=== PATIENT | female | born 1960 | race Hispanic/Latino ===

== ENCOUNTER 2025-05-22 00:46 | Emergency (ER) | payer OTHER ==
--- OUTSIDE RECORDS SUMMARY | 2025-05-22 01:24 | XMS REPORT | Continuity of Care Document ---
Author Name Unknown Address [address] [facility] [address] [place] [address] [facility] Address [address] [facility] [address] [place] [address] Care Team Providers Care Store Operations Specialist Name Role Phone Vincenzo London Primary Care Physician YANG LOVE NATASHA Attending Clinician Rain ilable [id number] Attending Clinician Unavailable CONCHA ROMERO Attending Clinician KARTHIK Gray Attending Clinician UnavailJASON Grimes Attending Clinician Unavailable BEN REMY Attending Clinician Unavailable GENEVIEVE CANSECO Attending Clinician Unavailable ZOILA QUINONES Attending Clinician Unavailable ZOILA QUINONES Attending Clinician Unavailable DEEJAY FARIAS Attending Clinician Unavailable DOC OLIVIA Attending Clinician UnavailSAM De Paz Attending Clinician UnavailDeejay Ward Attending Clinician +[phone] Tessa JACOB, Robert Hudson Attending Clinician +[phone] Heather Lord Attending Clinician + [phone] Vincenzo London Attending Clinician +[phone] VIRGILIO CARDENAS Attending Clinician Unavailable ADINA CHRISTIANSON Attending Clinician Unavailable NAUN TOMLINSON Attending Clinician Unavailable NAUN TOMLINSON Attending Clinician Unavailable Pob, Adc Lab Main Attending Clinician Unavailrenard Osorio MD, Jason Attending Clinician +- [phone] Cruzito JACOB, Luis Gonzalez Attending Clinician + [phone] Fabiana Vazquez MD Attending Clinician +[phone] HEATHER CÁRDENAS Attending Clinician Unavailable TYRESE BALDWIN Attending Clinician Unavailable Jarret JACOB, Marilou Booker Attending Clinici an Hadley JACOB, John Lombardo Attending Clinician + [phone] FABIANA VAZQUEZ Attending Clinician Unava Katerina Young RN Attending Clinician Unavailable Doctor Unassigned, Mendes Attending Clinician U katjaailMITCH Quiles Attending Clinician Unavailable MITCH GNOZALEZ Attending Clinician Unavailable Nurse, Transplant Attending Clinician Unavailrenard contreras Lab, Ang - Db Attending Clinician Unavailable Naun Tomlinson MD Attending Clinician + [phone] VINCENZO FELDER Attending Clinician Unavailable Zoila Quinones MD Attending Clinician [phone] Mitch Gonzalez MD Attending Clinician +[phone] JENSEN SORTO Attending Clinician Unavailable Jensen Sorto MD Attending Clinician +[phone] Mariangel Montelongo Attending Clinician Unavailable Kin Moya Attending Clinician Unava NICKIE Dave Attending Clinician Unavailable Nickie Samayoa NP Attending Clinician +[phone] MANNIE RITCHIE Attending Clinician Unavailable Mannie Koenig Attending Clinician +[phone] JERICA COLIN Attending Clinician Unavailable ROBERT SALEH Attending Clinician Unavailable ROBERT SALEH Attending Clinician Unavailable Genevieve Canseco MD Attending Clinician +[phone] Transplant, Kidney Medicine Attending Clinician Unavailable JOHN BUTCHER Attending Clinician Unavailab poole Vtc-Lab Attending Clinician Unavailable LUIS EAST Attending Clinician Unavaila balaji Daniel MD, Genet Hickman Attending Clinician + [phone] Lucia Riggins DO Attending Clinician +[phone] Ang OBANDO, Napoleon Irizarry Attending Clinician U Kaveh Palencia Attending Clinician Unavailable LUCIA RIGGINS Attending Clinician Unavailable LUCIA RIGGINS Attending Clinician Unavailable Sudhir JACOB, Doc K.HJustyna Attending Clinician + [phone] Deejay Middleton Attending Clinician +[phone] Emerita RESIDENTIAL HOUSEKEEPER, Vincenzo Attending Clinician [phone] TORRIE DANIEL Attending Clinician UnavailCLIF Vance Attending Clinician Unavailable CLIF FERNANDEZ Attending Clinician Unavailable Macario JACOB, Jensen Attending Clinician +[phone] Genevieve Canseco MD Attending Clinician +[phone] Doctor Unassigned, Mendes Attending Clinician U zahira Nurse, Clc Bls Gen Surgery Attending Clinician U zahira Butcher MD, John Lombardo Attending Clinician + [phone] Kalpana Goff Attending Clinician +[phone] KALPANA VAZQUEZ Attending Clinician Unavaila Luis Shine MD Attending Clinician +[phone] Pob, Adc Lab Main Attending Clinician Unavailrenard Vazquez MD, Fabiana Yuan Attending Clinician [phone] Grady JACOB, Jaylene Attending Clinician +[phone] JOANA GOETZ Attending Clinician Unavailable JOANA GOETZ Attending Clinician Unavailable Allegra Dubois MD Attending Clinician + [phone] ALLEGRA DUBOIS Attending Clinician Tristan June Attending Clinician Unavailable Rome PAC, Tristan Vincent Attending Clinician +[phone] Fredy JACOB, Torrie Attending Clinician +[phone] Vtc-Lab Attending Clinician Unavailable Pedro JACOB, Al Attending Clinician +[phone] BRADLEY KOHLER Attending Clinician UnavailBRADLEY Huffman Attending Clinician Unavailrenard Kohler MD, Bradley Rey Attending Clinician +[phone] ANYI THOMAS Attending Clinician Mitzy mckinley Nurse, Zak Db Attending Clinician Unavailable Lab, Ang - Db Attending Clinician Unavailable Zenon JACOB, Bhumi Attending Clinician +- [phone] Cory JACOB, Sam Arce Attending Clinician +- [phone] Melia NETTLES, Heather Gonzalez Attending Clinician +[phone] EM PEREZ Attending Clinician Unavailable Chris JACOB, Em Attending Clinician +[phone] Viet JACOB, Juliocesar Sarkar Attending Clinician +[phone] JULIOCESAR ALFARO Attending Clinician Unavaila balaji Shukla RN, Loli Yuan Attending Clinician Phillip Shea RN, Arsenio Gonzalez Attending Clinician Unavail able JASON BEARD Attending Clinician Phillip Chow MD, Earl Mckeon Attending Clinician +[phone] Jason Beard MD Attending Clinician + [phone] Devante Rothman MD Attending Clinician UnavailPATRICK Pritchett Attending Clinician Unavailable PATRICK HALE Attending Clinician Unavailable LENA SCHWARTZ Attending Clinician Unavailable Lena Maxwell Attending Clinician +[phone] JAYLENE RASMUSSEN Attending Clinician Unavailable Gisselle JACOB, Becky Hartmann Attending Clinician +[phone] Bryn Myers LVN Attending Clinician Phillip sullivan Exhibit Builder, Transplant Attending Clinician Phillip Daniel MD, Genet Hickman Attending Clinician Mitzy mckinley BABIN CDE, Colin Echols Attending Clinician Arnaldo Aguilar RN, Marialuisa Attending Clinician Unavailable RYAN WARNER Attending Clinician Unavailable Alana JACOB, Ryan Attending Clinician +[phone] THERON CARTER Attending Clinician Unavailable JULIANE WORLEY Attending Clinician Unavailable Meir JACOB, Juliane Attending Clinician +[phone] TAMIA JUDGE Attending Clinician Unavailable GENET DANIEL Attending Clinician DEVANTE Coelho Attending Clinician Unavailable DARON AVILA Attending Clinician Unavailable Darno Avila MD Attending Clinician [phone] ALISON MONTALVO Attending Clinician Unavaillisa Montalvo MD, Alison Gonzalez Attending Clinician + [phone] Nakul Lopez Attending Clinician +[phone] Singer ALMAGUER, Mohamud Attending Clinician +[phone] MOHAMUD GRACIA Attending Clinician Unavailable Jose Clay MD Attending Clinician +[phone] Nick JACOB, Concha Fierro Attending Clinician +[phone] RONAN DOBBS Attending Clinician Unavailable Morteza JACOB, Ronan Attending Clinician +[phone] DOREEN SMITH Attending Clinician Unavailable Guevara JACOB, Doreen Attending Clinician +[phone] Alek JACOB, Es Attending Clinician +[phone] Ben Remy MD Attending Clinician [phone] Bailey Mcfarlane DO Attending Clinician +[phone] Mikey Sanchez [facility], Laila Berger Attending Clinic noé Unavailable Rojelio Albright MD Attending Clinician [phone] Only, Adc Test Attending Clinician Unavailable GINNA REYES Attending Clinician Unavailable Eric CARABALLO, Ginna Attending Clinician +[phone] Sebastian CARABALLO, Michael Mcclure Attending Clinician [phone] Jason Dick MD Attending Clinician +[phone] Anne Ro MD Attending Clinician +[phone] Omer OBANDO, Rachel Meeks Attending Clinician Unavaila Jass Pimentel Attending Clinician + [phone] JASS STEVE Attending Clinician Unavailable Pati JACOB, Nish Berger Attending Clinician +[phone] [facility] Attendin g Clinician Unavailable Deon JACOB, Erin Attending Clinician +[phone] Tayo JACOB, Delvin Marino Attending Clinician + [phone] DELVIN RUIZ Attending Clinician Unavailable JOSE CLAY Attending Clinician Unavailable [facility] Attending Clinician Unavailable Jason Osorio MD Attending Clinician + [phone] JASON OSORIO Attending Clinician Unavailabl Jorge Luis Michaels MD Attending Clinician +[phone] JORGE LUIS HUSTON Attending Clinician Unavailable MICHAEL CORTES Attending Clinician Unavailab virgilio Lindquist MD, Karthik Attending Clinician +- [phone] STEPHENIE LOPEZ Attending Clinician Unavaila Valentine Guevara MD Attending Clinician +[phone] VALENTINE ROBERTS Attending Clinician Unavailable 1, [facility] Attending Clinician Unavailable Kelsey Chou MD Attending Clinician +[phone] KELSEY CHOU Attending Clinician Unavailable CHIO POLLARD Attending Clinician Unavaila ble Care, Rosa Adult Urgent Attending Clinician Unava ilable Unknown, Attending Attending Clinician Unavailab le UNKNOWN, ATTENDING Attending Clinician Unavailab le CHANG, HERMELINDA A Attending Clinician Unava ilJerry Pendleton MD Attending Clinician +[phone] Room, [facility] Uro Procedure Attending Clinician Unav ailJERRY Pendleton Attending Clinician Unavailable Carmen Armstrong LCSW Attending Clinician Unavailable John Seals MD Attending Clinician [phone] JOHN SEALS Attending Clinician Unavailable Nurse, [facility] Antico Attending Clinician Unavaillisa Sánchez MD, Adalid Brady Attending Clinician ADALID SÁNCHEZ Attending Clinician Mitzy mckinley Dawkins RN, Allison Berger Attending Clinician + [phone] Chang HART, Hermelinda A Attending Clinician + Bess JACOB, Eloisa Hudson Attending Clinician + [phone] Leon JACOB, Daniel Meeks Attending Clinician Audi Gallegos Attending Clinician Unavailable ANNE RO Attending Clinician Unavailab virgilio Vanegas MD, John Attending Clinician +[phone] BRANT LECHUGA Attending Clinician Unavail able Carmita JACOB, Gorge Attending Clinician +[phone] Libra OBANDO, Missy Attending Clinician +[phone] Leobardo JACOB, Tomy Shaw Attending Clinician + [phone] Brant Lechuga DO Attending Clinician +[phone] Julia JACOB, Raz Martel Attending Clinician + [phone] Clinton CARABALLO, Veronica Gonzalez Attending Clinician +[phone] Melvin JACOB, Estephania Attending Clinician +[phone] BECKY YUNG Attending Clinician Unavailable YANG LOVE YANG Admitting Clinician Unava ilable [phone] Admitting Clinician Unavailable CONCHA ROMERO Admitting Clinician UnavaKARTHIK Casillas Admitting Clinician UnavailJASON Grimes Admitting Clinician Unavailable BEN REMY Admitting Clinician Unavailable JENSEN SORTO Admitting Clinician Unavailable Lucia Riggins DO Admitting Clinician [phone] LUCIA RIGGINS Admitting Clinician Unavailable GENEVIEVE CANSECO Admitting Clinician Unavailable Genevieve Canseco MD Admitting Clinician +[phone] DOC OLIVIA.HJustyna Admitting Clinician Unavaila JASON Kinsey Admitting Clinician Phillip Beard MD, Jason Santiago Admitting Clinician + [phone] RYAN WARNER Admitting Clinician Unavailable Ryan Warner MD Admitting Clinician +[phone] JULIANE WORLEY Admitting Clinician Unavailable GENET DANIEL Admitting Clinician UnaES Alvarenga Admitting Clinician Unavailable Gaston MD, Es Admitting Clinician [phone] Cordelia JACOB, Jose Admitting Clinician Nick JACOB, Concha Fierro Admitting Clinician +[phone] Vinay JACOB, Karthik Admitting Clinician Mayelin JACOB, Jason Admitting Clinician Leon JACOB, Daniel Meeks Admitting Clinician JOHN VANEGAS Admitting Clinician Unavailable Guilherme JACOB, John Admitting Clinician BRANT LECHUGA Admitting Clinician Unavail jerzy Dumont MD, Raz Martel Admitting Clinician [phone] Melvin JACOB, Estephania Admitting Clinician EMERGENCY ROOM, EMERGENCY Admitting Clinician Un available Payers Payer Name Policy Type Policy Number Effective Date Expirati on Date Source [facility] [id number] MEDICARE PART A \\T\\ B [id number] 2015 00:00:00 [employer] H[employer] [id number] 2022 00:00:00 Problems Condition Name Condition Details Condition Category Status Onset Date Resolution Date Last Treatment Date Treating Clinician Comments Source Fecal urgency Fecal urgency Disease Active 09-01 00:00: 00 [facility] Change in bowel habits Change in bowel habits Disease Active 09-01 00:00: 00 [facility] Gastroesop hageal reflux disease, unspecifie d whether esophagiti s present Gastroesop hageal reflux disease, unspecifie d whether esophagiti s present Disease Active 09-01 00:00: 00 [facility] Dyslipidem ia Dyslipidem ia Disease Active 9-03 00:00: 00 [facility] Elevated blood pressure reading Elevated blood pressure reading Disease Active 8- 00:00: 00 [facility] Trigger finger, left middle finger Trigger finger, left middle finger Disease Active 2022-08 2- 00:00: 00 [facility] Mixed hyperlipid emia Mixed hyperlipid emia Disease Active 0 9-16 00:00: 00 [facility] Chronic rhinitis Chronic rhinitis Disease Active 7-07 00:00: 00 [facility] Stage 3 chronic kidney disease Stage 3 chronic kidney disease Disease Active 0 3-31 00:00: 00 [facility] Biliary cast syndrome Biliary cast syndrome Disease Active 5-18 00:00: 00 Overview: Formattin g of this note might be different from the original. Added automatic ally from request for surgery [id number] 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 Added automatic ally from request for surgery [id number] [facility] Acute kidney injury Acute kidney injury Disease Active 4-20 00:00: 00 [facility] Acute kidney injury Acute kidney injury Disease Active 4-20 00:00: 00 [facility] Transamini tis Transamini tis Disease Active 2019-08 0-23 00:00: 00 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 Added automatic ally from request for surgery [id number] [facility] Choledocho lithiasis Choledocho lithiasis Disease Active 9-25 00:00: 00 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 Incisional hernia, without obstructio n or gangrene Incisional hernia, without obstructio n or gangrene Disease Active 7-20 00:00: 00 [facility] Immunocomp romised state Immunocomp romised state Disease Active 6-22 00:00: 00 [facility] Liver transplant recipient Liver transplant recipient Disease Active 5-18 00:00: 00 [facility] Kidney transplant recipient Kidney transplant recipient Disease Active 517 00:00: 00 Overview: Formattin g of this note might be different from the original. Added automatic ally from request for surgery [id number] [facility] Cyst, kidney, acquired Cyst, kidney, acquired Disease Active 2018-08- 00:00: 00 [facility] Pseudophak ia of both eyes Pseudophak ia of both eyes Disease Active 2018-08 0 00:00: 00 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 Added automatic ally from request for surgery [id number] [facility] Obesity (BMI 30-39.9) Obesity (BMI 30-39.9) Disease Active 2016-08 2 00:00: 00 [facility] Type 2 diabetes mellitus with hyperglyce elizabeth, with long-term current use of insulin Type 2 diabetes mellitus with hyperglyce elizabeth, with long-term current use of insulin Disease Active 2008-08 00:00: 00 Overview: Formattin g of this note might be different from the original. 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 Type 2 diabetes mellitus with hyperglyce elizabeth, with long-term current use of insulin Type 2 diabetes mellitus with hyperglyce elizabeth, with long-term current use of insulin Disease Active 2008-08 00:00: 00 Overview: Formattin g of this note might be different from the original. 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 Type 2 diabetes mellitus with hyperglyce elizabeth, with long-term current use of insulin Type 2 diabetes mellitus with hyperglyce elizabeth, with long-term current use of insulin Disease Active 2008-08 00:00: 00 Overview: Formattin g of this note might be different from the original. 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 Essential hypertensi on Essential hypertensi on Disease Active [facility] Ventral hernia without obstructio n or gangrene Ventral hernia without obstructio n or gangrene Disease Resolve d 3-26 00:00: 00 2024-03-17 00:00:00 2024-03-17 12:38:57 [facility] Vomiting, unspecifie d vomiting type, unspecifie d whether nausea present Vomiting, unspecifie d vomiting type, unspecifie d whether nausea present Disease Resolve d 5-28 00:00: 00 2024-03-17 00:00:00 2024-03-17 12:38:52 [facility] Multiple persistent symptoms after COVID-19 Multiple persistent symptoms after COVID-19 Disease Resolve d 3-08 00:00: 00 2024-03-17 00:00:00 2024-03-17 12:38:47 [facility] Upper respirator y tract infection, unspecifie d type Upper respirator y tract infection, unspecifie d type Disease Resolve d 3-08 00:00: 00 2024-03-17 00:00:00 2024-03-17 12:38:48 [facility] Acute conjunctiv itis of both eyes, unspecifie d acute conjunctiv itis type Acute conjunctiv itis of both eyes, unspecifie d acute conjunctiv itis type Disease Resolve d 3-08 00:00: 00 2024-03-17 00:00:00 2024-03-17 12:38:49 [facility] Acute conjunctiv itis of both eyes, unspecifie d acute conjunctiv itis type Acute conjunctiv itis of both eyes, unspecifie d acute conjunctiv itis type Disease Resolve d 3-08 00:00: 00 2024-03-17 00:00:00 2024-03-17 12:38:49 [facility] Vomiting, intractabi lity of vomiting not specified, presence of nausea not specified, unspecifie d vomiting type Vomiting, intractabi lity of vomiting not specified, presence of nausea not specified, unspecifie d vomiting type Disease Resolve d 8-02 00:00: 00 2024-03-17 00:00:00 2024-03-17 12:38:46 [facility] Abdominal pain Abdominal pain Disease Resolve d 2-12 00:00: 00 2024-03-17 00:00:00 2024-03-17 12:38:44 [facility] Fever and chills Fever and chills Disease Resolve d 2020-08 1-16 00:00: 00 2024-03-17 00:00:00 2024-03-17 12:38:43 [facility] Immunosupp ressed status Immunosupp ressed status Disease Resolve d 5-26 00:00: 00 2024-03-17 00:00:00 2024-03-17 12:39:03 [facility] Altered mental status, unspecifie d altered mental status type Altered mental status, unspecifie d altered mental status type Disease Resolve d 2-03 00:00: 00 2024-03-17 00:00:00 2024-03-17 12:39:07 Overview: Formattin g of this note might be different from the original. Added automatic ally from request for surgery [id number] [facility] Pancreatit is, acute Pancreatit is, acute Disease Resolve d 4-14 00:00: 00 2024-03-17 00:00:00 2024-03-17 12:38:37 [facility] UTI (urinary tract infection) UTI (urinary tract infection) Disease Resolve d 7-20 00:00: 00 2020-02-21 00:00:00 2020-02-21 14:58:09 [facility] Nausea and vomiting Nausea and vomiting Disease Resolve d 6-26 00:00: 00 2020-02-15 00:00:00 2020-02-15 12:22:06 [facility] Liver transplant candidate Liver transplant candidate Disease Resolve d 0 4-19 00:00: 00 2019-12-28 00:00:00 2019-12-28 08:40:21 [facility] Anticoagul ation management encounter Anticoagul ation management encounter Disease Resolve d 2-12 00:00: 00 2019-12-28 00:00:00 2019-12-28 08:41:02 [facility] Portal vein thrombosis Portal vein thrombosis Disease Resolve d 2-12 00:00: 00 2019-12-28 00:00:00 2019-12-28 08:41:05 [facility] Cirrhosis of liver without ascites, unspecifie d hepatic cirrhosis type Cirrhosis of liver without ascites, unspecifie d hepatic cirrhosis type Disease Resolve d 2-03 00:00: 00 2019-12-28 00:00:00 2019-12-28 08:40:59 [facility] ESRD on peritoneal dialysis ESRD on peritoneal dialysis Disease Resolve d 9-05 00:00: 00 2019-12-28 00:00:00 2019-12-28 08:40:55 [facility] Cirrhosis Cirrhosis Disease Resolve d 2008-08 1-11 00:00: 00 2019-12-28 00:00:00 2019-12-28 08:40:52 [facility] AMS (altered mental status) AMS (altered mental status) Disease Resolve d 1-14 00:00: 00 2019-09-09 00:00:00 2019-09-09 14:38:14 [facility] Altered mental state Altered mental state Disease Resolve d 1-13 00:00: 00 2019-09-09 00:00:00 2019-09-09 14:39:04 [facility] Dry eye syndrome Dry eye syndrome Disease Resolve d 2018-08 0-01 00:00: 00 2019-09-09 00:00:00 2019-09-09 14:39:00 [facility] Hypoglycem ia Hypoglycem ia Disease Resolve d 9-06 00:00: 00 2019-09-09 00:00:00 2019-09-09 14:38:56 [facility] Hyperosmol ality syndrome Hyperosmol ality syndrome Disease Resolve d 1-07 00:00: 00 2019-09-09 00:00:00 2019-09-09 14:39:18 [facility] Hepatic encephalop athy Hepatic encephalop athy Disease Resolve d 2016- 2-23 00:00: 00 2019-09-09 00:00:00 2019-09-09 14:39:32 [facility] Allergies, Adverse Reactions, Alerts Allergy Name Allergy Type Status Severity Reaction(s) Onset Date Inactive Date Treating Clinician Comments Source FLUDROCO RTISONE DRUG INGREDI Active N/V 04-06 00:00: 00 [facility] MIDODRIN E DRUG INGREDI Active Other-Cmnt 04-06 00:00: 00 [facility] Fludroco rtisone Propensi ty to adverse reaction s Active Nausea and/or Vomiting 04-06 00:00: [address] [facility] Midodrin e Propensi ty to adverse reaction s Active Other - See comments 04-06 00:00: 00 Pain, pins and needles sensation [facility] ACETAMIN OPHEN-CO DEINE DRUG Active High Hallucinates 02-19 00:00: 00 [facility] Acetamin ophen-Co deine Propensi ty to adverse reaction s Active Hallucinatio ns 02-19 00:00: 00 [facility] Family History Family Member Diagnosis Comments Start Date Stop Date Sourc e Natural father Unive [facility] Natural mother [facility] Social History Social Habit Start Date Stop Date Quantity Comments Source History SDOH Alcohol Std Drinks [facility] History SDOH Alcohol Binge [facility] History SDOH Social Connections Get Together [facility] History SDOH Social Connections Sabianism [facility] History SDOH Social Connections Membership [facility] History SDOH Social Connections Meetings [facility] Gender identity [facility] Not [facility] History of Occupation [facility] Alcoholic beverage intake 2025-05-20 00:00:00 2025-05-20 00:00:00 Ex-drinker (finding) [facility] History of Social function 2024-12-01 00:00:00 2024-12-01 00:00:00 [facility] Alcohol intake 2023-12-04 00:00:00 2023-12-04 00:00:00 Ex-drinker (finding) [facility] History SDOH Alcohol Frequency 2022-12-31 00:00:00 2022-12-31 00:00:00 1 [facility] History SDOH Social Connections Phone 2022-12-31 00:00:00 2022-12-31 00:00:00 5 [facility] History SDOH Social Connections Living 2022-12-31 00:00:00 2022-12-31 00:00:00 5 [facility] History SDOH Physical Activity DPW 2022-12-31 00:00:00 2022-12-31 00:00:00 5 [facility] History SDOH Physical Activity MPS 2022-12-31 00:00:00 2022-12-31 00:00:00 3 [facility] History SDOH Housing Unable to Pay 2022-12-31 00:00:00 2022-12-31 00:00:00 2 [facility] History SDOH Housing Places Lived 2022-12-31 00:00:00 2022-12-31 00:00:00 1 [facility] History SDOH Housing Homeless Last Year 2022-12-31 00:00:00 2022-12-31 00:00:00 2 [facility] History SDOH Financial 2022-12-31 00:00:00 2022-12-31 00:00:00 5 [facility] History SDOH Food Worry 2022-12-31 00:00:00 2022-12-31 00:00:00 1 [facility] History SDOH Food Scarcity 2022-12-31 00:00:00 2022-12-31 00:00:00 1 [facility] History SDOH Transport Med 2022-12-31 00:00:00 2022-12-31 00:00:00 2 [facility] History SDOH Transport Non-Med 2022-12-31 00:00:00 2022-12-31 00:00:00 2 [facility] Exposure to SARS-CoV-2 (event) 2022-12-19 00:00:00 2022-12-29 16:25:00 Not sure [facility] Tobacco use and exposure 2022-08-13 00:00:00 2022-08-13 00:00:00 Smokeless tobacco non-user [facility] Sex assigned at 1960 00:00:00 1960 00:00:00 [facility] Smoking Status Start Date Stop Date Source Never smoked tobacco [facility] Medications Ordered Medication Name Filled Medication Name Start Date Stop Date Current Medication? Ordering Clinician Indication Dosage Frequency Signature (SIG) Comments Components Source Insulin Glargine (LANTUS SOLOSTAR U-100 INSULIN) 100 unit/mL (3 mL) injection 2024-08 00:00: 00 Yes [id number] 9109 10U Inject 10 units under the skin at bedtime. (DISCARD PEN 28 DAYS AFTER OPENING) [facility] Insulin [place], Disposable, (BD KARI 2ND GEN PEN NEEDLE) 32 gauge x 5/32" Ndle 2024-08 00:00: 00 05-20 00:00 :00 Yes [id number] 9109 Use to check blood sugar four times daily for dx e11.95 [facility] Blood-Gluco se Sensor (FREESTYLE TRICIA 3 PLUS SENSOR) [place] 2024-08 00:00: 00 05-20 00:00 :00 Yes [id number] 9109 Change every [address] [facility] insulin aspart U-100 (NOVOLOG FLEXPEN U-100 INSULIN) 100 unit/mL (3 mL) injection 2024-08 00:00: 00 05-20 00:00 :00 Yes [id number] 9109 If BG is 150 -180, take an additional 2 units with normal 5 units If BG is 180 -210, take an additional 4 units with normal 5 units If BG is 210 -240, take an additional 6 units with normal 5 units If BG is 240 -270, take an additional 8 units with normal 5 units If BG is 270 -300, take an additional 10 units with normal 5 units If BG is 300 -330, take an additional 12 units with normal 5 units If BG is 330 -360, take an additional 14 units with normal 5 units If BG is higher than 360, take an additional 16 units with normal 5 units. And check you BG again in 2 hours to see where you are. MAX DAILY DOSE [address] [facility] PREDNISONE 5 mg tablet 2024-08 0 00:00: 00 Yes [id number] 5mg TAKE 1 TABLET BY MOUTH IN THE MORNING [facility] predniSONE 5 mg tablet 05-02 00:00: 00 05-10 00:00 :00 No [id number] 5mg TAKE 1 TABLET BY MOUTH IN THE MORNING [facility] Blood-Gluco se Sensor (FREESTYLE TRICIA 3 PLUS SENSOR) [place] 04-30 00:00: 00 05-20 00:00 :00 No Change every [address] [facility] cephALEXin 500 mg capsule 04-27 00:00: 05-08 04:59 :00 Yes [id number] 500mg Take 1 capsule by mouth 4 times daily for [address] [facility] PREDNISONE 5 mg tablet 04-11 00:00: 00 Yes [id number] 5mg TAKE 1 TABLET BY MOUTH IN THE MORNING [facility] cefUROXime 250 mg tablet 02-24 00:00: 03-04 04:59 :00 Yes [id number] 250mg Take 1 tablet by mouth in the morning for [address] [facility] gabapentin 300 mg capsule 02-08 00:00: 00 Yes [id number] 300mg Take 1 capsule by mouth in the morning. [facility] Nitrofurant oin&Nit. Macrocryst (MACROBID) 100 mg capsule 02-08 00:00: 00 02-24 00:00 :00 No [id number] 100mg Take 1 capsule by mouth in the morning and 1 capsule in the evening. [facility] MYCOPHENOLA TE SODIUM 180 mg EC tablet 01-24 00:00: 00 Yes [id number] TAKE 2 TABLETS EVERY MORNING AND 2 TABLETS [address]. [facility] Blood-Gluco se Sensor (FREESTYLE TRICIA 3 PLUS SENSOR) [place] 01-10 00:00: 00 04-30 00:00 :00 No USE DIRECTED - REPLACE EVERY [address] [facility] Blood-Gluco se Sensor (FREESTYLE TRICIA 3 PLUS SENSOR) [place] 5-12 00:00: 00 01-10 00:00 :00 No USE DIRECTED; REPLACE EVERY [address] [facility] erythromyci n 5 mg/gram (0.5 %) ophthalmic ointment 4-30 00:00: 00 Yes [id number] 38750 .5[in_u s] Place 0.5 Inches in both eyes in the morning and 0.5 Inches in the evening. [facility] sulfamethox azole-trime thoprim (BACTRIM DS) 800-160 mg per tablet 11-29 00:00: 00 12-03 04:59 :00 No [id number] 1{tbl} Take 1 tablet by mouth in the morning and 1 tablet in the evening. Do all this for [address] [facility] tacrolimus 0.5 mg capsule 11-24 00:00: 00 Yes [id number] Take 2 capsules by mouth every morning AND [address] [facility] montelukast 10 mg tablet 3-24 00:00: 00 Yes [id number] 10mg Take 1 tablet by mouth in the morning. [facility] metoprolol succinate XL 25 mg 24 hr tablet 3-20 00:00: 00 Yes [id number] 9109 25mg Take 1 tablet by mouth in the morning. [facility] cefTRIAXone (ROCEPHIN) 1,000 mg in water for injection, sterile 10 mL IV Push 09-12 22:30: 00 09-12 22:37 :00 No 1000mg 1,000 mg, Intravenou s, ONCE, 1 dose, On Fri09/12/24 at 1630, 10 mL, Reason for Anti-Infec tive: Documented Infection, Documented Infection Site: Urine, Duration of Therapy: Once (ED) [facility] sodium chloride (NS) injection 5 mL 09-12 20:42: 14 Yes 5mL 5 mL, Intravenou s, PRN, Starting on Fri09/12/24 at 1442, Until Discontinu ed, Routine, IV line flushing [facility] cefpodoxime 200 mg tablet 09-12 00:00: 00 09-23 05:59 :00 No [id number] 200mg Take 1 tablet by mouth in the morning and 1 tablet in the evening. Do all this for [address] [facility] oseltamivir (TAMIFLU) 75 mg capsule 09-12 00:00: 00 09-18 05:59 :00 No [id number] 75mg Take 1 capsule by mouth in the morning for [address] [facility] Blood-Gluco se Sensor (FREESTYLE TRICIA 3 PLUS SENSOR) [place] 08-13 00:00: 00 Yes Use as directed; change q15d [facility] insulin aspart U-100 (NOVOLOG FLEXPEN U-100 INSULIN) 100 unit/mL (3 mL) injection 08-13 00:00: 00 05-20 00:00 :00 No [id number] 9109 USE DIRECTED BY YOUR PRESCRIBER . COMPLETE DIRECTIONS ARE INCLUDED IN A LETTER WITH YOUR ORIGINAL ORDER [facility] Blood-Gluco se Sensor (FREESTYLE TRICIA 3 PLUS SENSOR) [place] 08-13 00:00: 00 12-13 00:00 :00 No Use as directed; change q15d [facility] levoFLOXaci n 500 mg tablet 08-12 00:00: 00 10-25 00:00 :00 No [id number] 500mg Take 1 tablet by mouth every 24 (twenty-fo ur) hours. [facility] Insulin Glargine (LANTUS SOLOSTAR U-100 INSULIN) 100 unit/mL (3 mL) injection 08-06 00:00: 00 05-20 00:00 :00 No [id number] 9109 10U inject 10 Units under the skin at bedtime. (DISCARD PEN 28 DAYS AFTER OPENING) [facility] benzonatate 100 mg capsule 08-06 00:00: 00 10-25 00:00 :00 No [id number] 100mg Take 1 capsule by mouth every 8 (eight) hours as needed for Cough. [facility] azelastine 137 mcg (0.1 %) nasal spray 08-06 00:00: 00 10-25 00:00 :00 No [id number] 1{spray } Use 1 [place] in each nostril in the morning and 1 [place] in the evening. Use in each nostril as directed [facility] TACROLIMUS 0.5 mg capsule 2023-08 00:00: 00 11-24 00:00 :00 No [id number] TAKE 1 CAPSULE EVERY 12 HOURS FOR KIDNEY TRANSPLANT , LIVER TRANSPLANT [facility] lidocaine (XYLOCAINE) 2 % jelly URO-JET 10 mL 2023-08 22:30: 00 07-23 22:23 :00 No [id number] 10mL 10 mL, Urethral, ONCE, 1 dose, On Fri07/23/24 at 1630, Routine [facility] sulfamethox azole-trime thoprim 800-160 mg per tablet 2023-08 00:00: 00 07-23 05:59 :00 No [id number] 1{tbl} Take 1 tablet by mouth in the morning and 1 tablet in the evening. Do all this for [address] [facility] montelukast 10 mg tablet 2023-08 00:00: 00 10-25 00:00 :00 No [id number] 10mg Take 1 tablet by mouth in the morning. [facility] gabapentin 300 mg capsule 2023-08 00:00: 00 02-08 00:00 :00 No [id number] 300mg Take 1 capsule by mouth in the morning. [facility] pantoprazol e 40 mg EC tablet 2023-08 00:00: 00 09-12 00:00 :00 No [id number] 40mg Take 1 tablet by mouth every morning. [facility] cephALEXin 500 mg capsule 2023-08- 00:00: 00 06-24 05:59 :00 No [id number] 500mg Take 1 capsule by mouth in the morning and 1 capsule at noon and 1 capsule in the evening. Do all this for [address] [facility] promethazin e-dextromet horphan 6.25-15 mg/5 mL syrup 2023-08 00:00: 00 07-05 00:00 :00 No [id number] 5mL Take 5 mL by mouth 4 (four) times daily as needed for Cough. [facility] promethazin e-dextromet horphan 6.25-15 mg/5 mL syrup 2023-08 00:00: 00 06-14 00:00 :00 No [id number] 5mL Take 5 mL by mouth 4 (four) times daily as needed for Cough. [facility] Blood-Gluco se Sensor (FREESTYLE TRICIA 3 PLUS SENSOR) [place] 2023-08 00:00: 00 08-13 00:00 :00 No Use as directed; change q15d [facility] Blood-Gluco se Sensor (FREESTYLE TRICIA 3 PLUS SENSOR) [place] 2023-08 0 00:00: 00 06-01 00:00 :00 No Use as directed; change q15d [facility] Blood-Gluco se Sensor (FREESTYLE TRICIA 3 SENSOR) 2023-08 0-17 00:00: 00 05-26 00:00 :00 No [id number] [address] [facility] ciprofloxac in HCl (CIPRO) 250 mg tablet 05-03 00:00: 00 05-14 04:59 :00 No [id number] 250mg Take 1 tablet by mouth every 12 (twelve) hours for [address] [facility] BD KARI 2ND GEN PEN NEEDLE 32 gauge x 5/32" Ndle 24 00:00: 00 Yes [id number] 9109 USE TO INJECT INSULIN FIVE TIMES DAILY [facility] BD KARI 2ND GEN PEN NEEDLE 32 gauge x 5/32" Ndle 24 00:00: 05-20 00:00 :00 No [id number] 9109 USE TO INJECT INSULIN FIVE TIMES DAILY [facility] acyclovir 400 mg tablet 04-19 00:00: 00 04-27 04:59 :00 No [id number] 400mg Take 1 tablet by mouth in the morning and 1 tablet at noon and 1 tablet in the evening. Do all this for [address] [facility] insulin aspart U-100 (NOVOLOG FLEXPEN U-100 INSULIN) 100 unit/mL (3 mL) injection 04-06 00:00: 00 08-13 00:00 :00 No [id number] 9109 INJECT 3 UNITS IN MORNING, AT NOON, IN EVENING BEFORE MEALS PLUS SLIDING SCALE. MAX 45 UNITS/DAY. PEN EXPIRES 28 DAYS. For Aspart: Give half dose if patient eats less than half meal OR if blood glucose 80 - 120 mg/dL, HOLD DOSE if NPO or BG < [address] [facility] Insulin Glargine (LANTUS SOLOSTAR U-100 INSULIN) 100 unit/mL (3 mL) injection 04-06 00:00: 00 08-06 00:00 :00 No [id number] 9109 10U inject 10 Units under the skin every morning. (DISCARD PEN 28 DAYS AFTER OPENING) [facility] mycophenola te sodium 180 mg EC tablet 03-31 00:00: 00 01-24 00:00 :00 No [id number] Take 2 tablets by mouth every morning AND [address] [facility] predniSONE 5 mg tablet 03-29 00:00: 00 04-11 00:00 :00 No [id number] 5mg Take 1 tablet by mouth in the morning. [facility] predniSONE 20 mg tablet 03-29 00:00: 00 04-17 04:59 :00 No [id number] Take 4 tablets by mouth daily for 3 days, THEN 3 tablets daily for 3 days, THEN 2 tablets daily for 3 days, THEN 1 tablet daily for 3 days, THEN 1 tablet daily for 3 days, THEN 0.5 tablets daily for [address] [facility] mycophenola te sodium 180 mg EC tablet 03-29 00:00: 00 03-31 00:00 :00 No [id number] Take 2 tablets by mouth every morning AND [address] [facility] metoprolol succinate XL 25 mg 24 hr tablet 03-25 00:00: 00 Yes [id number] 25mg Take 1 tablet by mouth in the morning. [facility] pantoprazol e (PROTONIX) EC tablet 40 mg 03-20 14:00: 00 03-20 22:01 :55 No 40mg 40 mg, Oral, QAM, First dose on 03/20/24 at 0900, Until Discontinu ed, Routine [facility] mycophenola te sodium (MYFORTIC) EC tablet 360 mg 03-20 14:00: 00 03-20 22:01 :55 No 360mg [Order 1 Start] Name: mycophenol ate sodium (MYFORTIC) EC tablet 360 mg Signed Summary: 360 mg, Oral, QAM, First dose on 03/20/24 at 0900, Until Discontinu ed, Routine, Is patient of reproducti ve potential? No [Order 1 End] [Order 2 Start] Name: mycophenol ate sodium (MYFORTIC) EC tablet 180 mg Signed Summary: 180 mg, Oral, QPM, First dose on Fri03/19/24 at 1700, Until Discontinu ed, Routine, Is patient of reproducti ve potential? No [Order 2 End] [facility] metoprolol succinate XL (TOPROL XL) tablet 25 mg 03-20 14:00: 00 03-20 22:01 :55 No 25mg 25 mg, Oral, DAILY, First dose on 03/20/24 at 0900, Until Discontinu ed, Routine [facility] insulin glargine (LANTUS U-100) injection 10 Units 03-20 14:00: 00 03-20 22:01 :55 No 10U 10 Units, Subcutaneo us, DAILY, First dose on 03/20/24 at 0900, Until Discontinu ed [facility] gabapentin (NEURONTIN) capsule 300 mg 03-20 14:00: 00 03-20 22:01 :[address] [facility] heparin (porcine) injection 5,000 Units 03-20 01:00: 00 03-20 22:01 :55 No 5000U 5,000 Units, Subcutaneo us, Q12H, First dose on Fri03/19/24 at 1999, Until Discontinu ed, Routine 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 insulin lispro (human) (HumaLOG U-100) injection 3 Units 03-19 22:00: 00 03-20 22:01 :55 No 3U 3 Units, Subcutaneo us, TID MEALS, First dose on Fri03/19/24 at 1700, Until Discontinu ed, Routine [facility] ondansetron (ZOFRAN (PF)) injection 4 mg 03-19 21:45: 00 03-19 21:49 :00 No 4mg 4 mg, Slow IV Push, ONCE, On Fri03/19/24 at 1645, For 1 dose, Doses of ondansetro n 16 mg and above need to be administer ed via IV piggyback. For Dose >=24mg ECG monitoring is advisable. [facility] glucagon HCL injection 1 mg 03-19 20:55: 11 03-20 22:01 :55 No 1mg 1 mg, Intramuscu lar, PRN, Starting on Fri03/19/24 at 1555, Until Fri03/20/24 at 1701, MARÍA, Low blood sugar, Blood Glucose < or = 70 mg/dL and patient is NPO, unable to swallow or has mental changes. [facility] dextrose 50 % in water (D50W) injection 25 mL 03-19 20:55: 11 03-20 22:01 :55 No 25mL 25 mL, Slow IV Push, PRN, Starting on Fri03/19/24 at 1555, Until 03/20/24 at 1701, MARÍA, Blood Glucose < or = 70 mg/dL and patient is NPO, unable to swallow or has mental status changes. [facility] acetaminoph en (TYLENOL) tablet 650 mg 03-19 20:51: 08 03-20 22:01 :55 No 650mg 650 mg, Oral, Q6HPRN, Starting on Fri03/19/24 at 1551, Until 03/20/24 at 1701, Routine, Pain (scale 1-3) [facility] ondansetron (ZOFRAN (PF)) injection 03-19 18:00: 46 03-19 18:00 :46 No PRN, Starting on Fri03/19/24 at 1300, Until Fri03/19/24 at 1300, Routine, Intra-op [facility] ondansetron (ZOFRAN (PF)) injection 03-19 17:05: 25 03-19 17:05 :25 No Slow IV Push, PRN, Starting on Fri03/19/24 at 1205, Until Fri03/19/24 at 1205, Routine, Intra-op [facility] lidocaine 1% (PF) (XYLOCAINE) injection 03-19 16:48: 50 03-19 16:48 :50 No PRN, Starting on Fri03/19/24 at 1148, Until Fri03/19/24 at 1148, Routine, Intra-op [facility] hydralAZINE (APRESOLINE ) injection 03-19 16:26: 41 03-19 17:05 :00 No PRN, Starting on Fri03/19/24 at 1126, Until Fri03/19/24 at 1205, STAT, Intra-op [facility] fentanyl PF (SUBLIMAZE (PF)) injection 03-19 16:18: 47 03-19 16:18 :47 No Slow IV Push, PRN, Starting on Fri03/19/24 at 1118, Until Fri03/19/24 at 1118, Routine, Intra-op [facility] mycophenola te sodium 180 mg EC tablet 03-12 00:00: 00 03-29 00:00 :00 No Take 2 tablets by mouth every morning AND [address] [facility] mycophenola te sodium 180 mg EC tablet 03-11 00:00: 00 03-12 00:00 :00 No Take 2 tablets by mouth every morning AND [address] [facility] Blood-Gluco se Sensor (FREESTYLE TRICIA 3 SENSOR) [place] 02-26 00:00: 00 05-20 00:00 :00 No [id number] 9109 CHANGE SENSOR EVERY 14 DAYS (EVERY 2 WEEKS) DIRECTED [facility] ciprofloxac in HCl 500 mg tablet 02-19 00:00: 00 03-11 00:00 :00 No [id number] 500mg Take 1 tablet by mouth in the morning. [facility] cephALEXin 500 mg capsule 02-16 00:00: 00 02-19 00:00 :00 No [id number] 500mg Take 1 capsule by mouth in the morning and 1 capsule in the evening. [facility] D-MANNOSE ORAL 02-03 00:00: 00 Yes 1{tbl} Take 1 tablet by mouth in the morning and 1 tablet in the evening. Take with meals. [facility] metoprolol succinate XL (TOPROL XL) tablet 25 mg 01-09 14:00: 00 01-09 19:26 :56 No 25mg 25 mg, Oral, DAILY, First dose on Fri01/10/24 at 0900, Until Discontinu ed, Routine [facility] multivitami n tablet 01-09 14:00: 00 01-09 19:26 :56 No 1{tbl} 1 tablet, Oral, DAILY, First dose on 01/10/24 at 0900, Until Discontinu ed, Routine [facility] pantoprazol e (PROTONIX) EC tablet 40 mg 01-09 14:00: 00 01-09 19:26 :56 No 40mg 40 mg, Oral, DAILY, First dose on 01/10/24 at 0900, Until Discontinu ed, Routine, Indication for use: None of the above [facility] dextrose 50 % in water (D50W) injection 50 mL 01-09 13:15: 00 01-09 13:09 :00 No 50mL 50 mL, Slow IV Push, ONCE, 1 dose, On 01/10/24 at 0815, Routine [facility] heparin (porcine) injection 5,000 Units 01-09 13:00: 00 01-09 19:26 :56 No 5000U 5,000 Units, Subcutaneo us, Q12H, First dose on 01/10/24 at 0800, Until Discontinu ed, Routine [facility] insulin regular human (HUMULIN R) injection 10 Units 01-09 12:30: 00 01-09 13:08 :00 No 10U 10 Units, Slow IV Push, ONCE, 1 dose, On 01/10/24 at 0730, Routine, Indication for insulin: Hyperglyce elizabeth [facility] multivitami n tablet 01-09 12:26: 54 Yes 1{tbl} Take 1 tablet by mouth in the morning. [facility] gabapentin (NEURONTIN) capsule 300 mg 01-09 02:45: 00 01-09 02:29 :00 No 300mg 300 mg, Oral, ONCE, 1 dose, On Fri01/09/24 at 2145, Routine 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 mycophenola te sodium (MYFORTIC) EC tablet 180 mg 01-09 01:00: 00 01-09 19:26 :56 No 180mg 180 mg, Oral, Q12H, First dose on Fri01/09/24 at 1999, Until Discontinu ed, Routine, Is patient of reproducti ve potential? No [facility] Magnesium Oxide-Mg AA Chelate (MG-PLUS-MO OTEIN) 133 mg tablet 266 mg 01-09 01:00: 00 01-09 19:26 :56 No 266mg 266 mg, Oral, BID, First dose on Fri01/09/24 at 1999, Until Discontinu ed, Routine [facility] methocarbam oL 500 mg tablet 01-09 00:00: 00 01-17 04:59 :00 No [id number] 500mg Take 1 tablet by mouth 4 (four) times daily for [address] [facility] HYDROcodone -acetaminop hen 5-325 mg tablet 01-09 00:00: 00 01-17 04:59 :00 No [id number] 1{tbl} Take 1 tablet by mouth every 6 (six) hours as needed for Pain (scale 4-6) (Breathrou gh pain) for up to 7 days. Indication s: acute pain [facility] Sliding Scale Insulin - Lispro (HumaLOG) 01-08 22:00: 00 01-09 19:26 :56 No Subcutaneo us, TID MEALS+HS, First dose on Fri01/09/24 at 1700, Until Discontinu ed, Routine [facility] methocarbam oL (ROBAXIN) tablet 500 mg 01-08 21:00: 00 01-09 19:26 :56 No 500mg 500 mg, Oral, QID, First dose on Fri01/09/24 at 1600, Until Discontinu ed, Routine [facility] acetaminoph en (TYLENOL) tablet 650 mg 01-08 19:00: 00 01-09 19:26 :56 No 650mg 650 mg, Oral, Q6H ABX, First dose on Fri01/09/24 at 1400, Until Discontinu ed, Routine [facility] lactated ringers IV infusion 1,000 mL 01-08 18:00: 00 01-09 19:26 :56 No 1000mL at 75 mL/hr, 1,000 mL, IV Infusion, CONTINUOUS , Starting on Fri01/09/24 at 1300, Until 01/10/24 at 1426, Routine [facility] glucagon (GLUCAGEN DIAGNOSTIC KIT) injection 1 mg 01-08 17:47: 19 01-09 19:26 :56 No 1mg 1 mg, Intramuscu lar, PRN, Starting on Fri01/09/24 at 1247, Until 01/10/24 at 1426, MARÍA, Blood Glucose < or = 70 mg/dL and patient is NPO, unable to swallow or has mental changes. [facility] dextrose 50 % in water (D50W) injection 25 mL 01-08 17:47: 19 01-09 19:26 :56 No 25mL 25 mL, Slow IV Push, PRN, Starting on Fri01/09/24 at 1247, Until 01/10/24 at 1426, MARÍA, Blood Glucose < or = 70 mg/dL and patient is NPO, unable to swallow or has mental status changes. [facility] ondansetron (ZOFRAN (PF)) injection 4 mg 01-08 17:46: 32 01-08 21:03 :00 No 4mg 4 mg, Slow IV Push, PRN, 1 dose, Starting on Fri01/09/24 at 1246, Until Fri01/09/24 at 1603, Routine, Nausea and Vomiting (N/V), PACU [facility] ondansetron (ZOFRAN (PF)) injection 4 mg 01-08 17:44: 45 01-09 19:26 :56 No 4mg 4 mg, Slow IV Push, Q6HPRN, Starting on Fri01/09/24 at 1244, Until 01/10/24 at 1426, Routine, Nausea and Vomiting (N/V) [facility] morpHINE (2 mg/mL) injection 4 mg 01-08 17:44: 42 01-09 19:26 :56 No 4mg 4 mg, Slow IV Push, Q4HPRN, Starting on Fri01/09/24 at 1244, Until 01/10/24 at 1426, Routine, Pain (scale 7-10), Pain unrelieved by scheduled analgesics [facility] HYDROcodone -acetaminop hen (NORCO 5) 5-325 mg tablet 1 tablet 01-08 17:44: 28 01-09 19:26 :56 No 1{tbl} 1 tablet, Oral, Q6HPRN, Starting on Fri01/09/24 at 1244, Until 01/10/24 at 1426, Routine, Pain (scale 4-6) [facility] bupivacaine (preserv free) (SENSORCAIN E MPF) 0.25 % (2.5 mg/mL) injection 01-08 16:31: 00 01-08 17:53 :09 No PRN, Starting on Fri01/09/24 at 1131, Until Fri01/09/24 at 1253, Routine, Intra-op [facility] gabapentin 300 mg capsule 12-18 00:00: 00 07-05 00:00 :00 No [id number] 300mg Take 1 capsule by mouth in the morning. [facility] estradioL 0.01 % (0.1 mg/gram) vaginal cream 12-17 00:00: 00 Yes [id number] Apply 1g vaginally at bedtime every night for 2 weeks and then apply 1g vaginally at bedtime [address] [facility] sulfamethox azole-trime thoprim (BACTRIM DS) 800-160 mg per tablet 12-17 00:00: 00 12-23 04:59 :00 No [id number] 1{tbl} Take 1 tablet by mouth in the morning and 1 tablet in the evening. Do all this for [address] [facility] insulin aspart U-100 (NOVOLOG FLEXPEN U-100 INSULIN) 100 unit/mL (3 mL) injection 12-08 00:00: 00 04-06 00:00 :00 No [id number] INJECT 3 UNITS IN MORNING, AT NOON, IN EVENING BEFORE MEALS PLUS SLIDING SCALE. MAX 24 UNITS/DAY. PEN EXPIRES 28 DAYS. For Aspart: Give half dose if patient eats less than half meal OR if blood glucose 80 - 120 mg/dL, HOLD DOSE if NPO or BG < [address] [facility] pravastatin 20 mg tablet 12-03 08:24: 22 12-03 00:00 :[address] [facility] doxycycline hyclate 100 mg tablet 12-02 00:00: 00 12-07 04:59 :00 No [id number] 100mg Take 1 tablet by mouth in the morning and 1 tablet in the evening. Do all this for [address] [facility] Magnesium Oxide-Mg AA Chelate (MG-PLUS) 133 mg Tab tablet 17 00:00: 00 Yes [id number] Take 2 tablets by mouth twice daily [facility] doxycycline hyclate 100 mg tablet -16 00:00: 00 12-02 00:00 :00 No [id number] 100mg Take 1 tablet by mouth in the morning and 1 tablet in the evening. [facility] Insulin Glargine (LANTUS SOLOSTAR U-100 INSULIN) 100 unit/mL (3 mL) injection 20 00:00: 00 04-06 00:00 :00 No [id number] INJECT 10 UNITS UNDER THE SKIN IN THE MORNING (DISCARD PEN 28 DAYS AFTER OPENING) [facility] amoxicillin -pot clavulanate 500 mg (AUGMENTIN) 500-125 mg tablet -19 00:00: 00 12-03 00:00 :00 No [id number] 500mg Take 1 tablet by mouth in the morning and 1 tablet at noon and 1 tablet in the evening. Take with meals. [facility] azelastine 137 mcg (0.1 %) nasal spray 10-14 00:00: 00 03-11 00:00 :00 No [id number] 1{spray } Use 1 [place] in each nostril in the morning and 1 [place] in the evening. Use in each nostril as directed [facility] benzonatate 200 mg capsule 10-14 00:00: 00 12-03 00:00 :00 No [id number] 200mg Take 1 capsule by mouth 3 (three) times daily as needed for Cough. [facility] Insulin [place], Disposable, (KARI PEN NEEDLE) 32 gauge x 5/32" Ndle 10-06 00:00: 00 04-27 00:00 :00 No [id number] Use to inject insulin 5X daily. DX:E11.65 [facility] Blood-Gluco se Sensor (FREESTYLE TRICIA 3 SENSOR) [place] 10-06 00:00: 00 02-26 00:00 :00 No [id number] 1{each} 1 Each by subcutaneo us (via wearable injector) route every 14 (fourteen) days. Use as directed every [address] [facility] montelukast 10 mg tablet 00:00: 00 07-06 00:00 :00 No [id number] 10mg Take 1 tablet by mouth in the morning. [facility] metoprolol succinate XL 25 mg 24 hr tablet 2-16 00:00: 00 03-25 00:00 :00 No 25mg TAKE 1 TABLET BY MOUTH IN THE MORNING [facility] insulin aspart U-100 (NOVOLOG FLEXPEN U-100 INSULIN) 100 unit/mL (3 mL) injection 09-15 00:00: 00 12-08 00:00 :00 No [id number] Inject 3 Units under the skin in the morning and 3 Units at noon and 3 Units in the evening. Inject before meals, plus sliding scale Max dose [address] [facility] multivitami n tablet 09-08 13:16: 03 Yes 1{tbl} Take 1 tablet by mouth in the morning. [facility] pravastatin 20 mg tablet 09-08 13:16: [address] [facility] dicyclomine (BENTYL) tablet 20 mg 09-04 21:45: 00 09-04 21:02 :00 No 20mg 20 mg, Oral, ONCE, 1 dose, On Misty 09/04/23 at 1545, Routine [facility] D5W 0.9% NaCl (NS) IV infusion 1,000 mL 09-04 19:00: 00 Yes 1000mL at 150 mL/hr, 1,000 mL, IV Infusion, CONTINUOUS , Starting on Imsty 09/04/23 at 1300, Until Discontinu ed, Routine [facility] dicyclomine 20 mg tablet 09-04 00:00: 00 12-03 00:00 :00 No [id number] 20mg Take 1 tablet by mouth 4 (four) times daily. [facility] rifAXIMin (XIFAXAN) 550 mg tablet 08-21 13:54: 58 08-21 00:00 :[address] [facility] pravastatin 20 mg tablet 08-21 13:54: [address] [facility] multivitami n tablet 08-21 13:54: 18 Yes 1{tbl} Take 1 tablet by mouth in the morning. [facility] tacrolimus 0.5 mg capsule 08-19 00:00: 00 08-02 00:00 :00 No 1997 .5mg Take 1 capsule by mouth every 12 (twelve) hours. Indication s: kidney transplant , liver transplant [facility] insulin aspart U-100 (NOVOLOG FLEXPEN U-100 INSULIN) 100 unit/mL (3 mL) injection 08-19 00:00: 00 09-15 00:00 :00 No [id number] Novolog 3 units with meals + SSI, if needed. Please only take insulin with food. If you're not going to eat.... then please do not take insulin. Sliding scale for your regular insulin: If BG is 150 -180, take an additional 1 units with normal 5 units If BG is 180 -210, take an additional 2 units with normal 5 units If BG is 210 -240, take an additional 3 units with normal 5 units If BG is 240 -270, take an additional 4 units with normal 5 units If BG is 270 -300, take an additional 5 units with normal 5 units If BG is higher than 300, take an additional 6 units with normal 5 units. And check you BG again in 2 hours to see where you are. [facility] ciprofloxac in HCl 250 mg tablet 2022-08 00:00: 00 08-21 00:00 :00 No 250mg Take 1 tablet by mouth every 12 (twelve) hours. [facility] sodium polystyrene sulfonate 15 gram/60 mL suspension 2022-08 00:00: 00 08-02 05:59 :00 No 15g Take 60 mL by mouth once now for [address] [facility] traMADoL 50 mg tablet 2022-08 00:00: 00 08-07 05:59 :00 No [id number] 50mg Take 1 tablet by mouth every 6 (six) hours as needed for Pain (scale 4-6) for up to 7 days. Indication s: acute pain [facility] montelukast 10 mg tablet 2022-08 00:00: 00 10-01 00:00 :00 No [id number] 10mg Take 1 tablet by mouth in the morning. [facility] metoprolol succinate XL 25 mg 24 hr tablet 2022-08 2-05 00:00: 00 09-19 00:00 :00 No 25mg Take 1 tablet by mouth in the morning. [facility] metoprolol succinate XL 25 mg 24 hr tablet 2022-08 00:00: 00 Yes 12.5mg Take 0.5 tablets by mouth in the morning. [facility] pantoprazol e 40 mg EC tablet 2022-08 0-30 00:00: 00 07-05 00:00 :00 No [id number] 40mg Take 1 tablet by mouth every morning. [facility] mycophenola te sodium 180 mg EC tablet 2022-08 0 00:00: 00 03-11 00:00 :00 No 180mg Take 1 tablet by mouth every 12 (twelve) hours. [facility] gabapentin 300 mg capsule 2022-08 0 00:00: 00 12-18 00:00 :00 No [id number] 300mg Take 1 capsule by mouth in the morning. [facility] tacrolimus 0.5 mg capsule 2022-08 00:00: 00 08-19 00:00 :00 No 1997 1mg Take 2 capsules by mouth every 12 (twelve) hours. Indication s: kidney transplant , liver transplant [facility] omeprazole 40 mg capsule 2022-08 0 23:03: 41 05-27 00:00 :00 No 1 capsule [facility] pantoprazol e 40 mg EC tablet 2022-08 0 00:00: 00 05-29 00:00 :00 No [id number] 40mg TAKE 1 TABLET [address] [facility] mycophenola te sodium 180 mg EC tablet 2022-08 0 00:00: 00 05-29 00:00 :00 No 180mg TAKE 1 TABLET EVERY [address] [facility] azelastine 137 mcg (0.1 %) nasal spray 2022-08 00:00: 00 08-21 00:00 :00 No [id number] 1{spray } Use 1 [place] in each nostril in the morning and 1 [place] in the evening. Use in each nostril as directed [facility] amoxicillin -clavulanat e (AUGMENTIN) 875-125 mg per tablet 2022-08 0 00:00: 00 05-22 04:59 :00 No [id number] 1{tbl} Take 1 tablet by mouth in the morning and 1 tablet in the evening. Do all this for 7 days. Take with food. Take daily probiotic. [facility] metoprolol succinate XL 25 mg 24 hr tablet 2022-0 9-25 00:00: 00 11-22 00:00 :00 No 12.5mg Take 0.5 tablets by mouth in the morning. [facility] Insulin Glargine (LANTUS SOLOSTAR U-100 INSULIN) 100 unit/mL (3 mL) injection -12 00:00: 00 Yes [id number] INJECT 10 UNITS UNDER THE SKIN IN THE MORNING. [facility] Insulin Glargine (LANTUS SOLOSTAR U-100 INSULIN) 100 unit/mL (3 mL) injection -12 00:00: 00 10-21 00:00 :00 No [id number] INJECT 10 UNITS UNDER THE SKIN IN THE MORNING. [facility] insulin aspart U-100 (NOVOLOG FLEXPEN U-100 INSULIN) 100 unit/mL (3 mL) injection -12 00:00: 00 08-19 00:00 :00 No [id number] 3U inject 3 Units under the skin in the morning and 3 Units at noon and 3 Units in the evening. inject before meals. Sliding scale to start at B. Max dose [address] [facility] insulin aspart U-100 (NOVOLOG FLEXPEN U-100 INSULIN) 100 unit/mL (3 mL) injection -12 00:00: 00 04-15 00:00 :00 No [id number] 5U inject 5 Units under the skin in the morning and 5 Units at noon and 5 Units in the evening. inject before meals. Inject 5 units under the skin three times daily before meals plus sliding scale. Sliding scale to start at B. Max dose [address] [facility] tacrolimus 0.5 mg capsule 8-15 00:00: 00 Yes 1996 1mg Take 2 capsules by mouth every 12 (twelve) hours. Indication s: kidney transplant , liver transplant [facility] tacrolimus 0.5 mg capsule 0 8-15 00:00: 00 05-29 00:00 :00 No 1996 1mg Take 2 capsules by mouth every 12 (twelve) hours. Indication s: kidney transplant , liver transplant [facility] LANTUS SOLOSTAR U-100 INSULIN 100 unit/mL (3 mL) injection 03-18 00:00: 00 04-15 00:00 :00 No INJECT 19 UNITS UNDER THE SKIN IN THE MORNING. [facility] Diclofenac Sodium (VOLTAREN) 1 % gel Diclofenac Sodium (VOLTAREN) 1 % gel 03-11 00:00: 00 05-03 00:00 :00 No [id number] Apply to area(s) 2 (two) times daily as needed for Pain (scale 4-6). 0.5-1inch [facility] ciprofloxac in HCl 500 mg tablet 02-19 00:00: 00 03-02 04:59 :00 No 500mg Take 1 tablet by mouth every 12 (twelve) hours for [address] [facility] Insulin Glargine (LANTUS SOLOSTAR U-100 INSULIN) 100 unit/mL (3 mL) injection 02-16 00:00: 00 03-18 00:00 :00 No 19U inject 19 Units under the skin in the morning. [facility] loratadine (CLARITIN) 10 mg tablet 02-07 00:00: 00 08-21 00:00 :00 No [id number] 10mg Take 1 tablet by mouth at bedtime. [facility] montelukast 10 mg tablet 02-07 00:00: 00 07-15 00:00 :00 No [id number] 10mg Take 1 tablet by mouth in the morning. [facility] azelastine 137 mcg (0.1 %) nasal spray 02-07 00:00: 00 05-14 00:00 :00 No [id number] 1{spray } Use 1 [place] in each nostril in the morning and 1 [place] in the evening. Use in each nostril as directed [facility] Diclofenac Sodium (VOLTAREN) 1 % gel 02-07 00:00: 00 03-11 00:00 :00 No [id number] Apply to area(s) 2 (two) times daily as needed for Pain (scale 4-6). 0.5-1inch [facility] bromphenira mine-pseudo ephedrine-D M (BROMFED DM) 2-30-10 mg/5 mL syrup 02-07 00:00: 00 02-18 04:59 :00 No [id number] 5mL Take 5 mL by mouth 4 (four) times daily as needed for Congestion /Allergies or Cough for up to [address] [facility] PYRIDOSTIGM INE 60 mg tablet 01-10 00:00: 00 08-21 00:00 :00 No [id number] TAKE 1 TABLET BY MOUTH EVERY [address] [facility] multivitami n tablet 01-07 13:12: 54 Yes 1{tbl} Take 1 tablet by mouth in the morning. [facility] omeprazole 40 mg capsule 01-07 13:12: [address] [facility] pravastatin 20 mg tablet 01-07 13:12: [address] [facility] rifAXIMin (XIFAXAN) 550 mg tablet 01-07 13:12: [address] [facility] flash glucose scanning reader (FREESTYLE TRICIA 2 READER) [employer] [facility] [employer] 01-07 00:00: 00 10-06 00:00 :00 No [id number] 1{each} inject 1 Each under the skin every 14 (fourteen) days. E11.65 [facility] multivitami n tablet 12-31 17:51: 42 Yes 1{tbl} Take 1 tablet by mouth in the morning. [facility] omeprazole 40 mg capsule 12-31 17:51: [address] [facility] pravastatin 20 mg tablet 12-31 17:51: [address] [facility] rifAXIMin (XIFAXAN) 550 mg tablet 12-31 17:51: [address] [facility] omeprazole (PRILOSEC) capsule 20 mg 12-30 14:00: 00 Yes 20mg 20 mg, Oral, DAILY, First dose on Fri12/30/22 at 0900, Until Discontinu ed [facility] FENTanyl PF (SUBLIMAZE (PF)) injection 50 mcg 12-30 04:31: 00 12-30 05:01 :00 No 50ug 50 mcg, Slow IV Push, ONCE, 1 dose, On Fri12/29/22 at 2345, MARÍA [facility] heparin (porcine) injection 5,000 Units 12-30 01:00: 00 Yes 5000U 5,000 Units, Subcutaneo us, BID, First dose on Fri12/29/22 at 1999, Until Discontinu ed, Routine [facility] mycophenola te sodium (MYFORTIC) EC tablet 180 mg 12-30 01:00: 00 Yes 180mg 180 mg, Oral, Q12H, First dose on Fri12/29/22 at 1999, Until Discontinu ed, Routine
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 Sliding Scale Insulin - Lispro (HumaLOG) 12-29 22:00: 00 Yes Subcutaneo us, TID MEALS+HS, First dose on Fri12/29/22 at 1700, Until Discontinu ed, Routine [facility] NaCl 0.9% (NS) IV infusion 1,000 mL 12-29 19:30: 00 12-31 17:53 :14 No 1000mL at 125 mL/hr, IV Infusion, CONTINUOUS , Starting on Fri12/29/22 at 1430, Until Tu12/31/22 at 1253, Routine [facility] ondansetron (ZOFRAN (PF)) injection 4 mg 12-29 19:25: 40 Yes 4mg 4 mg, Slow IV Push, Q6HPRN, Starting on Fri12/29/22 at 1425, Until Discontinu ed, Routine, Nausea and Vomiting (N/V) [facility] glucagon (GLUCAGEN DIAGNOSTIC KIT) injection 1 mg 12-29 19:24: 14 Yes 1mg 1 mg, Intramuscu lar, PRN, Starting on Fri12/29/22 at 1424, Until Discontinu ed, MARÍA, Blood Glucose < or = 70 mg/dL and patient is NPO, unable to swallow or has mental changes. [facility] dextrose 50 % in water (D50W) injection 25 mL 12-29 19:24: 14 Yes 25mL 25 mL, Slow IV Push, PRN, Starting on Fri12/29/22 at 1424, Until Discontinu ed, MARÍA, Blood Glucose < or = 70 mg/dL and patient is NPO, unable to swallow or has mental status changes. [facility] traMADoL (ULTRAM) tablet 50 mg 12-29 19:24: 04 12-31 19:23 :04 No 50mg 50 mg, Oral, Q8HPRN, Starting on Fri12/29/22 at 1424, Until Tu12/31/22 at 1423, Routine, Pain (scale 4-6) [facility] acetaminoph en (TYLENOL) tablet 650 mg 12-29 19:24: 01 Yes 650mg 650 mg, Oral, Q6HPRN, Starting on Fri12/29/22 at 1424, Until Discontinu ed, Routine, Pain (scale 1-3) [facility] NaCl 0.9% (NS) bolus infusion 500 mL 12-29 13:15: 00 12-29 14:40 :00 No 500mL at 999 mL/hr, 500 mL, IV Piggyback, ONCE, 1 dose, On Fri12/29/22 at 0815, STAT [facility] ondansetron (ZOFRAN (PF)) injection 4 mg 12-29 12:30: 00 12-29 12:45 :00 No 4mg 4 mg, Slow IV Push, ONCE, 1 dose, On Fri12/29/22 at 0730, MARÍA [facility] Insulin Glargine (LANTUS SOLOSTAR U-100 INSULIN) 100 unit/mL (3 mL) injection 12-20 00:00: 00 02-16 00:00 :00 No 19U inject 19 Units under the skin in the morning. [facility] insulin aspart U-100 (NOVOLOG FLEXPEN U-100 INSULIN) 100 unit/mL (3 mL) injection 12-15 00:00: 00 04-15 00:00 :00 No [id number] Inject 3 units under the skin three times daily before meals plus sliding scale. Sliding scale to start at B. Max dose [address] [facility] insulin lispro (HUMALOG KWIKPEN INSULIN) 100 unit/mL pen injector 12-06 10:25: 25 12-06 00:00 :00 No 4-10 UNITS [facility] multivitami n tablet 12-06 10:20: 36 Yes 1{tbl} Take 1 tablet by mouth in the morning. [facility] pravastatin 20 mg tablet 12-06 10:20: [address] [facility] rifAXIMin (XIFAXAN) 550 mg tablet 12-06 10:20: [address] [facility] omeprazole 40 mg capsule 12-06 10:20: [address] [facility] furosemide 40 mg tablet 12-06 10:19: 51 12-06 00:00 :[address] [facility] semaglutide (OZEMPIC) 1 mg/dose (4 mg/3 mL) PnIj 12-06 00:00: 00 12-31 00:00 :00 No [id number] 1mg inject 1 mg under the skin weekly. [facility] insulin aspart U-100 (NOVOLOG FLEXPEN U-100 INSULIN) 100 unit/mL (3 mL) injection 12-06 00:00: 00 12-15 00:00 :00 No [id number] Inject 3 units under the skin three times daily before meals plus sliding scale. Max dose [address] [facility] tacrolimus 0.5 mg capsule 12-04 00:00: 00 03-18 00:00 :00 No Take 1 capsule by mouth every morning AND [address] [facility] MG-PLUS 133 mg Tab tablet 10-14 00:00: 00 11-18 00:00 :00 No [id number] Take 2 tablets by mouth twice daily [facility] fluconazole (DIFLUCAN) 150 mg tablet 10-09 14:08: 27 10-09 00:00 :[address] [facility] furosemide 40 mg tablet 10-09 13:59: [address] [facility] insulin lispro (HUMALOG KWIKPEN INSULIN) 100 unit/mL pen injector 10-09 13:59: 07 Yes 4-10 UNITS [facility] omeprazole 40 mg capsule 10-09 13:59: [address] [facility] rifAXIMin (XIFAXAN) 550 mg tablet 10-09 13:59: [address] [facility] insulin lispro (HUMALOG KWIKPEN INSULIN) 100 unit/mL pen injector 10-09 13:59: 07 Yes 4-10 UNITS [facility] pravastatin 20 mg tablet 10-09 13:59: 07 12-03 00:00 :[address] [facility] albuterol 90 mcg/actuati on inhaler 10-09 00:00: 00 04-02 00:00 :00 No [id number] 2{puff} Inhale 2 Puffs every 6 (six) hours as needed for Wheezing or Shortness of Breath. [facility] erythromyci n 5 mg/gram (0.5 %) ophthalmic ointment 10-09 00:00: 00 12-06 00:00 :00 No [id number] 9104 .5[in_u s] Place 0.5 Inches in both eyes 4 (four) times daily. [facility] AZITHROMYCI N 250 mg tablet 308 00:00: 00 12-06 00:00 :00 No [id number] 500MG on day 1, then 250mg days 2-5 [facility] benzonatate 200 mg capsule 3-08 00:00: 00 10-17 04:59 :00 No [id number] 200mg Take 1 capsule by mouth 3 (three) times daily as needed for Cough for up to [address] [facility] insulin aspart U-100 (NOVOLOG FLEXPEN U-100 INSULIN) 100 unit/mL (3 mL) injection 10-03 00:00: 00 12-06 00:00 :00 No [id number] Inject 3 units under the skin three times daily before meals plus sliding scale. Max dose [address] [facility] multivitami n tablet 2 09:51: 38 Yes 1{tbl} Take 1 tablet by mouth in the morning. [facility] molnupiravi r 200 mg capsule 09-30 00:00: 00 12-06 00:00 :00 No [id number] 800mg Take 4 capsules by mouth every 12 (twelve) hours. [facility] bromphenira mine-pseudo ephedrine-D M (BROMFED DM) 2-30-10 mg/5 mL syrup 09-30 00:00: 00 10-09 00:00 :00 No [id number] 5mL Take 5 mL by mouth 4 (four) times daily as needed for Congestion /Allergies or Cough for up to [address] [facility] cefUROXime 250 mg tablet 1-15 00:00: 00 12-06 00:00 :00 No [id number] 250mg Take 1 tablet by mouth in the morning and 1 tablet in the evening. [facility] gabapentin 300 mg capsule 1-11 00:00: 00 05-29 00:00 :00 No [id number] 300mg Take 1 capsule by mouth in the morning. [facility] mycophenola te sodium 180 mg EC tablet 08-14 00:00: 05-27 00:00 :00 No 180mg Take 1 tablet by mouth every 12 (twelve) hours. [facility] pantoprazol e 40 mg EC tablet 08-14 00:00: 00 05-27 00:00 :00 No [id number] 40mg Take 1 tablet by mouth in the morning. [facility] ursodioL 500 mg tablet 08-14 00:00: 00 04-18 00:00 :00 No [id number] 500mg Take 1 tablet by mouth in the morning and 1 tablet at noon and 1 tablet in the evening. [facility] tacrolimus 0.5 mg capsule 08-14 00:00: 00 12-04 00:00 :00 No Take 2 capsules by mouth every morning AND 1 [address] [facility] Magnesium Oxide-Mg AA Chelate (MG-PLUS) 133 mg Tab tablet 08-14 00:00: 00 10-14 00:00 :00 No [id number] 266mg Take 2 tablets by mouth in the morning and 2 tablets in the evening. [facility] doxycycline hyclate 100 mg tablet 08-13 00:00: 00 08-21 05:59 :00 No [id number] 100mg Take 1 tablet by mouth in the morning and 1 tablet in the evening. Do all this for [address] [facility] PANTOPRAZOL E 40 mg EC tablet 08-12 00:00: 00 08-14 00:00 :00 No [id number] Take 1 tablet by mouth once daily [facility] insulin aspart U-100 (NOVOLOG FLEXPEN U-100 INSULIN) 100 unit/mL (3 mL) injection 2021-08 00:00: 00 10-03 00:00 :00 No [id number] 6U inject 6 Units under the skin in the morning and 6 Units at noon and 6 Units in the evening. inject before meals. [facility] Magnesium Oxide-Mg AA Chelate (MG-PLUS) 133 mg Tab tablet 2021-08 00:00: 08-14 00:00 :00 No [id number] 266mg Take 2 tablets by mouth in the morning and 2 tablets in the evening. [facility] multivitami n tablet 2021-08 12:02: 10 Yes 1{tbl} Take 1 tablet by mouth daily. [facility] pyridostigm ine 60 mg tablet 2021-08 00:00: 08-04 05:59 :00 No [id number] 60mg Take 1 tablet by mouth every 8 (eight) hours for [address] [facility] mycophenola te sodium 180 mg EC tablet 04-25 00:00: 00 08-14 00:00 :00 No 180mg Take 1 tablet by mouth every 12 (twelve) hours. Indication s: z94.4 [facility] aspirin 81 mg chewable tablet 03-07 00:00: 04-07 04:59 :00 No [id number] 81mg Take 1 tablet by mouth daily with breakfast for [address] [facility] multivitami n tablet 03-06 14:54: 31 Yes 1{tbl} Take 1 tablet by mouth in the morning. [facility] magnesium oxide 420 mg Tab 03-06 00:00: 00 07-04 00:00 :00 No [id number] 400mg Take 400 mg by mouth 2 (two) times daily. [facility] insulin aspart U-100 (NOVOLOG FLEXPEN U-100 INSULIN) 100 unit/mL (3 mL) injection 01-16 00:00: 00 07-18 00:00 :00 No [id number] 6U inject 6 Units under the skin 3 (three) times daily before meals. [facility] cefdinir 300 mg capsule 11-24 00:00: 00 02-14 00:00 :00 No [id number] 300mg Take 1 capsule by mouth every 12 (twelve) hours. [facility] amoxicillin -clavulanat e 875-125 mg per tablet 11-24 00:00: 00 02-14 00:00 :00 No [id number] 1{tbl} Take 1 tablet by mouth every 12 (twelve) hours. [facility] cephALEXin (KEFLEX) 500 mg capsule 11-24 00:00: 00 02-14 00:00 :00 No [id number] 500mg Take 1 capsule by mouth 3 (three) times daily. [facility] ursodioL 500 mg tablet 11-23 00:00: 00 08-14 00:00 :00 No [id number] 500mg Take 1 tablet by mouth 3 (three) times daily. [facility] gabapentin 300 mg capsule 10-11 00:00: 00 08-14 00:00 :00 No [id number] 300mg Take 1 capsule by mouth daily. [facility] azelastine 137 mcg (0.1 %) nasal spray 10-04 00:00: 00 02-14 00:00 :00 No [id number] 1{spray } Use 1 [place] in each nostril 2 (two) times daily as needed for Runny nose. Use in each nostril as directed [facility] tacrolimus 0.5 mg capsule 10-03 00:00: 00 08-14 00:00 :00 No Take 2 capsules by mouth every morning AND 1 [address] [facility] MG-PLUS 133 mg Tab tablet 1-28 00:00: 00 07-18 00:00 :00 No [id number] Take 2 tablets by mouth twice daily [facility] pyridostigm ine 60 mg tablet 1-20 00:00: 00 07-04 00:00 :00 No Take 2 tablets by mouth every morning AND 2 tablets with lunch AND [address] [facility] pantoprazol e 40 mg EC tablet 1-13 00:00: 00 08-12 00:00 :00 No [id number] 40mg Take 1 tablet by mouth daily. [facility] Insulin Glargine (LANTUS SOLOSTAR U-100 INSULIN) 100 unit/mL (3 mL) injection 2020-08 00:00: 00 12-19 00:00 :00 No 16U inject 16 Units under the skin daily. [facility] Insulin [place], Disposable, (KARI PEN NEEDLE) 32 gauge x 5/32" Ndle 2020-08 00:00: 00 Yes [id number] Use to inject insulin 5X daily. DX:E11.65 [facility] Insulin [place], Disposable, (KARI PEN NEEDLE) 32 gauge x 5/32" Ndle 2020-08 00:00: 00 10-06 00:00 :00 No [id number] Use to inject insulin 5X daily. DX:E11.65 [facility] liraglutide (VICTOZA 3-LINDA) 0.6 mg/0.1 mL (18 mg/3 mL) injection 2020-08 00:00: 00 12-06 00:00 :00 No [id number] INJECT 1.8MG UNDER THE SKIN ONCE A DAY [facility] insulin aspart U-100 (NOVOLOG FLEXPEN U-100 INSULIN) 100 unit/mL (3 mL) injection 2020-08 00:00: 00 01-16 00:00 :00 No [id number] 6U inject 6 Units under the skin 3 (three) times daily before meals. [facility] mycophenola te sodium 180 mg EC tablet -16 00:00: 00 04-25 00:00 :00 No 180mg Take 1 tablet by mouth every 12 (twelve) hours. Indication s: z94.4 [facility] tacrolimus 0.5 mg capsule -15 00:00: 00 11-24 00:00 :00 No [id number] Take 2 capsules by mouth every morning AND 1 capsule every evening. Transplant date 12/20/[address] [facility] Magnesium Oxide-Mg AA Chelate (MG-PLUS) 133 mg Tab tablet 2019-08 217 00:00: 00 07-03 00:00 :00 No [id number] 133mg Take 1 tablet by mouth 3 (three) times daily. [facility] ursodioL 300 mg capsule 2019-08 2-04 00:00: 10-19 00:00 :00 No 300mg Take 1 capsule by mouth 3 (three) times daily. [facility] furosemide 20 mg tablet 2019-08 00:00: 00 03-15 00:00 :00 No [id number] 20mg Take 1 tablet by mouth as needed (edema). [facility] mycophenola te sodium 180 mg EC tablet 2019-08 00:00: 00 12-15 00:00 :00 No 180mg Take 1 tablet by mouth every 12 (twelve) hours. [facility] AMLODIPINE 5 mg tablet 2019-08 00:00: 07-18 00:00 :00 No [id number] Take 2 tablets by mouth once daily [facility] tacrolimus 1 mg capsule 2019-08 00:00: 07-07 00:00 :00 No [id number] 1mg Take 1 capsule by mouth every 12 (twelve) hours. [facility] Magnesium Oxide-Mg AA Chelate (MG-PLUS) 133 mg Tab tablet 2019-08 0 00:00: 07-20 00:00 :00 No [id number] 266mg Take 2 tablets by mouth 2 (two) times daily. [facility] Insulin Glargine (BASAGLAR KWIKPEN U-100 INSULIN) 100 unit/mL (3 mL) injection 2019-08 00:00: 00 10-19 00:00 :00 No [id number] 24U inject 24 Units under the skin daily with breakfast. [facility] insulin aspart U-100 (NOVOLOG FLEXPEN U-100 INSULIN) 100 unit/mL (3 mL) injection 2019-08 024 00:00: 00 10-19 00:00 :00 No [id number] 8U inject 8 Units under the skin 3 (three) times daily before meals. [facility] liraglutide (VICTOZA 2-LINDA) 0.6 mg/0.1 mL (18 mg/3 mL) injection 2019-08 00:00: 10-02 00:00 :00 No [id number] 1.8mg inject 1.8 mg under the skin daily. [facility] VALGANCICLO VIR 450 mg tablet 2019-08 00:00: 00 07-20 00:00 :00 No [id number] TAKE 1 TABLET ON Fri AND FRIDAY DIRECETD [facility] sirolimus 1 mg tablet 2019-08 00:00: 05-24 00:00 :00 No [id number] 1mg Take 1 tablet by mouth daily. [facility] VALGANCICLO VIR 450 mg tablet 05-01 00:00: 00 05-25 00:00 :00 No [id number] TAKE 1 TABLET ON Fri AND FRIDAY DIRECETD [facility] LANTUS U-100 INSULIN 100 unit/mL solution 04-28 00:00: 05-27 00:00 :00 No [id number] INJECT 9 UNITS SUBCUTANEO USLY ONCE DAILY [facility] MG-PLUS 133 mg Tab tablet 04-25 00:00: 05-30 00:00 :00 No [id number] Take 2 tablets by mouth twice daily [facility] liraglutide (VICTOZA 3-LINDA) 0.6 mg/0.1 mL (18 mg/3 mL) injection 04-24 00:00: 00 06-22 00:00 :00 No 1.8mg inject 1.8 mg under the skin daily. [facility] AMLODIPINE 5 mg tablet 04-08 00:00: 06-13 00:00 :00 No [id number] Take 2 tablets by mouth once daily [facility] ursodioL 300 mg capsule 03-24 00:00: 00 06-23 00:00 :00 No [id number] 300mg Take 1 capsule by mouth 3 (three) times daily. [facility] traMADol 50 mg tablet 03-14 00:00: 06-22 00:00 :00 No [id number] 50mg Take 1 tablet by mouth every 6 (six) hours as needed (pain). FURTHER REFILLS WITH NEED TO COME FROM A PAIN SPECIALIST Indication s: acute pain, bilateral leg pain, s/p transplant post op pain [facility] Insulin [place], Disposable, (KARI PEN NEEDLE) 32 gauge x 5/32" Ndle 03-13 00:00: 00 07-23 00:00 :00 No Use to inject insulin 5X daily. DX:E11.65 [facility] tacrolimus 1 mg capsule 02-20 00:00: 00 05-24 00:00 :00 No [id number] 1mg Take 1 capsule by mouth every 12 (twelve) hours. [facility] cholecalcif destin, vitamin D3, 25 mcg (1,000 unit) tablet 02-16 00:00: 00 Yes [id number] 2000U Take 2 tablets by mouth daily. [facility] gabapentin 300 mg capsule 02-16 00:00: 00 11-29 00:00 :00 No [id number] 300mg Take 1 capsule by mouth daily. [facility] pantoprazol e 40 mg EC tablet 02-16 00:00: 00 11-06 00:00 :00 No [id number] 40mg Take 1 tablet by mouth daily. [facility] albuterol 90 mcg/actuati on inhaler 02-14 00:00: 07-20 00:00 :00 No [id number] 2{puff} Inhale 2 Puffs every 6 (six) hours as needed for Wheezing or Shortness of Breath (or persistent coughing). [facility] water for injection, sterile Soln 6 mL with pentamidine 300 mg SolR 300 mg 02-09 00:00: 00 07-24 00:00 :00 No [id number] 300mg Inhale 300 mg once every month. [facility] flash glucose scanning reader (FREESTYLE TRICIA 14 DAY READER) Misc 02-07 00:00: 05-22 00:00 :00 No 1{each} 1 Each daily. Dx E11.65 [facility] flash glucose sensor (FREESTYLE TRICIA 14 DAY SENSOR) Kit 7-07 00:00: 05-22 00:00 :00 No [id number] 1{each} 1 Each every 14 (fourteen) days. Dx E11.65 [facility] ondansetron 4 mg tablet 01-27 00:00: 05-28 04:59 :00 No 4mg Take 1 tablet by mouth every 6 (six) hours as needed for Nausea and Vomiting (N/V) (Take 30 minutes before taking other medication s) for up to [address] [facility] acetaminoph en 325 mg tablet 01-25 00:00: 00 10-19 00:00 :00 No [id number] 650mg Take 2 tablets by mouth every 8 (eight) hours as needed for Pain (scale 1-3). [facility] vitamin w/FA tablet 01-25 00:00: 07-20 00:00 :00 No [id number] 1{tbl} Take 1 tablet by mouth every day at 1200 (noon). [facility] sennosides 8.6 mg tablet 01-25 00:00: 06-22 00:00 :00 No [id number] 8.6mg Take 1 tablet by mouth every 24 (twenty-fo ur) hours as needed for Constipati on. [facility] collagenase 250 unit/gram ointment 01-25 00:00: 05-22 00:00 :00 No [id number] Apply to affected area(s) 2 (two) times daily. [facility] ferrous sulfate 325 mg (65 mg iron) tablet 01-25 00:00: 05-22 00:00 :00 No [id number] 325mg Take 1 tablet by mouth 3 (three) times daily with meals. [facility] insulin aspart RAPID 100 unit/mL injection 01-10 00:00: 07-20 00:00 :00 No 4U inject 4 Units under the skin 3 (three) times daily before meals. [facility] Immunizations Ordered Immunization Name Filled Immunization Name Date Status Comments Source Influenza Virus Vaccine Quad IM, Preserv and ABX Free 6 MO-64 YRS (FLUCELVAX) 2024-04-28 08:45:00 Completed [facility] Influenza Virus Vaccine Quad .5 mL IM 6+ MO (FLUZONE/FLULAVAL/F LUARIX) 2024-04-15 00:00:00 Completed [facility] SARS-COV-2 COVID-19 MODERNA 12+ YRS VACCINE 2024-04-15 00:00:00 Completed [facility] Influenza Virus Vaccine Quad IM, Preserv and ABX Free 6 MO-64 YRS (FLUCELVAX) 2024-04-15 00:00:00 Completed [facility] Influenza Virus Vaccine 2024-01-16 11:00:00 Completed [facility] Pneumococcal 13 Conjugate, PCV13 (Prevnar 13) 2024-01-16 11:00:00 Completed [facility] Influenza Virus Vaccine Quad .5 mL IM 6+ MO (FLUZONE/FLULAVAL/F LUARIX) 2024-01-16 11:00:00 Completed [facility] SARS-COV-2 COVID-19 MODERNA 12+ YRS VACCINE 2024-01-16 11:00:00 Completed [facility] Influenza Virus Vaccine Quad IM, Preserv and ABX Free 6 MO-64 YRS (FLUCELVAX) 2024-01-16 11:00:00 Completed [facility] Influenza Virus Vaccine 2024-01-13 00:00:00 Completed [facility] Pneumococcal 13 Conjugate, PCV13 (Prevnar 13) 2024-01-13 00:00:00 Completed [facility] Influenza Virus Vaccine Quad .5 mL IM 6+ MO (FLUZONE/FLULAVAL/F LUARIX) 2024-01-13 00:00:00 Completed [facility] SARS-COV-2 COVID-19 MODERNA 12+ YRS VACCINE 2024-01-13 00:00:00 Completed [facility] Influenza Virus Vaccine Quad IM, Preserv and ABX Free 6 MO-64 YRS (FLUCELVAX) 2024-01-13 00:00:00 Completed [facility] Influenza Virus Vaccine 2024-01-12 00:00:00 Completed [facility] Pneumococcal 13 Conjugate, PCV13 (Prevnar 13) 2024-01-12 00:00:00 Completed [facility] Influenza Virus Vaccine Quad .5 mL IM 6+ MO (FLUZONE/FLULAVAL/F LUARIX) 2024-01-12 00:00:00 Completed [facility] SARS-COV-2 COVID-19 MODERNA 12+ YRS VACCINE 2024-01-12 00:00:00 Completed [facility] Influenza Virus Vaccine Quad IM, Preserv and ABX Free 6 MO-64 YRS (FLUCELVAX) 2024-01-12 00:00:00 Completed [facility] Influenza Virus Vaccine 2024-01-09 06:50:00 Completed [facility] Pneumococcal 13 Conjugate, PCV13 (Prevnar 13) 2024-01-09 06:50:00 Completed [facility] Influenza Virus Vaccine Quad .5 mL IM 6+ MO (FLUZONE/FLULAVAL/F LUARIX) 2024-01-09 06:50:00 Completed [facility] SARS-COV-2 COVID-19 MODERNA 12+ YRS VACCINE 2024-01-09 06:50:00 Completed [facility] Influenza Virus Vaccine Quad IM, Preserv and ABX Free 6 MO-64 YRS (FLUCELVAX) 2024-01-09 06:50:00 Completed [facility] Influenza Virus Vaccine 2024-01-09 05:21:00 Completed [facility] Pneumococcal 13 Conjugate, PCV13 (Prevnar 13) 2024-01-09 05:21:00 Completed [facility] Influenza Virus Vaccine Quad .5 mL IM 6+ MO (FLUZONE/FLULAVAL/F LUARIX) 2024-01-09 05:21:00 Completed [facility] SARS-COV-2 COVID-19 MODERNA 12+ YRS VACCINE 2024-01-09 05:21:00 Completed [facility] Influenza Virus Vaccine Quad IM, Preserv and ABX Free 6 MO-64 YRS (FLUCELVAX) 2024-01-09 05:21:00 Completed [facility] Influenza Virus Vaccine 2023-12-17 00:00:00 Completed [facility] Pneumococcal 13 Conjugate, PCV13 (Prevnar 13) 2023-12-17 00:00:00 Completed [facility] Influenza Virus Vaccine Quad .5 mL IM 6+ MO (FLUZONE/FLULAVAL/F LUARIX) 2023-12-17 00:00:00 Completed [facility] SARS-COV-2 COVID-19 MODERNA 12+ YRS VACCINE 2023-12-17 00:00:00 Completed [facility] Influenza Virus Vaccine Quad IM, Preserv and ABX Free 6 MO-64 YRS (FLUCELVAX) 2023-12-17 00:00:00 Completed [facility] Influenza Virus Vaccine 2023-12-16 09:30:00 Completed [facility] Pneumococcal 13 Conjugate, PCV13 (Prevnar 13) 2023-12-16 09:30:00 Completed [facility] Influenza Virus Vaccine Quad .5 mL IM 6+ MO (FLUZONE/FLULAVAL/F LUARIX) 2023-12-16 09:30:00 Completed [facility] SARS-COV-2 COVID-19 MODERNA 12+ YRS VACCINE 2023-12-16 09:30:00 Completed [facility] Influenza Virus Vaccine Quad IM, Preserv and ABX Free 6 MO-64 YRS (FLUCELVAX) 2023-12-16 09:30:00 Completed [facility] Influenza Virus Vaccine 2023-12-04 08:00:00 Completed [facility] Pneumococcal 13 Conjugate, PCV13 (Prevnar 13) 2023-12-04 08:00:00 Completed [facility] Influenza Virus Vaccine Quad .5 mL IM 6+ MO (FLUZONE/FLULAVAL/F LUARIX) 2023-12-04 08:00:00 Completed [facility] SARS-COV-2 COVID-19 MODERNA 12+ YRS VACCINE 2023-12-04 08:00:00 Completed [facility] Influenza Virus Vaccine Quad IM, Preserv and ABX Free 6 MO-64 YRS (FLUCELVAX) 2023-12-04 08:00:00 Completed [facility] Influenza Virus Vaccine 2023-12-03 00:00:00 Completed [facility] Pneumococcal 13 Conjugate, PCV13 (Prevnar 13) 2023-12-03 00:00:00 Completed [facility] Influenza Virus Vaccine Quad .5 mL IM 6+ MO (FLUZONE/FLULAVAL/F LUARIX) 2023-12-03 00:00:00 Completed [facility] SARS-COV-2 COVID-19 MODERNA 12+ YRS VACCINE 2023-12-03 00:00:00 Completed [facility] Influenza Virus Vaccine Quad IM, Preserv and ABX Free 6 MO-64 YRS (FLUCELVAX) 2023-12-03 00:00:00 Completed [facility] Influenza Virus Vaccine 2023-12-01 08:15:00 Completed [facility] Pneumococcal 13 Conjugate, PCV13 (Prevnar 13) 2023-12-01 08:15:00 Completed [facility] Influenza Virus Vaccine Quad .5 mL IM 6+ MO (FLUZONE/FLULAVAL/F LUARIX) 2023-12-01 08:15:00 Completed [facility] SARS-COV-2 COVID-19 MODERNA 12+ YRS VACCINE 2023-12-01 08:15:00 Completed [facility] Influenza Virus Vaccine Quad IM, Preserv and ABX Free 6 MO-64 YRS (FLUCELVAX) 2023-12-01 08:15:00 Completed [facility] Influenza Virus Vaccine 2023-11-27 16:00:00 Completed [facility] Pneumococcal 13 Conjugate, PCV13 (Prevnar 13) 2023-11-27 16:00:00 Completed [facility] Influenza Virus Vaccine Quad .5 mL IM 6+ MO (FLUZONE/FLULAVAL/F LUARIX) 2023-11-27 16:00:00 Completed [facility] SARS-COV-2 COVID-19 MODERNA 12+ YRS VACCINE 2023-11-27 16:00:00 Completed [facility] Influenza Virus Vaccine Quad IM, Preserv and ABX Free 6 MO-64 YRS (FLUCELVAX) 2023-11-27 16:00:00 Completed [facility] Influenza Virus Vaccine 2023-11-24 00:00:00 Completed [facility] Pneumococcal 13 Conjugate, PCV13 (Prevnar 13) 2023-11-24 00:00:00 Completed [facility] Influenza Virus Vaccine Quad .5 mL IM 6+ MO (FLUZONE/FLULAVAL/F LUARIX) 2023-11-24 00:00:00 Completed [facility] SARS-COV-2 COVID-19 MODERNA 12+ YRS VACCINE 2023-11-24 00:00:00 Completed [facility] Influenza Virus Vaccine Quad IM, Preserv and ABX Free 6 MO-64 YRS (FLUCELVAX) 2023-11-24 00:00:00 Completed [facility] Influenza Virus Vaccine 2023-11-18 09:30:00 Completed [facility] Pneumococcal 13 Conjugate, PCV13 (Prevnar 13) 2023-11-18 09:30:00 Completed [facility] Influenza Virus Vaccine Quad .5 mL IM 6+ MO (FLUZONE/FLULAVAL/F LUARIX) 2023-11-18 09:30:00 Completed [facility] SARS-COV-2 COVID-19 MODERNA 12+ YRS VACCINE 2023-11-18 09:30:00 Completed [facility] Influenza Virus Vaccine Quad IM, Preserv and ABX Free 6 MO-64 YRS (FLUCELVAX) 2023-11-18 09:30:00 Completed [facility] Influenza Virus Vaccine 2023-11-18 00:00:00 Completed [facility] Pneumococcal 13 Conjugate, PCV13 (Prevnar 13) 2023-11-18 00:00:00 Completed [facility] Influenza Virus Vaccine Quad .5 mL IM 6+ MO (FLUZONE/FLULAVAL/F LUARIX) 2023-11-18 00:00:00 Completed [facility] SARS-COV-2 COVID-19 MODERNA 12+ YRS VACCINE 2023-11-18 00:00:00 Completed [facility] Influenza Virus Vaccine Quad IM, Preserv and ABX Free 6 MO-64 YRS (FLUCELVAX) 2023-11-18 00:00:00 Completed [facility] Influenza Virus Vaccine 2023-11-09 00:00:00 Completed [facility] Pneumococcal 13 Conjugate, PCV13 (Prevnar 13) 2023-11-09 00:00:00 Completed [facility] Influenza Virus Vaccine Quad .5 mL IM 6+ MO (FLUZONE/FLULAVAL/F LUARIX) 2023-11-09 00:00:00 Completed [facility] SARS-COV-2 COVID-19 MODERNA 12+ YRS VACCINE 2023-11-09 00:00:00 Completed [facility] Influenza Virus Vaccine Quad IM, Preserv and ABX Free 6 MO-64 YRS (FLUCELVAX) 2023-11-09 00:00:00 Completed [facility] Influenza Virus Vaccine 2023-11-06 09:15:00 Completed [facility] Pneumococcal 13 Conjugate, PCV13 (Prevnar 13) 2023-11-06 09:15:00 Completed [facility] Influenza Virus Vaccine Quad .5 mL IM 6+ MO (FLUZONE/FLULAVAL/F LUARIX) 2023-11-06 09:15:00 Completed [facility] SARS-COV-2 COVID-19 MODERNA 12+ YRS VACCINE 2023-11-06 09:15:00 Completed [facility] Influenza Virus Vaccine Quad IM, Preserv and ABX Free 6 MO-64 YRS (FLUCELVAX) 2023-11-06 09:15:00 Completed [facility] Influenza Virus Vaccine 2023-10-30 00:00:00 Completed [facility] Pneumococcal 13 Conjugate, PCV13 (Prevnar 13) 2023-10-30 00:00:00 Completed [facility] Influenza Virus Vaccine Quad .5 mL IM 6+ MO (FLUZONE/FLULAVAL/F LUARIX) 2023-10-30 00:00:00 Completed [facility] SARS-COV-2 COVID-19 MODERNA 12+ YRS VACCINE 2023-10-30 00:00:00 Completed [facility] Influenza Virus Vaccine Quad IM, Preserv and ABX Free 6 MO-64 YRS (FLUCELVAX) 2023-10-30 00:00:00 Completed [facility] Influenza Virus Vaccine 2023-10-28 13:45:00 Completed [facility] Pneumococcal 13 Conjugate, PCV13 (Prevnar 13) 2023-10-28 13:45:00 Completed [facility] Influenza Virus Vaccine Quad .5 mL IM 6+ MO (FLUZONE/FLULAVAL/F LUARIX) 2023-10-28 13:45:00 Completed [facility] SARS-COV-2 COVID-19 MODERNA 12+ YRS VACCINE 2023-10-28 13:45:00 Completed [facility] Influenza Virus Vaccine Quad IM, Preserv and ABX Free 6 MO-64 YRS (FLUCELVAX) 2023-10-28 13:45:00 Completed [facility] Influenza Virus Vaccine 2023-10-22 00:00:00 Completed [facility] Pneumococcal 13 Conjugate, PCV13 (Prevnar 13) 2023-10-22 00:00:00 Completed [facility] Influenza Virus Vaccine Quad .5 mL IM 6+ MO (FLUZONE/FLULAVAL/F LUARIX) 2023-10-22 00:00:00 Completed [facility] SARS-COV-2 COVID-19 MODERNA 12+ YRS VACCINE 2023-10-22 00:00:00 Completed [facility] Influenza Virus Vaccine Quad IM, Preserv and ABX Free 6 MO-64 YRS (FLUCELVAX) 2023-10-22 00:00:00 Completed [facility] Influenza Virus Vaccine 2023-10-21 15:30:00 Completed [facility] Pneumococcal 13 Conjugate, PCV13 (Prevnar 13) 2023-10-21 15:30:00 Completed [facility] Influenza Virus Vaccine Quad .5 mL IM 6+ MO (FLUZONE/FLULAVAL/F LUARIX) 2023-10-21 15:30:00 Completed [facility] SARS-COV-2 COVID-19 MODERNA 12+ YRS VACCINE 2023-10-21 15:30:00 Completed [facility] Influenza Virus Vaccine Quad IM, Preserv and ABX Free 6 MO-64 YRS (FLUCELVAX) 2023-10-21 15:30:00 Completed [facility] Influenza Virus Vaccine 2023-10-20 00:00:00 Completed [facility] Pneumococcal 13 Conjugate, PCV13 (Prevnar 13) 2023-10-20 00:00:00 Completed [facility] Influenza Virus Vaccine Quad .5 mL IM 6+ MO (FLUZONE/FLULAVAL/F LUARIX) 2023-10-20 00:00:00 Completed [facility] SARS-COV-2 COVID-19 MODERNA 12+ YRS VACCINE 2023-10-20 00:00:00 Completed [facility] Influenza Virus Vaccine Quad IM, Preserv and ABX Free 6 MO-64 YRS (FLUCELVAX) 2023-10-20 00:00:00 Completed [facility] Influenza Virus Vaccine 2023-10-17 00:00:00 Completed [facility] Pneumococcal 13 Conjugate, PCV13 (Prevnar 13) 2023-10-17 00:00:00 Completed [facility] Influenza Virus Vaccine Quad .5 mL IM 6+ MO (FLUZONE/FLULAVAL/F LUARIX) 2023-10-17 00:00:00 Completed [facility] Influenza Virus Vaccine Quad IM, Preserv and ABX Free 6 MO-64 YRS (FLUCELVAX) 2023-10-17 00:00:00 Completed [facility] SARS-COV-2 COVID-19 VACCINE - (MODERNA) 2023-10-17 00:00:00 Completed [facility] Influenza Virus Vaccine 2023-10-15 11:15:00 Completed [facility] Pneumococcal 13 Conjugate, PCV13 (Prevnar 13) 2023-10-15 11:15:00 Completed [facility] Influenza Virus Vaccine Quad .5 mL IM 6+ MO (FLUZONE/FLULAVAL/F LUARIX) 2023-10-15 11:15:00 Completed [facility] SARS-COV-2 COVID-19 MODERNA 12+ YRS VACCINE 2023-10-15 11:15:00 Completed [facility] Influenza Virus Vaccine Quad IM, Preserv and ABX Free 6 MO-64 YRS (FLUCELVAX) 2023-10-15 11:15:00 Completed [facility] Influenza Virus Vaccine 2023-10-15 00:00:00 Completed [facility] Pneumococcal 13 Conjugate, PCV13 (Prevnar 13) 2023-10-15 00:00:00 Completed [facility] Influenza Virus Vaccine Quad .5 mL IM 6+ MO (FLUZONE/FLULAVAL/F LUARIX) 2023-10-15 00:00:00 Completed [facility] SARS-COV-2 COVID-19 MODERNA 12+ YRS VACCINE 2023-10-15 00:00:00 Completed [facility] Influenza Virus Vaccine Quad IM, Preserv and ABX Free 6 MO-64 YRS (FLUCELVAX) 2023-10-15 00:00:00 Completed [facility] Influenza Virus Vaccine 2023-10-07 10:30:00 Completed [facility] Pneumococcal 13 Conjugate, PCV13 (Prevnar 13) 2023-10-07 10:30:00 Completed [facility] Influenza Virus Vaccine Quad .5 mL IM 6+ MO (FLUZONE/FLULAVAL/F LUARIX) 2023-10-07 10:30:00 Completed [facility] SARS-COV-2 COVID-19 MODERNA 12+ YRS VACCINE 2023-10-07 10:30:00 Completed [facility] Influenza Virus Vaccine Quad IM, Preserv and ABX Free 6 MO-64 YRS (FLUCELVAX) 2023-10-07 10:30:00 Completed [facility] Influenza Virus Vaccine 2023-10-07 00:00:00 Completed [facility] Pneumococcal 13 Conjugate, PCV13 (Prevnar 13) 2023-10-07 00:00:00 Completed [facility] Influenza Virus Vaccine Quad .5 mL IM 6+ MO (FLUZONE/FLULAVAL/F LUARIX) 2023-10-07 00:00:00 Completed [facility] SARS-COV-2 COVID-19 MODERNA 12+ YRS VACCINE 2023-10-07 00:00:00 Completed [facility] Influenza Virus Vaccine Quad IM, Preserv and ABX Free 6 MO-64 YRS (FLUCELVAX) 2023-10-07 00:00:00 Completed [facility] Influenza Virus Vaccine 2023-09-25 00:00:00 Completed [facility] Pneumococcal 13 Conjugate, PCV13 (Prevnar 13) 2023-09-25 00:00:00 Completed [facility] Influenza Virus Vaccine Quad .5 mL IM 6+ MO (FLUZONE/FLULAVAL/F LUARIX) 2023-09-25 00:00:00 Completed [facility] SARS-COV-2 COVID-19 MODERNA 12+ YRS VACCINE 2023-09-25 00:00:00 Completed [facility] Influenza Virus Vaccine Quad IM, Preserv and ABX Free 6 MO-64 YRS (FLUCELVAX) 2023-09-25 00:00:00 Completed [facility] Influenza Virus Vaccine 2023-09-18 00:00:00 Completed [facility] Pneumococcal 13 Conjugate, PCV13 (Prevnar 13) 2023-09-18 00:00:00 Completed [facility] Influenza Virus Vaccine Quad .5 mL IM 6+ MO (FLUZONE/FLULAVAL/F LUARIX) 2023-09-18 00:00:00 Completed [facility] SARS-COV-2 COVID-19 MODERNA 12+ YRS VACCINE 2023-09-18 00:00:00 Completed [facility] Influenza Virus Vaccine Quad IM, Preserv and ABX Free 6 MO-64 YRS (FLUCELVAX) 2023-09-18 00:00:00 Completed [facility] Influenza Virus Vaccine 2023-09-08 13:30:00 Completed [facility] Pneumococcal 13 Conjugate, PCV13 (Prevnar 13) 2023-09-08 13:30:00 Completed [facility] Influenza Virus Vaccine Quad .5 mL IM 6+ MO (FLUZONE/FLULAVAL/F LUARIX) 2023-09-08 13:30:00 Completed [facility] SARS-COV-2 COVID-19 MODERNA 12+ YRS VACCINE 2023-09-08 13:30:00 Completed [facility] Influenza Virus Vaccine Quad IM, Preserv and ABX Free 6 MO-64 YRS (FLUCELVAX) 2023-09-08 13:30:00 Completed [facility] Influenza Virus Vaccine 2023-09-08 08:30:00 Completed [facility] Pneumococcal 13 Conjugate, PCV13 (Prevnar 13) 2023-09-08 08:30:00 Completed [facility] Influenza Virus Vaccine Quad .5 mL IM 6+ MO (FLUZONE/FLULAVAL/F LUARIX) 2023-09-08 08:30:00 Completed [facility] SARS-COV-2 COVID-19 MODERNA 12+ YRS VACCINE 2023-09-08 08:30:00 [facility] [facility] [place] Influenza Virus Vaccine Quad IM, Preserv and ABX Free 6 MO-64 YRS (FLUCELVAX) 2023-09-08 08:30:00 Completed [facility] [place] Influenza Virus Vaccine 2023-09-04 10:49:00 Completed [facility] [place] Pneumococcal 13 Conjugate, PCV13 (Prevnar 13) 2023-09-04 10:49:00 Completed [facility] [place] Influenza Virus Vaccine Quad .5 mL IM 6+ MO (FLUZONE/FLULAVAL/F LUARIX) 2023-09-04 10:49:00 Completed [facility] [place] SARS-COV-2 COVID-19 MODERNA 12+ YRS VACCINE 2023-09-04 10:49:00 Completed [facility] [place] Influenza Virus Vaccine Quad IM, Preserv and ABX Free 6 MO-64 YRS (FLUCELVAX) 2023-09-04 10:49:00 Completed [facility] [place] Influenza Virus Vaccine 2023-08-22 09:30:00 Completed [facility] [place] Pneumococcal 13 Conjugate, PCV13 (Prevnar 13) 2023-08-22 09:30:00 Completed [facility] [place] Influenza Virus Vaccine Quad .5 mL IM 6+ MO (FLUZONE/FLULAVAL/F LUARIX) 2023-08-22 09:30:00 Completed [facility] [place] SARS-COV-2 COVID-19 MODERNA 12+ YRS VACCINE 2023-08-22 09:30:00 Completed [facility] [place] Influenza Virus Vaccine Quad IM, Preserv and ABX Free 6 MO-64 YRS (FLUCELVAX) 2023-08-22 09:30:00 Completed [facility] [place] Influenza Virus Vaccine 2023-08-21 14:45:00 Completed [facility] [place] Pneumococcal 13 Conjugate, PCV13 (Prevnar 13) 2023-08-21 14:45:00 Completed [facility] [place] Influenza Virus Vaccine Quad .5 mL IM 6+ MO (FLUZONE/FLULAVAL/F LUARIX) 2023-08-21 14:45:00 Completed [facility] [place] SARS-COV-2 COVID-19 MODERNA 12+ YRS VACCINE 2023-08-21 14:45:00 Completed [facility] [place] Influenza Virus Vaccine Quad IM, Preserv and ABX Free 6 MO-64 YRS (FLUCELVAX) 2023-08-21 14:45:00 Completed [facility] [place] Influenza Virus Vaccine 2023-08-21 13:40:00 Completed [facility] [place] Pneumococcal 13 Conjugate, PCV13 (Prevnar 13) 2023-08-21 13:40:00 Completed [facility] [place] Influenza Virus Vaccine Quad .5 mL IM 6+ MO (FLUZONE/FLULAVAL/F LUARIX) 2023-08-21 13:40:00 Completed [facility] [place] SARS-COV-2 COVID-19 MODERNA 12+ YRS VACCINE 2023-08-21 13:40:00 Completed [facility] [place] Influenza Virus Vaccine Quad IM, Preserv and ABX Free 6 MO-64 YRS (FLUCELVAX) 2023-08-21 13:40:00 Completed [facility] [place] Influenza Virus Vaccine 2023-08-19 00:00:00 Completed [facility] [place] Pneumococcal 13 Conjugate, PCV13 (Prevnar 13) 2023-08-19 00:00:00 Completed [facility] [place] Influenza Virus Vaccine Quad .5 mL IM 6+ MO (FLUZONE/FLULAVAL/F LUARIX) 2023-08-19 00:00:00 Completed [facility] [place] SARS-COV-2 COVID-19 MODERNA 12+ YRS VACCINE 2023-08-19 00:00:00 Completed [facility] [place] Influenza Virus Vaccine Quad IM, Preserv and ABX Free 6 MO-64 YRS (FLUCELVAX) 2023-08-19 00:00:00 Completed [facility] [place] Influenza Virus Vaccine 2023-08-15 08:30:00 Completed [facility] [place] Pneumococcal 13 Conjugate, PCV13 (Prevnar 13) 2023-08-15 08:30:00 Completed [facility] [place] Influenza Virus Vaccine Quad IM, Preserv and ABX Free 6 MO-64 YRS (FLUCELVAX) 2023-08-15 08:30:00 Completed [facility] [place] Influenza Virus Vaccine Quad .5 mL IM 6+ MO (FLUZONE/FLULAVAL/F LUARIX) 2023-08-15 08:30:00 Completed [facility] [place] SARS-COV-2 COVID-19 MODERNA 12+ YRS VACCINE 2023-08-15 08:30:00 Completed [facility] [place] Influenza Virus Vaccine 2023-08-15 00:00:00 Completed [facility] [place] Pneumococcal 13 Conjugate, PCV13 (Prevnar 13) 2023-08-15 00:00:00 Completed [facility] [place] Influenza Virus Vaccine Quad .5 mL IM 6+ MO (FLUZONE/FLULAVAL/F LUARIX) 2023-08-15 00:00:00 Completed [facility] [place] SARS-COV-2 COVID-19 MODERNA 12+ YRS VACCINE 2023-08-15 00:00:00 Completed [facility] [place] Influenza Virus Vaccine Quad IM, Preserv and ABX Free 6 MO-64 YRS (FLUCELVAX) 2023-08-15 00:00:00 Completed [facility] [place] Influenza Virus Vaccine 2023-08-13 14:15:00 Completed [facility] [place] Pneumococcal 13 Conjugate, PCV13 (Prevnar 13) 2023-08-13 14:15:00 Completed [facility] [place] Influenza Virus Vaccine Quad IM, Preserv and ABX Free 6 MO-64 YRS (FLUCELVAX) 2023-08-13 14:15:00 Completed [facility] [place] Influenza Virus Vaccine Quad .5 mL IM 6+ MO (FLUZONE/FLULAVAL/F LUARIX) 2023-08-13 14:15:00 Completed [facility] [place] SARS-COV-2 COVID-19 MODERNA 12+ YRS VACCINE 2023-08-13 14:15:00 Completed [facility] [place] Influenza Virus Vaccine 2023-08-01 00:00:00 Completed [facility] [place] Pneumococcal 13 Conjugate, PCV13 (Prevnar 13) 2023-08-01 00:00:00 Completed [facility] [place] Influenza Virus Vaccine Quad .5 mL IM 6+ MO (FLUZONE/FLULAVAL/F LUARIX) 2023-08-01 00:00:00 Completed [facility] [place] SARS-COV-2 COVID-19 MODERNA 12+ YRS VACCINE 2023-08-01 00:00:00 Completed [facility] [place] Influenza Virus Vaccine Quad IM, Preserv and ABX Free 6 MO-64 YRS (FLUCELVAX) 2023-08-01 00:00:00 Completed [facility] [place] Influenza Virus Vaccine 2023-07-30 16:16:00 Completed [facility] [place] Pneumococcal 13 Conjugate, PCV13 (Prevnar 13) 2023-07-30 16:16:00 Completed [facility] [place] Influenza Virus Vaccine Quad .5 mL IM 6+ MO (FLUZONE/FLULAVAL/F LUARIX) 2023-07-30 16:16:00 Completed [facility] [place] SARS-COV-2 COVID-19 MODERNA 12+ YRS VACCINE 2023-07-30 16:16:00 Completed [facility] [place] Influenza Virus Vaccine Quad IM, Preserv and ABX Free 6 MO-64 YRS (FLUCELVAX) 2023-07-30 16:16:00 Completed [facility] [place] Influenza Virus Vaccine 2023-07-30 00:00:00 Completed [facility] [place] Pneumococcal 13 Conjugate, PCV13 (Prevnar 13) 2023-07-30 00:00:00 Completed [facility] [place] Influenza Virus Vaccine Quad .5 mL IM 6+ MO (FLUZONE/FLULAVAL/F LUARIX) 2023-07-30 00:00:00 Completed [facility] [place] SARS-COV-2 COVID-19 MODERNA 12+ YRS VACCINE 2023-07-30 00:00:00 Completed [facility] [place] Influenza Virus Vaccine Quad IM, Preserv and ABX Free 6 MO-64 YRS (FLUCELVAX) 2023-07-30 00:00:00 Completed [facility] [place] Influenza Virus Vaccine 2023-07-30 00:00:00 Completed [facility] [place] Pneumococcal 13 Conjugate, PCV13 (Prevnar 13) 2023-07-30 00:00:00 Completed [facility] [place] Influenza Virus Vaccine Quad .5 mL IM 6+ MO (FLUZONE/FLULAVAL/F LUARIX) 2023-07-30 00:00:00 Completed [facility] [place] SARS-COV-2 COVID-19 MODERNA 12+ YRS VACCINE 2023-07-30 00:00:00 Completed [facility] [place] Influenza Virus Vaccine Quad IM, Preserv and ABX Free 6 MO-64 YRS (FLUCELVAX) 2023-07-30 00:00:00 Completed [facility] [place] Influenza Virus Vaccine 2023-07-25 09:40:00 Completed [facility] [place] Pneumococcal 13 Conjugate, PCV13 (Prevnar 13) 2023-07-25 09:40:00 Completed [facility] [place] Influenza Virus Vaccine Quad .5 mL IM 6+ MO (FLUZONE/FLULAVAL/F LUARIX) 2023-07-25 09:40:00 Completed [facility] [place] SARS-COV-2 COVID-19 MODERNA 12+ YRS VACCINE 2023-07-25 09:40:00 Completed [facility] [place] Influenza Virus Vaccine Quad IM, Preserv and ABX Free 6 MO-64 YRS (FLUCELVAX) 2023-07-25 09:40:00 Completed [facility] [place] Influenza Virus Vaccine 2023-07-25 09:00:00 Completed [facility] [place] Pneumococcal 13 Conjugate, PCV13 (Prevnar 13) 2023-07-25 09:00:00 Completed [facility] [place] Influenza Virus Vaccine Quad .5 mL IM 6+ MO (FLUZONE/FLULAVAL/F LUARIX) 2023-07-25 09:00:00 Completed [facility] [place] SARS-COV-2 COVID-19 MODERNA 12+ YRS VACCINE 2023-07-25 09:00:00 Completed [facility] [place] Influenza Virus Vaccine Quad IM, Preserv and ABX Free 6 MO-64 YRS (FLUCELVAX) 2023-07-25 09:00:00 Completed [facility] [place] Influenza Virus Vaccine 2023-07-24 09:30:00 Completed [facility] [place] Pneumococcal 13 Conjugate, PCV13 (Prevnar 13) 2023-07-24 09:30:00 Completed [facility] [place] Influenza Virus Vaccine Quad IM, Preserv and ABX Free 6 MO-64 YRS (FLUCELVAX) 2023-07-24 09:30:00 Completed [facility] [place] Influenza Virus Vaccine Quad .5 mL IM 6+ MO (FLUZONE/FLULAVAL/F LUARIX) 2023-07-24 09:30:00 Completed [facility] [place] SARS-COV-2 COVID-19 MODERNA 12+ YRS VACCINE 2023-07-24 09:30:00 Completed [facility] [place] Influenza Virus Vaccine 2023-07-24 09:28:32 Completed [facility] [place] Pneumococcal 13 Conjugate, PCV13 (Prevnar 13) 2023-07-24 09:28:32 Completed [facility] [place] Influenza Virus Vaccine Quad .5 mL IM 6+ MO (FLUZONE/FLULAVAL/F LUARIX) 2023-07-24 09:28:32 Completed [facility] [place] SARS-COV-2 COVID-19 MODERNA 12+ YRS VACCINE 2023-07-24 09:28:32 Completed [facility] [place] Influenza Virus Vaccine Quad IM, Preserv and ABX Free 6 MO-64 YRS (FLUCELVAX) 2023-07-24 09:28:32 Completed [facility] [place] Influenza Virus Vaccine 2023-07-21 00:00:00 Completed [facility] [place] Pneumococcal 13 Conjugate, PCV13 (Prevnar 13) 2023-07-21 00:00:00 Completed [facility] [place] Influenza Virus Vaccine Quad .5 mL IM 6+ MO (FLUZONE/FLULAVAL/F LUARIX) 2023-07-21 00:00:00 Completed [facility] [place] SARS-COV-2 COVID-19 MODERNA 12+ YRS VACCINE 2023-07-21 00:00:00 Completed [facility] [place] Influenza Virus Vaccine Quad IM, Preserv and ABX Free 6 MO-64 YRS (FLUCELVAX) 2023-07-21 00:00:00 Completed [facility] [place] Influenza Virus Vaccine 2023-07-15 00:00:00 Completed [facility] [place] Pneumococcal 13 Conjugate, PCV13 (Prevnar 13) 2023-07-15 00:00:00 Completed [facility] [place] Influenza Virus Vaccine Quad .5 mL IM 6+ MO (FLUZONE/FLULAVAL/F LUARIX) 2023-07-15 00:00:00 Completed [facility] [place] SARS-COV-2 COVID-19 MODERNA 12+ YRS VACCINE 2023-07-15 00:00:00 Completed [facility] [place] Influenza Virus Vaccine Quad IM, Preserv and ABX Free 6 MO-64 YRS (FLUCELVAX) 2023-07-15 00:00:00 Completed [facility] [place] Influenza Virus Vaccine 2023-07-08 00:00:00 Completed [facility] [place] Pneumococcal 13 Conjugate, PCV13 (Prevnar 13) 2023-07-08 00:00:00 Completed [facility] [place] Influenza Virus Vaccine Quad .5 mL IM 6+ MO (FLUZONE/FLULAVAL/F LUARIX) 2023-07-08 00:00:00 Completed [facility] [place] SARS-COV-2 COVID-19 MODERNA 12+ YRS VACCINE 2023-07-08 00:00:00 Completed [facility] [place] Influenza Virus Vaccine Quad IM, Preserv and ABX Free 6 MO-64 YRS (FLUCELVAX) 2023-07-08 00:00:00 Completed [facility] [place] Influenza Virus Vaccine 2023-06-25 00:00:00 Completed [facility] [place] Pneumococcal 13 Conjugate, PCV13 (Prevnar 13) 2023-06-25 00:00:00 Completed [facility] [place] Influenza Virus Vaccine Quad .5 mL IM 6+ MO (FLUZONE/FLULAVAL/F LUARIX) 2023-06-25 00:00:00 Completed [facility] [place] SARS-COV-2 COVID-19 MODERNA 12+ YRS VACCINE 2023-06-25 00:00:00 Completed [facility] [place] Influenza Virus Vaccine Quad IM, Preserv and ABX Free 6 MO-64 YRS (FLUCELVAX) 2023-06-25 00:00:00 Completed [facility] [place] Influenza Virus Vaccine 2023-06-23 08:04:24 Completed [facility] [place] Pneumococcal 13 Conjugate, PCV13 (Prevnar 13) 2023-06-23 08:04:24 Completed [facility] [place] Influenza Virus Vaccine Quad .5 mL IM 6+ MO (FLUZONE/FLULAVAL/F LUARIX) 2023-06-23 08:04:24 Completed [facility] [place] SARS-COV-2 COVID-19 MODERNA 12+ YRS VACCINE 2023-06-23 08:04:24 Completed [facility] [place] Influenza Virus Vaccine Quad IM, Preserv and ABX Free 6 MO-64 YRS (FLUCELVAX) 2023-06-23 08:04:24 Completed [facility] [place] Influenza Virus Vaccine 2023-06-09 00:00:00 Completed [facility] [place] Pneumococcal 13 Conjugate, PCV13 (Prevnar 13) 2023-06-09 00:00:00 Completed [facility] [place] Influenza Virus Vaccine Quad IM, Preserv and ABX Free 6 MO-64 YRS (FLUCELVAX) 2023-06-09 00:00:00 Completed [facility] [place] Influenza Virus Vaccine Quad .5 mL IM 6+ MO (FLUZONE/FLULAVAL/F LUARIX) 2023-06-09 00:00:00 Completed [facility] [place] SARS-COV-2 COVID-19 MODERNA 12+ YRS VACCINE 2023-06-09 00:00:00 Completed [facility] [place] Influenza Virus Vaccine 2023-06-02 00:00:00 Completed [facility] [place] Pneumococcal 13 Conjugate, PCV13 (Prevnar 13) 2023-06-02 00:00:00 Completed [facility] [place] Influenza Virus Vaccine Quad .5 mL IM 6+ MO (FLUZONE/FLULAVAL/F LUARIX) 2023-06-02 00:00:00 Completed [facility] [place] SARS-COV-2 COVID-19 MODERNA 12+ YRS VACCINE 2023-06-02 00:00:00 Completed [facility] [place] Influenza Virus Vaccine Quad IM, Preserv and ABX Free 6 MO-64 YRS (FLUCELVAX) 2023-06-02 00:00:00 Completed [facility] [place] Influenza Virus Vaccine 2023-05-29 00:00:00 Completed [facility] [place] Pneumococcal 13 Conjugate, PCV13 (Prevnar 13) 2023-05-29 00:00:00 Completed [facility] [place] Influenza Virus Vaccine Quad .5 mL IM 6+ MO (FLUZONE/FLULAVAL/F LUARIX) 2023-05-29 00:00:00 Completed [facility] [place] SARS-COV-2 COVID-19 MODERNA 12+ YRS VACCINE 2023-05-29 00:00:00 Completed [facility] [place] Influenza Virus Vaccine Quad IM, Preserv and ABX Free 6 MO-64 YRS (FLUCELVAX) 2023-05-29 00:00:00 Completed [facility] [place] Influenza Virus Vaccine 2023-05-29 00:00:00 Completed [facility] [place] Pneumococcal 13 Conjugate, PCV13 (Prevnar 13) 2023-05-29 00:00:00 Completed [facility] [place] Influenza Virus Vaccine Quad .5 mL IM 6+ MO (FLUZONE/FLULAVAL/F LUARIX) 2023-05-29 00:00:00 Completed [facility] [place] SARS-COV-2 COVID-19 MODERNA 12+ YRS VACCINE 2023-05-29 00:00:00 Completed [facility] [place] Influenza Virus Vaccine Quad IM, Preserv and ABX Free 6 MO-64 YRS (FLUCELVAX) 2023-05-29 00:00:00 Completed [facility] [place] Influenza Virus Vaccine 2023-05-26 09:15:00 Completed [facility] [place] Pneumococcal 13 Conjugate, PCV13 (Prevnar 13) 2023-05-26 09:15:00 Completed [facility] [place] Influenza Virus Vaccine Quad .5 mL IM 6+ MO (FLUZONE/FLULAVAL/F LUARIX) 2023-05-26 09:15:00 Completed [facility] [place] SARS-COV-2 COVID-19 MODERNA 12+ YRS VACCINE 2023-05-26 09:15:00 Completed [facility] [place] Influenza Virus Vaccine Quad IM, Preserv and ABX Free 6 MO-64 YRS (FLUCELVAX) 2023-05-26 09:15:00 Completed [facility] [place] Influenza Virus Vaccine 2023-05-26 00:00:00 Completed [facility] [place] Pneumococcal 13 Conjugate, PCV13 (Prevnar 13) 2023-05-26 00:00:00 Completed [facility] [place] Influenza Virus Vaccine Quad .5 mL IM 6+ MO (FLUZONE/FLULAVAL/F LUARIX) 2023-05-26 00:00:00 Completed [facility] [place] SARS-COV-2 COVID-19 MODERNA 12+ YRS VACCINE 2023-05-26 00:00:00 Completed [facility] [place] Influenza Virus Vaccine Quad IM, Preserv and ABX Free 6 MO-64 YRS (FLUCELVAX) 2023-05-26 00:00:00 Completed [facility] [place] Influenza Virus Vaccine 2023-05-26 00:00:00 Completed [facility] [place] Pneumococcal 13 Conjugate, PCV13 (Prevnar 13) 2023-05-26 00:00:00 Completed [facility] [place] Influenza Virus Vaccine Quad .5 mL IM 6+ MO (FLUZONE/FLULAVAL/F LUARIX) 2023-05-26 00:00:00 Completed [facility] [place] SARS-COV-2 COVID-19 MODERNA 12+ YRS VACCINE 2023-05-26 00:00:00 Completed [facility] [place] Influenza Virus Vaccine Quad IM, Preserv and ABX Free 6 MO-64 YRS (FLUCELVAX) 2023-05-26 00:00:00 Completed [facility] [place] Influenza Virus Vaccine 2023-05-17 00:00:00 Completed [facility] [place] Pneumococcal 13 Conjugate, PCV13 (Prevnar 13) 2023-05-17 00:00:00 Completed [facility] [place] Influenza Virus Vaccine Quad .5 mL IM 6+ MO (FLUZONE/FLULAVAL/F LUARIX) 2023-05-17 00:00:00 Completed [facility] [place] SARS-COV-2 COVID-19 MODERNA 12+ YRS VACCINE 2023-05-17 00:00:00 Completed [facility] [place] Influenza Virus Vaccine Quad IM, Preserv and ABX Free 6 MO-64 YRS (FLUCELVAX) 2023-05-17 00:00:00 Completed [facility] [place] Influenza Virus Vaccine 2023-05-14 09:30:00 Completed [facility] [place] Pneumococcal 13 Conjugate, PCV13 (Prevnar 13) 2023-05-14 09:30:00 Completed [facility] [place] Influenza Virus Vaccine Quad .5 mL IM 6+ MO (FLUZONE/FLULAVAL/F LUARIX) 2023-05-14 09:30:00 Completed [facility] [place] SARS-COV-2 COVID-19 MODERNA 12+ YRS VACCINE 2023-05-14 09:30:00 Completed [facility] [place] Influenza Virus Vaccine Quad IM, Preserv and ABX Free 6 MO-64 YRS (FLUCELVAX) 2023-05-14 09:30:00 Completed [facility] [place] Influenza Virus Vaccine 2023-04-30 00:00:00 Completed [facility] [place] Pneumococcal 13 Conjugate, PCV13 (Prevnar 13) 2023-04-30 00:00:00 Completed [facility] [place] Influenza Virus Vaccine Quad .5 mL IM 6+ MO (FLUZONE/FLULAVAL/F LUARIX) 2023-04-30 00:00:00 Completed [facility] [place] SARS-COV-2 COVID-19 MODERNA 12+ YRS VACCINE 2023-04-30 00:00:00 Completed [facility] [place] Influenza Virus Vaccine Quad IM, Preserv and ABX Free 6 MO-64 YRS (FLUCELVAX) 2023-04-30 00:00:00 Completed [facility] [place] Influenza Virus Vaccine 2023-04-28 00:00:00 Completed [facility] [place] Pneumococcal 13 Conjugate, PCV13 (Prevnar 13) 2023-04-28 00:00:00 Completed [facility] [place] Influenza Virus Vaccine Quad .5 mL IM 6+ MO (FLUZONE/FLULAVAL/F LUARIX) 2023-04-28 00:00:00 Completed [facility] [place] SARS-COV-2 COVID-19 MODERNA 12+ YRS VACCINE 2023-04-28 00:00:00 Completed [facility] [place] Influenza Virus Vaccine Quad IM, Preserv and ABX Free 6 MO-64 YRS (FLUCELVAX) 2023-04-28 00:00:00 Completed [facility] [place] Influenza Virus Vaccine 2023-04-24 00:00:00 Completed [facility] [place] Pneumococcal 13 Conjugate, PCV13 (Prevnar 13) 2023-04-24 00:00:00 Completed [facility] [place] Influenza Virus Vaccine Quad .5 mL IM 6+ MO (FLUZONE/FLULAVAL/F LUARIX) 2023-04-24 00:00:00 Completed [facility] [place] SARS-COV-2 COVID-19 MODERNA 12+ YRS VACCINE 2023-04-24 00:00:00 Completed [facility] [place] Influenza Virus Vaccine Quad IM, Preserv and ABX Free 6 MO-64 YRS (FLUCELVAX) 2023-04-24 00:00:00 Completed [facility] [place] Influenza Virus Vaccine 2023-04-18 11:30:00 Completed [facility] [place] Pneumococcal 13 Conjugate, PCV13 (Prevnar 13) 2023-04-18 11:30:00 Completed [facility] [place] Influenza Virus Vaccine Quad .5 mL IM 6+ MO (FLUZONE/FLULAVAL/F LUARIX) 2023-04-18 11:30:00 Completed [facility] [place] SARS-COV-2 COVID-19 MODERNA 12+ YRS VACCINE 2023-04-18 11:30:00 Completed [facility] [place] Influenza Virus Vaccine Quad IM, Preserv and ABX Free 6 MO-64 YRS (FLUCELVAX) 2023-04-18 11:30:00 Completed [facility] [place] Influenza Virus Vaccine 2023-04-18 00:00:00 Completed [facility] [place] Pneumococcal 13 Conjugate, PCV13 (Prevnar 13) 2023-04-18 00:00:00 Completed [facility] [place] Influenza Virus Vaccine Quad .5 mL IM 6+ MO (FLUZONE/FLULAVAL/F LUARIX) 2023-04-18 00:00:00 Completed [facility] [place] SARS-COV-2 COVID-19 MODERNA 12+ YRS VACCINE 2023-04-18 00:00:00 Completed [facility] [place] Influenza Virus Vaccine Quad IM, Preserv and ABX Free 6 MO-64 YRS (FLUCELVAX) 2023-04-18 00:00:00 Completed [facility] [place] Influenza Virus Vaccine 2023-04-15 13:00:00 Completed [facility] [place] Pneumococcal 13 Conjugate, PCV13 (Prevnar 13) 2023-04-15 13:00:00 Completed [facility] [place] Influenza Virus Vaccine Quad IM, Preserv and ABX Free 6 MO-64 YRS (FLUCELVAX) 2023-04-15 13:00:00 Completed [facility] [place] Influenza Virus Vaccine 2023-03-19 00:00:00 Completed [facility] [place] Pneumococcal 13 Conjugate, PCV13 (Prevnar 13) 2023-03-19 00:00:00 Completed [facility] [place] Influenza Virus Vaccine Quad .5 mL IM 6+ MO (FLUZONE/FLULAVAL/F LUARIX) 2023-03-19 00:00:00 Completed [facility] [place] SARS-COV-2 COVID-19 MODERNA 12+ YRS VACCINE 2023-03-19 00:00:00 Completed [facility] [place] Influenza Virus Vaccine Quad IM, Preserv and ABX Free 6 MO-64 YRS (FLUCELVAX) 2023-03-19 00:00:00 Completed [facility] [place] Influenza Virus Vaccine 2022-12-12 00:00:00 Completed [facility] [place] Pneumococcal 13 Conjugate, PCV13 (Prevnar 13) 2022-12-12 00:00:00 Completed [facility] [place] Influenza Virus Vaccine Quad .5 mL IM 6+ MO (FLUZONE/FLULAVAL/F LUARIX) 2022-12-12 00:00:00 Completed [facility] SARS-COV-2 COVID-19 MODERNA 12+ YRS VACCINE 2022-12-12 00:00:00 [facility] [facility] Influenza Virus Vaccine Quad IM, Preserv and ABX Free 6 MO-64 YRS (FLUCELVAX) 2022-12-12 00:00:00 Completed [facility] Influenza Virus Vaccine Quad IM, Preserv and ABX Free 6 MO-64 YRS 2022-07-04 00:00:00 Completed [facility] Influenza Virus Vaccine Quad IM, Preserv and ABX Free 6 MO-64 YRS 2022-07-04 00:00:00 Completed [facility] Influenza Virus Vaccine Quad IM, Preserv and ABX Free 6 MO-64 YRS 2022-07-04 00:00:00 Completed [facility] Influenza Virus Vaccine Quad IM, Preserv and ABX Free 6 MO-64 YRS 2022-07-04 00:00:00 Completed [facility] Influenza Virus Vaccine Quad IM, Preserv and ABX Free 6 MO-64 YRS 2022-07-04 00:00:00 Completed [facility] Influenza Virus Vaccine Quad IM, Preserv and ABX Free 6 MO-64 YRS 2022-07-04 00:00:00 Completed [facility] Influenza Virus Vaccine Quad IM, Preserv and ABX Free 6 MO-64 YRS 2022-07-04 00:00:00 Completed [facility] Influenza Virus Vaccine Quad IM, Preserv and ABX Free 6 MO-64 YRS 2022-07-04 00:00:00 Completed [facility] Influenza Virus Vaccine Quad IM, Preserv and ABX Free 6 MO-64 YRS 2022-07-04 00:00:00 Completed [facility] Influenza Virus Vaccine Quad IM, Preserv and ABX Free 6 MO-64 YRS 2022-07-04 00:00:00 Completed [facility] Influenza Virus Vaccine Quad IM, Preserv and ABX Free 6 MO-64 YRS 2022-07-04 00:00:00 Completed [facility] Influenza Virus Vaccine Quad IM, Preserv and ABX Free 6 MO-64 YRS 2022-07-04 00:00:00 Completed [facility] Influenza Virus Vaccine Quad IM, Preserv and ABX Free 6 MO-64 YRS 2022-07-04 00:00:00 Completed [facility] Influenza Virus Vaccine Quad IM, Preserv and ABX Free 6 MO-64 YRS 2022-07-04 00:00:00 Completed [facility] Influenza Virus Vaccine Quad IM, Preserv and ABX Free 6 MO-64 YRS 2022-07-04 00:00:00 Completed [facility] Influenza Virus Vaccine Quad IM, Preserv and ABX Free 6 MO-64 YRS 2022-07-04 00:00:00 Completed [facility] Influenza Virus Vaccine Quad IM, Preserv and ABX Free 6 MO-64 YRS 2022-07-04 00:00:00 Completed [facility] Influenza Virus Vaccine Quad IM, Preserv and ABX Free 6 MO-64 YRS 2022-07-04 00:00:00 Completed [facility] Influenza Virus Vaccine Quad IM, Preserv and ABX Free 6 MO-64 YRS 2022-07-04 00:00:00 Completed [facility] Influenza Virus Vaccine Quad IM, Preserv and ABX Free 6 MO-64 YRS 2022-07-04 00:00:00 Completed [facility] Influenza Virus Vaccine Quad IM, Preserv and ABX Free 6 MO-64 YRS 2022-07-04 00:00:00 Completed [facility] Influenza Virus Vaccine Quad IM, Preserv and ABX Free 6 MO-64 YRS 2022-07-04 00:00:00 Completed [facility] Influenza Virus Vaccine Quad IM, Preserv and ABX Free 6 MO-64 YRS 2022-07-04 00:00:00 Completed [facility] Influenza Virus Vaccine Quad IM, Preserv and ABX Free 6 MO-64 YRS 2022-07-04 00:00:00 Completed [facility] Influenza Virus Vaccine Quad IM, Preserv and ABX Free 6 MO-64 YRS 2022-07-04 00:00:00 Completed [facility] Influenza Virus Vaccine Quad IM, Preserv and ABX Free 6 MO-64 YRS 2022-07-04 00:00:00 Completed [facility] Influenza Virus Vaccine Quad IM, Preserv and ABX Free 6 MO-64 YRS 2022-07-04 00:00:00 Completed [facility] Influenza Virus Vaccine Quad IM, Preserv and ABX Free 6 MO-64 YRS 2022-07-04 00:00:00 Completed [facility] Influenza Virus Vaccine Quad IM, Preserv and ABX Free 6 MO-64 YRS 2022-07-04 00:00:00 Completed [facility] Influenza Virus Vaccine Quad IM, Preserv and ABX Free 6 MO-64 YRS 2022-07-04 00:00:00 Completed [facility] Influenza Virus Vaccine Quad IM, Preserv and ABX Free 6 MO-64 YRS 2022-07-04 00:00:00 Completed [facility] Influenza Virus Vaccine Quad IM, Preserv and ABX Free 6 MO-64 YRS 2022-07-04 00:00:00 Completed [facility] Influenza Virus Vaccine Quad IM, Preserv and ABX Free 6 MO-64 YRS 2022-07-04 00:00:00 Completed [facility] Influenza Virus Vaccine Quad IM, Preserv and ABX Free 6 MO-64 YRS 2022-07-04 00:00:00 Completed [facility] Influenza Virus Vaccine Quad IM, Preserv and ABX Free 6 MO-64 YRS 2022-07-04 00:00:00 Completed [facility] Influenza Virus Vaccine Quad IM, Preserv and ABX Free 6 MO-64 YRS 2022-07-04 00:00:00 Completed [facility] Influenza Virus Vaccine Quad IM, Preserv and ABX Free 6 MO-64 YRS 2022-07-04 00:00:00 Completed [facility] Influenza Virus Vaccine Quad IM, Preserv and ABX Free 6 MO-64 YRS 2022-07-04 00:00:00 Completed [facility] Influenza Virus Vaccine Quad IM, Preserv and ABX Free 6 MO-64 YRS 2022-07-04 00:00:00 Completed [facility] Influenza Virus Vaccine Quad IM, Preserv and ABX Free 6 MO-64 YRS 2022-07-04 00:00:00 Completed [facility] Influenza Virus Vaccine Quad IM, Preserv and ABX Free 6 MO-64 YRS 2022-07-04 00:00:00 Completed [facility] Influenza Virus Vaccine Quad IM, Preserv and ABX Free 6 MO-64 YRS 2022-07-04 00:00:00 Completed [facility] Influenza Virus Vaccine Quad IM, Preserv and ABX Free 6 MO-64 YRS 2022-07-04 00:00:00 Completed [facility] Influenza Virus Vaccine Quad IM, Preserv and ABX Free 6 MO-64 YRS 2022-07-04 00:00:00 Completed [facility] Influenza Virus Vaccine Quad IM, Preserv and ABX Free 6 MO-64 YRS 2022-07-04 00:00:00 Completed [facility] Influenza Virus Vaccine Quad IM, Preserv and ABX Free 6 MO-64 YRS 2022-07-04 00:00:00 Completed [facility] Influenza Virus Vaccine Quad IM, Preserv and ABX Free 6 MO-64 YRS 2022-07-04 00:00:00 Completed [facility] Influenza Virus Vaccine Quad IM, Preserv and ABX Free 6 MO-64 YRS 2022-07-04 00:00:00 Completed [facility] Influenza Virus Vaccine Quad IM, Preserv and ABX Free 6 MO-64 YRS 2022-07-04 00:00:00 Completed [facility] Influenza Virus Vaccine Quad IM, Preserv and ABX Free 6 MO-64 YRS 2022-07-04 00:00:00 Completed [facility] Influenza Virus Vaccine Quad IM, Preserv and ABX Free 6 MO-64 YRS 2022-07-04 00:00:00 Completed [facility] Influenza Virus Vaccine Quad IM, Preserv and ABX Free 6 MO-64 YRS 2022-07-04 00:00:00 Completed [facility] Influenza Virus Vaccine Quad IM, Preserv and ABX Free 6 MO-64 YRS 2022-07-04 00:00:00 Completed [facility] Influenza Virus Vaccine Quad IM, Preserv and ABX Free 6 MO-64 YRS 2022-07-04 00:00:00 Completed [facility] Influenza Virus Vaccine Quad IM, Preserv and ABX Free 6 MO-64 YRS 2022-07-04 00:00:00 Completed [facility] Influenza Virus Vaccine Quad IM, Preserv and ABX Free 6 MO-64 YRS 2022-07-04 00:00:00 Completed [facility] Influenza Virus Vaccine Quad IM, Preserv and ABX Free 6 MO-64 YRS 2022-07-04 00:00:00 Completed [facility] Influenza Virus Vaccine Quad IM, Preserv and ABX Free 6 MO-64 YRS 2022-07-04 00:00:00 Completed [facility] Influenza Virus Vaccine Quad IM, Preserv and ABX Free 6 MO-64 YRS 2022-07-04 00:00:00 Completed [facility] Influenza Virus Vaccine Quad IM, Preserv and ABX Free 6 MO-64 YRS 2022-07-04 00:00:00 Completed [facility] Influenza Virus Vaccine Quad IM, Preserv and ABX Free 6 MO-64 YRS (FLUCELVAX) 2022-07-04 00:00:00 Completed [facility] Influenza Virus Vaccine Quad IM, Preserv and ABX Free 6 MO-64 YRS (FLUCELVAX) 2022-07-04 00:00:00 Completed [facility] Influenza Virus Vaccine Quad IM, Preserv and ABX Free 6 MO-64 YRS (FLUCELVAX) 2022-07-04 00:00:00 Completed [facility] Influenza Virus Vaccine Quad IM, Preserv and ABX Free 6 MO-64 YRS (FLUCELVAX) 2022-07-04 00:00:00 Completed [facility] Influenza Virus Vaccine 2022-04-21 00:00:00 Completed [facility] Pneumococcal 13 Conjugate, PCV13 (Prevnar 13) 2022-04-21 00:00:00 Completed [facility] Influenza Virus Vaccine Quad .5 mL IM 6+ MO (FLUZONE/FLULAVAL/F LUARIX) 2022-04-21 00:00:00 Completed [facility] SARS-COV-2 COVID-19 VACCINE - (MODERNA) 2022-04-21 00:00:00 Completed [facility] Influenza Virus Vaccine 2022-04-10 00:00:00 Completed [facility] Pneumococcal 13 Conjugate, PCV13 (Prevnar 13) 2022-04-10 00:00:00 Completed [facility] Influenza Virus Vaccine Quad .5 mL IM 6+ MO (FLUZONE/FLULAVAL/F LUARIX) 2022-04-10 00:00:00 Completed [facility] SARS-COV-2 COVID-19 MODERNA 12+ YRS VACCINE 2022-04-10 00:00:00 Completed [facility] Influenza Virus Vaccine 2022-02-01 00:00:00 Completed [facility] Pneumococcal 13 Conjugate, PCV13 (Prevnar 13) 2022-02-01 00:00:00 Completed [facility] Influenza Virus Vaccine Quad .5 mL IM 6+ MO (FLUZONE/FLULAVAL/F LUARIX) 2022-02-01 00:00:00 Completed [facility] SARS-COV-2 COVID-19 MODERNA 12+ YRS VACCINE 2022-02-01 00:00:00 Completed [facility] Influenza Virus Vaccine 2022-01-14 00:00:00 Completed [facility] Pneumococcal 13 Conjugate, PCV13 (Prevnar 13) 2022-01-14 00:00:00 Completed [facility] Influenza Virus Vaccine Quad .5 mL IM 6+ MO (FLUZONE/FLULAVAL/F LUARIX) 2022-01-14 00:00:00 Completed [facility] SARS-COV-2 COVID-19 MODERNA 12+ YRS VACCINE 2022-01-14 00:00:00 Completed [facility] Influenza Virus Vaccine 2022-01-01 00:00:00 Completed [facility] Pneumococcal 13 Conjugate, PCV13 (Prevnar 13) 2022-01-01 00:00:00 Completed [facility] Influenza Virus Vaccine Quad .5 mL IM 6+ MO (FLUZONE/FLULAVAL/F LUARIX) 2022-01-01 00:00:00 Completed [facility] SARS-COV-2 COVID-19 MODERNA 12+ YRS VACCINE 2022-01-01 00:00:00 Completed [facility] Influenza Virus Vaccine 2021-09-17 00:00:00 Completed [facility] Pneumococcal 13 Conjugate, PCV13 (Prevnar 13) 2021-09-17 00:00:00 Completed [facility] Influenza Virus Vaccine Quad .5 mL IM 6+ MO (FLUZONE/FLULAVAL/F LUARIX) 2021-09-17 00:00:00 Completed [facility] SARS-COV-2 COVID-19 MODERNA 12+ YRS VACCINE 2021-09-17 00:00:00 Completed [facility] Influenza Virus Vaccine 2021-08-27 00:00:00 Completed [facility] Pneumococcal 13 Conjugate, PCV13 (Prevnar 13) 2021-08-27 00:00:00 Completed [facility] Influenza Virus Vaccine Quad .5 mL IM 6+ MO (FLUZONE/FLULAVAL/F LUARIX) 2021-08-27 00:00:00 Completed [facility] SARS-COV-2 COVID-19 MODERNA 12+ YRS VACCINE 2021-08-27 00:00:00 Completed [facility] Influenza Virus Vaccine 2021-07-04 00:00:00 Completed [facility] Pneumococcal 13 Conjugate, PCV13 (Prevnar 13) 2021-07-04 00:00:00 Completed [facility] Influenza Virus Vaccine Quad .5 mL IM 6+ MO (FLUZONE/FLULAVAL/F LUARIX) 2021-07-04 00:00:00 Completed [facility] SARS-COV-2 COVID-19 MODERNA 12+ YRS VACCINE 2021-07-04 00:00:00 Completed [facility] Influenza Virus Vaccine 2021-03-19 00:00:00 Completed [facility] Pneumococcal 13 Conjugate, PCV13 (Prevnar 13) 2021-03-19 00:00:00 Completed [facility] Influenza Virus Vaccine Quad .5 mL IM 6+ MO (FLUZONE/FLULAVAL/F LUARIX) 2021-03-19 00:00:00 Completed [facility] SARS-COV-2 COVID-19 MODERNA 12+ YRS VACCINE 2021-03-19 00:00:00 Completed [facility] SARS-COV-2 COVID-19 MODERNA VACCINE 2020-10-07 00:00:00 Completed [facility] SARS-COV-2 COVID-19 MODERNA 12+ YRS VACCINE 2020-10-07 00:00:00 Completed [facility] SARS-COV-2 COVID-19 MODERNA 12+ YRS VACCINE 2020-10-07 00:00:00 Completed [facility] SARS-COV-2 COVID-19 MODERNA 12+ YRS VACCINE 2020-10-07 00:00:00 Completed [facility] SARS-COV-2 COVID-19 MODERNA 12+ YRS VACCINE 2020-10-07 00:00:00 Completed [facility] SARS-COV-2 COVID-19 MODERNA 12+ YRS VACCINE 2020-10-07 00:00:00 Completed [facility] SARS-COV-2 COVID-19 MODERNA 12+ YRS VACCINE 2020-10-07 00:00:00 Completed [facility] SARS-COV-2 COVID-19 MODERNA 12+ YRS VACCINE 2020-10-07 00:00:00 Completed [facility] SARS-COV-2 COVID-19 MODERNA 12+ YRS VACCINE 2020-10-07 00:00:00 Completed [facility] SARS-COV-2 COVID-19 MODERNA 12+ YRS VACCINE 2020-10-07 00:00:00 Completed [facility] SARS-COV-2 COVID-19 MODERNA 12+ YRS VACCINE 2020-10-07 00:00:00 Completed [facility] SARS-COV-2 COVID-19 MODERNA 12+ YRS VACCINE 2020-10-07 00:00:00 Completed [facility] SARS-COV-2 COVID-19 MODERNA 12+ YRS VACCINE 2020-10-07 00:00:00 Completed [facility] SARS-COV-2 COVID-19 MODERNA 12+ YRS VACCINE 2020-10-07 00:00:00 Completed [facility] SARS-COV-2 COVID-19 MODERNA 12+ YRS VACCINE 2020-10-07 00:00:00 Completed [facility] SARS-COV-2 COVID-19 MODERNA 12+ YRS VACCINE 2020-10-07 00:00:00 Completed [facility] SARS-COV-2 COVID-19 MODERNA 12+ YRS VACCINE 2020-10-07 00:00:00 Completed [facility] SARS-COV-2 COVID-19 MODERNA 12+ YRS VACCINE 2020-10-07 00:00:00 Completed [facility] SARS-COV-2 COVID-19 MODERNA 12+ YRS VACCINE 2020-10-07 00:00:00 Completed [facility] SARS-COV-2 COVID-19 MODERNA 12+ YRS VACCINE 2020-10-07 00:00:00 Completed [facility] SARS-COV-2 COVID-19 MODERNA 12+ YRS VACCINE 2020-10-07 00:00:00 Completed [facility] SARS-COV-2 COVID-19 MODERNA 12+ YRS VACCINE 2020-10-07 00:00:00 Completed [facility] SARS-COV-2 COVID-19 MODERNA 12+ YRS VACCINE 2020-10-07 00:00:00 Completed [facility] SARS-COV-2 COVID-19 MODERNA 12+ YRS VACCINE 2020-10-07 00:00:00 Completed [facility] SARS-COV-2 COVID-19 MODERNA 12+ YRS VACCINE 2020-10-07 00:00:00 Completed [facility] SARS-COV-2 COVID-19 MODERNA 12+ YRS VACCINE 2020-10-07 00:00:00 Completed [facility] SARS-COV-2 COVID-19 MODERNA 12+ YRS VACCINE 2020-10-07 00:00:00 Completed [facility] SARS-COV-2 COVID-19 MODERNA 12+ YRS VACCINE 2020-10-07 00:00:00 Completed [facility] SARS-COV-2 COVID-19 MODERNA 12+ YRS VACCINE 2020-10-07 00:00:00 Completed [facility] SARS-COV-2 COVID-19 MODERNA 12+ YRS VACCINE 2020-10-07 00:00:00 Completed [facility] SARS-COV-2 COVID-19 MODERNA 12+ YRS VACCINE 2020-10-07 00:00:00 Completed [facility] SARS-COV-2 COVID-19 MODERNA 12+ YRS VACCINE 2020-10-07 00:00:00 Completed [facility] SARS-COV-2 COVID-19 MODERNA 12+ YRS VACCINE 2020-10-07 00:00:00 Completed [facility] SARS-COV-2 COVID-19 MODERNA 12+ YRS VACCINE 2020-10-07 00:00:00 Completed [facility] SARS-COV-2 COVID-19 MODERNA 12+ YRS VACCINE 2020-10-07 00:00:00 Completed [facility] SARS-COV-2 COVID-19 MODERNA 12+ YRS VACCINE 2020-10-07 00:00:00 Completed [facility] SARS-COV-2 COVID-19 MODERNA 12+ YRS VACCINE 2020-10-07 00:00:00 Completed [facility] SARS-COV-2 COVID-19 MODERNA 12+ YRS VACCINE 2020-10-07 00:00:00 Completed [facility] SARS-COV-2 COVID-19 MODERNA 12+ YRS VACCINE 2020-10-07 00:00:00 Completed [facility] SARS-COV-2 COVID-19 MODERNA 12+ YRS VACCINE 2020-10-07 00:00:00 Completed [facility] SARS-COV-2 COVID-19 MODERNA 12+ YRS VACCINE 2020-10-07 00:00:00 Completed [facility] SARS-COV-2 COVID-19 MODERNA 12+ YRS VACCINE 2020-10-07 00:00:00 Completed [facility] SARS-COV-2 COVID-19 MODERNA 12+ YRS VACCINE 2020-10-07 00:00:00 Completed [facility] SARS-COV-2 COVID-19 MODERNA 12+ YRS VACCINE 2020-10-07 00:00:00 Completed [facility] SARS-COV-2 COVID-19 MODERNA 12+ YRS VACCINE 2020-10-07 00:00:00 Completed [facility] SARS-COV-2 COVID-19 MODERNA 12+ YRS VACCINE 2020-10-07 00:00:00 Completed [facility] SARS-COV-2 COVID-19 MODERNA 12+ YRS VACCINE 2020-10-07 00:00:00 Completed [facility] SARS-COV-2 COVID-19 MODERNA 12+ YRS VACCINE 2020-10-07 00:00:00 Completed [facility] SARS-COV-2 COVID-19 MODERNA 12+ YRS VACCINE 2020-10-07 00:00:00 Completed [facility] SARS-COV-2 COVID-19 MODERNA 12+ YRS VACCINE 2020-10-07 00:00:00 Completed [facility] SARS-COV-2 COVID-19 MODERNA 12+ YRS VACCINE 2020-10-07 00:00:00 Completed [facility] SARS-COV-2 COVID-19 MODERNA 12+ YRS VACCINE 2020-10-07 00:00:00 Completed [facility] SARS-COV-2 COVID-19 MODERNA 12+ YRS VACCINE 2020-10-07 00:00:00 Completed [facility] SARS-COV-2 COVID-19 MODERNA 12+ YRS VACCINE 2020-10-07 00:00:00 Completed [facility] SARS-COV-2 COVID-19 MODERNA 12+ YRS VACCINE 2020-10-07 00:00:00 Completed [facility] SARS-COV-2 COVID-19 MODERNA 12+ YRS VACCINE 2020-10-07 00:00:00 Completed [facility] SARS-COV-2 COVID-19 MODERNA 12+ YRS VACCINE 2020-10-07 00:00:00 Completed [facility] SARS-COV-2 COVID-19 MODERNA 12+ YRS VACCINE 2020-10-07 00:00:00 Completed [facility] SARS-COV-2 COVID-19 MODERNA 12+ YRS VACCINE 2020-10-07 00:00:00 Completed [facility] SARS-COV-2 COVID-19 MODERNA 12+ YRS VACCINE 2020-10-07 00:00:00 Completed [facility] SARS-COV-2 COVID-19 MODERNA 12+ YRS VACCINE 2020-10-07 00:00:00 Completed [facility] SARS-COV-2 COVID-19 MODERNA 12+ YRS VACCINE 2020-10-07 00:00:00 Completed [facility] SARS-COV-2 COVID-19 MODERNA 12+ YRS VACCINE 2020-10-07 00:00:00 Completed [facility] SARS-COV-2 COVID-19 MODERNA 12+ YRS VACCINE 2020-10-07 00:00:00 Completed [facility] SARS-COV-2 COVID-19 MODERNA 12+ YRS VACCINE 2020-10-07 00:00:00 Completed [facility] SARS-COV-2 COVID-19 MODERNA 12+ YRS VACCINE 2020-10-07 00:00:00 Completed [facility] SARS-COV-2 COVID-19 MODERNA 12+ YRS VACCINE 2020-10-07 00:00:00 Completed [facility] SARS-COV-2 COVID-19 MODERNA 12+ YRS VACCINE 2020-10-07 00:00:00 Completed [facility] SARS-COV-2 COVID-19 MODERNA 12+ YRS VACCINE 2020-10-07 00:00:00 Completed [facility] SARS-COV-2 COVID-19 MODERNA 12+ YRS VACCINE 2020-10-07 00:00:00 Completed [facility] SARS-COV-2 COVID-19 MODERNA 12+ YRS VACCINE 2020-10-07 00:00:00 Completed [facility] SARS-COV-2 COVID-19 MODERNA 12+ YRS VACCINE 2020-10-07 00:00:00 Completed [facility] SARS-COV-2 COVID-19 MODERNA VACCINE 2020-09-09 00:00:00 Completed [facility] SARS-COV-2 COVID-19 MODERNA 12+ YRS VACCINE 2020-09-09 00:00:00 Completed [facility] SARS-COV-2 COVID-19 MODERNA 12+ YRS VACCINE 2020-09-09 00:00:00 Completed [facility] SARS-COV-2 COVID-19 MODERNA 12+ YRS VACCINE 2020-09-09 00:00:00 Completed [facility] SARS-COV-2 COVID-19 MODERNA 12+ YRS VACCINE 2020-09-09 00:00:00 Completed [facility] SARS-COV-2 COVID-19 MODERNA 12+ YRS VACCINE 2020-09-09 00:00:00 Completed [facility] SARS-COV-2 COVID-19 MODERNA 12+ YRS VACCINE 2020-09-09 00:00:00 Completed [facility] SARS-COV-2 COVID-19 MODERNA 12+ YRS VACCINE 2020-09-09 00:00:00 Completed [facility] SARS-COV-2 COVID-19 MODERNA 12+ YRS VACCINE 2020-09-09 00:00:00 Completed [facility] SARS-COV-2 COVID-19 MODERNA 12+ YRS VACCINE 2020-09-09 00:00:00 Completed [facility] SARS-COV-2 COVID-19 MODERNA 12+ YRS VACCINE 2020-09-09 00:00:00 Completed [facility] SARS-COV-2 COVID-19 MODERNA 12+ YRS VACCINE 2020-09-09 00:00:00 Completed [facility] SARS-COV-2 COVID-19 MODERNA 12+ YRS VACCINE 2020-09-09 00:00:00 Completed [facility] SARS-COV-2 COVID-19 MODERNA 12+ YRS VACCINE 2020-09-09 00:00:00 Completed [facility] SARS-COV-2 COVID-19 MODERNA 12+ YRS VACCINE 2020-09-09 00:00:00 Completed [facility] SARS-COV-2 COVID-19 MODERNA 12+ YRS VACCINE 2020-09-09 00:00:00 Completed [facility] SARS-COV-2 COVID-19 MODERNA 12+ YRS VACCINE 2020-09-09 00:00:00 Completed [facility] SARS-COV-2 COVID-19 MODERNA 12+ YRS VACCINE 2020-09-09 00:00:00 Completed [facility] SARS-COV-2 COVID-19 MODERNA 12+ YRS VACCINE 2020-09-09 00:00:00 Completed [facility] SARS-COV-2 COVID-19 MODERNA 12+ YRS VACCINE 2020-09-09 00:00:00 Completed [facility] SARS-COV-2 COVID-19 MODERNA 12+ YRS VACCINE 2020-09-09 00:00:00 Completed [facility] SARS-COV-2 COVID-19 MODERNA 12+ YRS VACCINE 2020-09-09 00:00:00 Completed [facility] SARS-COV-2 COVID-19 MODERNA 12+ YRS VACCINE 2020-09-09 00:00:00 Completed [facility] SARS-COV-2 COVID-19 MODERNA 12+ YRS VACCINE 2020-09-09 00:00:00 Completed [facility] SARS-COV-2 COVID-19 MODERNA 12+ YRS VACCINE 2020-09-09 00:00:00 Completed [facility] SARS-COV-2 COVID-19 MODERNA 12+ YRS VACCINE 2020-09-09 00:00:00 Completed [facility] SARS-COV-2 COVID-19 MODERNA 12+ YRS VACCINE 2020-09-09 00:00:00 Completed [facility] SARS-COV-2 COVID-19 MODERNA 12+ YRS VACCINE 2020-09-09 00:00:00 Completed [facility] SARS-COV-2 COVID-19 MODERNA 12+ YRS VACCINE 2020-09-09 00:00:00 Completed [facility] SARS-COV-2 COVID-19 MODERNA 12+ YRS VACCINE 2020-09-09 00:00:00 Completed [facility] SARS-COV-2 COVID-19 MODERNA 12+ YRS VACCINE 2020-09-09 00:00:00 Completed [facility] SARS-COV-2 COVID-19 MODERNA 12+ YRS VACCINE 2020-09-09 00:00:00 Completed [facility] SARS-COV-2 COVID-19 MODERNA 12+ YRS VACCINE 2020-09-09 00:00:00 Completed [facility] SARS-COV-2 COVID-19 MODERNA 12+ YRS VACCINE 2020-09-09 00:00:00 Completed [facility] SARS-COV-2 COVID-19 MODERNA 12+ YRS VACCINE 2020-09-09 00:00:00 Completed [facility] SARS-COV-2 COVID-19 MODERNA 12+ YRS VACCINE 2020-09-09 00:00:00 Completed [facility] SARS-COV-2 COVID-19 MODERNA 12+ YRS VACCINE 2020-09-09 00:00:00 Completed [facility] SARS-COV-2 COVID-19 MODERNA 12+ YRS VACCINE 2020-09-09 00:00:00 Completed [facility] SARS-COV-2 COVID-19 MODERNA 12+ YRS VACCINE 2020-09-09 00:00:00 Completed [facility] SARS-COV-2 COVID-19 MODERNA 12+ YRS VACCINE 2020-09-09 00:00:00 Completed [facility] SARS-COV-2 COVID-19 MODERNA 12+ YRS VACCINE 2020-09-09 00:00:00 Completed [facility] SARS-COV-2 COVID-19 MODERNA 12+ YRS VACCINE 2020-09-09 00:00:00 Completed [facility] SARS-COV-2 COVID-19 MODERNA 12+ YRS VACCINE 2020-09-09 00:00:00 Completed [facility] SARS-COV-2 COVID-19 MODERNA 12+ YRS VACCINE 2020-09-09 00:00:00 Completed [facility] SARS-COV-2 COVID-19 MODERNA 12+ YRS VACCINE 2020-09-09 00:00:00 Completed [facility] SARS-COV-2 COVID-19 MODERNA 12+ YRS VACCINE 2020-09-09 00:00:00 Completed [facility] SARS-COV-2 COVID-19 MODERNA 12+ YRS VACCINE 2020-09-09 00:00:00 Completed [facility] SARS-COV-2 COVID-19 MODERNA 12+ YRS VACCINE 2020-09-09 00:00:00 Completed [facility] SARS-COV-2 COVID-19 MODERNA 12+ YRS VACCINE 2020-09-09 00:00:00 Completed [facility] SARS-COV-2 COVID-19 MODERNA 12+ YRS VACCINE 2020-09-09 00:00:00 Completed [facility] SARS-COV-2 COVID-19 MODERNA 12+ YRS VACCINE 2020-09-09 00:00:00 Completed [facility] SARS-COV-2 COVID-19 MODERNA 12+ YRS VACCINE 2020-09-09 00:00:00 Completed [facility] SARS-COV-2 COVID-19 MODERNA 12+ YRS VACCINE 2020-09-09 00:00:00 Completed [facility] SARS-COV-2 COVID-19 MODERNA 12+ YRS VACCINE 2020-09-09 00:00:00 Completed [facility] SARS-COV-2 COVID-19 MODERNA 12+ YRS VACCINE 2020-09-09 00:00:00 Completed [facility] SARS-COV-2 COVID-19 MODERNA 12+ YRS VACCINE 2020-09-09 00:00:00 Completed [facility] SARS-COV-2 COVID-19 MODERNA 12+ YRS VACCINE 2020-09-09 00:00:00 Completed [facility] SARS-COV-2 COVID-19 MODERNA 12+ YRS VACCINE 2020-09-09 00:00:00 Completed [facility] SARS-COV-2 COVID-19 MODERNA 12+ YRS VACCINE 2020-09-09 00:00:00 Completed [facility] SARS-COV-2 COVID-19 MODERNA 12+ YRS VACCINE 2020-09-09 00:00:00 Completed [facility] SARS-COV-2 COVID-19 MODERNA 12+ YRS VACCINE 2020-09-09 00:00:00 Completed [facility] SARS-COV-2 COVID-19 MODERNA 12+ YRS VACCINE 2020-09-09 00:00:00 Completed [facility] SARS-COV-2 COVID-19 MODERNA 12+ YRS VACCINE 2020-09-09 00:00:00 Completed [facility] SARS-COV-2 COVID-19 MODERNA 12+ YRS VACCINE 2020-09-09 00:00:00 Completed [facility] SARS-COV-2 COVID-19 MODERNA 12+ YRS VACCINE 2020-09-09 00:00:00 Completed [facility] SARS-COV-2 COVID-19 MODERNA 12+ YRS VACCINE 2020-09-09 00:00:00 Completed [facility] SARS-COV-2 COVID-19 MODERNA 12+ YRS VACCINE 2020-09-09 00:00:00 Completed [facility] SARS-COV-2 COVID-19 MODERNA 12+ YRS VACCINE 2020-09-09 00:00:00 Completed [facility] SARS-COV-2 COVID-19 MODERNA 12+ YRS VACCINE 2020-09-09 00:00:00 Completed [facility] SARS-COV-2 COVID-19 MODERNA 12+ YRS VACCINE 2020-09-09 00:00:00 Completed [facility] Influenza Virus Vaccine Quad .5 mL IM 6+ MO 2020-06-22 00:00:00 Completed [facility] Influenza Virus Vaccine Quad .5 mL IM 6+ MO 2020-06-22 00:00:00 Completed [facility] Influenza Virus Vaccine Quad .5 mL IM 6+ MO 2020-06-22 00:00:00 Completed [facility] Influenza Virus Vaccine Quad .5 mL IM 6+ MO 2020-06-22 00:00:00 Completed [facility] Influenza Virus Vaccine Quad .5 mL IM 6+ MO 2020-06-22 00:00:00 Completed [facility] Influenza Virus Vaccine Quad .5 mL IM 6+ MO 2020-06-22 00:00:00 Completed [facility] Influenza Virus Vaccine Quad .5 mL IM 6+ MO 2020-06-22 00:00:00 Completed [facility] Influenza Virus Vaccine Quad .5 mL IM 6+ MO 2020-06-22 00:00:00 Completed [facility] Influenza Virus Vaccine Quad .5 mL IM 6+ MO 2020-06-22 00:00:00 Completed [facility] Influenza Virus Vaccine Quad .5 mL IM 6+ MO 2020-06-22 00:00:00 Completed [facility] Influenza Virus Vaccine Quad .5 mL IM 6+ MO 2020-06-22 00:00:00 Completed [facility] Influenza Virus Vaccine Quad .5 mL IM 6+ MO 2020-06-22 00:00:00 Completed [facility] Influenza Virus Vaccine Quad .5 mL IM 6+ MO 2020-06-22 00:00:00 Completed [facility] Influenza Virus Vaccine Quad .5 mL IM 6+ MO 2020-06-22 00:00:00 Completed [facility] Influenza Virus Vaccine Quad .5 mL IM 6+ MO 2020-06-22 00:00:00 Completed [facility] Influenza Virus Vaccine Quad .5 mL IM 6+ MO 2020-06-22 00:00:00 Completed [facility] Influenza Virus Vaccine Quad .5 mL IM 6+ MO 2020-06-22 00:00:00 Completed [facility] Influenza Virus Vaccine Quad .5 mL IM 6+ MO 2020-06-22 00:00:00 Completed [facility] Influenza Virus Vaccine Quad .5 mL IM 6+ MO 2020-06-22 00:00:00 Completed [facility] Influenza Virus Vaccine Quad .5 mL IM 6+ MO 2020-06-22 00:00:00 Completed [facility] Influenza Virus Vaccine Quad .5 mL IM 6+ MO 2020-06-22 00:00:00 Completed [facility] Influenza Virus Vaccine Quad .5 mL IM 6+ MO 2020-06-22 00:00:00 Completed [facility] Influenza Virus Vaccine Quad .5 mL IM 6+ MO 2020-06-22 00:00:00 Completed [facility] Influenza Virus Vaccine Quad .5 mL IM 6+ MO 2020-06-22 00:00:00 Completed [facility] Influenza Virus Vaccine Quad .5 mL IM 6+ MO 2020-06-22 00:00:00 Completed [facility] Influenza Virus Vaccine Quad .5 mL IM 6+ MO 2020-06-22 00:00:00 Completed [facility] Influenza Virus Vaccine Quad .5 mL IM 6+ MO 2020-06-22 00:00:00 Completed [facility] Influenza Virus Vaccine Quad .5 mL IM 6+ MO 2020-06-22 00:00:00 Completed [facility] Influenza Virus Vaccine Quad .5 mL IM 6+ MO 2020-06-22 00:00:00 Completed [facility] Influenza Virus Vaccine Quad .5 mL IM 6+ MO 2020-06-22 00:00:00 Completed [facility] Influenza Virus Vaccine Quad .5 mL IM 6+ MO 2020-06-22 00:00:00 Completed [facility] Influenza Virus Vaccine Quad .5 mL IM 6+ MO 2020-06-22 00:00:00 Completed [facility] Influenza Virus Vaccine Quad .5 mL IM 6+ MO 2020-06-22 00:00:00 Completed [facility] Influenza Virus Vaccine Quad .5 mL IM 6+ MO 2020-06-22 00:00:00 Completed [facility] Influenza Virus Vaccine Quad .5 mL IM 6+ MO 2020-06-22 00:00:00 Completed [facility] Influenza Virus Vaccine Quad .5 mL IM 6+ MO 2020-06-22 00:00:00 Completed [facility] Influenza Virus Vaccine Quad .5 mL IM 6+ MO 2020-06-22 00:00:00 Completed [facility] Influenza Virus Vaccine Quad .5 mL IM 6+ MO 2020-06-22 00:00:00 Completed [facility] Influenza Virus Vaccine Quad .5 mL IM 6+ MO 2020-06-22 00:00:00 Completed [facility] Influenza Virus Vaccine Quad .5 mL IM 6+ MO 2020-06-22 00:00:00 Completed [facility] Influenza Virus Vaccine Quad .5 mL IM 6+ MO 2020-06-22 00:00:00 Completed [facility] Influenza Virus Vaccine Quad .5 mL IM 6+ MO 2020-06-22 00:00:00 Completed [facility] Influenza Virus Vaccine Quad .5 mL IM 6+ MO 2020-06-22 00:00:00 Completed [facility] Influenza Virus Vaccine Quad .5 mL IM 6+ MO 2020-06-22 00:00:00 Completed [facility] Influenza Virus Vaccine Quad .5 mL IM 6+ MO 2020-06-22 00:00:00 Completed [facility] Influenza Virus Vaccine Quad .5 mL IM 6+ MO 2020-06-22 00:00:00 Completed [facility] Influenza Virus Vaccine Quad .5 mL IM 6+ MO 2020-06-22 00:00:00 Completed [facility] Influenza Virus Vaccine Quad .5 mL IM 6+ MO 2020-06-22 00:00:00 Completed [facility] Influenza Virus Vaccine Quad .5 mL IM 6+ MO 2020-06-22 00:00:00 Completed [facility] Influenza Virus Vaccine Quad .5 mL IM 6+ MO 2020-06-22 00:00:00 Completed [facility] Influenza Virus Vaccine Quad .5 mL IM 6+ MO 2020-06-22 00:00:00 Completed [facility] Influenza Virus Vaccine Quad .5 mL IM 6+ MO 2020-06-22 00:00:00 Completed [facility] Influenza Virus Vaccine Quad .5 mL IM 6+ MO 2020-06-22 00:00:00 Completed [facility] Influenza Virus Vaccine Quad .5 mL IM 6+ MO 2020-06-22 00:00:00 Completed [facility] Influenza Virus Vaccine Quad .5 mL IM 6+ MO 2020-06-22 00:00:00 Completed [facility] Influenza Virus Vaccine Quad .5 mL IM 6+ MO 2020-06-22 00:00:00 Completed [facility] Influenza Virus Vaccine Quad .5 mL IM 6+ MO 2020-06-22 00:00:00 Completed [facility] Influenza Virus Vaccine Quad .5 mL IM 6+ MO 2020-06-22 00:00:00 Completed [facility] Influenza Virus Vaccine Quad .5 mL IM 6+ MO 2020-06-22 00:00:00 Completed [facility] Influenza Virus Vaccine Quad .5 mL IM 6+ MO 2020-06-22 00:00:00 Completed [facility] Influenza Virus Vaccine Quad .5 mL IM 6+ MO 2020-06-22 00:00:00 Completed [facility] Influenza Virus Vaccine Quad .5 mL IM 6+ MO 2020-06-22 00:00:00 Completed [facility] Influenza Virus Vaccine Quad .5 mL IM 6+ MO 2020-06-22 00:00:00 Completed [facility] Influenza Virus Vaccine Quad .5 mL IM 6+ MO 2020-06-22 00:00:00 Completed [facility] Influenza Virus Vaccine Quad .5 mL IM 6+ MO 2020-06-22 00:00:00 Completed [facility] Influenza Virus Vaccine Quad .5 mL IM 6+ MO 2020-06-22 00:00:00 Completed [facility] Influenza Virus Vaccine Quad .5 mL IM 6+ MO (FLUZONE/FLULAVAL/F LUARIX) 2020-06-22 00:00:00 Completed [facility] Influenza Virus Vaccine Quad .5 mL IM 6+ MO (FLUZONE/FLULAVAL/F LUARIX) 2020-06-22 00:00:00 Completed [facility] Influenza Virus Vaccine Quad .5 mL IM 6+ MO (FLUZONE/FLULAVAL/F LUARIX) 2020-06-22 00:00:00 Completed [facility] Influenza Virus Vaccine Quad .5 mL IM 6+ MO (FLUZONE/FLULAVAL/F LUARIX) 2020-06-22 00:00:00 Completed [facility] Influenza Virus Vaccine Quad .5 mL IM 6+ MO (FLUZONE/FLULAVAL/F LUARIX) 2020-06-22 00:00:00 Completed [facility] Influenza Virus Vaccine 2020-06-19 00:00:00 Completed [facility] Pneumococcal 13 Conjugate, PCV13 (Prevnar 13) 2020-06-19 00:00:00 Completed [facility] Influenza Virus Vaccine Quad .5 mL IM 6+ MO (FLUZONE/FLULAVAL/F LUARIX) 2020-06-19 00:00:00 Completed [facility] Influenza Virus Vaccine 2020-05-23 00:00:00 Completed [facility] Pneumococcal 13 Conjugate, PCV13 (Prevnar 13) 2020-05-23 00:00:00 Completed [facility] Influenza Virus Vaccine Quad .5 mL IM 6+ MO (FLUZONE/FLULAVAL/F LUARIX) 2020-05-23 00:00:00 Completed [facility] Influenza Virus Vaccine 2020-05-05 00:00:00 Completed [facility] Pneumococcal 13 Conjugate, PCV13 (Prevnar 13) 2020-05-05 00:00:00 Completed [facility] Influenza Virus Vaccine Quad .5 mL IM 6+ MO (FLUZONE/FLULAVAL/F LUARIX) 2020-05-05 00:00:00 Completed [facility] Influenza Virus Vaccine 2020-04-01 00:00:00 Completed [facility] Pneumococcal 13 Conjugate, PCV13 (Prevnar 13) 2020-04-01 00:00:00 Completed [facility] Influenza Virus Vaccine Quad .5 mL IM 6+ MO (FLUZONE/FLULAVAL/F LUARIX) 2020-04-01 00:00:00 Completed [facility] Influenza Virus Vaccine 2020-03-31 00:00:00 Completed [facility] Pneumococcal 13 Conjugate, PCV13 (Prevnar 13) 2020-03-31 00:00:00 Completed [facility] Influenza Virus Vaccine Quad .5 mL IM 6+ MO (FLUZONE/FLULAVAL/F LUARIX) 2020-03-31 00:00:00 Completed [facility] Influenza Virus Vaccine Quad .5 mL IM 6+ MO 2019-05-24 00:00:00 Completed [facility] Influenza Virus Vaccine Quad .5 mL IM 6+ MO 2019-05-24 00:00:00 Completed [facility] Influenza Virus Vaccine Quad .5 mL IM 6+ MO 2019-05-24 00:00:00 Completed [facility] Influenza Virus Vaccine Quad .5 mL IM 6+ MO 2019-05-24 00:00:00 Completed [facility] Influenza Virus Vaccine Quad .5 mL IM 6+ MO 2019-05-24 00:00:00 Completed [facility] Influenza Virus Vaccine Quad .5 mL IM 6+ MO 2019-05-24 00:00:00 Completed [facility] Influenza Virus Vaccine Quad .5 mL IM 6+ MO 2019-05-24 00:00:00 Completed [facility] Influenza Virus Vaccine Quad .5 mL IM 6+ MO 2019-05-24 00:00:00 Completed [facility] Influenza Virus Vaccine Quad .5 mL IM 6+ MO 2019-05-24 00:00:00 Completed [facility] Influenza Virus Vaccine Quad .5 mL IM 6+ MO 2019-05-24 00:00:00 Completed [facility] Influenza Virus Vaccine Quad .5 mL IM 6+ MO 2019-05-24 00:00:00 Completed [facility] Influenza Virus Vaccine Quad .5 mL IM 6+ MO 2019-05-24 00:00:00 Completed [facility] Influenza Virus Vaccine Quad .5 mL IM 6+ MO 2019-05-24 00:00:00 Completed [facility] Influenza Virus Vaccine Quad .5 mL IM 6+ MO 2019-05-24 00:00:00 Completed [facility] Influenza Virus Vaccine Quad .5 mL IM 6+ MO 2019-05-24 00:00:00 Completed [facility] Influenza Virus Vaccine Quad .5 mL IM 6+ MO 2019-05-24 00:00:00 Completed [facility] Influenza Virus Vaccine Quad .5 mL IM 6+ MO 2019-05-24 00:00:00 Completed [facility] Influenza Virus Vaccine Quad .5 mL IM 6+ MO 2019-05-24 00:00:00 Completed [facility] Influenza Virus Vaccine Quad .5 mL IM 6+ MO 2019-05-24 00:00:00 Completed [facility] Influenza Virus Vaccine Quad .5 mL IM 6+ MO 2019-05-24 00:00:00 Completed [facility] Influenza Virus Vaccine Quad .5 mL IM 6+ MO 2019-05-24 00:00:00 Completed [facility] Influenza Virus Vaccine Quad .5 mL IM 6+ MO 2019-05-24 00:00:00 Completed [facility] Influenza Virus Vaccine Quad .5 mL IM 6+ MO 2019-05-24 00:00:00 Completed [facility] Influenza Virus Vaccine Quad .5 mL IM 6+ MO 2019-05-24 00:00:00 Completed [facility] Influenza Virus Vaccine Quad .5 mL IM 6+ MO 2019-05-24 00:00:00 Completed [facility] Influenza Virus Vaccine Quad .5 mL IM 6+ MO 2019-05-24 00:00:00 Completed [facility] Influenza Virus Vaccine Quad .5 mL IM 6+ MO 2019-05-24 00:00:00 Completed [facility] Influenza Virus Vaccine Quad .5 mL IM 6+ MO 2019-05-24 00:00:00 Completed [facility] Influenza Virus Vaccine Quad .5 mL IM 6+ MO 2019-05-24 00:00:00 Completed [facility] Influenza Virus Vaccine Quad .5 mL IM 6+ MO 2019-05-24 00:00:00 Completed [facility] Influenza Virus Vaccine Quad .5 mL IM 6+ MO 2019-05-24 00:00:00 Completed [facility] Influenza Virus Vaccine Quad .5 mL IM 6+ MO 2019-05-24 00:00:00 Completed [facility] Influenza Virus Vaccine Quad .5 mL IM 6+ MO 2019-05-24 00:00:00 Completed [facility] Influenza Virus Vaccine Quad .5 mL IM 6+ MO 2019-05-24 00:00:00 Completed [facility] Influenza Virus Vaccine Quad .5 mL IM 6+ MO 2019-05-24 00:00:00 Completed [facility] Influenza Virus Vaccine Quad .5 mL IM 6+ MO 2019-05-24 00:00:00 Completed [facility] Influenza Virus Vaccine Quad .5 mL IM 6+ MO 2019-05-24 00:00:00 Completed [facility] Influenza Virus Vaccine Quad .5 mL IM 6+ MO 2019-05-24 00:00:00 Completed [facility] Influenza Virus Vaccine Quad .5 mL IM 6+ MO 2019-05-24 00:00:00 Completed [facility] Influenza Virus Vaccine Quad .5 mL IM 6+ MO 2019-05-24 00:00:00 Completed [facility] Influenza Virus Vaccine Quad .5 mL IM 6+ MO 2019-05-24 00:00:00 Completed [facility] Influenza Virus Vaccine Quad .5 mL IM 6+ MO 2019-05-24 00:00:00 Completed [facility] Influenza Virus Vaccine Quad .5 mL IM 6+ MO 2019-05-24 00:00:00 Completed [facility] Influenza Virus Vaccine Quad .5 mL IM 6+ MO 2019-05-24 00:00:00 Completed [facility] Influenza Virus Vaccine Quad .5 mL IM 6+ MO 2019-05-24 00:00:00 Completed [facility] Influenza Virus Vaccine Quad .5 mL IM 6+ MO 2019-05-24 00:00:00 Completed [facility] Influenza Virus Vaccine Quad .5 mL IM 6+ MO 2019-05-24 00:00:00 Completed [facility] Influenza Virus Vaccine Quad .5 mL IM 6+ MO 2019-05-24 00:00:00 Completed [facility] Influenza Virus Vaccine Quad .5 mL IM 6+ MO 2019-05-24 00:00:00 Completed [facility] Influenza Virus Vaccine Quad .5 mL IM 6+ MO 2019-05-24 00:00:00 Completed [facility] Influenza Virus Vaccine Quad .5 mL IM 6+ MO 2019-05-24 00:00:00 Completed [facility] Influenza Virus Vaccine Quad .5 mL IM 6+ MO 2019-05-24 00:00:00 Completed [facility] Influenza Virus Vaccine Quad .5 mL IM 6+ MO 2019-05-24 00:00:00 Completed [facility] Influenza Virus Vaccine Quad .5 mL IM 6+ MO 2019-05-24 00:00:00 Completed [facility] Influenza Virus Vaccine Quad .5 mL IM 6+ MO 2019-05-24 00:00:00 Completed [facility] Influenza Virus Vaccine Quad .5 mL IM 6+ MO 2019-05-24 00:00:00 Completed [facility] Influenza Virus Vaccine Quad .5 mL IM 6+ MO 2019-05-24 00:00:00 Completed [facility] Influenza Virus Vaccine Quad .5 mL IM 6+ MO 2019-05-24 00:00:00 Completed [facility] Influenza Virus Vaccine Quad .5 mL IM 6+ MO 2019-05-24 00:00:00 Completed [facility] Influenza Virus Vaccine Quad .5 mL IM 6+ MO 2019-05-24 00:00:00 Completed [facility] Influenza Virus Vaccine Quad .5 mL IM 6+ MO 2019-05-24 00:00:00 Completed [facility] Influenza Virus Vaccine Quad .5 mL IM 6+ MO 2019-05-24 00:00:00 Completed [facility] Influenza Virus Vaccine Quad .5 mL IM 6+ MO 2019-05-24 00:00:00 Completed [facility] Influenza Virus Vaccine Quad .5 mL IM 6+ MO 2019-05-24 00:00:00 Completed [facility] Influenza Virus Vaccine Quad .5 mL IM 6+ MO 2019-05-24 00:00:00 Completed [facility] Influenza Virus Vaccine Quad .5 mL IM 6+ MO 2019-05-24 00:00:00 Completed [facility] Influenza Virus Vaccine Quad .5 mL IM 6+ MO (FLUZONE/FLULAVAL/F LUARIX) 2019-05-24 00:00:00 Completed [facility] Influenza Virus Vaccine Quad .5 mL IM 6+ MO (FLUZONE/FLULAVAL/F LUARIX) 2019-05-24 00:00:00 Completed [facility] Influenza Virus Vaccine Quad .5 mL IM 6+ MO (FLUZONE/FLULAVAL/F LUARIX) 2019-05-24 00:00:00 Completed [facility] Influenza Virus Vaccine Quad .5 mL IM 6+ MO (FLUZONE/FLULAVAL/F LUARIX) 2019-05-24 00:00:00 Completed [facility] Influenza Virus Vaccine 2018-06-04 00:00:00 Completed [facility] Pneumococcal 13 Conjugate, PCV13 (Prevnar 13) 2018-06-04 00:00:00 Completed [facility] Influenza Virus Vaccine 2018-06-04 00:00:00 Completed [facility] Pneumococcal 13 Conjugate, PCV13 (Prevnar 13) 2018-06-04 00:00:00 Completed [facility] Influenza Virus Vaccine 2018-06-04 00:00:00 Completed [facility] Pneumococcal 13 Conjugate, PCV13 (Prevnar 13) 2018-06-04 00:00:00 Completed [facility] Influenza Virus Vaccine 2018-06-04 00:00:00 Completed [facility] Pneumococcal 13 Conjugate, PCV13 (Prevnar 13) 2018-06-04 00:00:00 Completed [facility] Influenza Virus Vaccine 2018-06-04 00:00:00 Completed [facility] Pneumococcal 13 Conjugate, PCV13 (Prevnar 13) 2018-06-04 00:00:00 Completed [facility] Influenza Virus Vaccine 2018-06-04 00:00:00 Completed [facility] Pneumococcal 13 Conjugate, PCV13 (Prevnar 13) 2018-06-04 00:00:00 Completed [facility] Influenza Virus Vaccine 2018-06-04 00:00:00 Completed [facility] Pneumococcal 13 Conjugate, PCV13 (Prevnar 13) 2018-06-04 00:00:00 Completed [facility] Influenza Virus Vaccine 2018-06-04 00:00:00 Completed [facility] Pneumococcal 13 Conjugate, PCV13 (Prevnar 13) 2018-06-04 00:00:00 Completed [facility] Influenza Virus Vaccine 2018-06-04 00:00:00 Completed [facility] Pneumococcal 13 Conjugate, PCV13 (Prevnar 13) 2018-06-04 00:00:00 Completed [facility] Influenza Virus Vaccine 2018-06-04 00:00:00 Completed [facility] Pneumococcal 13 Conjugate, PCV13 (Prevnar 13) 2018-06-04 00:00:00 Completed [facility] Influenza Virus Vaccine 2018-06-04 00:00:00 Completed [facility] Pneumococcal 13 Conjugate, PCV13 (Prevnar 13) 2018-06-04 00:00:00 Completed [facility] Influenza Virus Vaccine 2018-06-04 00:00:00 Completed [facility] Pneumococcal 13 Conjugate, PCV13 (Prevnar 13) 2018-06-04 00:00:00 Completed [facility] Influenza Virus Vaccine 2018-06-04 00:00:00 Completed [facility] Pneumococcal 13 Conjugate, PCV13 (Prevnar 13) 2018-06-04 00:00:00 Completed [facility] Influenza Virus Vaccine 2018-06-04 00:00:00 Completed [facility] Pneumococcal 13 Conjugate, PCV13 (Prevnar 13) 2018-06-04 00:00:00 Completed [facility] Influenza Virus Vaccine 2018-06-04 00:00:00 Completed [facility] Pneumococcal 13 Conjugate, PCV13 (Prevnar 13) 2018-06-04 00:00:00 Completed [facility] Influenza Virus Vaccine 2018-06-04 00:00:00 Completed [facility] Pneumococcal 13 Conjugate, PCV13 (Prevnar 13) 2018-06-04 00:00:00 Completed [facility] Influenza Virus Vaccine 2018-06-04 00:00:00 Completed [facility] Pneumococcal 13 Conjugate, PCV13 (Prevnar 13) 2018-06-04 00:00:00 Completed [facility] Influenza Virus Vaccine 2018-06-04 00:00:00 Completed [facility] Pneumococcal 13 Conjugate, PCV13 (Prevnar 13) 2018-06-04 00:00:00 Completed [facility] Influenza Virus Vaccine 2018-06-04 00:00:00 Completed [facility] Pneumococcal 13 Conjugate, PCV13 (Prevnar 13) 2018-06-04 00:00:00 Completed [facility] Influenza Virus Vaccine 2018-06-04 00:00:00 Completed [facility] Pneumococcal 13 Conjugate, PCV13 (Prevnar 13) 2018-06-04 00:00:00 Completed [facility] Influenza Virus Vaccine 2018-06-04 00:00:00 Completed [facility] Pneumococcal 13 Conjugate, PCV13 (Prevnar 13) 2018-06-04 00:00:00 Completed [facility] Influenza Virus Vaccine 2018-06-04 00:00:00 Completed [facility] Pneumococcal 13 Conjugate, PCV13 (Prevnar 13) 2018-06-04 00:00:00 Completed [facility] Influenza Virus Vaccine 2018-06-04 00:00:00 Completed [facility] Pneumococcal 13 Conjugate, PCV13 (Prevnar 13) 2018-06-04 00:00:00 Completed [facility] Influenza Virus Vaccine 2018-06-04 00:00:00 Completed [facility] Pneumococcal 13 Conjugate, PCV13 (Prevnar 13) 2018-06-04 00:00:00 Completed [facility] Influenza Virus Vaccine 2018-06-04 00:00:00 Completed [facility] Pneumococcal 13 Conjugate, PCV13 (Prevnar 13) 2018-06-04 00:00:00 Completed [facility] Influenza Virus Vaccine 2018-06-04 00:00:00 Completed [facility] Pneumococcal 13 Conjugate, PCV13 (Prevnar 13) 2018-06-04 00:00:00 Completed [facility] Influenza Virus Vaccine 2018-06-04 00:00:00 Completed [facility] Pneumococcal 13 Conjugate, PCV13 (Prevnar 13) 2018-06-04 00:00:00 Completed [facility] Influenza Virus Vaccine 2018-06-04 00:00:00 Completed [facility] Pneumococcal 13 Conjugate, PCV13 (Prevnar 13) 2018-06-04 00:00:00 Completed [facility] Influenza Virus Vaccine 2018-06-04 00:00:00 Completed [facility] Pneumococcal 13 Conjugate, PCV13 (Prevnar 13) 2018-06-04 00:00:00 Completed [facility] Influenza Virus Vaccine 2018-06-04 00:00:00 Completed [facility] Pneumococcal 13 Conjugate, PCV13 (Prevnar 13) 2018-06-04 00:00:00 Completed [facility] Influenza Virus Vaccine 2018-06-04 00:00:00 Completed [facility] Pneumococcal 13 Conjugate, PCV13 (Prevnar 13) 2018-06-04 00:00:00 Completed [facility] Influenza Virus Vaccine 2018-06-04 00:00:00 Completed [facility] Pneumococcal 13 Conjugate, PCV13 (Prevnar 13) 2018-06-04 00:00:00 Completed [facility] Influenza Virus Vaccine 2018-06-04 00:00:00 Completed [facility] Pneumococcal 13 Conjugate, PCV13 (Prevnar 13) 2018-06-04 00:00:00 Completed [facility] Influenza Virus Vaccine 2018-06-04 00:00:00 Completed [facility] Pneumococcal 13 Conjugate, PCV13 (Prevnar 13) 2018-06-04 00:00:00 Completed [facility] Influenza Virus Vaccine 2018-06-04 00:00:00 Completed [facility] Pneumococcal 13 Conjugate, PCV13 (Prevnar 13) 2018-06-04 00:00:00 Completed [facility] Influenza Virus Vaccine 2018-06-04 00:00:00 Completed [facility] Pneumococcal 13 Conjugate, PCV13 (Prevnar 13) 2018-06-04 00:00:00 Completed [facility] Influenza Virus Vaccine 2018-06-04 00:00:00 Completed [facility] Pneumococcal 13 Conjugate, PCV13 (Prevnar 13) 2018-06-04 00:00:00 Completed [facility] Influenza Virus Vaccine 2018-06-04 00:00:00 Completed [facility] Pneumococcal 13 Conjugate, PCV13 (Prevnar 13) 2018-06-04 00:00:00 Completed [facility] Influenza Virus Vaccine 2018-06-04 00:00:00 Completed [facility] Pneumococcal 13 Conjugate, PCV13 (Prevnar 13) 2018-06-04 00:00:00 Completed [facility] Influenza Virus Vaccine 2018-06-04 00:00:00 Completed [facility] Pneumococcal 13 Conjugate, PCV13 (Prevnar 13) 2018-06-04 00:00:00 Completed [facility] Influenza Virus Vaccine 2018-06-04 00:00:00 Completed [facility] Pneumococcal 13 Conjugate, PCV13 (Prevnar 13) 2018-06-04 00:00:00 Completed [facility] Influenza Virus Vaccine 2018-06-04 00:00:00 Completed [facility] Pneumococcal 13 Conjugate, PCV13 (Prevnar 13) 2018-06-04 00:00:00 Completed [facility] Influenza Virus Vaccine 2018-06-04 00:00:00 Completed [facility] Pneumococcal 13 Conjugate, PCV13 (Prevnar 13) 2018-06-04 00:00:00 Completed [facility] Influenza Virus Vaccine 2018-06-04 00:00:00 Completed [facility] Pneumococcal 13 Conjugate, PCV13 (Prevnar 13) 2018-06-04 00:00:00 Completed [facility] Influenza Virus Vaccine 2018-06-04 00:00:00 Completed [facility] Pneumococcal 13 Conjugate, PCV13 (Prevnar 13) 2018-06-04 00:00:00 Completed [facility] Influenza Virus Vaccine 2018-06-04 00:00:00 Completed [facility] Pneumococcal 13 Conjugate, PCV13 (Prevnar 13) 2018-06-04 00:00:00 Completed [facility] Influenza Virus Vaccine 2018-06-04 00:00:00 Completed [facility] Pneumococcal 13 Conjugate, PCV13 (Prevnar 13) 2018-06-04 00:00:00 Completed [facility] Influenza Virus Vaccine 2018-06-04 00:00:00 Completed [facility] Pneumococcal 13 Conjugate, PCV13 (Prevnar 13) 2018-06-04 00:00:00 Completed [facility] Influenza Virus Vaccine 2018-06-04 00:00:00 Completed [facility] Pneumococcal 13 Conjugate, PCV13 (Prevnar 13) 2018-06-04 00:00:00 Completed [facility] Influenza Virus Vaccine 2018-06-04 00:00:00 Completed [facility] Pneumococcal 13 Conjugate, PCV13 (Prevnar 13) 2018-06-04 00:00:00 Completed [facility] Influenza Virus Vaccine 2018-06-04 00:00:00 Completed [facility] Pneumococcal 13 Conjugate, PCV13 (Prevnar 13) 2018-06-04 00:00:00 Completed [facility] Influenza Virus Vaccine 2018-06-04 00:00:00 Completed [facility] Pneumococcal 13 Conjugate, PCV13 (Prevnar 13) 2018-06-04 00:00:00 Completed [facility] Influenza Virus Vaccine 2018-06-04 00:00:00 Completed [facility] Pneumococcal 13 Conjugate, PCV13 (Prevnar 13) 2018-06-04 00:00:00 Completed [facility] Influenza Virus Vaccine 2018-06-04 00:00:00 Completed [facility] Pneumococcal 13 Conjugate, PCV13 (Prevnar 13) 2018-06-04 00:00:00 Completed [facility] Influenza Virus Vaccine 2018-06-04 00:00:00 Completed [facility] Pneumococcal 13 Conjugate, PCV13 (Prevnar 13) 2018-06-04 00:00:00 Completed [facility] Influenza Virus Vaccine 2018-06-04 00:00:00 Completed [facility] Pneumococcal 13 Conjugate, PCV13 (Prevnar 13) 2018-06-04 00:00:00 Completed [facility] Influenza Virus Vaccine 2018-06-04 00:00:00 Completed [facility] Pneumococcal 13 Conjugate, PCV13 (Prevnar 13) 2018-06-04 00:00:00 Completed [facility] Influenza Virus Vaccine 2018-06-04 00:00:00 Completed [facility] Pneumococcal 13 Conjugate, PCV13 (Prevnar 13) 2018-06-04 00:00:00 Completed [facility] Influenza Virus Vaccine 2018-06-04 00:00:00 Completed [facility] Pneumococcal 13 Conjugate, PCV13 (Prevnar 13) 2018-06-04 00:00:00 Completed [facility] Influenza Virus Vaccine 2018-06-04 00:00:00 Completed [facility] Pneumococcal 13 Conjugate, PCV13 (Prevnar 13) 2018-06-04 00:00:00 Completed [facility] Influenza Virus Vaccine 2018-06-04 00:00:00 Completed [facility] Pneumococcal 13 Conjugate, PCV13 (Prevnar 13) 2018-06-04 00:00:00 Completed [facility] Influenza Virus Vaccine 2018-06-04 00:00:00 Completed [facility] Pneumococcal 13 Conjugate, PCV13 (Prevnar 13) 2018-06-04 00:00:00 Completed [facility] Influenza Virus Vaccine 2018-06-04 00:00:00 Completed [facility] Pneumococcal 13 Conjugate, PCV13 (Prevnar 13) 2018-06-04 00:00:00 Completed [facility] Influenza Virus Vaccine 2018-06-04 00:00:00 Completed [facility] Pneumococcal 13 Conjugate, PCV13 (Prevnar 13) 2018-06-04 00:00:00 Completed [facility] Influenza Virus Vaccine 2018-06-04 00:00:00 Completed [facility] Pneumococcal 13 Conjugate, PCV13 (Prevnar 13) 2018-06-04 00:00:00 Completed [facility] Influenza Virus Vaccine 2018-06-04 00:00:00 Completed [facility] Pneumococcal 13 Conjugate, PCV13 (Prevnar 13) 2018-06-04 00:00:00 Completed [facility] Influenza Virus Vaccine 2018-06-04 00:00:00 Completed [facility] Pneumococcal 13 Conjugate, PCV13 (Prevnar 13) 2018-06-04 00:00:00 Completed [facility] Influenza Virus Vaccine 2018-06-04 00:00:00 Completed [facility] Pneumococcal 13 Conjugate, PCV13 (Prevnar 13) 2018-06-04 00:00:00 Completed [facility] Influenza Virus Vaccine 2018-06-04 00:00:00 Completed [facility] Pneumococcal 13 Conjugate, PCV13 (Prevnar 13) 2018-06-04 00:00:00 Completed [facility] Influenza Virus Vaccine 2018-06-04 00:00:00 Completed [facility] Pneumococcal 13 Conjugate, PCV13 (Prevnar 13) 2018-06-04 00:00:00 Completed [facility] Vital Signs Vital Name Observation Time Observation Value Nasima ramirez Systolic blood pressure 2025-05-20 14:28:00 134 mm[Hg] [facility] Diastolic blood pressure 2025-05-20 14:28:00 75 mm[Hg] [facility] Heart rate 2025-05-20 14:28:00 64 /min [facility] Respiratory rate 2025-05-20 14:28:00 20 /min [facility] Body height 2025-05-20 14:28:00 160 cm [facility] Body weight 2025-05-20 14:28:00 91.082 kg [facility] BMI 2025-05-20 14:28:00 35.57 kg/m2 [facility] Oxygen saturation in Arterial blood by Pulse oximetry 2025-05-20 14:28:00 99 /min [facility] Systolic blood pressure 2025-04-27 14:58:00 129 mm[Hg] [facility] Diastolic blood pressure 2025-04-27 14:58:00 77 mm[Hg] [facility] Heart rate 2025-04-27 14:57:00 66 /min [facility] Body temperature 2025-04-27 14:57:00 36.72 Marline [facility] Respiratory rate 2025-04-27 14:57:00 17 /min [facility] Body height 2025-04-27 14:57:00 160 cm [facility] Body weight 2025-04-27 14:57:00 85.73 kg [facility] BMI 2025-04-27 14:57:00 33.48 kg/m2 [facility] Oxygen saturation in Arterial blood by Pulse oximetry 2025-04-27 14:57:00 99 /min [facility] Systolic blood pressure 2025-03-29 17:41:00 115 mm[Hg] [facility] Diastolic blood pressure 2025-03-29 17:41:00 62 mm[Hg] [facility] Heart rate 2025-03-29 17:41:00 71 /min [facility] Body temperature 2025-03-29 17:41:00 36.28 Marline [facility] Respiratory rate 2025-03-29 17:41:00 16 /min [facility] Body height 2025-03-29 17:41:00 160 cm Univ [facility] Body weight 2025-03-29 17:41:00 90.629 kg Univ [facility] BMI 2025-03-29 17:41:00 35.39 kg/m2 Univ [facility] Oxygen saturation in Arterial blood by Pulse oximetry 2025-03-29 17:41:00 97 /min [facility] Systolic blood pressure 2025-02-24 17:56:00 130 mm[Hg] [facility] Diastolic blood pressure 2025-02-24 17:56:00 72 mm[Hg] [facility] Heart rate 2025-02-24 17:56:00 66 /min [facility] Body temperature 2025-02-24 17:56:00 37 Marline [facility] Body height 2025-02-24 17:56:00 160 cm [facility] Body weight 2025-02-24 17:56:00 90.719 kg [facility] BMI 2025-02-24 17:56:00 35.43 kg/m2 [facility] Oxygen saturation in Arterial blood by Pulse oximetry 2025-02-24 17:56:00 99 /min [facility] Systolic blood pressure 2025-01-26 19:24:00 120 mm[Hg] [facility] Diastolic blood pressure 2025-01-26 19:24:00 67 mm[Hg] [facility] Heart rate 2025-01-26 19:24:00 65 /min [facility] Body temperature 2025-01-26 19:24:00 36.5 Marline [facility] Body height 2025-01-26 19:24:00 160 cm [facility] Body weight 2025-01-26 19:24:00 90.357 kg Univ [facility] BMI 2025-01-26 19:24:00 35.29 kg/m2 Univ [facility] Oxygen saturation in Arterial blood by Pulse oximetry 2025-01-26 19:24:00 99 /min [facility] Systolic blood pressure 2024-12-01 14:39:00 122 mm[Hg] [facility] Diastolic blood pressure 2024-12-01 14:39:00 71 mm[Hg] [facility] Heart rate 2024-12-01 14:39:00 61 /min [facility] Body height 2024-12-01 14:39:00 160 cm [facility] Body weight 2024-12-01 14:39:00 85.73 kg [facility] BMI 2024-12-01 14:39:00 33.48 kg/m2 [facility] Oxygen saturation in Arterial blood by Pulse oximetry 2024-12-01 14:39:00 99 /min [facility] Systolic blood pressure 2024-11-29 15:55:00 137 mm[Hg] [facility] Diastolic blood pressure 2024-11-29 15:55:00 71 mm[Hg] [facility] Heart rate 2024-11-29 15:41:00 65 /min [facility] Body temperature 2024-11-29 15:41:00 36.78 Marline [facility] Respiratory rate 2024-11-29 15:41:00 18 /min [facility] Body height 2024-11-29 15:41:00 160 cm Univ [facility] Body weight 2024-11-29 15:41:00 85.73 kg [facility] BMI 2024-11-29 15:41:00 33.48 kg/m2 Univ [facility] Systolic blood pressure 2024-11-16 16:24:00 143 mm[Hg] [facility] Diastolic blood pressure 2024-11-16 16:24:00 78 mm[Hg] [facility] Heart rate 2024-11-16 16:24:00 64 /[facility] 2024-11-16 16:24:00 18 /min [facility] Body height 2024-11-16 16:24:00 160 [facility] Body weight 2024-11-16 16:24:00 86.382 kg [facility] 2024-11-16 16:24:00 33.73 kg/m2 Univ [facility] Oxygen saturation in Arterial blood by Pulse oximetry 2024-11-16 16:24:00 100 /min [facility] Systolic blood pressure 2024-11-02 19:12:00 118 mm[Hg] [facility] Diastolic blood pressure 2024-11-02 19:12:00 51 mm[Hg] [facility] Heart rate 2024-11-02 19:11:00 75 /min [facility] Body temperature 2024-11-02 19:11:00 36.67 Marline [facility] Respiratory rate 2024-11-02 19:11:00 18 /min [facility] Body height 2024-11-02 19:11:00 160 cm [facility] Body weight 2024-11-02 19:11:00 86.909 kg Univ [facility] BMI 2024-11-02 19:11:00 33.94 kg/m2 Univ [facility] Systolic blood pressure 2024-10-25 13:59:00 149 mm[Hg] [facility] Diastolic blood pressure 2024-10-25 13:59:00 69 mm[Hg] [facility] Heart rate 2024-10-25 13:59:00 61 /min [facility] 2024-10-25 13:59:00 160 [facility] Body weight 2024-10-25 13:59:00 84.913 kg Univ [facility] BMI 2024-10-25 13:59:00 33.16 kg/m2 Univ [facility] Oxygen saturation in Arterial blood by Pulse oximetry 2024-10-25 13:59:00 97 /min [facility] Systolic blood pressure 2024-10-22 20:06:00 138 mm[Hg] [facility] Diastolic blood pressure 2024-10-22 20:06:00 71 mm[Hg] [facility] Heart rate 2024-10-22 19:46:00 66 /min [facility] Body temperature 2024-10-22 19:46:00 36.83 Marline [facility] Respiratory rate 2024-10-22 19:46:00 20 /min [facility] Body height 2024-10-22 19:46:00 160 cm [facility] Body weight 2024-10-22 19:46:00 83.008 kg [facility] BMI 2024-10-22 19:46:00 32.42 kg/m2 [facility] Oxygen saturation in Arterial blood by Pulse oximetry 2024-10-22 19:46:00 100 /min [facility] Systolic blood pressure 2024-09-22 15:22:00 163 mm[Hg] [facility] Diastolic blood pressure 2024-09-22 15:22:00 84 mm[Hg] [facility] Heart rate 2024-09-22 15:22:00 62 /min [facility] Body temperature 2024-09-22 15:22:00 36.33 Marline [facility] Respiratory rate 2024-09-22 15:22:00 18 /min [facility] Body height 2024-09-22 15:22:00 160 cm [facility] Body weight 2024-09-22 15:22:00 85.049 kg [facility] BMI 2024-09-22 15:22:00 33.21 kg/m2 [facility] Oxygen saturation in Arterial blood by Pulse oximetry 2024-09-22 15:22:00 99 /min [facility] Systolic blood pressure 2024-09-12 22:45:03 132 mm[Hg] [facility] Diastolic blood pressure 2024-09-12 22:45:03 64 mm[Hg] [facility] Heart rate 2024-09-12 22:45:03 71 /min [facility] Respiratory rate 2024-09-12 22:45:03 18 /min [facility] Oxygen saturation in Arterial blood by Pulse oximetry 2024-09-12 22:45:03 98 /min [facility] Body temperature 2024-09-12 20:39:00 38.22 Marline [facility] Body height 2024-09-12 20:39:00 160 cm [facility] Body weight 2024-09-12 20:39:00 81.647 kg [facility] BMI 2024-09-12 20:39:00 31.89 kg/m2 [facility] Systolic blood pressure 2024-09-01 14:45:00 155 mm[Hg] [facility] Diastolic blood pressure 2024-09-01 14:45:00 81 mm[Hg] [facility] Heart rate 2024-09-01 14:45:00 71 /min [facility] Body temperature 2024-09-01 14:45:00 36.17 Marline [facility] Body height 2024-09-01 14:45:00 160 cm [facility] Body weight 2024-09-01 14:45:00 84.369 kg [facility] BMI 2024-09-01 14:45:00 32.95 kg/m2 [facility] Oxygen saturation in Arterial blood by Pulse oximetry 2024-09-01 14:45:00 98 /min [facility] Systolic blood pressure 2024-08-12 18:03:00 144 mm[Hg] [facility] Diastolic blood pressure 2024-08-12 18:03:00 71 mm[Hg] [facility] Heart rate 2024-08-12 18:03:00 64 /min [facility] Oxygen saturation in Arterial blood by Pulse oximetry 2024-08-12 18:03:00 98 /min [facility] Body temperature 2024-08-12 18:02:00 36.78 Marline [facility] Body height 2024-08-12 18:02:00 160 cm [facility] Body weight 2024-08-12 18:02:00 83.915 kg [facility] BMI 2024-08-12 18:02:00 32.77 kg/m2 [facility] Systolic blood pressure 2024-08-06 14:55:00 102 mm[Hg] [facility] Diastolic blood pressure 2024-08-06 14:55:00 61 mm[Hg] [facility] Heart rate 2024-08-06 14:55:00 80 /min [facility] Respiratory rate 2024-08-06 14:55:00 18 /min [facility] Body height 2024-08-06 14:55:00 160 cm [facility] Body weight 2024-08-06 14:55:00 84.539 kg [facility] BMI 2024-08-06 14:55:00 33.01 kg/m2 [facility] Oxygen saturation in Arterial blood by Pulse oximetry 2024-08-06 14:55:00 99 /min [facility] Systolic blood pressure 2024-08-06 13:32:00 119 mm[Hg] [facility] Diastolic blood pressure 2024-08-06 13:32:00 64 mm[Hg] [facility] Heart rate 2024-08-06 13:32:00 68 /min [facility] Body temperature 2024-08-06 13:32:00 37.28 Marline [facility] Body height 2024-08-06 13:32:00 160 cm [facility] Body weight 2024-08-06 13:32:00 85.049 kg [facility] BMI 2024-08-06 13:32:00 33.21 kg/m2 [facility] Oxygen saturation in Arterial blood by Pulse oximetry 2024-08-06 13:32:00 99 /min [facility] Systolic blood pressure 2024-08-03 14:41:00 109 mm[Hg] [facility] Diastolic blood pressure 2024-08-03 14:41:00 64 mm[Hg] [facility] Heart rate 2024-08-03 14:41:00 70 /min [facility] Body temperature 2024-08-03 14:41:00 36.72 Marline [facility] Respiratory rate 2024-08-03 14:41:00 12 /min [facility] Body height 2024-08-03 14:41:00 160 cm Univ [facility] Body weight 2024-08-03 14:41:00 90.674 kg Univ [facility] BMI 2024-08-03 14:41:00 35.41 kg/m2 [facility] Oxygen saturation in Arterial blood by Pulse oximetry 2024-08-03 14:41:00 97 /min [facility] Systolic blood pressure 2024-07-23 20:14:00 158 mm[Hg] [facility] Diastolic blood pressure 2024-07-23 20:14:00 74 mm[Hg] [facility] Heart rate 2024-07-23 20:14:00 68 /min [facility] Body height 2024-07-23 20:14:00 160 cm [facility] Body weight 2024-07-23 20:14:00 86.183 kg [facility] BMI 2024-07-23 20:14:00 33.66 kg/m2 [facility] Oxygen saturation in Arterial blood by Pulse oximetry 2024-07-23 20:14:00 99 /min [facility] Systolic blood pressure 2024-07-16 15:45:00 134 mm[Hg] [facility] Diastolic blood pressure 2024-07-16 15:45:00 55 mm[Hg] [facility] Heart rate 2024-07-16 15:45:00 66 /min [facility] Body temperature 2024-07-16 15:45:00 36.67 Marline [facility] Respiratory rate 2024-07-16 15:45:00 16 /min [facility] Body weight 2024-07-16 15:45:00 83.915 kg Univ [facility] BMI 2024-07-16 15:45:00 32.77 kg/m2 [facility] Oxygen saturation in Arterial blood by Pulse oximetry 2024-07-16 15:45:00 99 /min [facility] Systolic blood pressure 2024-07-05 19:25:00 138 mm[Hg] [facility] Diastolic blood pressure 2024-07-05 19:25:00 77 mm[Hg] [facility] Heart rate 2024-07-05 19:25:00 63 /min [facility] Oxygen saturation in Arterial blood by Pulse oximetry 2024-07-05 19:25:00 99 /min [facility] Body temperature 2024-07-05 18:59:00 36.61 Marline [facility] Respiratory rate 2024-07-05 18:59:00 18 /min [facility] Body height 2024-07-05 18:59:00 160 cm [facility] Body weight 2024-07-05 18:59:00 82.555 kg [facility] BMI 2024-07-05 18:59:00 32.24 kg/m2 [facility] Systolic blood pressure 2024-06-18 15:55:00 135 mm[Hg] [facility] Diastolic blood pressure 2024-06-18 15:55:00 66 mm[Hg] [facility] Heart rate 2024-06-18 15:55:00 69 /min [facility] Body temperature 2024-06-18 15:55:00 36.56 Marline [facility] Respiratory rate 2024-06-18 15:55:00 20 /min [facility] Body height 2024-06-18 15:55:00 160 cm [facility] Body weight 2024-06-18 15:55:00 83.462 kg [facility] BMI 2024-06-18 15:55:00 32.59 kg/m2 [facility] Oxygen saturation in Arterial blood by Pulse oximetry 2024-06-18 15:55:00 99 /min [facility] Systolic blood pressure 2024-06-11 20:12:00 102 mm[Hg] [facility] Diastolic blood pressure 2024-06-11 20:12:00 73 mm[Hg] [facility] Heart rate 2024-06-11 20:12:00 79 /min [facility] Body temperature 2024-06-11 20:12:00 36.89 Marline [facility] Respiratory rate 2024-06-11 20:12:00 17 /min [facility] Body weight 2024-06-11 20:12:00 82.781 kg [facility] BMI 2024-06-11 20:12:00 32.33 kg/m2 [facility] Body weight 2024-05-27 14:20:00 79.833 kg [facility] BMI 2024-05-27 14:20:00 31.18 kg/m2 [facility] Systolic blood pressure 2024-05-03 15:30:00 138 mm[Hg] [facility] Diastolic blood pressure 2024-05-03 15:30:00 75 mm[Hg] [facility] Heart rate 2024-05-03 15:30:00 64 /min [facility] Oxygen saturation in Arterial blood by Pulse oximetry 2024-05-03 15:30:00 99 /min [facility] Body temperature 2024-05-03 15:29:00 36.56 Marline [facility] Body height 2024-05-03 15:29:00 160 cm [facility] Body weight 2024-05-03 15:29:00 79.833 kg [facility] BMI 2024-05-03 15:29:00 31.18 kg/m2 [facility] Systolic blood pressure 2024-04-19 15:28:00 131 mm[Hg] [facility] Diastolic blood pressure 2024-04-19 15:28:00 74 mm[Hg] [facility] Heart rate 2024-04-19 15:28:00 67 /min [facility] Body temperature 2024-04-19 15:28:00 35.94 Marline [facility] Respiratory rate 2024-04-19 15:28:00 18 /min [facility] Body height 2024-04-19 15:28:00 160 cm [facility] Body weight 2024-04-19 15:28:00 79.379 kg [facility] BMI 2024-04-19 15:28:00 31.00 kg/m2 [facility] Oxygen saturation in Arterial blood by Pulse oximetry 2024-04-19 15:28:00 99 /min [facility] Systolic blood pressure 2024-04-06 16:09:00 125 mm[Hg] [facility] Diastolic blood pressure 2024-04-06 16:09:00 70 mm[Hg] [facility] Heart rate 2024-04-06 16:09:00 64 /min [facility] Body height 2024-04-06 16:09:00 160 cm [facility] Body weight 2024-04-06 16:09:00 75.887 kg [facility] BMI 2024-04-06 16:09:00 29.64 kg/m2 [facility] Oxygen saturation in Arterial blood by Pulse oximetry 2024-04-06 16:09:00 96 /min [facility] Systolic blood pressure 2024-03-29 16:11:00 135 mm[Hg] [facility] Diastolic blood pressure 2024-03-29 16:11:00 62 mm[Hg] [facility] Heart rate 2024-03-29 15:58:00 62 /min [facility] Body temperature 2024-03-29 15:58:00 36.67 Marline [facility] Body height 2024-03-29 15:58:00 160 cm [facility] Body weight 2024-03-29 15:58:00 78.472 kg [facility] BMI 2024-03-29 15:58:00 30.65 kg/m2 [facility] Oxygen saturation in Arterial blood by Pulse oximetry 2024-03-29 15:58:00 100 /min [facility] Systolic blood pressure 2024-03-25 14:11:00 132 mm[Hg] [facility] Diastolic blood pressure 2024-03-25 14:11:00 61 mm[Hg] [facility] Heart rate 2024-03-25 14:11:00 58 /min [facility] Oxygen saturation in Arterial blood by Pulse oximetry 2024-03-25 14:11:00 97 /min [facility] Respiratory rate 2024-03-25 14:10:00 18 /min [facility] Body height 2024-03-25 14:10:00 160 cm [facility] Body weight 2024-03-25 14:10:00 75.887 kg [facility] BMI 2024-03-25 14:10:00 29.64 kg/m2 [facility] Systolic blood pressure 2024-03-20 16:27:00 115 mm[Hg] [facility] Diastolic blood pressure 2024-03-20 16:27:00 54 mm[Hg] [facility] Heart rate 2024-03-20 16:27:00 59 /min [facility] Body temperature 2024-03-20 16:27:00 37.33 Marline [facility] Respiratory rate 2024-03-20 16:27:00 16 /min [facility] Oxygen saturation in Arterial blood by Pulse oximetry 2024-03-20 16:27:00 93 /min [facility] Body height 2024-03-19 20:27:00 160 cm [facility] Body weight 2024-03-19 20:27:00 77.565 kg [facility] BMI 2024-03-19 20:27:00 30.29 kg/m2 [facility] Systolic blood pressure 2024-03-17 15:06:00 171 mm[Hg] [facility] Diastolic blood pressure 2024-03-17 15:06:00 87 mm[Hg] [facility] Heart rate 2024-03-17 15:06:00 60 /min [facility] Body temperature 2024-03-17 15:06:00 36.39 Marline [facility] Body height 2024-03-17 15:06:00 160 cm [facility] Body weight 2024-03-17 15:06:00 77.973 kg [facility] BMI 2024-03-17 15:06:00 30.45 kg/m2 [facility] Oxygen saturation in Arterial blood by Pulse oximetry 2024-03-17 15:06:00 100 /min [facility] Systolic blood pressure 2024-03-11 14:50:00 148 mm[Hg] [facility] Diastolic blood pressure 2024-03-11 14:50:00 80 mm[Hg] [facility] Heart rate 2024-03-11 14:50:00 58 /min [facility] Oxygen saturation in Arterial blood by Pulse oximetry 2024-03-11 14:50:00 100 /min [facility] Body temperature 2024-03-11 14:49:00 36.06 Marline [facility] Body height 2024-03-11 14:49:00 160 cm [facility] Body weight 2024-03-11 14:49:00 77.837 kg [facility] BMI 2024-03-11 14:49:00 30.40 kg/m2 [facility] Systolic blood pressure 2024-02-17 13:50:00 116 mm[Hg] [facility] Diastolic blood pressure 2024-02-17 13:50:00 62 mm[Hg] [facility] Heart rate 2024-02-17 13:50:00 54 /min [facility] Body temperature 2024-02-17 13:50:00 36.56 Marline [facility] Respiratory rate 2024-02-17 13:50:00 18 /min [facility] Body height 2024-02-17 13:50:00 160 cm [facility] Body weight 2024-02-17 13:50:00 76.204 kg [facility] BMI 2024-02-17 13:50:00 29.76 kg/m2 [facility] Oxygen saturation in Arterial blood by Pulse oximetry 2024-02-17 13:50:00 100 /min [facility] Systolic blood pressure 2024-01-27 15:47:00 151 mm[Hg] [facility] Diastolic blood pressure 2024-01-27 15:47:00 69 mm[Hg] [facility] Heart rate 2024-01-27 15:45:00 62 /min [facility] Body temperature 2024-01-27 15:45:00 36.78 Marline [facility] Respiratory rate 2024-01-27 15:45:00 12 /min [facility] Body height 2024-01-27 15:45:00 160 cm [facility] Body weight 2024-01-27 15:45:00 77.338 kg [facility] BMI 2024-01-27 15:45:00 30.20 kg/m2 [facility] Oxygen saturation in Arterial blood by Pulse oximetry 2024-01-27 15:45:00 99 /min [facility] Systolic blood pressure 2024-01-16 14:52:00 127 mm[Hg] [facility] Diastolic blood pressure 2024-01-16 14:52:00 53 mm[Hg] [facility] Heart rate 2024-01-16 14:52:00 63 /min [facility] Body temperature 2024-01-16 14:52:00 37.11 Marline [facility] Respiratory rate 2024-01-16 14:52:00 12 /min [facility] Body height 2024-01-16 14:52:00 160 cm [facility] Body weight 2024-01-16 14:52:00 77.293 kg [facility] BMI 2024-01-16 14:52:00 30.19 kg/m2 [facility] Oxygen saturation in Arterial blood by Pulse oximetry 2024-01-16 14:52:00 95 /min [facility] Systolic blood pressure 2024-01-10 12:51:00 126 mm[Hg] [facility] Diastolic blood pressure 2024-01-10 12:51:00 52 mm[Hg] [facility] Heart rate 2024-01-10 12:51:00 60 /min [facility] Body temperature 2024-01-10 12:51:00 36.22 Marline [facility] Respiratory rate 2024-01-10 12:51:00 18 /min [facility] Oxygen saturation in Arterial blood by Pulse oximetry 2024-01-10 12:51:00 94 /min [facility] Body height 2024-01-09 10:38:00 160 cm [facility] Body weight 2024-01-09 10:38:00 77.3 kg [facility] BMI 2024-01-09 10:38:00 30.19 kg/m2 [facility] Systolic blood pressure 2024-01-09 10:38:00 147 mm[Hg] [facility] Diastolic blood pressure 2024-01-09 10:38:00 60 mm[Hg] [facility] Heart rate 2024-01-09 10:38:00 59 /min [facility] Body temperature 2024-01-09 10:38:00 35.78 Marline [facility] Body height 2024-01-09 10:38:00 160 cm [facility] Body weight 2024-01-09 10:38:00 77.3 kg [facility] BMI 2024-01-09 10:38:00 30.19 kg/m2 [facility] Oxygen saturation in Arterial blood by Pulse oximetry 2024-01-09 10:38:00 100 /min [facility] Systolic blood pressure 2023-12-16 14:26:00 115 mm[Hg] [facility] Diastolic blood pressure 2023-12-16 14:26:00 62 mm[Hg] [facility] Heart rate 2023-12-16 14:26:00 64 /min [facility] Body temperature 2023-12-16 14:26:00 36.61 Marline [facility] Respiratory rate 2023-12-16 14:26:00 18 /min [facility] Body height 2023-12-16 14:26:00 160 cm [facility] Body weight 2023-12-16 14:26:00 74.662 kg [facility] BMI 2023-12-16 14:26:00 29.16 kg/m2 [facility] Oxygen saturation in Arterial blood by Pulse oximetry 2023-12-16 14:26:00 100 /min [facility] Systolic blood pressure 2023-12-04 12:56:00 138 mm[Hg] [facility] Diastolic blood pressure 2023-12-04 12:56:00 75 mm[Hg] [facility] Heart rate 2023-12-04 12:56:00 62 /min [facility] Oxygen saturation in Arterial blood by Pulse oximetry 2023-12-04 12:56:00 100 /min [facility] Body temperature 2023-12-04 12:55:00 36.72 Marline [facility] Body height 2023-12-04 12:55:00 160 cm [facility] Body weight 2023-12-04 12:55:00 73.936 kg [facility] BMI 2023-12-04 12:55:00 28.87 kg/m2 [facility] Systolic blood pressure 2023-11-27 20:55:00 132 mm[Hg] [facility] Diastolic blood pressure 2023-11-27 20:55:00 75 mm[Hg] [facility] Heart rate 2023-11-27 20:54:00 68 /min [facility] Body temperature 2023-11-27 20:54:00 36.61 Marline [facility] Respiratory rate 2023-11-27 20:54:00 18 /min [facility] Body height 2023-11-27 20:54:00 160 cm [facility] Body weight 2023-11-27 20:54:00 75.07 kg [facility] BMI 2023-11-27 20:54:00 29.32 kg/m2 [facility] Oxygen saturation in Arterial blood by Pulse oximetry 2023-11-27 20:54:00 99 /min [facility] Systolic blood pressure 2023-11-18 14:24:00 134 mm[Hg] [facility] Diastolic blood pressure 2023-11-18 14:24:00 65 mm[Hg] [facility] Heart rate 2023-11-18 14:24:00 64 /min [facility] Body height 2023-11-18 14:24:00 160 cm [facility] Body weight 2023-11-18 14:24:00 75.025 kg [facility] BMI 2023-11-18 14:24:00 29.30 kg/m2 [facility] Oxygen saturation in Arterial blood by Pulse oximetry 2023-11-18 14:24:00 99 /min [facility] Body weight 2023-11-06 13:57:00 73.936 kg [facility] BMI 2023-11-06 13:57:00 28.87 kg/m2 [facility] Systolic blood pressure 2023-10-28 18:12:00 129 mm[Hg] [facility] Diastolic blood pressure 2023-10-28 18:12:00 74 mm[Hg] [facility] Heart rate 2023-10-28 18:12:00 69 /min [facility] Body temperature 2023-10-28 18:08:00 36.39 Marline [facility] Body height 2023-10-28 18:08:00 160 cm [facility] Body weight 2023-10-28 18:08:00 73.936 kg [facility] BMI 2023-10-28 18:08:00 28.87 kg/m2 [facility] Oxygen saturation in Arterial blood by Pulse oximetry 2023-10-28 18:08:00 96 /min [facility] Systolic blood pressure 2023-10-21 20:14:00 151 mm[Hg] [facility] Diastolic blood pressure 2023-10-21 20:14:00 75 mm[Hg] [facility] Heart rate 2023-10-21 20:13:00 64 /min [facility] Body temperature 2023-10-21 20:13:00 37.17 Marline [facility] Body height 2023-10-21 20:13:00 160 cm [facility] Body weight 2023-10-21 20:13:00 73.936 kg [facility] BMI 2023-10-21 20:13:00 28.87 kg/m2 [facility] Systolic blood pressure 2023-10-15 16:01:00 97 mm[Hg] [facility] Diastolic blood pressure 2023-10-15 16:01:00 58 mm[Hg] [facility] Heart rate 2023-10-15 16:01:00 68 /min [facility] Body temperature 2023-10-15 16:01:00 36.78 Marline [facility] Body height 2023-10-15 16:01:00 160 cm [facility] Body weight 2023-10-15 16:01:00 73.483 kg [facility] BMI 2023-10-15 16:01:00 28.70 kg/m2 [facility] Systolic blood pressure 2023-10-07 16:02:00 143 mm[Hg] [facility] Diastolic blood pressure 2023-10-07 16:02:00 73 mm[Hg] [facility] Heart rate 2023-10-07 16:02:00 61 /min [facility] Respiratory rate 2023-10-07 16:02:00 20 /min [facility] Body height 2023-10-07 16:02:00 [facility].5 cm [facility] 2023-10-07 16:02:00 73.891 kg [facility] BMI 2023-10-07 16:02:00 28.31 kg/m2 [facility] Oxygen saturation in Arterial blood by Pulse oximetry 2023-10-07 16:02:00 98 /min [facility] Systolic blood pressure 2023-09-08 19:18:00 151 mm[Hg] [facility] Diastolic blood pressure 2023-09-08 19:18:00 70 mm[Hg] [facility] Heart rate 2023-09-08 19:17:00 62 /min [facility] Respiratory rate 2023-09-08 19:17:00 18 /min [facility] Body height 2023-09-08 19:17:00 160 cm [facility] Body weight 2023-09-08 19:17:00 71.215 kg [facility] BMI 2023-09-08 19:17:00 27.81 kg/m2 [facility] Oxygen saturation in Arterial blood by Pulse oximetry 2023-09-08 19:17:00 99 /min [facility] Systolic blood pressure 2023-09-04 22:07:00 162 mm[Hg] [facility] Diastolic blood pressure 2023-09-04 22:07:00 80 mm[Hg] [facility] Heart rate 2023-09-04 22:07:00 54 /min [facility] Body temperature 2023-09-04 22:07:00 36.22 Marline [facility] Respiratory rate 2023-09-04 22:07:00 18 /min [facility] Oxygen saturation in Arterial blood by Pulse oximetry 2023-09-04 22:07:00 100 /min [facility] Body height 2023-09-04 16:48:00 160 cm [facility] Body weight 2023-09-04 16:48:00 72.576 kg [facility] BMI 2023-09-04 16:48:00 28.34 kg/m2 [facility] Systolic blood pressure 2023-08-22 15:22:00 176 mm[Hg] [facility] Diastolic blood pressure 2023-08-22 15:22:00 85 mm[Hg] [facility] Heart rate 2023-08-22 15:22:00 76 /min [facility] Body temperature 2023-08-22 15:22:00 36.78 Marline [facility] Body height 2023-08-22 15:22:00 160 cm [facility] Body weight 2023-08-22 15:22:00 72.485 kg [facility] BMI 2023-08-22 15:22:00 28.31 kg/m2 [facility] Oxygen saturation in Arterial blood by Pulse oximetry 2023-08-22 15:22:00 99 /min [facility] Systolic blood pressure 2023-08-21 19:44:00 148 mm[Hg] [facility] Diastolic blood pressure 2023-08-21 19:44:00 77 mm[Hg] [facility] Heart rate 2023-08-21 19:44:00 68 /min Unive [facility] Oxygen saturation in Arterial blood by Pulse oximetry 2023-08-21 19:44:00 100 /min [facility] Body temperature 2023-08-21 19:43:00 36.89 Marline [facility] Body height 2023-08-21 19:43:00 160 cm [facility] weight 2023-08-21 19:43:00 73.074 kg Univ [facility] BMI 2023-08-21 19:43:00 28.54 kg/m2 [facility] Body height 2023-08-13 19:57:00 160 cm Univ [facility] Body weight 2023-08-13 19:57:00 71.215 kg Univ [facility] BMI 2023-08-13 19:57:00 27.81 kg/m2 Univ [facility] Systolic blood pressure 2023-07-24 15:06:00 156 mm[Hg] [facility] Diastolic blood pressure 2023-07-24 15:06:00 78 mm[Hg] [facility] Heart rate 2023-07-24 15:05:00 59 /min [facility] Body height 2023-07-24 15:05:00 160 cm [facility] Body weight 2023-07-24 15:05:00 72.122 kg Univ [facility] BMI 2023-07-24 15:05:00 28.17 kg/m2 Univ [facility] Oxygen saturation in Arterial blood by Pulse oximetry 2023-07-24 15:05:00 100 /min [facility] Systolic blood pressure 2023-05-14 14:58:00 100 mm[Hg] [facility] Diastolic blood pressure 2023-05-14 14:58:00 60 mm[Hg] [facility] Heart rate 2023-05-14 14:25:00 65 /min Un[facility] Body temperature 2023-05-14 14:25:00 36.72 Marline [facility] Body height 2023-05-14 14:25:00 160 cm [facility] Body weight 2023-05-14 14:25:00 72.666 kg Univ [facility] BMI 2023-05-14 14:25:00 28.38 kg/m2 Univ [facility] Oxygen saturation in Arterial blood by Pulse oximetry 2023-05-14 14:25:00 99 /min [facility] Systolic blood pressure 2023-04-18 16:27:00 166 mm[Hg] [facility] Diastolic blood pressure 2023-04-18 16:27:00 71 mm[Hg] [facility] Heart rate 2023-04-18 16:27:00 74 /min Un[facility] Body temperature 2023-04-18 16:27:00 36.44 Marline [facility] Body height 2023-04-18 16:27:00 160 cm Univ [facility] Body weight 2023-04-18 16:27:00 65.908 kg [facility] BMI 2023-04-18 16:27:00 25.74 kg/m2 Univ [facility] Oxygen saturation in Arterial blood by Pulse oximetry 2023-04-18 16:27:00 100 /min [facility] Systolic blood pressure 2023-04-15 18:04:00 162 mm[Hg] [facility] Diastolic blood pressure 2023-04-15 18:04:00 74 mm[Hg] [facility] Heart rate 2023-04-15 18:04:00 66 /min [facility] Body height 2023-04-15 18:04:00 160 cm Univ [facility] Body weight 2023-04-15 18:04:00 70.58 kg Univ [facility] BMI 2023-04-15 18:04:00 27.56 kg/m2 [facility] Systolic blood pressure 2023-04-02 16:34:00 143 mm[Hg] [facility] Diastolic blood pressure 2023-04-02 16:34:00 80 mm[Hg] [facility] Heart rate 2023-04-02 16:34:00 68 /min Un[facility] Oxygen saturation in Arterial blood by Pulse oximetry 2023-04-02 16:34:00 98 /min [facility] Body temperature 2023-04-02 16:32:00 36.67 Marline [facility] Respiratory rate 2023-04-02 16:32:00 17 /min [facility] Body height 2023-04-02 16:32:00 160 cm [facility] Body weight 2023-04-02 16:32:00 66.316 kg [facility] BMI 2023-04-02 16:32:00 25.90 kg/m2 [facility] Systolic blood pressure 2023-02-21 13:53:00 133 mm[Hg] [facility] Diastolic blood pressure 2023-02-21 13:53:00 74 mm[Hg] [facility] Heart rate 2023-02-21 13:53:00 72 /min [facility] Body height 2023-02-21 13:53:00 160 cm [facility] Body weight 2023-02-21 13:53:00 65.862 kg [facility] BMI 2023-02-21 13:53:00 25.72 kg/m2 [facility] Systolic blood pressure 2023-02-13 18:49:00 157 mm[Hg] [facility] Diastolic blood pressure 2023-02-13 18:49:00 77 mm[Hg] [facility] Heart rate 2023-02-13 18:49:00 85 /min Un[facility] Body temperature 2023-02-13 18:48:00 36.94 Marline [facility] Body height 2023-02-13 18:48:00 160 cm [facility] Body weight 2023-02-13 18:48:00 64.774 kg [facility] BMI 2023-02-13 18:48:00 25.30 kg/m2 [facility] Oxygen saturation in Arterial blood by Pulse oximetry 2023-02-13 18:48:00 100 /min [facility] Systolic blood pressure 2023-02-07 21:57:00 132 mm[Hg] [place] [facility] Diastolic blood pressure 2023-02-07 21:57:00 73 mm[Hg] [facility] Heart rate 2023-02-07 21:57:00 71 /min [facility] Body height 2023-02-07 21:57:00 160 cm [facility] Body weight 2023-02-07 21:57:00 64.139 kg [facility] BMI 2023-02-07 21:57:00 25.05 kg/m2 Univ [facility] Oxygen saturation in Arterial blood by Pulse oximetry 2023-02-07 21:57:00 100 /min [facility] Systolic blood pressure 2023-01-07 18:07:00 127 mm[Hg] [facility] [place] Diastolic blood pressure 2023-01-07 18:07:00 70 mm[Hg] [facility] Heart rate 2023-01-07 18:07:00 81 /min [facility]ive [facility] Body height 2023-01-07 18:07:00 160 cm [facility] Body weight 2023-01-07 18:07:00 60.963 kg [facility] BMI 2023-01-07 18:07:00 23.81 kg/m2 Univ [facility] Oxygen saturation in Arterial blood by Pulse oximetry 2023-01-07 18:07:00 99 /min [facility] Systolic blood pressure 2023-01-02 16:04:00 131 mm[Hg] [facility] Diastolic blood pressure 2023-01-02 16:04:00 71 mm[Hg] [facility] Heart rate 2023-01-02 16:04:00 82 /min [facility] Body temperature 2023-01-02 16:04:00 37.06 Marline [facility] Respiratory rate 2023-01-02 16:04:00 18 /min [facility] Body height 2023-01-02 16:04:00 160 cm [facility] Body weight 2023-01-02 16:04:00 58.922 kg [facility] BMI 2023-01-02 16:04:00 23.01 kg/m2 [facility] Oxygen saturation in Arterial blood by Pulse oximetry 2023-01-02 16:04:00 100 /min [facility] Systolic blood pressure 2022-12-31 16:36:00 154 mm[Hg] [facility] Diastolic blood pressure 2022-12-31 16:36:00 79 mm[Hg] [facility] Heart rate 2022-12-31 16:36:00 72 /min [facility] Body temperature 2022-12-31 16:36:00 37 Marline [facility] Respiratory rate 2022-12-31 16:36:00 16 /min [facility] Oxygen saturation in Arterial blood by Pulse oximetry 2022-12-31 16:36:00 97 /min [facility] Body height 2022-12-29 21:31:00 160 cm [facility] Body weight 2022-12-29 21:31:00 61.462 kg [facility] BMI 2022-12-29 21:31:00 24.00 kg/m2 [facility] Systolic blood pressure 2022-12-06 14:55:00 128 mm[Hg] [facility] Diastolic blood pressure 2022-12-06 14:55:00 71 mm[Hg] [facility] Heart rate 2022-12-06 14:55:00 79 /min [facility] Body height 2022-12-06 14:55:00 160 cm [facility] Body weight 2022-12-06 14:55:00 58.378 kg [facility] BMI 2022-12-06 14:55:00 22.80 kg/m2 [facility] Systolic blood pressure 2022-10-09 19:47:00 116 mm[Hg] [facility] Diastolic blood pressure 2022-10-09 19:47:00 50 mm[Hg] [facility] Heart rate 2022-10-09 19:47:00 72 /min Unive [facility] Body temperature 2022-10-09 19:47:00 37.33 Marline [facility] Body height 2022-10-09 19:47:00 160 cm Univ [facility] Body weight 2022-10-09 19:47:00 55.792 kg Univ [facility] BMI 2022-10-09 19:47:00 21.79 kg/m2 Univ [facility] Oxygen saturation in Arterial blood by Pulse oximetry 2022-10-09 19:47:00 98 /min [facility] Systolic blood pressure 2022-09-30 15:51:00 92 mm[Hg] [facility] Diastolic blood pressure 2022-09-30 15:51:00 50 mm[Hg] [facility] Heart rate 2022-09-30 15:51:00 78 /min Unive [facility] Body temperature 2022-09-30 15:51:00 36.94 Marline [facility] Body height 2022-09-30 15:51:00 160 cm [facility] Body weight 2022-09-30 15:51:00 55.112 kg [facility] BMI 2022-09-30 15:51:00 21.52 kg/m2 [facility] Oxygen saturation in Arterial blood by Pulse oximetry 2022-09-30 15:51:00 99 /min [facility] Systolic blood pressure 2022-08-13 20:24:00 91 mm[Hg] [facility] Diastolic blood pressure 2022-08-13 20:24:00 52 mm[Hg] [facility] Heart rate 2022-08-13 20:24:00 79 /min Unive [facility] Body height 2022-08-13 20:24:00 160 cm Univ [facility] Body weight 2022-08-13 20:24:00 61.598 kg [facility] BMI 2022-08-13 20:24:00 24.06 kg/m2 [facility] Oxygen saturation in Arterial blood by Pulse oximetry 2022-08-13 20:24:00 99 /min [facility] Systolic blood pressure 2022-07-04 19:31:00 96 mm[Hg] [facility] Diastolic blood pressure 2022-07-04 19:31:00 61 mm[Hg] [facility] Heart rate 2022-07-04 19:31:00 79 /min Unive [facility] Oxygen saturation in Arterial blood by Pulse oximetry 2022-07-04 19:31:00 100 /min [facility] Respiratory rate 2022-07-04 19:30:00 16 /min [facility] Body height 2022-07-04 19:30:00 160 cm [facility] Body weight 2022-07-04 19:30:00 60.782 kg [facility] BMI 2022-07-04 19:30:00 23.74 kg/m2 Univ [facility] Systolic blood pressure 2022-07-04 17:46:00 96 mm[Hg] [facility] Diastolic blood pressure 2022-07-04 17:46:00 61 mm[Hg] [facility] Heart rate 2022-07-04 17:46:00 79 /min Unive [facility] Body temperature 2022-07-04 17:45:00 36.56 Marline [facility] Respiratory rate 2022-07-04 17:45:00 16 /min [facility] Body height 2022-07-04 17:45:00 160 cm [facility] Body weight 2022-07-04 17:45:00 60.918 kg [facility] BMI 2022-07-04 17:45:00 23.79 kg/m2 Univ [facility] Oxygen saturation in Arterial blood by Pulse oximetry 2022-07-04 17:45:00 100 /min [facility] Systolic blood pressure 2024-09-12 22:45:03 132 mm[Hg] [facility] Diastolic blood pressure 2024-09-12 22:45:03 64 mm[Hg] [facility] Heart rate 2024-09-12 22:45:03 71 /min [facility] Respiratory rate 2024-09-12 22:45:03 18 /min [facility] Oxygen saturation in Arterial blood by Pulse oximetry 2024-09-12 22:45:03 98 /min [facility] Body temperature 2024-09-12 20:39:00 38.22 Marline [facility] Body height 2024-09-12 20:39:00 160 cm [facility] Body weight 2024-09-12 20:39:00 81.647 kg [facility] BMI 2024-09-12 20:39:00 31.89 kg/m2 [facility] Procedures Procedure Date / Time Performed Performing Clinician Source POCT HEMOGLOBIN A1C TEST 2025-05-20 14:27:00 Claude Farias [facility] PHOSPHORUS 2025-04-19 13:51:00 Fabiana Rojas [facility] MAGNESIUM 2025-04-19 13:51:00 Fabiana Rojas [facility] HEPATIC FUNCTION PANEL (91822) (ALB,T.PRO,BILI T,BU/BC,ALT,AST,ALK PHOS) 2025-04-19 13:51:00 Fabiana Vazquez [facility] BASIC METABOLIC PANEL (NA, K, CL, CO2, GLUCOSE, BUN, CREATININE, CA) 2025-04-19 13:51:00 Fabiana Vazquez [facility] CBC WITH DIFF 2025-04-19 13:51:00 Fabiana Rojas [facility] POCT URINALYSIS 2025-02-24 18:14:00 [facility] 2025-01-06 15:07:00 Fabiana Rojas [facility] POCT URINALYSIS W/O SPECIFIC GRAVITY 2024-11-29 00:00:00 Zoila Quinones [facility] CBC WITH DIFF 2024-11-23 14:23:00 Fabiana Rojas [facility] POCT URINALYSIS AUTO 2024-10-22 20:09:00 CarlosMarylou augustine [facility] CLARISSA,POST-VOID RES,US,NON-IMAGING 2024-10-22 20:07:00 Mitch Gonzalez [facility] CBC WITH DIFF 2024-09-17 16:25:00 Fabiana Rojas [facility] BASIC METABOLIC PANEL (NA, K, CL, CO2, GLUCOSE, BUN, CREATININE, CA) 2024-09-17 16:25:00 Fabiana Vazquez [facility] MAGNESIUM 2024-09-17 16:25:00 Fabiana Rojas [facility] PHOSPHORUS 2024-09-17 16:25:00 Fabiana Rojas [facility] URINALYSIS 2024-09-17 16:25:00 Jerome-Fabiana Baca [facility] TACROLIMUS, LEVEL 2024-09-17 16:25:00 Fabiana Morrison [facility] HEPATIC FUNCTION PANEL (21766) (ALB,T.PRO,BILI T,BU/BC,ALT,AST,ALK PHOS) 2024-09-17 16:25:00 Fabiana Vazquez [facility] PROTHROMBIN TIME / INR 2024-09-17 16:25:00 Fabiana Rosales [facility] PROTEIN CREAT RATIO URINE RANDOM 2024-09-17 16:25:00 Hadley, John Grupo [facility] LIPASE 2024-09-12 21:20:00 Nickie Samayoa [facility] COMP. METABOLIC PANEL (03826) 2024-09-12 21:20:00 Nickie Samayoa [facility] CBC WITH DIFF 2024-09-12 21:20:00 Nickie Samayoa [facility] URINALYSIS 2024-09-12 21:20:00 Nickie Samayoa [facility] INFLUENZA A/B RSV COVID NAAT 2024-09-12 21:20:00 Nickie Samayoa [facility] COMP. METABOLIC PANEL ([id number]) 2024-09-12 21:20:00 Nickie Samayoa [facility] CBC WITH DIFF 2024-09-12 21:20:00 [facility] 2024-09-12 21:20:00 [facility] URINALYSIS 2024-09-12 21:20:00 [facility] INFLUENZA A/B RSV COVID NAAT 2024-09-12 21:20:00 Francesca Samayoaherine [facility] LAB ONLY COVID INTERPRETATION 2024-09-12 21:20:00 Nickie Samayoa [facility] XR ABDOMEN 1 VW 2024-09-01 15:51:44 Mannie Ritchie [facility] XR ABDOMEN 1 VW 2024-09-01 15:51:44 Mannie Ritchie [facility] DIABETES TESTING REPORTS 2024-08-16 16:09:31 Doc tor Unassigned, Mendes [facility] CBC WITH DIFF 2024-08-10 14:14:00 Fabiana Rojas [facility] BASIC METABOLIC PANEL (NA, K, CL, CO2, GLUCOSE, BUN, CREATININE, CA) 2024-08-10 14:14:00 Fabiana Vazquez [facility] MAGNESIUM 2024-08-10 14:14:00 Fabiana Rojas [facility] PHOSPHORUS 2024-08-10 14:14:00 Fabiana Rojas [facility] URINALYSIS 2024-08-10 14:14:00 Fabiana Rojas [facility] TACROLIMUS, LEVEL 2024-08-10 14:14:00 Fabiana Morrison [facility] HEPATIC FUNCTION PANEL ([id number]) (ALB,T.PRO,BILI T,BU/BC,ALT,AST,ALK PHOS) 2024-08-10 14:14:00 Fabiana Vazquez [facility] PROTHROMBIN TIME / INR 2024-08-10 14:14:00 Fabiana Rosales [facility] CMV BY QUANTITATIVE NAAT, PLASMA 2024-08-10 14:14:00 oJhn Butcher [facility] PROTEIN CREAT RATIO URINE RANDOM 2024-08-10 14:14:00 John Butcher [facility] HB HLA CLASS I AB HIGH DEFIN QUAL 2024-08-10 14:14:00 John Butcher [facility] BK VIRUS BY QUANTITATIVE NAAT, PLASMA 2024-08-10 14:14:00 Fabiana Vazquez [facility] URINE CULTURE 2024-08-10 14:14:00 Mitch Gonzalez [facility] POCT HEMOGLOBIN A1C TEST 2024-08-06 14:56:00 Claude Farias [facility] POCT HEMOGLOBIN A1C TEST 2024-08-06 14:56:00 Claude Farias [facility] XR CHEST 2 VW 2024-08-06 14:08:19 Heather Cárdenas [facility] XR CHEST 2 VW 2024-08-06 14:08:19 Heather Cárdenas [facility] POCT MOLECULAR FLU 2024-08-06 13:30:00 Heather Cárdenas [facility] POCT MOLECULAR FLU 2024-08-06 13:30:00 Heather Cárdenas [facility] POCT SARS-COV-2 ANTIGEN (BINAX NOW) 2024-08-06 00:00:00 Heather Cárdenas [facility] POCT SARS-COV-2 ANTIGEN (BINAX NOW) 2024-08-06 00:00:00 Heather Cárdenas [facility] POCT URINALYSIS AUTO 2024-07-23 00:00:00 Marylou Gonzalez [facility] POCT URINALYSIS AUTO 2024-07-23 00:00:00 Marylou Gonzalez [facility] URINE CULTURE 2024-07-16 15:59[facility]16 15:59[facility]00 [facility]YSIS AUTO 2024-07-16 15:30:00 Marylou Gonzalez [facility] POCT URINALYSIS AUTO 2024-07-16 15:30:00 Marylou Gonzalez [facility] URINE CULTURE 2024-07-06 16:49:00 [facility]FF 2024-06-30 17:06:00 Fabiana Rojas [facility] PROTHROMBIN TIME / INR 2024-06-30 17:06:00 Fabiana Rosales [facility] CBC WITH DIFF 2024-06-30 17:06:00 Fabiana Rojas [facility] BASIC METABOLIC PANEL (NA, K, CL, CO2, GLUCOSE, BUN, CREATININE, CA) 2024-06-30 17:06:00 Fabiana Vazquez [facility] MAGNESIUM 2024-06-30 17:06:00 Fabiana Rjoas [facility] PHOSPHORUS 2024-06-30 17:06:00 Fabiana Rojas [facility] URINALYSIS 2024-06-30 17:06:00 Fabiana Rojas [facility] TACROLIMUS, LEVEL 2024-06-30 17:06:00 Fabiana Morrison [facility] HEPATIC FUNCTION PANEL ([id number]) (ALB,T.PRO,BILI T,BU/BC,ALT,AST,ALK PHOS) 2024-06-30 17:06:00 Fabiana Vazquez [facility] PROTHROMBIN TIME / INR 2024-06-30 17:06:00 Fabiana Rosales [facility] BK VIRUS BY QUANTITATIVE NAAT, PLASMA 2024-06-30 17:06:00 Fabiana Vazquez [facility] CLARISSA,POST-VOID RES,US,NON-IMAGING 2024-06-18 16:24:00 Mitch Gonzalez [facility] POCT URINALYSIS AUTO 2024-06-18 16:24:00 CarlosMarylou augustine [facility] CLARISSA,POST-VOID RES,US,NON-IMAGING 2024-06-18 16:24:00 Mitch Gonzalez [facility] POCT URINALYSIS AUTO 2024-06-18 16:24:00 CarlosMarylou augustine [facility] URINALYSIS 2024-06-11 22:49:00 Emerita Vincenzo [facility] URINE CULTURE 2024-06-11 22:44:00 Emerita [facility] POCT SARS-COV-2 ANTIGEN (BINAX NOW) 2024-06-11 20:36:00 Emerita [facility] POCT MOLECULAR FLU 2024-06-11 20:21:00 Cait Felderthia [facility] PHOSPHORUS 2024-06-04 13:00:00 Fabiana Rojas [facility] MAGNESIUM 2024-06-04 13:00:00 Fabiana Rojas [facility] HEPATIC FUNCTION PANEL ([id number]) (ALB,T.PRO,BILI T,BU/BC,ALT,AST,ALK PHOS) 2024-06-04 13:00:00 Fabiana Vazquez [facility] BASIC METABOLIC PANEL (NA, K, CL, CO2, GLUCOSE, BUN, CREATININE, CA) 2024-06-04 13:00:00 Fabiana Vazquez [facility] TACROLIMUS, LEVEL 2024-06-04 13:00:00 Fabiana Morrison [facility] CBC WITH DIFF 2024-06-04 13:00:00 Fabiana Rojas [facility] PROTHROMBIN TIME / INR 2024-06-04 13:00:00 Fabiana Rosales [facility] URINALYSIS 2024-06-04 13:00:00 Fabiana Rojas [facility] PROTEIN CREAT RATIO URINE RANDOM 2024-06-04 13:00:00 John Butcherf [facility] PHOSPHORUS 2024-04-28 13:49:00 Fabiana Rojas [facility] MAGNESIUM 2024-04-28 13:49:00 Fabiana Rojas [facility] HEPATIC FUNCTION PANEL ([id number]) (ALB,T.PRO,BILI T,BU/BC,ALT,AST,ALK PHOS) 2024-04-28 13:49:00 Fabiana Vazquez [facility] BASIC METABOLIC PANEL (NA, K, CL, CO2, GLUCOSE, BUN, CREATININE, CA) 2024-04-28 13:49:00 Fabiana Vazquez [facility] CBC WITH DIFF 2024-04-28 13:49:00 Fabiana Rojas [facility] PROTHROMBIN TIME / INR 2024-04-28 13:49:00 Fabiana Rosales [facility] URINALYSIS 2024-04-28 13:49:00 Fabiana Rojas [facility] CREATININE, URINE RANDOM 2024-04-28 13:49:00 Fabiana Espinal [facility] TOTAL PROTEIN, URINE RANDOM 2024-04-28 13:49:00 Fabiana Vazquez [facility] LIPID PANEL ([id number])(TOTAL CHOLESTEROL, TRIGLYCERIDES, HDL) 2024-04-20 13:05:00 Vincenzo Felder [facility] MICROALBUMIN URINE 2024-04-12 13:44:00 [facility] HEM[facility]GLOBIN A1C TEST 2024-04-06 16:16:00 Claude Farias [facility] DEXA AXIAL (HIP AND SPINE) 2024-04-01 15:27:20 Blake Joseph [facility] POCT GLUCOSE (AUTOMATED) 2024-03-20 17:18:00 Claudia Riggins [facility] POCT GLUCOSE (AUTOMATED) 2024-03-20 13:28:00 Claudia Riggins [facility] CBC WITHOUT DIFF 2024-03-20 10:02:00 Michael Ghotra [facility] POCT GLUCOSE (AUTOMATED) 2024-03-20 02:02:00 Claudia Riggins [facility] POCT GLUCOSE (AUTOMATED) 2024-03-19 21:38:00 Claudia Riggins [facility] IR BIOPSY RENAL PERCUTANEOUS WITH ULTRASOUND 2024-03-19 17:18:12 Luis East [facility] PHOSPHORUS 2024-03-08 12:35:00 Fabiana Rojas [facility] MAGNESIUM 2024-03-08 12:35:00 Fabiana Rojas [facility] HEPATIC FUNCTION PANEL (22129) (ALB,T.PRO,BILI T,BU/BC,ALT,AST,ALK PHOS) 2024-03-08 12:35:00 Fabiana Vazquez [facility] BASIC METABOLIC PANEL (NA, K, CL, CO2, GLUCOSE, BUN, CREATININE, CA) 2024-03-08 12:35:00 Fabiana Vazquez [facility] TACROLIMUS, LEVEL 2024-03-08 12:35:00 Fabiana Morrison [facility] CBC WITH DIFF 2024-03-08 12:35:00 Fabiana Rojas [facility] PROTHROMBIN TIME / INR 2024-03-08 12:35:00 Fabiana Rosales [facility] URINALYSIS 2024-03-08 12:35:00 Fabiana Rojas [facility] CREATININE, URINE RANDOM 2024-03-08 12:35:00 Fabiana Espinal [facility] TOTAL PROTEIN, URINE RANDOM 2024-03-08 12:35:00 Fabiana Vazquez [facility] URINE CULTURE 2024-02-17 14:40:00 Clif Fernandez [facility] POCT URINALYSIS 2024-02-17 00:00:00 Kathleenlise [facility] ([facility]OMATED) 2024-01-10 12:52:[address] [facility] POCT GLUCOSE (AUTOMATED) 2024-01-10 12:52:[address] [facility] PHOSPHORUS 2024-01-10 10:27:00 Moses wood [facility] MAGNESIUM 2024-01-10 10:27:00 Moses wood [facility] BASIC METABOLIC PANEL (NA, K, CL, CO2, GLUCOSE, BUN, CREATININE, CA) 2024-01-10 10:27:00 Moses Angulo [facility] CBC WITH DIFF 2024-01-10 10:27:00 Moses wood [facility] PHOSPHORUS 2024-01-10 10:27:00 Moses wood [facility] MAGNESIUM 2024-01-10 10:27:00 Moses wood [facility] BASIC METABOLIC PANEL (NA, K, CL, CO2, GLUCOSE, BUN, CREATININE, CA) 2024-01-10 10:27:00 Moses Angulo [facility] CBC WITH DIFF 2024-01-10 10:27:00 Moses wood [facility] POCT GLUCOSE (AUTOMATED) 2024-01-10 02:30:[address] [facility] POCT GLUCOSE (AUTOMATED) 2024-01-10 02:30:[address] [facility] POCT GLUCOSE (AUTOMATED) 2024-01-09 22:01:[address] [facility] POCT GLUCOSE (AUTOMATED) 2024-01-09 22:01:[address] [facility] [address] - [place] RPR AA HERNIA 1ST > 10 CM REDUCIBLE 2024-01-09 12:12:00 Genevieve [facility]o [facility] [address] - [place] RPR AA HERNIA 1ST 3 - 10 CM REDUCIBLE 2024-01-09 12:12:00 Genevieve Canseco [facility] [address] - [place] RPR AA HERNIA 1ST < 3 CM REDUCIBLE 2024-01-09 12:12:00 Genevieve Canseco [facility] PROTHROMBIN TIME / INR 2024-01-09 11:37:[address] [facility] / INR 2024-01-09 11:37:00 Adams razo Shaina [facility] POCT GLUCOSE (AUTOMATED) 2024-01-09 11:14:[address] [facility] POCT GLUCOSE (AUTOMATED) 2024-01-09 11:14:[address] [facility] URINALYSIS MICROSCOPIC 2023-12-16 15:20:00 [facility]ID RES,US,NON-IMAGING 2023-12-16 14:34:00 [facility] AUTO 2023-12-16 14:34:00 [facility] 2023-11-27 21:54:00 Vincenzo Felder [facility] URINE CULTURE 2023-11-27 21:54:00 [facility] - [facility]AGINAL PATHOGENS BY NUCLEIC ACID TESTING 2023-11-27 21:15:00 Vincenzo Felder [facility] POCT URINALYSIS 2023-11-18 00:00:00 Vincenzo Felder [facility] ASSIGNMENT OF BENEFITS 2023-10-15 15:59:27 Docto r Unassigned, Mendes [facility] CONSENT/REFUSAL FOR DIAGNOSIS AND TREATMENT 2023-10-15 15:59:06 Doctor Unassigned, Mendes [facility] POCT HEMOGLOBIN A1C TEST 2023-10-07 16:31:00 Claude Farias [facility] PATIENT FINANCIAL POLICY 2023-10-07 15:56:17 Doctor Unassigned, Mendes [facility] POCT GLUCOSE (AUTOMATED) 2023-09-04 20:38:00 Tristan Peter [facility] POCT GLUCOSE (AUTOMATED) 2023-09-04 20:36:00 Tristan Peter [facility] CT ABDOMEN PELVIS WO CONTRAST 2023-09-04 18:06:00 Tristan Peter [facility] LIPASE 2023-09-04 17:53:00 Tristan Peter [facility] MAGNESIUM 2023-09-04 17:53:00 Tr[facility] TROPONIN I 2023-09-04 17:53:00 Tristan Peter [facility] COMP. METABOLIC PANEL (55386) 2023-09-04 17:53:00 Tristan Peter [facility] CBC WITH DIFF 2023-09-04 17:53:00 Tristan Peter [facility] RAPID INFLUENZA A/B 2023-09-04 17:53:00 Tristan Peter [facility] COVID-19 (ID NOW RAPID TESTING) 2023-09-04 17:53:00 Tristan Peter [facility] POCT GLUCOSE (AUTOMATED) 2023-09-04 17:46:00 Tristan Peter [facility] URINALYSIS 2023-09-04 17:42:00 Tristan Peter [facility] HB ECG ROUTINE & RHYTHM STRIP 2023-09-04 17:41:03 Tristan Peter [facility] CONSENT/REFUSAL FOR DIAGNOSIS AND TREATMENT 2023-09-04 16:46:28 Doctor Unassigned, Mendes [facility] FLU VACC ([id number]), 6 MO-64 YRS, .5ML, IM, QUAD (FLUCELVAX) 2023-08-22 15:47:37 Torrie Daniel [facility] CBC WITH DIFF 2023-08-15 17:27:00 Fabiana Rojas [facility] PROTHROMBIN TIME / INR 2023-08-15 17:27:00 Fabiana Rosales [facility] PHOSPHORUS 2023-08-15 17:27:00 Fabiana Rojas [facility] MAGNESIUM 2023-08-15 17:27:00 Fabiana Rojas [facility] HEPATIC FUNCTION PANEL (58049) (ALB,T.PRO,BILI T,BU/BC,ALT,AST,ALK PHOS) 2023-08-15 17:27:00 Fabiana Vazquez [facility] BASIC METABOLIC PANEL (NA, K, CL, CO2, GLUCOSE, BUN, CREATININE, CA) 2023-08-15 17:27:00 Fabiana Vazquez [facility] TACROLIMUS, LEVEL 2023-08-15 17:27:00 Fabiana Morrison [facility] BASIC METABOLIC PANEL (NA, K, CL, CO2, GLUCOSE, BUN, CREATININE, CA) 2023-07-25 15:12:00 Bradley Kohler [facility] XR CHEST 1 VW 2023-07-24 15:43:07 Bradley [facility] 2023-04-15 13:09:00 Fabiana Rojas [facility] MAGNESIUM 2023-04-15 13:09:00 Fabiana Rojas [facility] HEPATIC FUNCTION PANEL (69181) (ALB,T.PRO,BILI T,BU/BC,ALT,AST,ALK PHOS) 2023-04-15 13:09:00 Fabiana Vazquez [facility] BASIC METABOLIC PANEL (NA, K, CL, CO2, GLUCOSE, BUN, CREATININE, CA) 2023-04-15 13:09:00 Fabiana Vazquez [facility] CBC WITH DIFF 2023-04-15 13:09:00 Fabiana Rojas [facility] PROTHROMBIN TIME / INR 2023-04-15 13:09:00 Fabiana Rosales [facility] URINALYSIS 2023-04-15 13:09:00 Fabiana Rojas [facility] CREATININE, URINE RANDOM 2023-04-15 13:09:00 Fabiana Espinal [facility] TOTAL PROTEIN, URINE RANDOM 2023-04-15 13:09:00 Fabiana Vazquez [facility] EXTERNAL PROVIDER RECORDS 2023-03-27 05:01:00 Do ctor Unassigned, Mendes [facility] DIABETES TESTING REPORTS 2023-03-19 05:01:00 Doc tor Unassigned, Mendes [facility] XR HAND 3+ VW RIGHT 2023-02-21 14:07:34 Kristel Kohler g L [facility] PHOSPHORUS 2023-02-11 14:24:00 Fabiana Rojas [facility] MAGNESIUM 2023-02-11 14:24:00 Fabiana Rojas [facility] HEPATIC FUNCTION PANEL (86807) (ALB,T.PRO,BILI T,BU/BC,ALT,AST,ALK PHOS) 2023-02-11 14:24:00 Fabiana Vazquez [facility] BASIC METABOLIC PANEL (NA, K, CL, CO2, GLUCOSE, BUN, CREATININE, CA) 2023-02-11 14:24:00 Fabiana Vazquez [facility] CBC WITH DIFF 2023-02-11 14:24:00 Fabiana Rojas [facility] URINALYSIS 2023-02-11 14:24:00 Fabiana Rojas [facility] CREATININE, URINE RANDOM 2023-02-11 14:24:00 Fabiana Espinal [facility] TOTAL PROTEIN, URINE RANDOM 2023-02-11 14:24:00 Fabiana Vazquez [facility] MAGNESIUM 2022-12-31 10:15:00 Destin [facility] BASIC METABOLIC PANEL (NA, K, CL, CO2, GLUCOSE, BUN, CREATININE, CA) 2022-12-31 10:15:00 Destin [facility] TACROLIMUS, LEVEL 2022-12-31 10:15:00 Shana Garvin [facility] CBC WITH DIFF 2022-12-31 10:15:00 [facility] BASIC METABOLIC PANEL (NA, K, CL, CO2, GLUCOSE, BUN, CREATININE, CA) 2022-12-31 03:15[facility] 2022-12-31 01:22:00 Juan Jason valencia [facility] POCT GLUCOSE (AUTOMATED) 2022-12-30 22:24:00 Juan Jason valencia [facility] BLOOD CULTURE SCREEN 2022-12-30 10:12:00 Destin [facility] MAGNESIUM 2022-12-30 10:12:00 Stefani [facility] BASIC METABOLIC PANEL (NA, K, CL, CO2, GLUCOSE, BUN, CREATININE, CA) 2022-12-30 10:12:00 Destin [facility] TACROLIMUS, LEVEL 2022-12-30 10:12:00 Destin [facility] CBC WITH DIFF 2022-12-30 10:12:00 Destin [facility] POCT GLUCOSE (AUTOMATED) 2022-12-30 01:51:00 Juan Jason valencia [facility] URINE CULTURE 2022-12-30 01:14:[address] [facility] US ABDOMEN LIMITED 2022-12-30 00:52:00 Stefani Weir [facility] POCT GLUCOSE (AUTOMATED) 2022-12-29 23:00:00 Juan Jason valencia [facility] BLOOD CULTURE SCREEN 2022-12-29 22:11:00 [facility] HEPATIC FUNCTION PANEL (06453) (ALB,T.PRO,BILI T,BU/BC,ALT,AST,ALK PHOS) 2022-12-29 21:41:00 [facility] LIPID PANEL ([id number])(TOTAL CHOLESTEROL, TRIGLYCERIDES, HDL) 2022-12-29 21:41:00 Destin Stefani [facility] TACROLIMUS, LEVEL 2022-12-29 21:41:00 Stefani Weir [facility] CT ABDOMEN PELVIS WO CONTRAST 2022-12-29 14:04:56 Earl Chow [facility] HB ECG ROUTINE & RHYTHM STRIP 2022-12-29 12:54:32 Earl Chow [facility] LIPASE 2022-12-29 12:43:00 Earl Chow [facility] MAGNESIUM 2022-12-29 12:43[facility] 2022-12-29 12:43:00 Earl Chow [facility] COMP. METABOLIC PANEL (32061) 2022-12-29 12:43:00 Earl Chow [facility] CBC WITH DIFF 2022-12-29 12:43:00 Earl Chow [facility] GLYCOSYLATED HEMOGLOBIN (A1C) 2022-12-29 12:43:00 [facility] URINALYSIS 2022-12-29 12:43:00 Earl Chow [facility] NOTICE OF PRIVACY PRACTICES 2022-12-29 12:16:41 Doctor Unassigned, Mendes [facility] CONSENT/REFUSAL FOR DIAGNOSIS AND TREATMENT 2022-12-29 12:16:15 Doctor Unassigned, Mendes [facility] CBC WITH DIFF 2022-12-12 14:16:00 Fabiana Rojas [facility] POCT HEMOGLOBIN A1C TEST 2022-12-06 15:04:00 Claude Farias [facility] ASSIGNMENT OF BENEFITS 2022-10-09 19:36:32 Docto r Unassigned, Mendes [facility] POCT MOLECULAR FLU 2022-09-30 16:18:00 Vincenzo Felder [facility] PATIENT FINANCIAL POLICY 2022-09-30 15:33:31 Doctor Unassigned, Mendes [facility] URINE CULTURE 2022-08-13 20:43:00 Vincenzo Felder [facility] POCT URINALYSIS 2022-08-13 00:00:00 Vincenzo Felder [facility] FLU VACC ([id number]), 6 MO-64 YRS, .5ML, IM, QUAD (FLUCELVAX) 2022-07-04 18:42:29 Fabiana Vazquez [facility] CREATININE, URINE RANDOM 2022-06-25 15:01:00 Fabiana Espinal [facility] TOTAL PROTEIN, URINE RANDOM 2022-06-25 15:01:00 Fabiana Vazquez [facility] URINALYSIS 2022-03-25 14:47:00 Fabiana Rojas [facility] CREATININE, URINE RANDOM 2022-03-25 14:47:00 Fabiana Espinal [facility] TOTAL PROTEIN, URINE RANDOM 2022-03-25 14:47:00 Fabiana Vazquez [facility] CBC WITH DIFF 2022-03-25 14:24:00 Fabiana Rojas [facility] PHOSPHORUS 2022-03-25 14:24:00 Fabiana Rojas [facility] MAGNESIUM 2022-03-25 14:24:00 Fabiana Rojas [facility] HEPATIC FUNCTION PANEL ([id number]) (ALB,T.PRO,BILI T,BU/BC,ALT,AST,ALK PHOS) 2022-03-25 14:24:00 Fabiana Vazquez [facility] BASIC METABOLIC PANEL (NA, K, CL, CO2, GLUCOSE, BUN, CREATININE, CA) 2022-03-25 14:24:00 Fabiana Vazquez [facility] PROTHROMBIN TIME / INR 2022-03-25 14:24:00 Fabiana Rosales [facility] EXTERNAL DD-CFDNA 2022-03-25 05:00:00 John Butcher As if [facility] BI SELF-REQUESTED SCREENING TOMOSYNTHESIS BILATERAL 2021-11-29 13:50:00 Genet Daniel [facility] HCV ANTIBODY 2019-12-22 17:00:00 Tatiana rudd [facility] HIV 1/2 AG-AB WITH REFLEX 2019-12-22 17:00:00 Usman York [facility] COLONOSCOPY (ENDO) 2019-09-10 17:16:32 Jacqueline Kellogg [facility] OCCULT (GUAIAC) BLOOD 2019-01-10 23:56:00 Naty Dickerson [facility] Encounters Start Date/Time End Date/Time Encounter Type Admission Type Attending Clinicians Care Facility Care Department Encounter ID Source 2021-08-30 09:58:09 Outpatient 3 YANG LOVE ENCPL RONI [id number] [facility] 2021-08-30 09:54:55 Outpatient 3 [id number] ENC[facility] REF [id number] [facility] 2021-08-30 09:54:17 Outpatient 3 [id number] ENC[facility] REF [id number] [facility] 2021-06-04 14:35:18 Emergency [facility] [id number] [facility] 2021-06-03 21:47:56 Inpatient CONCHA ROMERO [facility] STX [id number] [facility] 2021-06-03 19:49:01 Inpatient R NICKJUANCARLOSLINDA [facility] STX [id number] [facility] 2021-06-03 13:58:50 Emergency [facility] [id number] [facility] 2021-06-03 05:42:10 Emergency [facility] [id number] [facility] 2021-06-02 00:31:11 Emergency [facility] [id number] [facility] 2021-06-01 19:31:31 Outpatient R KARTHIK LINDQUIST [facility] GIE [id number] [facility] 2021-06-01 18:48:03 Emergency [facility] [id number] [facility] 2021-06-01 07:32:48 Emergency [facility] [id number] [facility] 2021-05-31 18:23:57 Outpatient U JASON DICK [facility] STX [id number] [facility] 2021-05-31 16:07:04 Outpatient U BEN REMY [facility] STX [id number] [facility] 2025-05-20 00:00:00 2025-05-20 12:43:23 Telephone Jarrett [facility]ITO[facility] 1.284.114 350.1.13.10 4.2.7.2.[id number] [facility] 2025-05-20 00:00:00 2025-05-20 10:12:54 Telephone Jarrett [facility]ENITO?[facility] 1.2.114 350.1.13.10 4.2.7.2.[id number] [facility] 2025-05-20 09:30:00 2025-05-20 10:03:41 [facility] 1..114 350.1.13.10 4.2.7.2.[id number] [facility] 2025-05-08 00:00:00 2025-05-10 09:37:19 Robert Orozco [facility] 1.114 350.1.13.10 4.2.7.2.[id number] [facility] 2025-03-31 00:00:00 2025-05-07 18:29:14 Patient Secure Heather Flowers [facility] BENITO?[facility] 1.2840.114 350.1.13.10 4.2.7.2.[id number] [facility] 2025-03-25 00:00:00 2025-04-30 18:31:12 Patient Secure Heather Flowers [facility] 1.2840.114 350.1.13.10 4.2.7.2.[id number] [facility] 2025-04-30 00:00:00 2025-04-30 16:10:44 Refill Deejay Farias [facility] 1.2.114 350.1.13.10 4.2.7.2.[id number] [facility] 2025-04-29 00:00:00 2025-04-29 15:07:23 Letter (Out) [facility] (JAJA) 1.0.114 350.1.13.10 4.2.7.2.[id number] [facility] 2025-04-27 00:00:00 2025-04-28 07:34:31 Telephone Vincenzo Felder [facility] NAL BUILD[facility] 1.2840.114 350.1.13.10 4.2.7.2.[id number] [facility] 2025-04-27 12:30:00 2025-04-27 12:30:00 Outpatient VIRGILIO HODGE [facility] [id number] [facility] 2025-04-27 09:40:00 2025-04-27 10:08:00 Urgent Care R ADINA CHRISTIANSON [facility] 1.2840.114 350.1.13.10 4.2.7.2.[id number] [facility] 2025-04-27 09:20:00 2025-04-27 09:20:00 Outpatient NAUN DARDEN FAKEHA [facility] [id number] [facility] 2025-04-19 07:00:00 2025-04-19 07:15:00 Captain/Airline Pilot Visit Claude Ferrera, [facility] Jason Osorio [facility] 1.114 350.1.13.10 4.2.7.2.[id number] [facility] 2025-04-10 00:00:00 2025-04-11 15:06:32 Luis Jalloh [facility] 1.114 350.1.13.10 4.2.7.2.[id number] [facility] 2025-02-28 00:00:00 2025-04-02 18:26:16 Patient Secure Msg Heather Cárdenas [facility] 1.114 350.1.13.10 4.2.7.2.[id number] [facility] 2025-03-29 13:00:00 2025-03-29 13:00:00 Office Visit GENEVIEVE HENDRIX [facility] 1.114 350.1.13.10 4.2.7.2.[id number] [facility] 2025-03-14 00:00:00 2025-03-18 21:34:42 Patient Secure Msg Heather Cárdenas [facility] 1.114 350.1.13.10 4.2.7.2.[id number] [facility] 2025-03-17 00:00:00 2025-03-18 09:50:33 Telephone Heather Cárdenas [facility] 1.840.114 350.1.13.10 4.2.7.2.[id number] [facility] 2025-03-14 00:00:00 2025-03-17 08:58:47 Telephone Jeanette Cárdenase Lisa [facility] 1.840.114 350.1.13.10 4.2.7.2.[id number] [facility] 2025-03-12 00:00:00 2025-03-14 12:59:29 Telephone Fabiana De Souza do [facility] 1.0.114 350.1.13.10 4.2.7.2.[id number] [facility] 2025-03-14 00:00:00 2025-03-14 12:51:50 Telephone Fabiana De Souza do Lissy [facility] 1..114 350.1.13.10 4.2.7.2.[id number] [facility] 2025-03-04 08:30:00 2025-03-04 08:45:00 Captain/Airline Pilot Visit Claude Ferrera, [facility] Jason Osorio, [facility] 1.0.114 350.1.13.10 4.2.7.2.[id number] [facility] 2025-02-24 13:00:00 2025-02-24 13:24:12 Office Visit R HEATHER CÁRDENAS [facility] 1.840.114 350.1.13.10 4.2.7.2.[id number] [facility] 2025-02-17 00:00:00 2025-02-17 13:42:56 Refill Jarrett [facility] 1.2840.114 350.1.13.10 4.2.7.2.[id number] [facility] 2025-02-08 00:00:00 2025-02-08 11:44:16 Telephone Homero bucio Marilou FranciscoCandido [facility] 1.2840.114 350.1.13.10 4.2.7.2.[id number] [facility] 2025-02-08 00:00:00 2025-02-08 10:19:53 Refill John Butcher [facility] 1.0.114 350.1.13.10 4.2.7.2.[id number] [facility] 2025-02-01 09:30:00 2025-02-01 09:30:00 Captain/Airline Pilot Visit FABIANA OMALLEY DO [facility] AT [facility] 1.20.114 350.1.13.10 4.2.7.2.[id number] [facility] 2025-01-31 00:00:00 2025-01-31 13:15:16 Refill Ana Paulajosejulian [facility] 1.840.114 350.1.13.10 4.2.7.2.[id number] [facility] 2025-01-31 09:00:00 2025-01-31 09:00:00 Outpatient GENEVIEVE HENDRIX [facility] [id number] [facility] 2025-01-26 15:00:00 2025-01-26 16:25:22 Office Visit R TYRESE BALDWIN [facility] 1.114 350.1.13.10 4.2.7.2.[id number] [facility] 2025-01-21 00:00:00 2025-01-24 08:40:48 Refill Luis East [facility] 1.114 350.1.13.10 4.2.7.2.[id number] [facility] 2025-01-21 00:00:00 2025-01-24 08:26:24 Refill Jarrett [facility] 1.114 350.1.13.10 4.2.7.2.[id number] [facility] 2025-01-19 00:00:00 2025-01-19 08:01:17 Letter (Out) Katerina Chen, Katerina [facility] IALTY [facility] 1.114 350.1.13.10 4.2.7.2.[id number] [facility] 2025-01-09 00:00:00 2025-01-10 08:24:[address] [facility] 1.114 350.1.13.10 4.2.7.2.[id number] [facility] 2024-12-03 00:00:00 2025-01-08 18:26:45 Patient Secure Msg Doctor Unassigned, Mendes Doctor Unassigned, Mendes [facility] BU[facility] 1.114 350.1.13.10 4.2.7.2.[id number] [facility] 2024-12-05 00:00:00 2025-01-08 18:25:26 Patient Secure Vincenzo Her [facility] 1..840.114 350.1.13.10 4.2.7.2.[id number] [facility] 2025-01-06 10:15:00 2025-01-06 10:15:00 Captain/Airline Pilot Visit FABIANA OMALLEY DO [facility] 1.840.114 350.1.13.10 4.2.7.2.[id number] [facility] 2024-12-13 00:00:00 2024-12-13 09:08:06 Refill Jarrett Deejay [facility] OFF[facility] BUILD[facility] 1.840.114 350.1.13.10 4.2.7.2.[id number] [facility] 2024-12-03 16:30:00 2024-12-03 16:30:00 Outpatient MITCH MENARD ELISHA [facility] [id number] [facility] 2024-12-03 00:00:00 2024-12-03 10:33:05 Case Management Nurse, Transplant Nurse, Transplant [facility] 1.840.114 350.1.13.10 4.2.7.2.[id number] [facility] 2024-12-02 14:00:00 2024-12-02 14:00:00 Outpatient ZOILA ZELAYA VIEN [facility] [id number] [facility] 2024-12-01 11:00:00 2024-12-01 11:15:00 Captain/Airline Pilot Visit Lab, Fabiana Hudson do, Zak Macias [facility] OFF[facility] BUILD[facility] 1.114 350.1.13.10 4.2.7.2.[id number] [facility] 2024-12-01 10:45:00 2024-12-01 11:00:00 Captain/Airline Pilot Visit Lab, Ang - Db Ap do, Fabiana Hudson N Lab, Ang - Db [facility] 1.114 350.1.13.10 4.2.7.2.[id number] [facility] 2024-12-01 00:00:00 2024-12-01 10:37:02 Telephone John Butcher [facility] 1.114 350.1.13.10 4.2.7.2.[id number] [facility] 2024-12-01 09:40:00 2024-12-01 10:15:16 Outpatient R NAUN TOMLINSON [facility] [id number] [facility] 2024-12-01 09:40:00 2024-12-01 10:15:16 [facility] OFF[facility] BUILD[facility] 1.114 350.1.13.10 4.2.7.2.[id number] [facility] 2024-11-29 12:35:14 2024-11-29 23:59:00 Outpatient R VINCENZO FELDER [facility] [id number] [facility] 2024-11-29 12:35:14 2024-11-29 23:59:00 Hospital Encounter Vincenzo Felder [facility] 1.114 350.1.13.10 4.2.7.2.[id number] [facility] 2024-11-29 10:45:00 2024-11-29 11:24:05 Office Visit Zoila Quinones Martín [facility] N[facility] 1.2.840.114 350.1.13.10 4.2.7.2.[id number] [facility] 2024-10-22 00:00:00 2024-11-27 18:19:40 Patient Secure Msg Doctor Unassigned, Mendes Doctor Unassigned, Mendes [facility] MEDICAL OFFICE BUILDING 1.2.840.114 350.1.13.10 4.2.7.2.[id number] [facility] 2024-10-27 00:00:00 2024-11-27 18:14:17 Patient Secure Msg Doctor Unassigned, Mendes Doctor Unassigned, Mendes [facility] OFF[facility] BUILD[facility] 1.2.840.114 350.1.13.10 4.2.7.2.[id number] [facility] 2023-10-01 00:00:00 2024-11-25 21:09:21 Vincenzo Katz [facility] OFF[facility] BUILDING 1.2.840.114 350.1.13.10 4.2.7.2.[id number] [facility] 2024-11-24 00:00:00 2024-11-24 12:02:55 Telephone oRbert Saleh [facility] MULTISPEC [facility]TY [facility] 1.84.114 350.1.13.10 4.2.7.2.[id number] [facility] 2024-11-23 09:30:00 2024-11-23 09:30:00 Outpatient FABIANA OMALLEY DO [facility] [id number] [facility] 2024-11-23 09:30:2024-11-23 09:30:00 Captain/Airline Pilot Visit R FABIANA DE SOUZA DO [facility] 1.84114 350.1.13.10 4.2.7.2.[id number] [facility] 2024-11-16 11:30:00 2024-11-16 12:50:19 Outpatient R JARRETT [facility] [id number] [facility] 2024-11-16 11:30:00 2024-11-16 12:50:19 Office Visit R JARRETT [facility] OFFICE BUILDING 1.84.114 350.1.13.10 4.2.7.2.[id number] [facility] 2024-11-15 00:00:00 2024-11-15 00:00:00 Outpatient VINCENZO BARRY [facility] [id number] [facility] 2024-11-12 00:00:00 2024-11-12 00:00:00 Outpatient VINCENZO BARRY [facility] [id number] [facility] 2024-11-02 14:00:00 2024-11-02 14:47:46 Outpatient ZOILA ZELAYA VIEN [facility] [id number] [facility] 2024-11-02 14:00:00 2024-11-02 14:47:46 Office Visit ZOILA ZELAYA VIEN [facility] PROFESSIO NAL BUILDING 1.840.114 350.1.13.10 4.2.7.2.[id number] [facility] 2024-10-25 10:00:00 2024-10-25 10:15:00 Captain/Airline Pilot Visit Lab, Ang - Vincenzo Dc, Ang Nba Macias [facility] 1.84.114 350.1.13.10 4.2.7.2.[id number] [facility] 2024-10-25 09:30:00 2024-10-25 09:30:00 Office Visit Cait Felderthia [facility] 1.2.840.114 350.1.13.10 4.2.7.2.[id number] [facility] 2024-10-25 09:30:00 2024-10-25 09:19:32 Outpatient R CAIT FELDERTHIA [facility] [id number] [facility] 2024-10-22 15:00:00 2024-10-22 15:50:25 [facility] [id number] 2024-10-22 15:00:00 2024-10-22 15:50:25 Office Visit Mitch Gonzalez [facility] NAL BUILDING 1.2.840.114 350.1.13.10 4.2.7.2.[id number] [facility] 2024-10-21 09:00:00 2024-10-21 10:00:24 Outpatient R DOC OLIVIA [facility] [id number] [facility] 2024-10-21 09:00:00 2024-10-21 10:00:24 Outpatient R DOC OLIVIA [facility] [id number] [facility] 2024-10-18 07:46:14 2024-10-18 23:59:00 Outpatient R DOC OLIVIA [facility] [id number] [facility] 2024-10-11 08:15:00 2024-10-11 08:15:00 Outpatient R FABIANA DE SOUZA DO [facility] [id number] [facility] 2024-10-11 08:15:00 2024-10-11 08:15:00 Outpatient R FABIANA DE SOUZA DO [facility] [id number] [facility] 2024-10-01 13:45:00 2024-10-01 13:45:00 Outpatient R ZOILA QUINONES VIEN [facility] [id number] [facility] 2024-10-01 13:45:00 2024-10-01 13:45:00 Outpatient R QUINONES ZOILA DANIELS [facility] [id number] [facility] 2024-09-22 09:30:00 2024-09-22 10:29:23 Outpatient R JENSEN SORTO [facility] [id number] [facility] 2024-09-22 09:30:00 2024-09-22 10:29:23 Office Visit Jensen Sorto [facility] MULTISPEC [facility] 1.114 350.1.13.10 4.2.7.2.[id number] [facility] 2020-07-06 00:00:00 2024-09-18 02:58:41 Orders Only Mariangel Montelongo Lisa [facility] 1..114 350.1.13.10 4.2.7.2.[id number] [facility] 2020-08-24 00:00:00 2024-09-18 02:57:50 Orders Only Kin Moya Suan M [facility] MULTISPEC [facility] 1..114 350.1.13.10 4.2.7.2.[id number] [facility] 2020-12-14 00:00:00 2024-09-18 02:55:44 Orders Only Mariangel Montelongo Lisa C [facility] 1..114 350.1.13.10 4.2.7.2.[id number] [facility] 2024-09-17 10:45:00 2024-09-17 10:45:00 Outpatient FABIANA OMALLEY DO [facility] [id number] [facility] 2024-09-17 10:45:00 2024-09-17 10:45:00 Captain/Airline Pilot Visit FABIANA OMALLEY DO 1.2.840.1 03171.1.1 3.104.2.7 .3.312808 .[id number] [facility] 2024-09-13 08:30:00 2024-09-13 08:30:00 Outpatient DOC CALDERA [facility] [id number] [facility] 2024-09-12 14:41:00 2024-09-12 16:46:00 Emergency X NICKIE SAMAYOA [facility] ERT [id number] [facility] 2024-09-12 14:41:00 2024-09-12 16:46:00 Emergency Nickie Samayoa 1.2.840.1 31277.1.1 3.104.2.7 .3.326426 .[id number] [facility] 2024-09-12 00:00:00 2024-09-12 00:00:00 Travel 1.2.840.1 57307.1.1 3.104.2.7 .3.748502 .8 1.2.840.114 350.1.13.10 4.2.7.3[id number] [facility] 2024-09-08 00:00:00 2024-09-08 11:38:33 Letter (Out) Katerina Chen 1.2.840.1 87451.1.1 3.104.2.7 .3.058855 .[id number] [facility] 2024-09-08 00:00:00 2024-09-08 11:26:37 Telephone John Butcher 1.2.840.1 74559.1.1 3.104.2.7 .3.531566 .[id number] [facility] 2024-09-01 09:39:19 2024-09-01 23:59:00 Outpatient MANNIE MEDEROS [facility] [id number] [facility] 2024-09-01 09:39:19 2024-09-01 23:59:00 Hospital Encounter Mannie Ritchie 1.2.840.1 97027.1.1 3.104.2.7 .3.915460 .[id number] [facility] 2024-09-01 09:00:00 2024-09-01 09:31:28 Office Visit MANNIE MEDEROS 1.2.840.1 83938.1.1 3.104.2.7 .3.748442 .[id number] [facility] 2024-08-31 00:00:00 2024-08-31 00:00:00 Travel 1.2.840.1 95720.1.1 3.104.2.7 .3.893137 .8 1.2.840.114 350.1.13.10 4.2.7.3[id number] [facility] 2024-08-30 14:45:00 2024-08-30 14:45:00 Outpatient JERICA BASURTO [facility] [id number] [facility] 2024-08-20 00:00:00 2024-08-20 17:39:49 Telephone Deejay Farias 1.2.840.1 05084.1.1 3.104.2.7 .3.922869 .[id number] [facility] 2024-08-19 00:00:00 2024-08-20 17:11:01 Refill Deejay Farias 1.2.840.1 83508.1.1 3.104.2.7 .3.724194 .[id number] [facility] 2024-08-16 13:00:00 2024-08-16 13:00:00 Outpatient R JERICA COLIN [facility] [id number] [facility] 2024-08-14 00:00:00 2024-08-14 00:00:00 Travel 1.2.840.1 48928.1.1 3.104.2.7 .3.437214 .8 1.2.840.114 350.1.13.10 4.2.7.3[id number] [facility] 2024-08-13 00:00:00 2024-08-13 13:19:44 Refill Deejay Farias 1.2.840.1 86358.1.1 3.104.2.7 .3.618299 .[id number] [facility] 2024-08-13 00:00:00 2024-08-13 08:11:13 Patient Secure Msg Deejay Farias 1.2.840.1 60626.1.1 3.104.2.7 .3.983701 .[id number] [facility] 2024-08-13 00:00:00 2024-08-13 00:00:00 Refill Mitch Gonzalez 1.2.840.1 49867.1.1 3.104.2.7 .3.392957 .[id number] [facility] 2024-08-12 11:30:00 2024-08-12 13:11:05 Outpatient ROBERT HERNÁNDEZ AJAY [facility] [id number] [facility] 2024-08-12 11:30:00 2024-08-12 13:11:05 Office Visit Robert Saleh 1.2.840.1 28735.1.1 3.104.2.7 .3.199889 .[id number] [facility] 2024-08-10 00:00:00 2024-08-11 10:03:57 Patient Secure MsVincenzo Boles 1.2.840.1 08742.1.1 3.104.2.7 .3.378163 .[id number] [facility] 2024-08-11 00:00:00 2024-08-11 00:00:00 Travel 1.2.840.1 85714.1.1 3.104.2.7 .3.517547 .8 1.2.840.114 350.1.13.10 4.2.7.3[id number] [facility] 2024-08-10 08:15:00 2024-08-10 08:15:00 Outpatient FABIANA OMALLEY DO [facility] [id number] [facility] 2024-08-10 08:15:00 2024-08-10 08:15:00 Captain/Airline Pilot Visit FABIANA OMALLEY DO 1.2.840.1 24567.1.1 3.104.2.7 .3.109171 .[id number] [facility] 2024-08-06 07:54:26 2024-08-06 23:59:00 Hospital Encounter Heather Cárdenas 1.2.840.1 75795.1.1 3.104.2.7 .3.613340 .[id number] [facility] 2024-08-06 00:00:00 2024-08-06 14:47:32 Telephone Heather Cárdenas 1.2.840.1 79600.1.1 3.104.2.7 .3.981212 .[id number] [facility] 2024-08-06 09:00:00 2024-08-06 09:40:50 Outpatient DEEJAY BHAKTA [facility] [id number] [facility] 2024-08-06 09:00:00 2024-08-06 09:40:50 Office Visit R DEEJAY FARIAS 1.2.840.1 74909.1.1 3.104.2.7 .3.548789 .[id number] [facility] 2024-08-06 07:30:00 2024-08-06 07:53:52 Office Visit MeliaHeather arenas 1.2.840.1 91913.1.1 3.104.2.7 .3.152011 .[id number] [facility] 2024-08-06 00:00:00 2024-08-06 00:00:00 Scanned Documents Doctor Unassigned, Mendes 1.2.840.1 81201.1.1 3.104.2.7 .3.521400 .[id number] [facility] 2024-08-05 00:00:00 2024-08-05 14:58:36 Telephone Vincenzo Felder 1.2.840.1 83957.1.1 3.104.2.7 .3.694116 .[id number] [facility] 2024-08-05 00:00:00 2024-08-05 00:00:00 Travel 1.2.840.1 06948.1.1 3.104.2.7 .3.424106 .8 1.2.840.114 350.1.13.10 4.2.7.3.[id number] [facility] 2024-08-03 08:45:00 2024-08-03 09:00:00 Office Visit Genevieve Canseco 1.2.840.1 56042.1.1 3.104.2.7 .3.451930 .[id number] [facility] 2024-08-03 08:45:00 2024-08-03 08:45:00 Outpatient R GENEVIEVE CANSECO [facility] [id number] [facility] 2024-08-03 00:00:00 2024-08-03 00:00:00 Travel 1.2.840.1 01055.1.1 3.104.2.7 .3.717492 .8 1.2.840.114 350.1.13.10 4.2.7.3[id number] [facility] 2024-07-31 00:00:00 2024-08-02 09:15:00 Refill John Butcher 1.2.840.1 22718.1.1 3.104.2.7 .3.860008 .[id number] [facility] 2024-07-23 00:00:00 2024-07-30 08:30:11 Telephone Vincenzo Felder 1.2.840.1 41508.1.1 3.104.2.7 .3.934884 .[id number] [facility] 2024-07-26 00:00:00 2024-07-26 00:00:00 Scanned Documents Doctor Unassigned, Mendes 1.2.840.1 92361.1.1 3.104.2.7 .3.288475 .[id number] [facility] 2024-07-23 14:00:00 2024-07-23 15:15:03 Outpatient R MITCH GONZALEZ ELISHA [facility] [id number] [facility] 2024-07-23 14:00:00 2024-07-23 15:15:03 Office Visit Mitch Gonzalez 1.2.840.1 13007.1.1 3.104.2.7 .3.880835 .[id number] [facility] 2024-07-23 00:00:00 2024-07-23 00:00:00 Travel 1.2.840.1 86003.1.1 3.104.2.7 .3.794595 .8 1.2.840.114 350.1.13.10 4.2[address]7.3[id number] [facility] 2024-07-21 00:00:00 2024-07-21 00:00:00 Travel 1.2.840.1 12991.1.1 3.104.2.7 .3.445001 .8 1.2.840.114 350.1.13.10 4.2.7.3[id number] [facility] 2024-07-19 00:00:00 2024-07-19 00:00:00 Scanned Documents Doctor Unassigned, Mendes 1.2.840.1 76214.1.1 3.104.2.7 .3.318092 .[id number] [facility] 2024-06-14 00:00:00 2024-07-17 18:21:07 Patient Secure [facility] OFF[facility] BUILD[facility] 1.2.840.114 350.1.13.10 4.2.7.2.[id number] [facility] 2024-07-16 09:00:00 2024-07-16 09:00:00 Outpatient MITCH MENARD ELISHA [facility] [id number] [facility] 2024-07-16 09:00:00 2024-07-16 09:00:00 Office Visit MITCH MENARD ELISHA 1.2.840.1 74256.1.1 3.104.2.7 .3.502157 .[id number] [facility] 2024-07-15 00:00:00 2024-07-15 00:00:00 Travel 1.2.840.1 77304.1.1 3.104.2.7 .3.645945 .8 1.2.840.114 350.1.13.10 4.2[address]7.[id number] [facility] 2024-07-09 00:00:00 2024-07-09 13:33:27 Refill Mitch Gonzalez 1.2.840.1 90653.1.1 3.104.2.7 .3.327853 .[id number] [facility] 2024-07-06 00:00:00 2024-07-07 09:30:03 RefVincenzo Berg 1.2.840.1 18282.1.1 3.104.2.7 .3.274529 .[id number] [facility] 2024-07-06 10:00:00 2024-07-06 10:00:00 Outpatient FABIANA OMALLEY DO [facility] [id number] [facility] 2024-07-06 10:00:00 2024-07-06 10:00:00 Captain/Airline Pilot Visit FABIANA OMALLEY DO 1.2.840.1 96879.1.1 3.104.2.7 .3.985000 .[id number] [facility] 2024-07-05 13:30:00 2024-07-05 14:03:32 Outpatient ROBERT HERNÁNDEZ AJAY [facility] [id number] [facility] 2024-07-05 13:30:00 2024-07-05 14:03:32 Office Visit Robert Saleh Transplant, Kidney Medicine 1.2.840.1 24782.1.1 3.104.2.7 .3.539529 .[id number] [facility] 2024-07-05 00:00:00 2024-07-05 00:00:00 Travel 1.2.840.1 80807.1.1 3.104.2.7 .3.297945 .8 1.2.840.114 350.1.13.10 4.2.7.3[id number] [facility] 2024-06-30 11:30:00 2024-06-30 11:30:00 Outpatient FABIANA OMALLEY DO [facility] [id number] [facility] 2024-06-30 11:30:00 2024-06-30 11:30:00 Captain/Airline Pilot Visit Claude AP FABIANA 1.2.840.1 64813.1.1 3.104.2.7 .3.560995 .[id number] [facility] 2024-06-18 10:00:00 2024-06-18 10:57:20 Outpatient MITCH MENARD ELISHA [facility] [id number] [facility] 2024-06-18 10:00:00 2024-06-18 10:57:20 Office Visit Mitch Gonzalez 1.2.840.1 32375.1.1 3.104.2.7 .3.661684 .[id number] [facility] 2024-06-18 00:00:00 2024-06-18 00:00:00 Travel 1.2.840.1 07891.1.1 3.104.2.7 .3.695062 .8 1.2.840.114 350.1.13.10 4.2.7.3[id number] [facility] 2024-06-14 00:00:00 2024-06-14 09:44:11 Patient Secure Msg Emerita [facility] MED[facility] OFFICE BUILDING 1.2.840.114 350.1.13.10 4.2.7.2.[id number] [facility] 2024-06-11 14:30:00 2024-06-11 15:01:04 Outpatient R EMERITA VINCENZO [facility] [id number] [facility] 2024-06-11 14:30:00 2024-06-11 15:01:04 Office Visit Emerita [facility] MEDICAL OFFICE BUILDING 1.2.840.114 350.1.13.10 4.2.7.2.[id number] [facility] 2024-06-04 07:45:00 2024-06-04 07:45:00 Outpatient JOHN BRADY [facility] [id number] [facility] 2024-06-04 07:45:00 2024-06-04 07:45:00 Captain/Airline Pilot Visit [facility] 1.840.114 350.1.13.10 4.2.7.2.[id number] [facility] 2024-06-01 00:00:00 2024-06-01 15:26:44 Telephone Jarrett [facility] 1.84.114 350.1.13.10 4.2.7.2.[id number] [facility] 2024-05-27 00:00:00 2024-05-27 11:35:34 Telephone John Butcher [facility] 1.114 350.1.13.10 4.2.7.2.[id number] [facility] 2024-05-27 09:15:00 2024-05-27 09:50:09 Outpatient SAM BOSTON [facility] [id number] [facility] 2024-05-27 09:15:00 2024-05-27 09:50:09 Office Visit [facility] 1.114 350.1.13.10 4.2.7.2.[id number] [facility] 2024-05-26 00:00:00 2024-05-26 11:52:15 Patient [facility] 1..114 350.1.13.10 4.2.7.2.[id number] [facility] 2024-05-20 00:00:00 2024-05-20 13:48:52 Patient Secure Deejay Longoria [facility] 1..114 350.1.13.10 4.2.7.2.[id number] [facility] 2024-05-03 12:15:00 2024-05-03 12:30:00 Captain/Airline Pilot Visit [facility] Fabiana De [facility] 1.114 350.1.13.10 4.2.7.2.[id number] [facility] 2024-04-28 00:00:00 2024-05-03 12:10:51 Telephone Luis East [facility] 1.114 350.1.13.10 4.2.7.2.[id number] [facility] 2024-05-03 09:30:00 2024-05-03 11:54:05 Outpatient R FABIANA DE SOUZA DO [facility] [id number] [facility] 2024-05-03 09:30:00 2024-05-03 11:54:05 Office Visit John Butcher do, Ann K N [facility] 1.114 350.1.13.10 4.2.7.2.[id number] [facility] 2024-04-20 00:00:00 2024-04-28 15:44:46 [facility] 1.84.114 350.1.13.10 4.2.7.2.[id number] [facility] 2024-04-28 08:45:00 2024-04-28 08:45:00 Outpatient R CRUZITO [facility] [id number] [facility] 2024-04-28 08:45:00 2024-04-28 08:45:00 Captain/Airline Pilot Visit R CRUZITO[facility] 1.84.114 350.1.13.10 4.2.7.2.[id number] [facility] 2024-04-23 00:00:00 2024-04-27 11:10:38 Refill Deejay Farias [facility] 1.84.114 350.1.13.10 4.2.7.2.[id number] [facility] 2024-04-27 00:00:00 2024-04-27 09:19:59 Patient Secure g [facility] 1.84.114 350.1.13.10 4.2.7.2.[id number] [facility] 2022-04-21 00:00:00 2024-04-22 22:00:00 Refill Genet Daniel [facility] 1.84.114 350.1.13.10 4.2.7.2.[id number] [facility] 2024-04-21 00:00:00 2024-04-22 16:05:00 Patient Secure g [facility] 1.2.114 350.1.13.10 4.2.7.2.[id number] [facility] 2024-04-22 00:00:00 2024-04-22 14:21:24 Patient Secure Msg Doctor Unassigned, Mendes Doctor Unassigned, Mendes [facility] 1.840.114 350.1.13.10 4.2.7.2.[id number] [facility] 2024-04-20 08:00:00 2024-04-20 08:17:13 Captain/Airline Pilot [facility] 1.840.114 350.1.13.10 4.2.7.2.[id number] [facility] 2024-04-20 08:00:00 2024-04-20 08:00:00 Outpatient R VINCENZO FELDER [facility] [id number] [facility] 2024-04-19 10:30:00 2024-04-19 11:10:02 Outpatient R VINCENZO FELDER [facility] [id number] [facility] 2024-04-19 10:30:00 2024-04-19 11:10:02 [facility] 1.840.114 350.1.13.10 4.2.7.2.[id number] [facility] 2024-04-15 00:00:00 2024-04-15 13:33:59 Patient Secure Msg [facility] 1..840.114 350.1.13.10 4.2.7.2.[id number] [facility] 2024-04-12 09:45:00 2024-04-12 09:22:25 Outpatient R JARRETT [facility] [id number] [facility] 2024-04-12 09:45:00 2024-04-12 09:22:25 Captain/Airline Pilot Visit R JARRETT [facility] 1.840.114 350.1.13.10 4.2.7.2.[id number] [facility] 2024-04-12 08:45:00 2024-04-12 08:45:00 Outpatient R [facility] [id number] [facility] 2024-04-06 11:00:00 2024-04-06 11:50:09 Outpatient R JARRETT [facility] [id number] [facility] 2024-04-06 11:00:00 2024-04-06 11:50:09 Office Visit Jarrett [facility] 1.84.114 350.1.13.10 4.2.7.2.[id number] [facility] 2024-04-01 10:01:29 2024-04-01 23:59:00 Outpatient R JENSEN SORTO [facility] [id number] [facility] 2024-04-01 10:01:29 2024-04-01 23:59:00 Hospital Encounter Jensen Sorto [facility] 1..114 350.1.13.10 4.2.7.2.[id number] [facility] 2024-04-01 00:00:00 2024-04-01 10:56:51 Telephone Luis East [facility] 1..114 350.1.13.10 4.2.7.2.[id number] [facility] 2024-03-30 00:00:00 2024-03-31 08:26:24 Telephone Fabiana De Souza do [facility] MULTISPEC IALTY CENTER AND [facility] 1.114 350.1.13.10 4.2.7.2.[id number] [facility] 2024-03-30 00:00:00 2024-03-30 17:34:17 Telephone Deejay Farias [facility] OFFICE BUILDING 1.114 350.1.13.10 4.2.7.2.[id number] [facility] 2024-03-30 00:00:00 2024-03-30 15:46:15 Telephone Luis East [facility] 1.114 350.1.13.10 4.2.7.2.[id number] [facility] 2024-03-29 11:00:00 2024-03-29 11:22:22 Outpatient VINCENZO BARRY [facility] [id number] [facility] 2024-03-29 11:00:00 2024-03-29 11:22:22 [facility] BU[facility] 1.84.114 350.1.13.10 4.2.7.2.[id number] [facility] 2024-03-25 09:30:00 2024-03-25 09:24:40 Outpatient DOC CALDERA [facility] [id number] [facility] 2024-03-25 09:30:00 2024-03-25 09:24:40 Office Visit DOC CALDERA [facility] NAL BUILDING 1.84.114 350.1.13.10 4.2.7.2.[id number] [facility] 2024-03-24 00:00:00 2024-03-24 12:46:46 Telephone Luis East [facility] MULTISPEC [facility]ALTY [facility] 1.0.114 350.1.13.10 4.2.7.2.[id number] [facility] 2024-03-23 00:00:00 2024-03-23 12:08:06 Telephone Vincenzo Fel[facility] 1.114 350.1.13.10 4.2.7.2.[id number] [facility] 2024-03-19 10:06:00 2024-03-20 14:49:00 Hospital Encounter Luis East Patrick Emakpose, Ajirioghene B Clancy, Connor L [facility] 1..114 350.1.13.10 4.2.7.2.[id number] [facility] 2024-03-19 09:43:48 2024-03-20 14:49:00 Outpatient R LUCIA RIGGINS [facility] [id number] [facility] 2024-03-17 10:00:00 2024-03-17 10:42:14 Outpatient R JENSEN SORTO [facility] [id number] [facility] 2024-03-17 10:00:00 2024-03-17 10:42:14 Office Visit Jensen Sorto [facility] MULTISPEC [facility] 1.114 350.1.13.10 4.2.7.2.[id number] [facility] 2024-03-11 10:00:00 2024-03-11 10:33:53 Outpatient R FABIANA DE SOUZA DO [facility] [id number] [facility] 2024-03-11 10:00:00 2024-03-11 10:33:53 Office Visit Luis East do, Ann K N [facility] 1.114 350.1.13.10 4.2.7.2.[id number] [facility] 2024-03-08 07:30:00 2024-03-08 07:30:00 Outpatient R FABIANA DE SOUZA DO [facility] [id number] [facility] 2024-03-08 07:30:00 2024-03-08 07:30:00 Captain/Airline Pilot Visit Claude DE SOUZA DO [facility] BU[facility]ING 1.84.114 350.1.13.10 4.2.7.2.[id number] [facility] 2024-03-05 00:00:00 2024-03-05 13:42:45 Refill Doc Olivia [facility] NAL BUILDING 1.114 350.1.13.10 4.2.7.2.[id number] [facility] 2024-02-27 00:00:00 2024-02-27 13:18:35 Refill Deejay Farias [facility] 1.114 350.1.13.10 4.2.7.2.[id number] [facility] 2024-02-20 00:00:00 2024-02-20 12:24:44 Telephone Vincenzo Felder [facility] 1.84.114 350.1.13.10 4.2.7.2.[id number] [facility] 2024-02-20 10:00:00 2024-02-20 10:00:00 Outpatient R TORRIE DANIEL [facility] [id number] [facility] 2024-02-17 09:00:00 2024-02-17 09:23:40 [id number] 2024-02-17 09:00:00 2024-02-17 09:23:40 Office Visit Josselin [facility] SAYDA OLIVER?[facility] 1.84.114 350.1.13.10 4.2.7.2.[id number] [facility] 2024-02-13 00:00:00 2024-02-13 14:45:00 Telephone Jensen Sorto [facility] 1..114 350.1.13.10 4.2.7.2.[id number] [facility] 2024-02-11 10:00:00 2024-02-11 10:00:00 Outpatient R JENSEN SORTO [facility] [id number] [facility] 2024-01-27 10:15:00 2024-01-27 11:09:13 Outpatient R GENEVIEVE CANSECO [facility] [id number] [facility] 2024-01-27 10:15:00 2024-01-27 11:09:13 Office Visit Genevieve Canseco [facility] MEDICAL OFFICE BUILDING 1.84.114 350.1.13.10 4.2.7.2.[id number] [facility] 2023-12-19 00:00:00 2024-01-24 18:22:57 Patient Secure Msg Doctor Unassigned, Mendes [facility] 1.2.840.114 350.1.13.10 4.2.7.2.[id number] [facility] 2024-01-16 11:00:00 2024-01-16 11:15:00 Nurse Visit Nurse, Rl [facility] OFFICE BUILDING 1.2.840.114 350.1.13.10 4.2.7.2.[id number] [facility] 2024-01-16 11:00:00 2024-01-16 11:00:00 Outpatient R [facility] [id number] [facility] 2024-01-12 00:00:00 2024-01-14 15:10:03 Telephone John Butcher [facility] 1.2840.114 350.1.13.10 4.2.7.2.[id number] [facility] 2024-01-13 00:00:00 2024-01-14 10:55:50 Telephone [facility] BUILDING 1.2840.114 350.1.13.10 4.2.7.2.[id number] [facility] 2024-01-09 05:21:00 2024-01-10 12:26:00 Outpatient R [facility] [id number] [facility] 2024-01-09 05:21:00 2024-01-10 12:26:00 Hospital Encounter [facility] 1.2840.114 350.1.13.10 4.2.7.2.[id number] [facility] 2024-01-09 06:50:00 2024-01-09 10:06:00 Surgery [facility] 1.2.840.114 350.1.13.10 4.2.7.2.[id number] [facility] 2023-12-24 09:00:00 2023-12-24 09:00:00 Outpatient R MITCH GONZALEZ ELISHA [facility] [id number] [facility] 2023-12-17 00:00:00 2023-12-18 16:42:06 Telephone Taylor [facility] 1.840.114 350.1.13.10 4.2.7.2.[id number] [facility] 2023-12-16 09:30:00 2023-12-16 10:24:17 Outpatient R [facility] [id number] [facility] 2023-12-16 09:30:00 2023-12-16 10:24:17 [facility] 1.84.114 350.1.13.10 4.2.7.2.[id number] [facility] 2023-12-04 08:00:00 2023-12-04 08:55:25 Outpatient LUIS MANCILLA [facility] [id number] [facility] 2023-12-04 08:00:00 2023-12-04 08:55:25 Office Visit John Butcher Muhammad [facility] 1..114 350.1.13.10 4.2.7.2.[id number] [facility] 2023-12-03 00:00:00 2023-12-03 00:00:00 Patient Secure Vincenzo Boles [facility] VLADIMIRKAYLYNN [facility] OFFICE BUILDING 1.84.114 350.1.13.10 4.2.7.2.[id number] [facility] 2023-12-01 08:15:00 2023-12-01 08:30:00 Captain/Airline Pilot Visit Robertb, [facility] Main Ap almaguerFabiana [facility] 1..840.114 350.1.13.10 4.2.7.2.[id number] [facility] 2023-12-01 08:15:00 2023-12-01 08:15:00 Outpatient R AGUILARJAMALMONTANAAbel ALMGAUERFABIANA [facility] [id number] [facility] 2023-11-27 16:00:00 2023-11-27 16:19:13 Outpatient R LUIS MANUELCAIT GAMBINOTHIA [facility] [id number] [facility] 2023-11-27 16:00:00 2023-11-27 16:19:13 Office Visit Luis [facility] MED[facility] OFFICE BUILDING 1..840.114 350.1.13.10 4.2.7.2.[id number] [facility] 2023-11-24 00:00:00 2023-11-24 00:00:00 Telephone [facility] OFFICE BUILDING 1..840.114 350.1.13.10 4.2.7.2.[id number] [facility] 2023-11-18 09:30:00 2023-11-18 09:45:36 Outpatient R VINCENZO FELDER [facility] [id number] [facility] 2023-11-18 09:30:00 2023-11-18 09:45:36 Office Visit [facility] MEDICAL OFFICE BUILDING 1..840.114 350.1.13.10 4.2.7.2.[id number] [facility] 2023-11-18 00:00:00 2023-11-18 00:00:00 Telephone Doc Olivia [facility] PROFESSIO NAL BUILDING 1.2840.114 350.1.13.10 4.2.7.2.[id number] [facility] 2023-11-09 00:00:00 2023-11-09 00:00:00 Refill Jaylene Rasmussen [facility] 1.20.114 350.1.13.10 4.2.7.2.[id number] [facility] 2023-11-06 09:15:00 2023-11-06 10:21:48 Outpatient R JOANA GOETZ JOANA [facility] [id number] [facility] 2023-11-06 09:15:00 2023-11-06 10:21:48 Office Visit Joana Goetz [facility] 1.840.114 350.1.13.10 4.2.7.2.[id number] [facility] 2023-10-30 00:00:00 2023-10-30 00:00:00 Refill Vincenzo Felder [facility] BERNARDINO [facility] OFF[facility] BUILDING 1.2.840.114 350.1.13.10 4.2.7.2.[id number] [facility] 2023-10-28 13:45:00 2023-10-28 14:00:00 Office Visit Genevieve Canseco [facility] MEDICAL OFFICE BUILDING 1.2840.114 350.1.13.10 4.2.7.2.[id number] [facility] 2023-10-28 13:45:00 2023-10-28 13:45:00 Outpatient R GENEVIEVE CANSECO [facility] [id number] [facility] 2023-10-22 00:00:00 2023-10-22 00:00:00 Refill Deejay Farias [facility] OFF[facility] BUILD[facility] 1.2840.114 350.1.13.10 4.2.7.2.[id number] [facility] 2023-10-21 15:30:00 2023-10-21 15:45:00 Office Visit Allegra Dubois [facility] BUILD[facility] 1.84.114 350.1.13.10 4.2.7.2.[id number] [facility] 2023-10-21 15:30:00 2023-10-21 15:30:00 Outpatient ALLEGRA MADISON [facility] [id number] [facility] 2023-10-20 00:00:00 2023-10-20 00:00:00 Telephone Allegra Dubois [facility] OFF[facility] BUILDING 1.84.114 350.1.13.10 4.2.7.2.[id number] [facility] 2023-10-17 00:00:00 2023-10-17 00:00:00 Patient Secure Msg Doctor Unassigned, Mendes [facility] 1..114 350.1.13.10 4.2.7.2.[id number] [facility] 2023-10-15 11:15:00 2023-10-15 11:30:00 Office Visit Allegra Dubois [facility] MEDICAL OFFICE BUILDING 1.284.114 350.1.13.10 4.2.7.2.[id number] [facility] 2023-10-15 11:15:00 2023-10-15 11:15:00 Outpatient ALLEGRA MADISON [facility] [id number] [facility] 2023-10-15 00:00:00 2023-10-15 00:00:00 Orders Only Doctor Unassigned, Mendes [facility] 1.2840.114 350.1.13.10 4.2.7.2.[id number] [facility] 2023-10-07 10:30:00 2023-10-07 10:44:13 [id number] 2023-10-07 10:30:00 2023-10-07 10:44:13 Office Visit Deejay F[facility] 1.2840.114 350.1.13.10 4.2.7.2.[id number] [facility] 2023-10-07 00:00:00 2023-10-07 00:00:00 Orders Only Doctor Unassigned, Mendes [facility] 1.2840.114 350.1.13.10 4.2.7.2.[id number] [facility] 2023-09-25 00:00:00 2023-09-25 00:00:00 Telephone Doc Olivia [facility] BU[facility] 1.2.840.114 350.1.13.10 4.2.7.2.[id number] [facility] 2023-09-18 00:00:00 2023-09-18 00:00:00 Refill Doc Olivia [facility] BUILD[facility] 1.2840.114 350.1.13.10 4.2.7.2.[id number] [facility] 2023-09-08 08:30:00 2023-09-08 23:59:00 Hospital Encounter Doc Olivia [facility] 1.840.114 350.1.13.10 4.2.7.2.[id number] [facility] 2023-09-08 13:30:00 2023-09-08 13:30:00 Office Visit Doc Olivia [facility] 1.20.114 350.1.13.10 4.2.7.2.[id number] [facility] 2023-09-08 13:30:00 2023-09-08 13:27:15 Outpatient R DOC OLIVIA [facility] [id number] [facility] 2023-09-04 10:49:00 2023-09-04 16:11:00 Emergency X Tristan PETER [facility] ERT [id number] [facility] 2023-09-04 10:49:00 2023-09-04 16:11:00 [facility] 1.114 350.1.13.10 4.2.7.2.[id number] [facility] 2023-08-22 09:30:00 2023-08-22 09:53:18 Outpatient R TORRIE DANIEL [facility] [id number] [facility] 2023-08-22 09:30:00 2023-08-22 09:53:18 Office Visit Torrie Daniel [facility] MULTISPEC IALTY CENTER AND [facility] 1.114 350.1.13.10 4.2.7.2.[id number] [facility] 2023-08-21 14:45:00 2023-08-21 15:00:00 Captain/Airline Pilot Visit Vtc-Lab Luis East [facility] MULTISPEC [facility]ALTY CENTER AND [facility] 1.114 350.1.13.10 4.2.7.2.[id number] [facility] 2023-08-21 13:40:00 2023-08-21 14:31:55 Outpatient R LUIS EAST [facility] [id number] [facility] 2023-08-21 13:40:00 2023-08-21 14:31:55 Office Visit Al Vasquez Luis East [facility] MULTISPEC IALTY CENTER AND [facility] 1.0.114 350.1.13.10 4.2.7.2.[id number] [facility] 2023-08-19 00:00:00 2023-08-19 00:00:00 Telephone CruzitoLuis sawant [facility] 1.114 350.1.13.10 4.2.7.2.[id number] [facility] 2023-08-15 08:30:00 2023-08-15 08:45:00 Captain/Airline Pilot Visit Iban, [facility] Main Luis East [facility] 1.840.114 350.1.13.10 4.2.7.2.[id number] [facility] 2023-08-15 08:30:00 2023-08-15 08:30:00 Outpatient R LUIS EAST [facility] [id number] [facility] 2023-08-15 00:00:00 2023-08-15 00:00:00 Refill Deejay Farias [facility] OFF[facility] BUILDING 1.840.114 350.1.13.10 4.2.7.2.[id number] [facility] 2023-08-13 14:15:00 2023-08-13 14:15:00 Office Visit Bradley Kohler [facility]IE [facility] MEDICAL OFFICE BUILDING 1..840.114 350.1.13.10 4.2.7.2.[id number] [facility] 2023-08-13 14:15:00 2023-08-13 14:05:00 Outpatient R BRADLEY KOHLER CRAIG [facility] [id number] [facility] 2023-08-06 13:00:00 2023-08-06 13:00:00 Outpatient R DOC OLIVIA [facility] [id number] [facility] 2023-08-01 00:00:00 2023-08-01 00:00:00 Telephone Luis East [facility] 1..840.114 350.1.13.10 4.2.7.2.[id number] [facility] 2023-07-30 16:16:00 2023-07-30 23:59:00 Hospital Encounter Bradley Kohler [facility] 1..840.114 350.1.13.10 4.2.7.2.[id number] [facility] 2023-07-30 00:00:00 2023-07-30 23:59:00 Outpatient R BRADLEY KOHLER CRAIG [facility] OUT [id number] [facility] 2023-07-30 00:00:00 2023-07-30 00:00:00 Telephone Bradley Kohler [facility] OFF[facility] BUILDING 1..840.114 350.1.13.10 4.2.7.2.[id number] [facility] 2023-07-30 00:00:00 2023-07-30 00:00:00 Telephone Bradley Kohler [facility]?WINNIE [facility] MEDICAL OFFICE BUILDING 1.0114 350.1.13.10 4.2.7.2.[id number] [facility] 2023-07-25 09:00:00 2023-07-25 12:44:15 Outpatient R BRADLEY KOHLER CRAIG [facility] [id number] [facility] 2023-07-25 09:40:00 2023-07-25 10:00:00 Nurse Visit Nurse, Zak Macias [facility] MEDICAL OFFICE BUILDING 1..114 350.1.13.10 4.2.7.2.[id number] [facility] 2023-07-25 09:00:00 2023-07-25 09:15:00 Captain/Airline Pilot Visit Lab, Zak Macias Bradley Kohler [facility] MEDICAL OFFICE BUILDING 1.114 350.1.13.10 4.2.7.2.[id number] [facility] 2023-07-24 09:28:32 2023-07-24 23:59:00 Outpatient R BRADLEY KOHLER CRAIG [facility] [id number] [facility] 2023-07-24 09:28:32 2023-07-24 23:59:00 Hospital Encounter Bradley Kohler [facility]?WINNIE [facility] MEDICAL OFFICE BUILDING 1..114 350.1.13.10 4.2.7.2.[id number] [facility] 2023-07-24 09:30:00 2023-07-24 10:43:37 Office Visit Bradley Kohler [facility] MED[facility] OFF[facility] BUILDING 1.0.114 350.1.13.10 4.2.7.2.[id number] [facility] 2023-07-21 00:00:00 2023-07-21 00:00:00 Telephone Doc Olivia [facility] BUILD[facility] 1.2.840.114 350.1.13.10 4.2.7.2.[id number] [facility] 2023-07-15 00:00:00 2023-07-15 00:00:00 Refill Vincenzo Felder [facility] MED[facility] 1.2.840.114 350.1.13.10 4.2.7.2.[id number] [facility] 2023-07-08 00:00:00 2023-07-08 00:00:00 Telephone Doc Olivia [facility] 1.2.840.114 350.1.13.10 4.2.7.2.[id number] [facility] 2023-06-25 00:00:00 2023-06-25 00:00:00 Refill Doc Olivia [facility] 1.2.840.114 350.1.13.10 4.2.7.2.[id number] [facility] 2023-06-23 08:04:24 2023-06-23 23:59:00 Outpatient R DOC OLIVIA [facility] [id number] [facility] 2023-06-23 08:04:24 2023-06-23 23:59:00 Hospital Encounter Doc Olivia [facility] 1.2.840.114 350.1.13.10 4.2.7.2.[id number] [facility] 2023-06-09 00:00:00 2023-06-09 00:00:00 Telephone Fabiana De Souza do [facility] 1.114 350.1.13.10 4.2.7.2.[id number] [facility] 2023-06-06 16:30:00 2023-06-06 16:30:00 Outpatient DEEJAY BHAKTA [facility] [id number] [facility] 2023-06-02 00:00:00 2023-06-02 00:00:00 Telephone Doc [facility] 1..114 350.1.13.10 4.2.7.2.[id number] [facility] 2023-05-29 00:00:00 2023-05-29 00:00:00 Refill Luis East [facility] 1.114 350.1.13.10 4.2.7.2.[id number] [facility] 2023-05-29 00:00:00 2023-05-29 00:00:00 Refill Torrie Daniel [facility] 1.114 350.1.13.10 4.2.7.2.[id number] [facility] 2023-05-26 09:15:00 2023-05-26 10:16:23 Outpatient SAM BOSTON [facility] [id number] [facility] 2023-05-26 09:15:00 2023-05-26 10:16:23 Office Visit Bhumi Yarbrough Bernard R [facility] 1.114 350.1.13.10 4.2.7.2.[id number] [facility] 2023-05-26 00:00:00 2023-05-26 00:00[facility] 1.840.114 350.1.13.10 4.2.7.2.[id number] [facility] 2023-05-26 00:00:00 2023-05-26 00:00:00 [facility] 1.840.114 350.1.13.10 4.2.7.2.[id number] [facility] 2023-05-17 00:00:00 2023-05-17 00:00:00 Telephone Vincenzo Felder [facility] 1..840.114 350.1.13.10 4.2.7.2.[id number] [facility] 2023-05-14 09:30:00 2023-05-14 09:50:24 Outpatient R HEATHER CÁRDENAS [facility] [id number] [facility] 2023-05-14 09:30:00 2023-05-14 09:50:24 Office Visit Heather Cárdenas [facility] 1..840.114 350.1.13.10 4.2.7.2.[id number] [facility] 2023-05-05 09:00:00 2023-05-05 09:00:00 Outpatient R VINCENZO FELDER [facility] [id number] [facility] 2023-05-02 15:00:00 2023-05-02 15:00:00 Outpatient R DEEJAY FARIAS [facility] [id number] [facility] 2023-04-30 00:00:00 2023-04-30 00:00:[address] [facility] 1.840.114 350.1.13.10 4.2.7.2.[id number] [facility] 2023-04-28 00:00:00 2023-04-28 00:00:00 Telephone Doc Olivia [facility] 1.84.114 350.1.13.10 4.2.7.2.[id number] [facility] 2023-04-24 00:00:00 2023-04-24 00:00:00 Telephone Jarrett [facility] 1.840.114 350.1.13.10 4.2.7.2.[id number] [facility] 2023-04-18 11:30:00 2023-04-18 11:56:35 [facility] [id number] [facility] 2023-04-18 11:30:00 2023-04-18 11:56:35 [facility] 1.840.114 350.1.13.10 4.2.7.2.[id number] [facility] 2023-04-18 10:00:00 2023-04-18 10:00:00 Outpatient R JARRETT [facility] [id number] [facility] 2023-04-18 00:00:00 2023-04-18 00:00:[address] 1.840.114 350.1.13.10 4.2.7.2.[id number] [facility] 2023-04-15 13:00:00 2023-04-15 17:39:08 Outpatient R CHRIS JOHNARA [facility] [id number] [facility] 2023-04-15 13:00:00 2023-04-15 17:39:08 Office Visit Ana PaulaDeejay otoole Chris [facility] [place]?[facility] 1.2.840.114 350.1.13.10 4.2.7.2.[id number] [facility] 2023-04-15 08:15:00 2023-04-15 08:30:00 Captain/Airline Pilot Visit Iban, Adc Lab Main Fabiana De Souza do [facility] BUILDING 1.2.840.114 350.1.13.10 4.2.7.2.[id number] [facility] 2023-04-15 00:00:00 2023-04-15 00:00:00 Telephone Ana PaulaDeejay otoole [facility] 1.2.840.114 350.1.13.10 4.2.7.2.[id number] [facility] 2023-04-14 00:00:00 2023-04-14 00:00:00 Telephone Vincenzo Felder [facility] 1.2.840.114 350.1.13.10 4.2.7.2.[id number] [facility] 2023-04-10 08:06:03 2023-04-10 23:59:00 Outpatient R DOC OLIVIA [facility] [id number] [facility] 2023-04-10 08:06:03 2023-04-10 23:59:00 Hospital Encounter Doc Olivia [facility] BU[facility] 1.2.840.114 350.1.13.10 4.2.7.2.[id number] [facility] 2023-04-02 11:30:00 2023-04-02 11:58:00 Outpatient R DOC OLIVIA [facility] [id number] [facility] 2023-04-02 11:30:00 2023-04-02 11:58:00 Office Visit Doc Olivia [facility] 1.2840.114 350.1.13.10 4.2.7.2.[id number] [facility] 2023-03-27 00:00:00 2023-03-27 00:00:00 Orders Only Doctor Unassigned, Mendes [facility] 1.2840.114 350.1.13.10 4.2.7.2.[id number] [facility] 2023-03-21 08:45:00 2023-03-21 09:00:00 Captain/Airline Pilot Visit Iban, Trent Lab Main Fabiana De Souza do [facility] 1.2.840.114 350.1.13.10 4.2.7.2.[id number] [facility] 2023-03-21 08:45:00 2023-03-21 08:45:00 Outpatient R FABIANA DE SOUZA DO [facility] [id number] [facility] 2023-03-19 00:00:00 2023-03-19 00:00:00 Orders Only Doctor Unassigned, Mendes [facility] 1.2840.114 350.1.13.10 4.2.7.2.[id number] [facility] 2023-03-17 00:00:00 2023-03-17 00:00:00 Telephone Fredy [facility] MULTISPEC IALTY [facility] 1.2.840.114 350.1.13.10 4.2.7.2.[id number] [facility] 2023-03-17 00:00:00 2023-03-17 00:00:00 Refill Jarrett Deejay [facility] 1.2.840.114 350.1.13.10 4.2.7.2.[id number] [facility] 2023-03-17 00:00:00 2023-03-17 00:00:00 [facility] 1.2.840.114 350.1.13.10 4.2.7.2.[id number] [facility] 2023-03-11 00:00:00 2023-03-11 00:00:00 Refill Luis Manuelimmanuel Vincenzo [facility] [place]?[facility] 1.2840.114 350.1.13.10 4.2.7.2.[id number] [facility] 2023-03-05 00:00:00 2023-03-05 00:00:00 Refill Luis [facility] 1.2840.114 350.1.13.10 4.2.7.2.[id number] [facility] 2023-02-21 08:55:00 2023-02-21 23:59:00 Hospital Encounter KohlerBradley [facility] [place]?[facility] 1.2.840.114 350.1.13.10 4.2.7.2.[id number] [facility] 2023-02-21 08:45:00 2023-02-21 09:34:14 Outpatient R EDITA BRADLEY [facility] [id number] [facility] 2023-02-21 08:45:00 2023-02-21 09:34:14 Office Visit Bradley Kohler [facility] 1.114 350.1.13.10 4.2.7.2.[id number] [facility] 2023-02-19 15:00:00 2023-02-19 15:15:00 Captain/Airline Pilot Visit Lab, Juliocesar Campbell [facility] 1.114 350.1.13.10 4.2.7.2.[id number] [facility] 2023-02-19 15:00:00 2023-02-19 15:00:00 Outpatient R JULIOCESAR ALFARO [facility] [id number] [facility] 2023-02-19 00:00:00 2023-02-19 00:00:00 Telephone Luis East [facility] 1.114 350.1.13.10 4.2.7.2.[id number] [facility] 2023-02-17 08:15:00 2023-02-17 09:04:27 Outpatient R LUIS EAST [facility] [id number] [facility] 2023-02-17 08:15:00 2023-02-17 08:30:00 Captain/Airline Pilot Visit Lab, Luis Malave [facility] 1.114 350.1.13.10 4.2.7.2.[id number] [facility] 2023-02-16 00:00:00 2023-02-16 00:00:00 [facility] 1..114 350.1.13.10 4.2.7.2.[id number] [facility] 2023-02-16 00:00:00 2023-02-16 00:00:00 Refill [facility] 1..114 350.1.13.10 4.2.7.2.[id number] [facility] 2023-02-13 14:00:00 2023-02-13 14:06:22 Outpatient R JEN EASTMAD [facility] [id number] [facility] 2023-02-13 14:00:00 2023-02-13 14:06:22 Office Visit Luis East [facility] MULTISPEC IALTY [facility] 1.114 350.1.13.10 4.2.7.2.[id number] [facility] 2023-02-11 09:15:00 2023-02-11 09:30:00 Captain/Airline Pilot Visit Iban, Trent Lab Main Fabiana De Souza do [facility] 1.114 350.1.13.10 4.2.7.2.[id number] [facility] 2023-02-11 09:15:00 2023-02-11 09:15:00 Outpatient R FABIANA DE SOUZA DO [facility] [id number] [facility] 2023-02-11 00:00:00 2023-02-11 00:00:00 Telephone Fabiana De Souza do [facility] 1.114 350.1.13.10 4.2.7.2.[id number] [facility] 2023-02-11 00:00:00 2023-02-11 00:00:00 Tele[facility] 1.114 350.1.13.10 4.2.7.2.[id number] [facility] 2023-02-07 16:30:00 2023-02-07 17:27:40 Outpatient R EMERITA [facility] [id number] [facility] 2023-02-07 16:30:00 2023-02-07 17:27:40 Office Visit [facility] 1.114 350.1.13.10 4.2.7.2.[id number] [facility] 2023-01-15 00:00:00 2023-01-15 00:00:00 Telephone Jaylene Rasmussen [facility] MULTISPEC IALTY [facility] 1.114 350.1.13.10 4.2.7.2.[id number] [facility] 2023-01-10 00:00:00 2023-01-10 00:00:00 Refill Fabiana De Souza do [facility] MULTISPEC I[facility]TY [facility] 1.114 350.1.13.10 4.2.7.2.[id number] [facility] 2023-01-09 00:00:00 2023-01-09 00:00:00 Telephone Deejay Farias [facility] 1.114 350.1.13.10 4.2.7.2.[id number] [facility] 2023-01-08 08:30:00 2023-01-08 08:45:00 Captain/Airline Pilot Visit Lab, Zak MalikCait [facility] OFF[facility] BUILDING 1.2.840.114 350.1.13.10 4.2.7.2.[id number] [facility] 2023-01-08 08:30:00 2023-01-08 08:30:00 Outpatient R CAIT FELDERTHIA [facility] [id number] [facility] 2023-01-07 13:30:00 2023-01-07 14:19:40 Outpatient R ANA PAULALJ [facility] [id number] [facility] 2023-01-07 13:30:00 2023-01-07 14:19:40 Office Visit Jarrett [facility]isa [facility] 1..840.114 350.1.13.10 4.2.7.2.[id number] [facility] 2023-01-02 11:00:00 2023-01-02 11:30:48 Outpatient R HEATHER CÁRDENAS [facility] [id number] [facility] 2023-01-02 11:00:00 2023-01-02 11:30:48 Office Visit Heather Cárdenas [facility] 1..840.114 350.1.13.10 4.2.7.2.[id number] [facility] 2023-01-01 00:00:00 2023-01-01 00:00:00 Transition of Care Arsenio Shea 1..840.114 350.1.13.10 4.2.7.2.[id number] [facility] 2022-12-29 07:22:00 2022-12-31 17:51:00 Outpatient X [facility] [id number] [facility] 2022-12-29 07:22:00 2022-12-31 17:51:00 Emergency ConnieutEarl [facility] 1.2840.114 350.1.13.10 4.2.7.2.[id number] [facility] 2022-12-19 00:00:00 2022-12-19 00:00:00 Refill Devante Rothman [facility] 1..114 350.1.13.10 4.2.7.2.[id number] [facility] 2022-12-19 00:00:00 2022-12-19 00:00:00 Patient Secure Msg Doctor Unassigned, Mendes [facility] 1.2.114 350.1.13.10 4.2.7.2.[id number] [facility] 2022-12-12 09:15:00 2022-12-12 09:30:00 Captain/Airline Pilot Visit Pob, Adc Lab Main Deejay Farias [facility] BUILDING 1.84.114 350.1.13.10 4.2.7.2.[id number] [facility] 2022-12-12 09:15:00 2022-12-12 09:15:00 Outpatient R DEEJAY FARIAS [facility] [id number] [facility] 2022-12-12 00:00:00 2022-12-12 00:00:00 Patient Secure Msg Doctor Unassigned, Mendes [facility] 1.284.114 350.1.13.10 4.2.7.2.[id number] [facility] 2022-12-06 10:00:00 2022-12-06 10:52:25 Outpatient R DEEJAY FARIAS [facility] [id number] [facility] 2022-12-06 10:00:00 2022-12-06 10:52:25 Office Visit Deejay Farias [facility] 1..840.114 350.1.13.10 4.2.7.2.[id number] [facility] 2022-12-04 15:30:00 2022-12-04 15:30:00 Outpatient R PATRICK HALE YU [facility] [id number] [facility] 2022-12-04 00:00:00 2022-12-04 00:00:00 Telephone Luis East [facility] 1.840.114 350.1.13.10 4.2.7.2.[id number] [facility] [id number] [facility] 2022-12-03 09:00:00 2022-12-03 09:15:00 Captain/Airline Pilot Visit Iban, Trent Lab Main Fabiana De Souza do [facility] 1..840.114 350.1.13.10 4.2.7.2.[id number] [facility] 2022-12-03 09:00:00 2022-12-03 09:00:00 Outpatient R FABIANA DE SOUZA DO [facility] [id number] [facility] 2022-10-31 11:00:00 2022-10-31 11:00:00 Outpatient R VINCENZO FELDER [facility] [id number] [facility] 2022-10-13 00:00:00 2022-10-13 00:00:00 Refill Fabiana De Souza do [facility] 1.114 350.1.13.10 4.2.7.2.[id number] [facility] 2022-10-09 14:00:00 2022-10-09 14:15:52 Outpatient R LENA SCHWARTZ [facility] [id number] [facility] 2022-10-09 14:00:00 2022-10-09 14:15:52 Office Visit JosianeLena gonzalez [facility] BUILD[facility] 1.840.114 350.1.13.10 4.2.7.2.[id number] [facility] 2022-10-09 00:00:00 2022-10-09 00:00:00 Orders Only Doctor Unassigned, Mendes [facility] 1.84.114 350.1.13.10 4.2.7.2.[id number] [facility] 2022-10-04 00:00:00 2022-10-04 00:00:00 Telephone [facility] BU[facility] 1.84.114 350.1.13.10 4.2.7.2.[id number] [facility] 2022-10-03 13:30:00 2022-10-03 13:30:00 Outpatient R JAYLENE RASMUSSEN AKSHATA [facility] [id number] [facility] 2022-10-02 00:00:00 2022-10-02 00:00:00 Telephone Luis ManuelimmanuelCaitVincenzoCritical access hospitalE?[facility] OFF[facility] BUILD[facility] 1.84.114 350.1.13.10 4.2.7.2.[id number] [facility] 2022-10-01 00:00:00 2022-10-01 00:00:00 Becky Simmons [facility] BUILD[facility] 1.0.114 350.1.13.10 4.2.7.2.[id number] [facility] 2022-09-30 09:30:00 2022-09-30 10:32:20 Out[id number] [facility] 2022-09-30 09:30:00 2022-09-30 10:32:20 Office Visit Cait Felderthia [facility] 1.840.114 350.1.13.10 4.2.7.2.[id number] [facility] 2022-09-30 00:00:00 2022-09-30 00:00:00 Orders Only Doctor Unassigned, Mendes [facility] 1.840.114 350.1.13.10 4.2.7.2.[id number] [facility] 2022-09-30 00:00:00 2022-09-30 00:00:00 Telephone Luis East [facility] 1..114 350.1.13.10 4.2.7.2.[id number] [facility] 2022-09-30 00:00:00 2022-09-30 00:00:00 Pre Visit Outreach Bryn Myers [facility] 1.840.114 350.1.13.10 4.2.7.2.[id number] [facility] 2022-09-11 00:00:00 2022-09-11 00:00:00 Letter (Out) Jaylene Rasmussen [facility] MULTISPEC IALTY [facility] 1.840.114 350.1.13.10 4.2.7.2.[id number] [facility] 2022-09-10 00:00:00 2022-09-10 00:00:00 Refill Gamilla-Cru do, [facility] 1..114 350.1.13.10 4.2.7.2.[id number] [facility] 2022-08-26 00:00:00 2022-08-26 00:00:00 Refill Gamilla-Cru do, [facility] 1..114 350.1.13.10 4.2.7.2.[id number] [facility] 2022-08-13 14:30:00 2022-08-13 15:13:01 Outpatient Claude FELDER [facility] [id number] [facility] 2022-08-13 14:30:00 2022-08-13 15:13:01 Office Visit [facility] 1.114 350.1.13.10 4.2.7.2.[id number] [facility] 2022-08-13 13:20:00 2022-08-13 13:20:00 Outpatient CLIF GIRALDO [facility] [id number] [facility] 2022-08-13 00:00:00 2022-08-13 00:00:00 Refill Gamilla-Cru do, Fabiana [facility] MULTISPEC [facility]TY [facility] 1.114 350.1.13.10 4.2.7.2.[id number] [facility] 2022-08-13 00:00:00 2022-08-13 00:00:00 Refill Gamilla-Cru do, Fabiana [facility] MULTISPEC [facility] 1..114 350.1.13.10 4.2.7.2.[id number] [facility] 2022-08-13 00:00:00 2022-08-13 00:00:00 Refill Gamilla-Cru do, Fabiana [facility] MULTISPEC [facility]TY [facility] 1.20.114 350.1.13.10 4.2.7.2.[id number] [facility] 2022-08-09 00:00:00 2022-08-09 00:00:00 Refill Gamilla-Cru do, Fab[facility] 1..114 350.1.13.10 4.2.7.2.[id number] [facility] 2022-07-19 00:00:00 2022-07-19 00:00:00 Telephone Devante Rothman [facility] BUILD[facility] 1.84114 350.1.13.10 4.2.7.2.[id number] [facility] 2022-07-18 00:00:00 2022-07-18 00:00:00 Telephone Luis East [facility] MULTISPEC [facility]ALTY [facility] 1.114 350.1.13.10 4.2.7.2.[id number] [facility] 2022-07-18 00:00:00 2022-07-18 00:00:00 Refill Em Perez [facility] BUILD[facility] 1.84114 350.1.13.10 4.2.7.2.[id number] [facility] 2022-07-09 00:00:00 2022-07-09 00:00:00 Telephone Torrie Daniel [facility] MULTISPEC [facility]TY [facility] 1.840.114 350.1.13.10 4.2.7.2.[id number] [facility] 2022-07-05 00:00:00 2022-07-05 00:00:00 Case Management Grady Jaylene [facility] 1.840.114 350.1.13.10 4.2.7.2.[id number] [facility] 2022-07-04 14:00:00 2022-07-04 14:30:00 Exhibit Builder Visit Exhibit Builder, Transplant Luis East [facility] IALTY [place] [facility] 1.840.114 350.1.13.10 4.2.7.2.[id number] [facility] 2022-07-04 14:00:00 2022-07-04 14:30:00 Office Visit Jaylene Rasmussen Genetjase Hickman [facility] IALTY [place] [facility] 1..114 350.1.13.10 4.2.7.2.[id number] [facility] 2022-07-04 11:40:00 2022-07-04 12:44:29 Outpatient R LUIS EAST DO, ANN [facility] [id number] [facility] 2022-07-04 11:40:00 2022-07-04 12:44:29 Office Visit Fabiana De Souza do, Muhammad A [facility] IALTY [facility] 1..114 350.1.13.10 4.2.7.2.[id number] [facility] 2022-07-04 11:40:00 2022-07-04 11:40:00 Outpatient R LUIS EAST [facility] [id number] [facility] 2022-07-04 11:40:00 2022-07-04 11:40:00 Outpatient R LUIS EAST [facility] [id number] [facility] 2022-06-25 09:00:00 2022-06-25 09:15:00 Captain/Airline Pilot Visit Pob, Adc Lab Main Jerome-Fabiana Cespedes do [facility] 1.840.114 350.1.13.10 4.2.7.2.[id number] [facility] 2022-06-25 09:00:00 2022-06-25 09:00:00 Outpatient R FABIANA DE SOZUA DO [facility] [id number] [facility] 2022-05-24 09:15:00 2022-05-24 09:30:00 Captain/Airline Pilot Visit Pob, Adc Lab Main Jerome-Cru Fabiana almaguer [facility] 1.840.114 350.1.13.10 4.2.7.2.[id number] [facility] 2022-05-24 09:15:00 2022-05-24 09:15:00 Outpatient R FABIANA DE SOUZA DO [facility] [id number] [facility] 2022-04-25 00:00:00 2022-04-25 00:00:00 Telephone Tor[facility] .840.114 350.1.13.10 4.2.7.2.[id number] [facility] 2022-04-24 10:15:00 2022-04-24 10:30:00 Captain/Airline Pilot Visit Pob, Adc Lab Main [place] doFabiana [facility] 1.840.114 350.1.13.10 4.2.7.2.[id number] [facility] 2022-04-24 10:15:00 2022-04-24 10:15:00 Outpatient R AP ALMAGUER [facility] [id number] [facility] 2022-04-10 00:00:00 2022-04-10 00:00:00 Patient Secure Msondina Ap almaguer [facility] 1.114 350.1.13.10 4.2.7.2.[id number] [facility] 2022-04-05 00:00:00 2022-04-05 00:00:00 Abstract John Butcher [facility] [place] [facility] 1.114 350.1.13.10 4.2.7.2.[id number] [facility] 2022-03-25 11:15:00 2022-03-25 11:30:00 Captain/Airline Pilot Visit Iban, Adc Lab Main Fabiana De Souza do [facility] 1.114 350.1.13.10 4.2.7.2.[id number] [facility] 2022-03-25 11:15:00 2022-03-25 11:15:00 Outpatient R AP [facility] [id number] [facility] 2022-03-25 00:00:00 2022-03-25 00:00:00 Orders Only Doctor Unassigned, Mendes [facility] 1.114 350.1.13.10 4.2.7.2.[id number] [facility] 2022-03-19 00:00:00 2022-03-19 00:00:00 Case Management Colin Veliz [facility] 1.2.840.114 350.1.13.10 4.2.7.2.[id number] [facility] 2022-03-18 00:00:00 2022-03-18 00:00:00 Case Management Colin Veliz [facility] [place] [facility] 1..840.114 350.1.13.10 4.2.7.2.[id number] [facility] 2022-03-12 00:00:00 2022-03-12 00:00:00 Telephone Luis East [facility] [place] [facility] 1.2840.114 350.1.13.10 4.2.7.2.[id number] [facility] 2022-03-07 00:00:00 2022-03-07 00:00:00 Transition of Care Marialuisa Aguilar [facility] 1..840.114 350.1.13.10 4.2.7.2.[id number] [facility] 2022-03-05 08:15:00 2022-03-06 14:50:00 Outpatient X RYAN WARNER [facility] [id number] [facility] 2022-03-05 08:15:00 2022-03-06 14:50:00 Emergency Tristan Peter Jelani [facility] 1.2.840.114 350.1.13.10 4.2.7.2.[id number] [facility] 2022-03-05 00:00:00 2022-03-05 00:00:00 Telephone Fabiana De Souza do [facility] 1.840.114 350.1.13.10 4.2.7.2.[id number] [facility] 2022-02-25 08:30:00 2022-02-25 08:30:00 Outpatient R PATRICK HALE GEOFFREY PATRICK [facility] [id number] [facility] 2022-02-14 14:20:00 2022-02-14 15:18:57 Outpatient R JEN E[place]AD [facility] [id number] [facility] 2022-02-14 14:20:00 2022-02-14 15:18:57 Office Visit Fabiana De Souza do, Muhammad A [facility] 1..114 350.1.13.10 4.2.7.2.[id number] [facility] 2022-02-14 14:20:00 2022-02-14 14:20:00 Outpatient R LUIS EAST [facility] [id number] [facility] 2022-02-11 09:30:00 2022-02-11 09:45:00 Captain/Airline Pilot Visit Iban, [place] Lab Main Fabiana De Souza do [facility] 1.840.114 350.1.13.10 4.2.7.2.686 [id number] [facility] 2022-02-11 09:30:00 2022-02-11 09:30:00 Outpatient R FABIANA DE SOUZA DO [facility] [id number] [facility] 2022-02-11 00:00:00 2022-02-11 00:00:00 Orders Only Doctor Unassigned, Mendes [facility] 1.840.114 350.1.13.10 4.2.7.2.[id number] [facility] 2022-02-01 00:00:00 2022-02-01 00:00:00 Patient Secure Msg Ap Fabiana almaguer [facility] MULTISPEC IALTY CENTER [facility] 1.114 350.1.13.10 4.2.7.2.[id number] [facility] 2022-01-30 09:45:00 2022-01-30 10:00:00 Captain/Airline Pilot Visit Pob, Adc Lab Main Fabiana De Souza do [facility] 1.114 350.1.13.10 4.2.7.2.[id number] [facility] 2022-01-30 09:45:00 2022-01-30 09:45:00 Outpatient R FABIANA DE SOUZA DO [facility] [id number] [facility] 2022-01-29 00:00:00 2022-01-29 00:00:00 Telephone Fabiana [facility] 1.114 350.1.13.10 4.2.7.2.[id number] [facility] 2022-01-16 00:00:00 2022-01-16 00:00:00 Telephone Devante Rothman [facility] 1.84114 350.1.13.10 4.2.7.2.[id number] [facility] 2022-01-14 00:00:00 2022-01-14 00:00:00 Patient Secure Msg Mariannemaximiliano Genet Hickman [facility] 1.114 350.1.13.10 4.2.7.2.[id number] [facility] 2022-01-01 13:00:00 2022-01-01 13:00:00 Outpatient THERON CUMMINGS [facility] [id number] [facility] 2022-01-01 00:00:00 2022-01-01 00:00:00 Telephone Luis East [facility] MULTISPEC IALTY CENTER [facility] 1.114 350.1.13.10 4.2.7.2.[id number] [facility] 2022-01-01 00:00:00 2022-01-01 00:00:00 Patient Secure Torrie Kruse [facility] 1..114 350.1.13.10 4.2.7.2.[id number] [facility] 2021-12-27 08:45:00 2021-12-27 09:00:00 Captain/Airline Pilot Visit Pob, Adc Lab Main Fabiana De Souza do [facility] PROFESSIO [facility] 1..114 350.1.13.10 4.2.7.2.[id number] [facility] 2021-12-27 08:45:00 2021-12-27 08:45:00 Outpatient FABIANA OMALLEY DO [facility] [id number] [facility] 2021-12-13 08:00:00 2021-12-13 08:00:00 Outpatient THERON CUMMINGS [facility] [id number] [facility] 2021-12-07 02:48:00 2021-12-07 10:33:00 Emergency X JULIANE WORLEY [facility] ERT [id number] [facility] 2021-12-07 02:48:00 2021-12-07 10:33:00 Emergency Juliane Worley [facility] 1..114 350.1.13.10 4.2.7.2.[id number] [facility] 2021-12-06 14:00:00 2021-12-06 14:00:00 Outpatient R TAMIA JUDGE [facility] [id number] [facility] 2021-11-29 08:17:37 2021-11-29 23:59:00 Outpatient R GENET DANIEL [facility] [id number] [facility] 2021-11-29 08:17:37 2021-11-29 23:59:00 Hospital Encounter Genet Daniel [facility] 1..840.114 350.1.13.10 4.2.7.2.[id number] [facility] 2021-11-26 15:30:00 2021-11-26 15:57:20 Outpatient R GRAHAMKIANNA [facility] [id number] [facility] 2021-11-26 15:30:00 2021-11-26 15:57:20 Office Visit Mimi [facility] [place] 1..840.114 350.1.13.10 4.2.7.2.[id number] [facility] 2021-11-26 15:30:00 2021-11-26 15:30:00 Outpatient R MIMI [facility] [id number] [facility] 2021-11-24 05:25:00 2021-11-24 08:36:00 Emergency X DARON AVILA [facility] ERT [id number] [facility] 2021-11-24 05:25:00 2021-11-24 08:36:00 Emergency Daron Avila Buzz [facility] 1.2.840.114 350.1.13.10 4.2.7.2.[id number] [facility] 2021-11-22 10:40:00 2021-11-22 15:04:38 Outpatient R SUBHASH EASTD [facility] [id number] [facility] 2021-11-22 10:40:00 2021-11-22 15:04:38 Office Visit Al Vasquezjtaba Smith Lisa [facility] MULTISPEC [facility]ALTY CENTER [facility] 1.840.114 350.1.13.10 4.2.7.2.[id number] [facility] 2021-11-22 10:40:00 2021-11-22 10:40:00 Outpatient R JEN EASTMAD [facility] [id number] [facility] 2021-11-22 00:00:00 2021-11-22 00:00:00 Torrie Dorman [facility] 1.0.114 350.1.13.10 4.2.7.2.[id number] [facility] 2021-11-22 00:00:00 2021-11-22 00:00:00 RefGenet Hamilton [facility] MULTISPEC IALTY CENTER [facility] 1..114 350.1.13.10 4.2.7.2.[id number] [facility] 2021-11-19 08:45:00 2021-11-19 09:00:00 Captain/Airline Pilot Visit Iban, Trent Lab Main Cruzito, Smith Lisa [facility] 1..114 350.1.13.10 4.2.7.2.[id number] [facility] 2021-11-19 08:45:00 2021-11-19 08:45:00 Outpatient R LUIS EAST [facility] [id number] [facility] 2021-11-19 08:45:00 2021-11-19 08:45:00 Outpatient R LUIS EAST [facility] [id number] [facility] 2021-11-01 14:30:00 2021-11-01 15:34:58 Office Visit Genet Daniel [facility] MULTISPEC [facility]ALTY CENTER [facility] 1.114 350.1.13.10 4.2.7.2.[id number] [facility] 2021-11-01 14:30:00 2021-11-01 15:34:58 Outpatient R FREDYARTIGENET [facility] [id number] [facility] 2021-11-01 14:30:00 2021-11-01 14:30:00 Outpatient R FREDYARTIGENET [facility] [id number] [facility] 2021-11-01 10:15:00 2021-11-01 10:41:33 Outpatient R ALISON MONTALVO [facility] [id number] [facility] 2021-11-01 10:15:00 2021-11-01 10:41:33 Office Visit Alison [facility] 1.114 350.1.13.10 4.2.7.2.[id number] [facility] 2021-10-30 00:00:00 2021-10-30 00:00:00 Telephone Luis East [facility] MULTISPEC IALTY CENTER [facility] 1.114 350.1.13.10 4.2.7.2.[id number] [facility] 2021-10-29 10:15:00 2021-10-29 10:30:00 Captain/Airline Pilot Visit Poagnieszka, Adc Lab Main Ap almaguer, Fabiana Yuan [facility] 1.114 350.1.13.10 4.2.7.2.[id number] [facility] 2021-10-29 10:15:00 2021-10-29 10:15:00 Outpatient R FABIANA DE SOUZA DO [facility] [id number] [facility] 2021-10-29 00:00:00 2021-10-29 00:00:00 Orders Only Doctor Unassigned, Mendes [facility] 1.0.114 350.1.13.10 4.2.7.2.[id number] [facility] 2021-10-24 00:00:00 2021-10-24 00:00:00 Telephone Luis East [facility] MULTISPEC IALTY CENTER [facility] 1..114 350.1.13.10 4.2.7.2.[id number] [facility] 2021-10-23 00:00:00 2021-10-23 00:00:00 Telephone Fabiana De Souza do [facility] 1..114 350.1.13.10 4.2.7.2.[id number] [facility] 2021-10-09 00:00:00 2021-10-09 00:00:00 Abstract Nakul Lopez [facility] 1..114 350.1.13.10 4.2.7.2.[id number] [facility] 2021-10-08 00:00:00 2021-10-08 00:00:00 Genet Dorman [facility] MULTISPEC IALTY CENTER AND [facility] 1..114 350.1.13.10 4.2.7.2.[id number] [facility] 2021-10-04 14:30:00 2021-10-04 14:58:07 Outpatient R AQUILINO MONTALVODEVINNARDA [facility] [id number] [facility] 2021-10-04 14:30:00 2021-10-04 14:30:00 Outpatient R AQUILINO MONTALVODEVINNARDA [facility] [id number] [facility] 2021-10-03 00:00:00 2021-10-03 00:00:00 Telephone Al Vasquez [facility] .840.114 350.1.13.10 4.2.7.2.[id number] [facility] 2021-10-01 08:45:00 2021-10-01 09:23:13 Outpatient R FABIANA DE SOUZA DO [facility] [id number] [facility] 2021-10-01 08:45:00 2021-10-01 09:00:00 Captain/Airline Pilot Visit Poagnieszka, Adc Lab Main Fabiana De Souza do [facility] ..840.114 350.1.13.10 4.2.7.2.[id number] [facility] 2021-10-01 08:45:00 2021-10-01 08:45:00 Outpatient R FABIANA DE SOUZA DO [facility] [id number] [facility] 2021-09-20 10:00:00 2021-09-20 10:00:00 Outpatient R LUIS EAST [facility] [id number] [facility] 2021-09-18 00:00:00 2021-09-18 00:00:00 Transition of Care Arsenio Shea ..840.114 350.1.13.10 4.2.7.2.[id number] [facility] 2021-09-17 00:00:00 2021-09-17 00:00:00 Patient Secure Msg Doctor Unassigned, Mendes [facility] 1.840.114 350.1.13.10 4.2.7.2.[id number] [facility] 2021-09-15 14:37:00 2021-09-16 15:58:00 Outpatient X RYAN WARNER [facility] TOLU [id number] [facility] 2021-09-15 14:37:00 2021-09-16 15:58:00 Emergency Mohamud Gracia Jelani [facility] 1.840.114 350.1.13.10 4.2.7.2.[id number] [facility] 2021-09-15 06:55:00 2021-09-15 10:01:00 Emergency X MOHAMUD GRACIA [facility] ERT [id number] [facility] 2021-09-15 06:55:00 2021-09-15 10:01:00 Emergency Mohamud Gracia [facility] 1..114 350.1.13.10 4.2.7.2.[id number] [facility] 2021-09-15 00:00:00 2021-09-15 00:00:00 Telephone Jose Clay [facility] MULTISPEC IALTY CENTER AND [facility] 1..114 350.1.13.10 4.2.7.2.[id number] [facility] 2021-09-06 13:45:00 2021-09-06 14:30:00 Telemedici ne Genet Houser [facility] MULTISPEC IALTY CENTER [facility] 1.84.114 350.1.13.10 4.2.7.2.[id number] [facility] 2021-09-06 13:45:00 2021-09-06 13:45:00 Outpatient R GENET DANIEL [facility] [id number] [facility] 2021-08-30 00:00:00 2021-08-30 00:00:00 Refill Fabiana De Souza do [facility] 1.0.114 350.1.13.10 4.2.7.2.[id number] [facility] 2021-08-30 00:00:00 2021-08-30 00:00:00 Refill Concha Romero [facility] 1.0.114 350.1.13.10 4.2.7.2.[id number] [facility] 2021-08-28 08:00:00 2021-08-28 08:00:00 Outpatient R GENEVIEVE CANSECO [facility] [id number] [facility] 2021-08-27 00:00:00 2021-08-27 00:00:00 Patient Secure Msg Canseco Genevieve [facility] OFFICE BUILDING 1..114 350.1.13.10 4.2.7.2.[id number] [facility] 2021-08-23 13:00:00 2021-08-23 13:45:00 Office Visit Genet Daniel Muhammad [facility] MULTISPEC IALTY CENTER [facility] 1..114 350.1.13.10 4.2.7.2.[id number] [facility] 2021-08-23 10:40:00 2021-08-23 13:07:55 Office Visit Fabiana De Souza do, Muhammad A [facility] MULTISPEC IALTY CENTER [facility] 1.0.114 350.1.13.10 4.2.7.2.[id number] [facility] 2021-08-23 10:40:00 2021-08-23 13:07:55 Outpatient R LUIS EAST [facility] [id number] [facility] 2021-08-23 13:00:00 2021-08-23 13:00:00 Outpatient R CRUZITO SMITH [facility] [id number] [facility] 2021-08-23 13:00:00 2021-08-23 13:00:00 Outpatient R CRUZITO SMITH [facility] [id number] [facility] 2021-08-23 10:40:00 2021-08-23 10:40:00 Outpatient R JEN EASTMAD [facility] [id number] [facility] 2021-08-23 10:40:00 2021-08-23 10:40:00 Outpatient R LUIS EAST [facility] [id number] [facility] 2021-08-23 00:00:00 2021-08-23 00:00:00 Telephone Ap almaguer, Fabiana Yuan [facility] 1..840.114 350.1.13.10 4.2.7.2.[id number] [facility] 2021-08-17 08:56:30 2021-08-17 23:59:00 Outpatient R GENET DANIEL [facility] [id number] [facility] 2021-08-17 08:56:30 2021-08-17 23:59:00 [facility]..[facility].114 350.1.13.10 4.2.7.2.[id number] [facility] 2021-08-15 00:00:00 2021-08-15 00:00:00 Refill Genet Daniel [facility] MULTISPEC IALTY CENTER AND [facility] 1..114 350.1.13.10 4.2.7.2.[id number] [facility] 2021-08-15 00:00:00 2021-08-15 00:00:00 John Carney [facility] MULTISPEC IALTY CENTER [facility] 1..114 350.1.13.10 4.2.7.2.[id number] [facility] 2021-08-15 00:00:00 2021-08-15 00:00:00 [facility]..114 350.1.13.10 4.2.7.2.[id number] [facility] 2021-08-14 00:00:00 2021-08-14 00:00:00 Case Management Genet [facility] [place] [facility] 1..114 350.1.13.10 4.2.7.2.[id number] [facility] 2021-07-30 00:00:00 2021-07-30 00:00:00 Telephone Devante Rothman [facility] 1..114 350.1.13.10 4.2.7.2.[id number] [facility] 2021-07-24 00:00:00 2021-07-24 00:00:00 Telephone Fabiana De Souza do [facility] MULTISPEC IALTY CENTER [facility] 1..114 350.1.13.10 4.2.7.2.[id number] [facility] 2021-07-23 15:30:00 2021-07-23 16:30:06 Office Visit Mimi [facility] 1.2.840.114 350.1.13.10 4.2.7.2.[id number] [facility] 2021-07-23 15:30:00 2021-07-23 16:30:06 Outpatient R MIMI [facility] [id number] [facility] 2021-07-23 15:30:00 2021-07-23 15:30:00 Outpatient R MIMI [facility] [id number] [facility] 2021-07-23 15:30:00 2021-07-23 15:30:00 Outpatient R MIMI [facility] [id number] [facility] 2021-07-23 11:45:00 2021-07-23 12:00:00 Captain/Airline Pilot Visit Robertb, Adc Lab Main Jeorme-Rubina , Fabiana [facility] 1.2.840.114 350.1.13.10 4.2.7.2.[id number] [facility] 2021-07-23 11:45:00 2021-07-23 12:00:00 Captain/Airline Pilot Visit Robert, [facility] Main [facility] 1.2.840.114 350.1.13.10 4.2.7.2.[id number] [facility] 2021-07-20 10:00:00 2021-07-20 10:26:05 Outpatient R ALISON MONTALVO [facility] [id number] [facility] 2021-07-20 10:00:00 2021-07-20 10:26:05 Office Visit Alison Montalvo [facility] 1.114 350.1.13.10 4.2.7.2.[id number] [facility] 2021-07-20 10:00:00 2021-07-20 10:26:05 Outpatient R ALISON MONTALVO [facility] [id number] [facility] 2021-07-19 00:00:00 2021-07-19 00:00:00 Patient Secure Msg Alison Montalvo [facility] MEDICAL OFFICE BUILDING 1.114 350.1.13.10 4.2.7.2.[id number] [facility] 2021-07-13 14:20:00 2021-07-13 14:54:[address] [facility] [id number] [facility] 2021-07-13 13:42:52 2021-07-13 14:02:52 Urgent Care Morteza [facility] MED[facility] OFF[facility] BUILD[facility] 1.114 350.1.13.10 4.2.7.2.[id number] [facility] 2021-07-04 00:00:00 2021-07-04 00:00:00 Patient Secure Msg Doctor Unassigned, Mendes [facility] 1. 350.1.13.10 4.2.7.2.[id number] [facility] 2021-06-25 00:00:00 2021-06-25 00:00:00 Concha Piedra [facility] 1.114 350.1.13.10 4.2.7.2.[id number] [facility] 2021-06-21 00:00:00 2021-06-21 00:00:00 Transition of Care Arsenio Shea 1.2.840.114 350.1.13.10 4.2.7.2.[id number] [facility] 2021-06-18 19:04:00 2021-06-20 18:03:00 Outpatient DOREEN [facility] [id number] [facility] 2021-06-18 19:04:00 2021-06-20 18:03:00 Emergency Worley, Doreen Wang, [facility] 1.114 350.1.13.10 4.2.7.2.[id number] [facility] 2021-05-23 00:00:00 2021-05-23 00:00:00 Case Management Genet Danielwaz [facility] 1.114 350.1.13.10 4.2.7.2.[id number] [facility] 2021-05-22 08:08:17 2021-05-22 09:02:59 Office Visit Genevieve Canseco [facility] Medical Office Building 1..114 350.1.13.10 4.2.7.2.[id number] [facility] 2021-05-22 08:30:00 2021-05-22 08:30:00 Outpatient GENEVIEVE HENDRIX [facility] [id number] [facility] 2021-05-21 09:59:54 2021-05-21 10:14:54 Captain/Airline Pilot Visit Pob, Adc Lab Main Fabiana De Souza do [facility] Professio nal Building 1.84.114 350.1.13.10 4.2.7.2.[id number] [facility] 2021-05-21 10:00:00 2021-05-21 10:00:00 Outpatient FABIANA OMALLEY DO [facility] [id number] [facility] 2021-05-17 12:50:40 2021-05-17 15:08:57 Office Visit Torrie Daniel do, Fabiana Yuan [facility] MULTISPEC IALTY CENTER AND [facility] 1.840.114 350.1.13.10 4.2.7.2.[id number] [facility] 2021-05-17 14:30:00 2021-05-17 14:30:00 Outpatient R [facility] [id number] [facility] 2021-05-08 10:15:00 2021-05-08 10:30:00 Office Visit Jonel [facility] 1.840.114 350.1.13.10 4.2.7.2.[id number] [facility] 2021-05-08 10:15:00 2021-05-08 10:15:00 Outpatient R [facility] [id number] [facility] 2021-05-08 00:00:00 2021-05-08 00:00:00 Case Management Jonel [facility] 1..114 350.1.13.10 4.2.7.2.[id number] [facility] 2021-05-01 00:00:00 2021-05-01 00:00:00 Telephone Genet Daniel [facility] MULTISPEC IALTY CENTER AND [facility] 1.84.114 350.1.13.10 4.2.7.2.[id number] [facility] 2021-04-30 11:00:00 2021-04-30 11:00:00 Outpatient R FABIANA DE SOUZA DO [facility] [id number] [facility] 2021-04-30 10:14:11 2021-04-30 10:29:11 Captain/Airline Pilot Visit Iban, Trent Lab Main Jerome-Fabiana Cespedes do [facility] Building 1.840.114 350.1.13.10 4.2.7.2.[id number] [facility] 2021-04-30 00:00:00 2021-04-30 00:00:00 Refill Genet Daniel [facility] MULTISPEC IALTY CENTER [facility] 1.0.114 350.1.13.10 4.2.7.2.[id number] [facility] 2021-04-06 00:00:00 2021-04-06 00:00:00 Refill Ben Remy [facility] MULTISPEC IALTY CENTER [facility] 1..114 350.1.13.10 4.2.7.2.[id number] [facility] 2021-04-06 00:00:00 2021-04-06 00:00:00 Telephone Fabiana [facility] do [facility] 1.2.114 350.1.13.10 4.2.7.2.[id number] [facility] 2021-04-03 08:23:17 2021-04-03 08:38:17 Captain/Airline Pilot Visit Iban, Trent Lab Main Fabiana De Souza do [facility] Building 1.840.114 350.1.13.10 4.2.7.2.[id number] [facility] 2021-04-03 08:30:00 2021-04-03 08:30:00 Outpatient R FABIANA DE SOUZA DO [facility] [id number] [facility] 2021-03-19 13:00:00 2021-03-19 13:00:00 Outpatient DEVANTE MICHAELS [facility] [id number] [facility] 2021-03-19 00:00:00 2021-03-19 00:00:00 Telephone Ap almaguer, Fabiana Yuan [facility] 1.0.114 350.1.13.10 4.2.7.2.[id number] [facility] 2021-03-19 00:00:00 2021-03-19 00:00:00 Patient Secure Msg Ap almaguer, Fabiana [facility] 1.0.114 350.1.13.10 4.2.7.2.[id number] [facility] 2021-03-17 00:00:00 2021-03-17 00:00:00 Refill Genet Daniel [facility] 1.0.114 350.1.13.10 4.2.7.2.[id number] [facility] 2021-03-17 00:00:00 2021-03-17 00:00:00 Refill Fabiana De Souza do [facility] 1.0.114 350.1.13.10 4.2.7.2.[id number] [facility] 2021-03-15 09:59:11 2021-03-15 11:15:19 Office Visit Fabiana De Souza do, Muhammad [facility] 1.0.114 350.1.13.10 4.2.7.2.[id number] [facility] 2021-03-15 09:40:00 2021-03-15 09:40:00 Outpatient Claude [facility] [id number] [facility] 2021-03-14 00:00:00 2021-03-14 00:00:00 Telephone Cruzito Smith A [facility] 1.114 350.1.13.10 4.2.7.2.[id number] [facility] 2021-03-13 17:05:00 2021-03-13 18:43:00 Emergency Denys Bailey Mckeon [facility] 1.114 350.1.13.10 4.2.7.2.[id number] [facility] 2021-03-13 09:47:50 2021-03-13 10:02:50 Captain/Airline Pilot Visit Pob, Adc Lab Main Fabiana De Souza do [facility] 1.114 350.1.13.10 4.2.7.2.[id number] [facility] 2021-03-13 09:45:00 2021-03-13 09:45:00 Outpatient R FABIANA DE SOUZA DO [facility] [id number] [facility] 2021-03-13 00:00:00 2021-03-13 00:00:00 Orders Only Doctor Unassigned, Mendes [facility] 1.114 350.1.13.10 4.2.7.2.[id number] [facility] 2021-03-08 09:40:00 2021-03-08 09:40:00 Outpatient R [facility] [id number] [facility] 2021-03-07 00:00:00 2021-03-07 00:00:00 Genet Dorman [facility] 1.114 350.1.13.10 4.2.7.2.[id number] [facility] 2021-03-06 00:00:00 2021-03-06 00:00:00 Genet Dorman [facility] 1.114 350.1.13.10 4.2.7.2.[id number] [facility] 2021-02-20 09:35:09 2021-02-20 09:50:09 Captain/Airline Pilot Visit Iban, Adc Lab Main Jerome-Fabiana Cespedes do [facility] Building 1.84.114 350.1.13.10 4.2.7.2.686 [id number] [facility] 2021-02-20 09:45:00 2021-02-20 09:45:00 Outpatient R JEROME-FABIANA CESPEDES DO [facility] [id number] [facility] 2021-02-20 00:00:00 2021-02-20 00:00:00 Orders Only Doctor Unassigned, Mendes [facility] 1.114 350.1.13.10 4.2.7.2.[id number] [facility] 2021-01-29 09:09:14 2021-01-29 09:24:14 Captain/Airline Pilot Visit Iban, Adc Lab Main Jerome-Fabiana Cespedes do [facility] Building 1.84.114 350.1.13.10 4.2.7.2.[id number] [facility] 2021-01-29 09:15:00 2021-01-29 09:15:00 Outpatient R JEROME-FABIANA CESPEDES DO [facility] [id number] [facility] 2021-01-29 00:00:00 2021-01-29 00:00:00 Orders Only Doctor Unassigned, Mendes [facility] 1.114 350.1.13.10 4.2.7.2.[id number] [facility] 2021-01-22 14:00:00 2021-01-22 14:00:00 Outpatient DEVANTE MICHAELS [facility] [id number] [facility] 2021-01-11 14:11:55 2021-01-11 14:56:55 Office Visit [facility]et [facility] 1.114 350.1.13.10 4.2.7.2.[id number] [facility] 2021-01-11 14:30:00 2021-01-11 14:30:00 Outpatient R GENET DANIEL [facility] [id number] [facility] 2021-01-05 12:00:00 2021-01-05 12:00:00 Outpatient CONCHA MELARA [facility] [id number] [facility] 2021-01-05 09:51:25 2021-01-05 10:06:25 Captain/Airline Pilot Visit Pob, Adc Lab Main Concha Romero [facility] 1.84.114 350.1.13.10 4.2.7.2.[id number] [facility] 2021-01-05 00:00:00 2021-01-05 00:00:00 Orders Only Doctor Unassigned, Mendes [facility] 1..114 350.1.13.10 4.2.7.2.[id number] [facility] 2021-01-03 00:00:00 2021-01-03 00:00:00 Case Management Laila Patel [facility] 1.2.840.114 350.1.13.10 4.2.7.2.[id number] [facility] 2020-12-28 00:00:00 2020-12-28 00:00:00 Case Management Concha Romero [facility] 1.2.840.114 350.1.13.10 4.2.7.2.[id number] [facility] 2020-12-26 11:09:14 2020-12-26 11:09:14 Anesthesia Event AlbrightRojelio 1.2.840.1 88177.1.1 3.104.2.7 .3.503697 .[id number] [facility] 2020-12-26 09:41:00 2020-12-26 10:51:00 Hospital Encounter Concha Romero 1.2.840.1 73359.1.1 3.104.2.7 .3.415711 .[id number] [facility] 2020-12-26 00:00:00 2020-12-26 00:00:00 Orders Only Doctor Unassigned, Mendes [facility] 1.2.840.114 350.1.13.10 4.2.7.2.[id number] [facility] 2020-12-22 12:12:35 2020-12-22 12:27:35 Laboratory Only Concha Romero Only, Adc Test 1.2.840.1 37379.1.1 3.104.2.7 .3.306496 .[id number] [facility] 2020-12-22 11:45:00 2020-12-22 11:45:00 Outpatient R CONCHA ROMERO [facility] [id number] [facility] 2020-12-21 00:00:00 2020-12-21 00:00:00 Travel 1.2.840.1 68985.1.1 3.104.2.7 .3.350169 .8 1.2.840.114 350.1.13.10 4.2.7.3.[id number] [facility] 2020-12-19 00:00:00 2020-12-19 00:00:00 Case Management Concha Romero 1.2.840.1 16063.1.1 3.104.2.7 .3.239348 .[id number] [facility] 2020-12-18 00:00:00 2020-12-18 00:00:00 Case Management Genet Daniel 1.2.840.1 23078.1.1 3.104.2.7 .3.288618 .[id number] [facility] 2020-12-15 00:00:00 2020-12-15 00:00:00 Telephone CruzitoJen huttonmaalka Gonzalez 1.2.840.1 46274.1.1 3.104.2.7 .3.589490 .[id number] [facility] 2020-12-15 00:00:00 2020-12-15 00:00:00 Refill Concha Romero 1.2.840.1 03450.1.1 3.104.2.7 .3.006636 .[id number] [facility] 2020-12-15 00:00:00 2020-12-15 00:00:00 Telephone Genet Daniel 1.2.840.1 00350.1.1 3.104.2.7 .3.734212 .[id number] [facility] 2020-12-14 10:30:00 2020-12-14 10:30:00 Outpatient GINNA REAL [facility] [id number] [facility] 2020-12-14 09:21:58 2020-12-14 09:36:58 Captain/Airline Pilot Visit Ginna Reyes, Adc Lab Main 1.2.840.1 37767.1.1 3.104.2.7 .3.669125 .[id number] [facility] 2020-12-14 00:00:00 2020-12-14 00:00:00 Travel 1.2.840.1 03518.1.1 3.104.2.7 .3.924292 .8 1.2.840.114 350.1.13.10 4.2.7.3.[id number] [facility] 2020-12-12 13:02:00 2020-12-12 13:32:00 Telemedici ne Visit Concha Romero 1.2.840.1 48664.1.1 3.104.2.7 .3.179110 .[id number] [facility] 2020-12-12 13:00:00 2020-12-12 13:00:00 Outpatient CONCHA MELARA [facility] [id number] [facility] 2020-12-12 00:00:00 2020-12-12 00:00:00 Orders Only Doctor Unassigned, Mendes 1.2.840.1 44022.1.1 3.104.2.7 .3.941955 .[id number] [facility] 2020-12-11 15:30:00 2020-12-11 15:30:00 Outpatient JASON WILSON [facility] [id number] [facility] 2020-12-11 08:23:18 2020-12-11 08:38:18 Captain/Airline Pilot Visit Fabiana De Souza do, Adc Lab Main 1.2840.1 30771.1.1 3.104.2.7 .3.969892 .[id number] [facility] 2020-12-11 00:00:00 2020-12-11 00:00:00 Telephone Genet Daniel 1.2.840.1 81172.1.1 3.104.2.7 .3.778132 .[id number] [facility] 2020-12-11 00:00:00 2020-12-11 00:00:00 Travel 1.2.840.1 43183.1.1 3.104.2.7 .3.260382 .8 1.2.840.114 350.1.13.10 4.2.7.3.[id number] [facility] 2020-12-06 00:00:00 2020-12-06 00:00:00 Telephone Fabiana De Souza do 1.2.840.1 46726.1.1 3.104.2.7 .3.992608 .[id number] [facility] 2020-12-04 10:52:26 2020-12-04 13:05:34 Office Visit Ginna Reyes Carla G 1.2.840.1 28136.1.1 3.104.2.7 .3.632095 .[id number] [facility] 2020-12-04 11:00:00 2020-12-04 11:00:00 Outpatient GINNA REAL [facility] [id number] [facility] 2020-12-01 11:00:00 2020-12-01 11:00:00 Outpatient TORRIE VERNON [facility] [id number] [facility] 2020-12-01 10:04:59 2020-12-01 10:19:59 Captain/Airline Pilot Visit Torrie Daniel, [facility] Lab Main 1.2.840.1 60213.1.1 3.104.2.7 .3.207195 .[id number] [facility] 2020-12-01 00:00:00 2020-12-01 00:00:00 Travel 1.2.840.1 89983.1.1 3.104.2.7 .3.209359 .8 1.2.840.114 350.1.13.10 4.2.7.3.[id number] [facility] 2020-11-30 10:40:00 2020-11-30 10:40:00 Outpatient R LUIS EAST [facility] [id number] [facility] 2020-11-27 00:00:00 2020-11-27 00:00:00 Transition of Care Monse Arsenio Lisa 1.2.840.1 18872.1.1 3.104.2.7 .3.145510 .[id number] [facility] 2020-11-25 00:00:00 2020-11-25 00:00:00 Jason Sánchez 1.2.840.1 93795.1.1 3.104.2.7 .3.774556 .[id number] [facility] 2020-11-25 00:00:00 2020-11-25 00:00:00 Jason Sánchez 1.2.840.1 41222.1.1 3.104.2.7 .3.449810 .[id number] [facility] 2020-11-21 06:12:00 2020-11-24 17:31:00 Hospital Encounter Mohamud Gracia Luca 1.2.840.1 24234.1.1 3.104.2.7 .3.496147 .[id number] [facility] 2020-11-21 00:00:00 2020-11-21 00:00:00 Travel 1.2.840.1 30449.1.1 3.104.2.7 .3.568541 .8 1.2.840.114 350.1.13.10 4.2.7.3.[id number] [facility] 2020-11-14 00:00:00 2020-11-14 00:00:00 Telephone Luis [place] 1.2.840.1 94753.1.1 3.104.2.7 .3.270185 .[id number] [facility] 2020-11-13 08:10:12 2020-11-13 08:25:12 Captain/Airline Pilot Visit Genet Daniel, [facility] Lab Main 1.2.840.1 55766.1.1 3.104.2.7 .3.306697 .[id number] [facility] 2020-11-13 08:00:00 2020-11-13 08:00:00 Outpatient R GENET DANIEL [facility] [id number] [facility] 2020-11-13 00:00:00 2020-11-13 00:00:00 Telephone Luis [place] 1.2.840.1 22770.1.1 3.104.2.7 .3.302610 .[id number] [facility] 2020-11-13 00:00:00 2020-11-13 00:00:00 Case Management Genet Daniel 1.2.840.1 50664.1.1 3.104.2.7 .3.862207 .[id number] [facility] 2020-11-13 00:00:00 2020-11-13 00:00:00 Travel 1.2.840.1 66116.1.1 3.104.2.7 .3.026667 .8 1.2.840.114 350.1.13.10 4.2.7.3.[id number] [facility] 2020-11-10 00:00:00 2020-11-10 00:00:00 Case Management Genet Daniel 1.2.840.1 29467.1.1 3.104.2.7 .3.972686 .[id number] [facility] 2020-11-09 00:00:00 2020-11-09 00:00:00 Case Management Anne Rol 1.2.840.1 52579.1.1 3.104.2.7 .3.698546 .[id number] [facility] 2020-11-07 09:15:00 2020-11-07 09:15:00 Outpatient R LUIS EAST [facility] [id number] [facility] 2020-11-07 08:59:47 2020-11-07 09:14:47 Captain/Airline Pilot Visit [place], [place] [facility] Main 1.2.840.1 14646.1.1 3.104.2.7 .3.336713 .[id number] [facility] 2020-11-07 00:00:00 2020-11-07 00:00:00 Case Management EricGinna 1.2.840.1 85228.1.1 3.104.2.7 .3.243099 .[id number] [facility] 2020-11-07 00:00:00 2020-11-07 00:00:00 Travel 1.2.840.1 32504.1.1 3.104.2.7 .3.651238 .8 1.2.840.114 350.1.13.10 4.2[address]7.3[id number] [facility] 2020-11-04 00:00:00 2020-11-04 00:00:00 Jason Sánchez 1.2.840.1 56390.1.1 3.104.2.7 .3.255465 .[id number] [facility] 2020-11-01 08:00:00 2020-11-01 23:59:00 Hospital Encounter Ginna Reyes 1.2.840.1 73910.1.1 3.104.2.7 .3.673162 .[id number] [facility] 2020-11-01 00:00:00 2020-11-01 00:00:00 Outpatient R BOB REYESAMALIA [facility] [id number] [facility] 2020-11-01 00:00:00 2020-11-01 00:00:00 Travel 1.2.840.1 49030.1.1 3.104.2.7 .3.416076 .8 1.2.840.114 350.1.13.10 4.2.7.3.[id number] [facility] 2020-10-30 08:52:26 2020-10-30 09:07:26 Captain/Airline Pilot Visit EricBobamalia Ferrera, [facility] Lab Main 1.2.840.1 31929.1.1 3.104.2.7 .3.140660 .[id number] [facility] 2020-10-30 08:00:00 2020-10-30 08:00:00 Outpatient R ERICGINNA [facility] [id number] [facility] 2020-10-30 00:00:00 2020-10-30 00:00:00 Travel 1.2.840.1 54232.1.1 3.104.2.7 .3.099828 .8 1.2.840.114 350.1.13.10 4.2.7.3[id number] [facility] 2020-10-26 00:00:00 2020-10-26 00:00:00 Telephone Rachel Tello 1.2.840.1 31270.1.1 3.104.2.7 .3.917189 .[id number] [facility] 2020-10-25 00:00:00 2020-10-25 00:00:00 Case Management Concha Romero 1.2.840.1 94604.1.1 3.104.2.7 .3.412196 .[id number] [facility] 2020-10-25 00:00:00 2020-10-25 00:00:00 Telephone Rachel Tello 1.2.840.1 43662.1.1 3.104.2.7 .3.925151 .[id number] [facility] 2020-10-24 00:00:00 2020-10-24 00:00:00 Telephone Luis [place] 1.2.840.1 10642.1.1 3.104.2.7 .3.615339 .[id number] [facility] 2020-10-24 00:00:00 2020-10-24 00:00:00 Telephone Rachel Tello 1.2.840.1 35748.1.1 3.104.2.7 .3.201342 .[id number] [facility] 2020-10-23 08:23:59 2020-10-23 08:38:59 Captain/Airline Pilot Visit Genet Daniel, [facility] Main 1.2.840.1 97632.1.1 3.104.2.7 .3.966303 .[id number] [facility] 2020-10-23 08:00:00 2020-10-23 08:00:00 Outpatient R GENET DANIEL [facility] [id number] [facility] 2020-10-23 00:00:00 2020-10-23 00:00:00 Travel 1.2.840.1 54694.1.1 3.104.2.7 .3.730156 .8 1.2.840.114 350.1.13.10 4.2.7.3[id number] [facility] 2020-10-20 00:00:00 2020-10-20 00:00:00 Transition of Care Marialuisa Aguilar 1.2.840.1 01388.1.1 3.104.2.7 .3.470310 .[id number] [facility] 2020-10-14 00:08:00 2020-10-19 21:00:00 Hospital Encounter Concha Romero 1.2.840.1 46649.1.1 3.104.2.7 .3.040693 .[id number] [facility] 2020-10-14 00:00:00 2020-10-14 00:00:00 Orders Only Doctor Unassigned, Mendes 1.2.840.1 22856.1.1 3.104.2.7 .3.425565 .[id number] [facility] 2020-10-14 00:00:00 2020-10-14 00:00:00 Travel 1.2.840.1 89814.1.1 3.104.2.7 .3.660526 .8 1.2.840.114 350.1.13.10 4.2.7.3[id number] [facility] 2020-10-13 16:07:00 2020-10-13 23:09:00 Emergency Jass Steve 1.2.840.1 91342.1.1 3.104.2.7 .3.059235 .[id number] [facility] 2020-10-13 16:07:00 2020-10-13 23:09:00 Emergency X JASS STEVE [facility] [id number] [facility] 2020-10-13 00:00:00 2020-10-13 00:00:00 Orders Only Doctor Unassigned, Mendes 1.2.840.1 51568.1.1 3.104.2.7 .3.302807 .[id number] [facility] 2020-10-13 00:00:00 2020-10-13 00:00:00 Travel 1.2.840.1 98016.1.1 3.104.2.7 .3.355833 .8 1.2.840.114 350.1.13.10 4.2.7.3[id number] [facility] 2020-10-10 00:00:00 2020-10-10 00:00:00 Telephone Luis [place] 1.2.840.1 78042.1.1 3.104.2.7 .3.020027 .[id number] [facility] 2020-10-07 08:35:00 2020-10-07 08:35:00 Outpatient [facility] [id number] [facility] 2020-10-07 08:05:22 2020-10-07 08:15:22 Imm/Inj Visit Nish Krueger Immunizatitristin yuan, [facility] 1.2.840.1 55652.1.1 3.104.2.7 .3.625958 .[id number] [facility] 2020-09-30 00:00:00 2020-09-30 00:00:00 Refill Devante Rothman 1.2.840.1 01065.1.1 3.104.2.7 .3.689954 .[id number] [facility] 2020-09-28 13:06:12 2020-09-28 14:39:59 Office Visit [facility]et [facility] 1.840.114 350.1.13.10 4.2.7.2.[id number] [facility] 2020-09-28 13:45:00 2020-09-28 13:45:00 Outpatient GENET VERNON [facility] [id number] [facility] 2020-09-27 08:42:58 2020-09-27 08:57:58 Captain/Airline Pilot Visit Pob, Adc Lab Main Genet Daniel Marylou [facility] Building 1.114 350.1.13.10 4.2.7.2.[id number] [facility] 2020-09-27 08:00:00 2020-09-27 08:00:00 Outpatient GENET VERNON [facility] [id number] [facility] 2020-09-27 00:00:00 2020-09-27 00:00:00 Orders Only Doctor Unassigned, Mendes [facility] 1.114 350.1.13.10 4.2.7.2.[id number] [facility] 2020-09-25 15:00:00 2020-09-25 15:00:00 Outpatient Claude ALISON MONTALVO [facility] [id number] [facility] 2020-09-25 00:00:00 2020-09-25 00:00:00 Telephone Luis East [facility] .114 350.1.13.10 4.2.7.2.[id number] [facility] 2020-09-22 00:00:00 2020-09-22 00:00:00 Patient Secure Msondina Alison Montalvo [facility] Office Building One 1.114 350.1.13.10 4.2.7.2.[id number] [facility] 2020-09-21 00:00:00 2020-09-21 00:00:00 Case Management Luis East [facility] 1.114 350.1.13.10 4.2.7.2.[id number] [facility] 2020-09-15 00:00:00 2020-09-15 00:00:00 Telephone Genet Daniel [facility] 1.114 350.1.13.10 4.2.7.2.[id number] [facility] 2020-09-13 00:00:00 2020-09-13 00:00:00 Telephone Mariannenymariah [facility] 1.114 350.1.13.10 4.2.7.2.[id number] [facility] 2020-09-09 08:20:00 2020-09-09 08:20:00 Outpatient [facility] [id number] [facility] 2020-09-07 08:19:08 2020-09-07 08:34:08 Captain/Airline Pilot Visit Pob, Adc Lab Main Luis East [facility] 1.114 350.1.13.10 4.2.7.2.[id number] [facility] 2020-09-07 08:15:00 2020-09-07 08:15:00 Outpatient R LUIS EAST [facility] [id number] [facility] 2020-09-07 00:00:00 2020-09-07 00:00:[facility] 1.114 350.1.13.10 4.2.7.2.[id number] [facility] 2020-09-07 00:00:00 2020-09-07 00:00:00 Telephone MariannemaximilianoArtiGenet Marylou [facility] MULTISPEC [facility] 1.840.114 350.1.13.10 4.2.7.2.[id number] [facility] 2020-08-31 11:46:03 2020-08-31 12:01:03 Captain/Airline Pilot Visit Vtc-Lab Luis [place] [facility] 1.0.114 350.1.13.10 4.2.7.2.[id number] [facility] 2020-08-31 10:59:54 2020-08-31 11:42:02 Office Visit Luis [facility] 1..114 350.1.13.10 4.2.7.2.[id number] [facility] 2020-08-31 11:20:00 2020-08-31 11:20:00 Outpatient R LUIS EAST [facility] [id number] [facility] 2020-08-28 00:00:00 2020-08-28 00:00:00 Telephone MarianneGenet vierawaz [facility] MULTISPEC [facility] 1.0.114 350.1.13.10 4.2.7.2.[id number] [facility] 2020-08-24 09:48:32 2020-08-24 10:59:21 Office Visit Erin Chavarria Lindy Skye [facility] MULTISPEC [facility] 1.840.114 350.1.13.10 4.2.7.2.[id number] [facility] 2020-08-24 10:15:00 2020-08-24 10:15:00 Outpatient DELVIN OMALLEY [facility] [id number] Santos krishna [facility] 2020-08-24 07:57:10 2020-08-24 08:12:10 Captain/Airline Pilot Visit Pob, Adc Lab Main [facility] 1.840.114 350.1.13.10 4.2.7.2.[id number] [facility] 2020-08-24 00:00:00 2020-08-24 00:00:00 Case Management Jason Dick [facility] 1.840.114 350.1.13.10 4.2.7.2.[id number] [facility] 2020-08-23 00:00:00 2020-08-23 00:00:00 Refill Genet Daniel [facility] 1.0.114 350.1.13.10 4.2.7.2.[id number] [facility] 2020-08-18 00:00:00 2020-08-18 00:00:00 Telephone John Butcher [facility] MULTISPEC [facility] 1.0.114 350.1.13.10 4.2.7.2.[id number] [facility] 2020-08-11 00:00:00 2020-08-11 00:00:00 [facility] 1.0.114 350.1.13.10 4.2.7.2.[id number] [facility] 2020-08-10 14:52:20 2020-08-10 16:13:21 Office Visit Genet Daniel [facility] MULTISPEC [facility] 1.2840.114 350.1.13.10 4.2.7.2.[id number] [facility] 2020-08-10 15:15:00 2020-08-10 15:15:00 Outpatient R GENET DANIEL [facility] [id number] [facility] 2020-08-10 08:22:58 2020-08-10 08:37:58 Captain/Airline Pilot Visit Pob, Adc Lab Main [facility] 1.2840.114 350.1.13.10 4.2.7.2.[id number] [facility] 2020-08-09 14:55:57 2020-08-09 23:59:00 Hospital Encounter Jose Clay [facility] 1.2840.114 350.1.13.10 4.2.7.2.[id number] [facility] 2020-08-09 00:00:00 2020-08-09 00:00:00 Outpatient R JOSE CLAY [facility] [id number] [facility] 2020-08-08 00:00:00 2020-08-08 00:00:00 Telephone [facility] Building 1.2840.114 350.1.13.10 4.2.7.2.[id number] [facility] 2020-07-25 00:00:00 2020-07-25 00:00:00 Case Management Cordelia [facility] 1.2840.114 350.1.13.10 4.2.7.2.[id number] [facility] 2020-07-24 13:56:15 2020-07-24 14:26:15 Office Visit Devante Rothman [facility] Building 1.114 350.1.13.10 4.2.7.2.[id number] [facility] 2020-07-24 14:00:00 2020-07-24 14:00:00 Outpatient R [facility] [id number] [facility] 2020-07-24 00:00:00 2020-07-24 00:00:00 Telephone [facility] 1..114 350.1.13.10 4.2.7.2.[id number] [facility] 2020-07-24 00:00:00 2020-07-24 00:00:00 Telephone [facility] 1..114 350.1.13.10 4.2.7.2.[id number] [facility] 2020-07-20 11:26:48 2020-07-20 13:06:12 Office Visit [facility] 1.114 350.1.13.10 4.2.7.2.[id number] [facility] 2020-07-20 11:40:00 2020-07-20 11:40:00 Outpatient R [facility] [id number] [facility] 2020-07-20 08:35:28 2020-07-20 08:50:28 Captain/Airline Pilot Visit Pob, Adc Lab Main [place] Jose [facility] Building 1.114 350.1.13.10 4.2.7.2.[id number] [facility] 2020-07-18 00:00:00 2020-07-18 00:00:00 Refill [facility] 1.2.114 350.1.13.10 4.2.7.2.[id number] [facility] 2020-07-17 15:09:18 2020-07-17 15:24:18 Captain/Airline Pilot Visit [facility] 1..114 350.1.13.10 4.2.7.2.[id number] [facility] 2020-07-17 13:54:37 2020-07-17 14:09:37 Office Visit [facility] 1.0.114 350.1.13.10 4.2.7.2.[id number] [facility] 2020-07-17 14:00:00 2020-07-17 14:00:00 Outpatient R [facility] [id number] [facility] 2020-07-14 00:00:00 2020-07-14 00:00:00 Refill [facility] 1..114 350.1.13.10 4.2.7.2.[id number] [facility] 2020-07-13 09:58:01 2020-07-13 10:13:01 Captain/Airline Pilot Visit Pob, Ad[facility] Lab Main [facility] 1.114 350.1.13.10 4.2.7.2.[id number] [facility] 2020-07-13 10:00:00 2020-07-13 10:00:00 Outpatient R [facility] [id number] [facility] 2020-07-10 00:00:00 2020-07-10 00:00:00 Case Management Concha Romero [facility] 1.114 350.1.13.10 4.2.7.2.[id number] [facility] 2020-07-07 00:00:00 2020-07-07 00:00:00 Case Management Con[facility] 1.114 350.1.13.10 4.2.7.2.[id number] [facility] 2020-07-06 08:27:25 2020-07-06 08:42:25 Captain/Airline Pilot Visit Pob, Adc Lab Main Luis [facility] 1.114 350.1.13.10 4.2.7.2.[id number] [facility] 2020-07-06 08:30:00 2020-07-06 08:30:00 Outpatient R [facility] [id number] [facility] 2020-07-03 00:00:00 2020-07-03 00:00:00 Telephone Fabiana De Souza do [facility] 1. 350.1.13.10 4.2.7.2.[id number] [facility] 2020-06-23 00:00:00 2020-06-23 00:00:00 Michael Gomez [facility] .114 350.1.13.10 4.2.7.2.[id number] [facility] 2020-06-23 00:00:00 2020-06-23 00:00:00 Case Management Jose Clay [facility] 1.114 350.1.13.10 4.2.7.2.[id number] [facility] 2020-06-22 11:20:23 2020-06-22 12:58:30 Office Visit Fabiana De Souza do, Muhammad A [facility] 1..114 350.1.13.10 4.2.7.2.[id number] [facility] 2020-06-22 11:40:00 2020-06-22 11:40:00 Outpatient R [facility] [id number] [facility] 2020-06-22 09:09:14 2020-06-22 09:24:14 Captain/Airline Pilot Visit Iban, Adc Lab Main Luis [place] [facility] 1.114 350.1.13.10 4.2.7.2.[id number] [facility] 2020-06-22 00:00:00 2020-06-22 00:00:00 Orders Only Doctor Unassigned, Mendes [facility] 1..114 350.1.13.10 4.2.7.2.[id number] [facility] 2020-06-22 00:00:00 2020-06-22 00:00:00 Refill Luis East [facility] MULTISPEC [facility]TY [facility] 1..114 350.1.13.10 4.2.7.2.[id number] [facility] 2020-06-20 00:00:00 2020-06-20 00:00:00 Telephone Concha Romero [facility] MULTISPEC [facility] 1.2.840.114 350.1.13.10 4.2.7.2.[id number] [facility] 2020-06-19 00:00:00 2020-06-19 00:00:00 Patient Secure Devante Albert [facility] PROFESSIO [facility] 1.2840.114 350.1.13.10 4.2.7.2.[id number] [facility] 2020-06-15 09:25:08 2020-06-15 09:40:08 Captain/Airline Pilot Visit Pob, Adc Lab Main Luis East [facility] Building 1..114 350.1.13.10 4.2.7.2.[id number] [facility] 2020-06-15 09:30:00 2020-06-15 09:30:00 Outpatient R [facility] [id number] [facility] 2020-06-15 00:00:00 2020-06-15 00:00:00 Case Management Concha Romero [facility] 1..114 350.1.13.10 4.2.7.2.[id number] [facility] 2020-06-13 00:00:00 2020-06-13 00:00:00 Telephone Luis East [facility] MULTISPEC IALTY C[facility] 1..114 350.1.13.10 4.2.7.2.[id number] [facility] 2020-06-11 00:00:00 2020-06-11 00:00:00 Telephone Concha Romero [facility] 1..114 350.1.13.10 4.2.7.2.[id number] [facility] 2020-06-10 00:00:00 2020-06-10 00:00:00 Jose Rangel [facility] 1..114 350.1.13.10 4.2.7.2.[id number] [facility] 2020-06-09 00:00:00 2020-06-09 00:00:00 Case Management Colin Veliz [facility] MULTISPEC [facility]ALTY [facility] 1.0.114 350.1.13.10 4.2.7.2.686 [id number] 2020-06-09 00:00:00 2020-06-09 00:00:00 Case Management Colin Veliz [facility] IALTY [place] [facility] 1..114 350.1.13.10 4.2.7.2.[id number] [facility] 2020-06-09 00:00:00 2020-06-09 00:00:00 Telephone Jason Dick [facility] 1..114 350.1.13.10 4.2.7.2.[id number] [facility] 2020-06-08 10:45:00 2020-06-08 10:45:00 Outpatient R CONCHA ROMERO [facility] [id number] [facility] 2020-06-08 08:58:29 2020-06-08 09:13:29 Captain/Airline Pilot Visit Pob, Adc Lab Main Concha Romero [facility] 1..114 350.1.13.10 4.2.7.2.[id number] [facility] 2020-06-08 00:00:00 2020-06-08 00:00:00 Telephone Concha Romero [facility] [place] [facility] 1..114 350.1.13.10 4.2.7.2.686 [id number] 2020-06-08 00:00:00 2020-06-08 00:00:00 Case Management Nick [facility] MULTISPEC [facility]ALTY CENTER [facility] 1.840.114 350.1.13.10 4.2.7.2.686 [id number] 2020-06-08 00:00:00 2020-06-08 00:00:00 Orders Only Doctor Unassigned, Mendes [facility] 1.840.114 350.1.13.10 4.2.7.2.[id number] [facility] 2020-06-08 00:00:00 2020-06-08 00:00:00 [facility] 1.840.114 350.1.13.10 4.2.7.2.[id number] [facility] 2020-06-08 00:00:00 2020-06-08 00:00:00 Case Management [facility] 1.840.114 350.1.13.10 4.2.7.2.[id number] [facility] 2020-06-06 00:00:00 2020-06-06 00:00:00 Case Management [facility] 1.840.114 350.1.13.10 4.2.7.2.[id number] [facility] 2020-05-30 00:00:00 2020-05-30 00:00:00 Transition of Care Marialuisa Aguilar 1.840.114 350.1.13.10 4.2.7.2.[id number] [facility] 2020-05-30 00:00:00 2020-05-30 00:00:00 Telephone Gneet Danielwaz [facility] 1.0.114 350.1.13.10 4.2.7.2.[id number] [facility] 2020-05-30 00:00:00 2020-05-30 00:00:00 Telephone Genet [facility] 1..114 350.1.13.10 4.2.7.2.[id number] [facility] 2020-05-30 00:00:00 2020-05-30 00:00:00 RefConcha Diaz [facility] IALTY [place] [facility] 1..114 350.1.13.10 4.2.7.2.[id number] [facility] 2020-05-29 13:57:38 2020-05-29 14:12:38 Captain/Airline Pilot Visit Iban, Trent Lab Main Luis [place] [facility] 1.114 350.1.13.10 4.2.7.2.[id number] [facility] 2020-05-29 14:00:00 2020-05-29 14:00:00 Outpatient R [facility] [id number] [facility] 2020-05-29 00:00:00 2020-05-29 00:00:00 Patient Secure Msg RothmanDevante [facility] MULTISPEC [facility]ALTY [facility] 1..114 350.1.13.10 4.2.7.2.[id number] [facility] 2020-05-29 00:00:00 2020-05-29 00:00:00 Telephone Jonel Ben H [facility] MULTISPEC [facility]ALTY [facility] 1..114 350.1.13.10 4.2.7.2.[id number] [facility] 2020-05-25 13:21:00 2020-05-27 18:41:00 Hospital Encounter Mohamud Gracia Rupak Dilip Jennie [facility] 1..114 350.1.13.10 4.2.7.2.[id number] [facility] 2020-05-25 00:00:00 2020-05-25 00:00:00 Outpatient R JOSE CLAY [facility] [id number] [facility] 2020-05-25 00:00:00 2020-05-25 00:00:00 Case Management Luis East [facility] MULTISPEC IALTY [facility] 1.114 350.1.13.10 4.2.7.2.[id number] [facility] 2020-05-24 00:00:00 2020-05-24 00:00:00 Case Management Jose Clay [facility] 1..114 350.1.13.10 4.2.7.2.[id number] [facility] 2020-05-23 00:00:00 2020-05-23 00:00:00 Orders Only Doctor Unassigned, Mendes [facility] 1..114 350.1.13.10 4.2.7.2.[id number] [facility] 2020-05-23 00:00:00 2020-05-23 00:00:00 Patient Secure MsDevante Aleman [facility] PROFESSIO [facility] 1..114 350.1.13.10 4.2.7.2.[id number] [facility] 2020-05-22 13:00:00 2020-05-22 13:00:00 Outpatient R JEAN-CLAUDEAngelaJOSE [facility] [id number] [facility] 2020-05-22 09:13:24 2020-05-22 09:28:24 Captain/Airline Pilot Visit Iban, Trent Lab Main Luis East [facility] Building 1.114 350.1.13.10 4.2.7.2.[id number] [facility] 2020-05-22 07:45:25 2020-05-22 08:00:25 Telemedici ne Visit Jean-ClaudeangelaJose [facility] 1.114 350.1.13.10 4.2.7.2.[id number] [facility] 2020-05-22 00:00:00 2020-05-22 00:00:00 Concha Piedra [facility] 1.114 350.1.13.10 4.2.7.2.[id number] [facility] 2020-05-15 07:56:39 2020-05-15 08:11:39 Captain/Airline Pilot Visit Iban, Trent Lab Main Jason Osorio [facility] Building 1.114 350.1.13.10 4.2.7.2.[id number] [facility] 2020-05-15 08:00:00 2020-05-15 08:00:00 Outpatient JASON WREN [facility] [id number] [facility] 2020-05-15 00:00:00 2020-05-15 00:00:00 Orders Only Doctor Unassigned, Mendes [facility] 1.114 350.1.13.10 4.2.7.2.[id number] [facility] 2020-05-12 13:05:05 2020-05-12 13:41:51 Office Visit Jorge Luis Huston [facility] 1.840.114 350.1.13.10 4.2.7.2.[id number] [facility] 2020-05-12 13:00:00 2020-05-12 13:00:00 Outpatient R JORGE LUIS HUSTON [facility] [id number] [facility] 2020-05-08 08:25:36 2020-05-08 08:40:36 Captain/Airline Pilot Visit Pob, Adc Lab Michael Silverman [facility] 1.0.114 350.1.13.10 4.2.7.2.[id number] [facility] 2020-05-08 08:30:00 2020-05-08 08:30:00 Outpatient R MICHAEL CORTES [facility] [id number] [facility] 2020-05-05 00:00:00 2020-05-05 00:00:00 Patient Secure Msg Doctor Unassigned, Mendes [facility] 1.0.114 350.1.13.10 4.2.7.2.[id number] [facility] 2020-05-05 00:00:00 2020-05-05 00:00:00 Case Management Ben Remy [facility] MULTISPEC IAY CENTER [facility] 1..114 350.1.13.10 4.2.7.2.[id number] [facility] 2020-05-01 16:53:00 2020-05-04 13:28:00 Hospital Encounter Karthik Lindquist [facility] 1..114 350.1.13.10 4.2.7.2.[id number] [facility] 2020-05-01 12:00:00 2020-05-01 12:00:00 Outpatient R ERIC BOBNADERLisa [facility] [id number] [facility] 2020-05-01 08:09:55 2020-05-01 08:48:47 Laboratory Only Only, Adc Test Ginna Reyes Sreeram [facility] 1..114 350.1.13.10 4.2.7.2.[id number] [facility] 2020-05-01 08:08:54 2020-05-01 08:23:54 Captain/Airline Pilot Visit Pob, Adc Lab Main Concha Romero [facility] 1.114 350.1.13.10 4.2.7.2.[id number] [facility] 2020-05-01 07:39:51 2020-05-01 08:09:51 Telemedici ne Visit Ginna Reyes [facility] 1.114 350.1.13.10 4.2.7.2.[id number] [facility] 2020-05-01 08:00:00 2020-05-01 08:00:00 Outpatient THERON CUMMINGS [facility] [id number] [facility] 2020-05-01 00:00:00 2020-05-01 00:00:00 Orders Only Doctor Unassigned, Mendes [facility] 1.114 350.1.13.10 4.2.7.2.[id number] [facility] 2020-04-30 00:00:00 2020-04-30 00:00:00 RefConcha Diaz [facility] 1.114 350.1.13.10 4.2.7.2.[id number] [facility] 2020-04-30 00:00:00 2020-04-30 00:00:00 Luis Jalloh [facility] MULTISPEC IALTY CENTER [facility] 1.840.114 350.1.13.10 4.2.7.2.[id number] [facility] 2020-04-28 13:50:03 2020-04-28 14:56:41 Office Visit Jorge Luis Huston [facility] 1.0.114 350.1.13.10 4.2.7.2.[id number] [facility] 2020-04-28 14:30:00 2020-04-28 14:30:00 Outpatient R JORGE LUIS HUSTON [facility] [id number] [facility] 2020-04-27 14:00:00 2020-04-27 14:00:00 Outpatient R STEPHENIE LOPEZ [facility] [id number] [facility] 2020-04-27 00:00:00 2020-04-27 00:00:00 Orders Only Doctor Unassigned, Mendes [facility] 1.840.114 350.1.13.10 4.2.7.2.[id number] [facility] 2020-04-25 11:36:00 2020-04-25 14:13:00 Emergency Mohamud Gracia [facility] 1.20.114 350.1.13.10 4.2.7.2.[id number] [facility] 2020-04-25 10:00:00 2020-04-25 10:00:00 Outpatient R JORGE LUIS HUSTON [facility] [id number] [facility] 2020-04-25 00:00:00 2020-04-25 00:00:00 Telephone Genet Daniel [facility] MULTISPEC [facility]ALTY [facility] 1.0.114 350.1.13.10 4.2.7.2.[id number] [facility] 2020-04-25 00:00:00 2020-04-25 00:00:00 Telephone Luis East [facility] MULTISPEC IALTY [facility] 1.840.114 350.1.13.10 4.2.7.2.[id number] [facility] 2020-04-24 07:54:55 2020-04-24 11:33:38 Laboratory Only Only, Adc Test Concha Romero [facility] 1.840.114 350.1.13.10 4.2.7.2.[id number] [facility] 2020-04-24 07:54:03 2020-04-24 08:09:03 Captain/Airline Pilot Visit Pob, Adc Lab Main Concha Romero [facility] Professio [facility] Building 1.840.114 350.1.13.10 4.2.7.2.[id number] [facility] 2020-04-24 08:00:00 2020-04-24 08:00:00 Outpatient R CONCHA ROMERO [facility] [id number] [facility] 2020-04-24 00:00:00 2020-04-24 00:00:00 Becky Simmons [facility] PRIMARY CARE PAVILLION 1.0.114 350.1.13.10 4.2.7.2.[id number] [facility] 2020-04-24 00:00:00 2020-04-24 00:00:00 Concha Piedra [facility] MULTISPEC IALTY [facility] 1.0.114 350.1.13.10 4.2.7.2.[id number] [facility] 2020-04-24 00:00:00 2020-04-24 00:00:00 Luis Jalloh [facility] MULTISPEC IALTY CENTER [facility] 1.2840.114 350.1.13.10 4.2.7.2.[id number] [facility] 2020-04-21 00:00:00 2020-04-21 00:00:00 Case Management Ginna Reyes [facility] 1.0.114 350.1.13.10 4.2.7.2.[id number] [facility] 2020-04-20 14:59:21 2020-04-20 23:59:00 Hospital Encounter Genet Danielwaz [facility] 1.840.114 350.1.13.10 4.2.7.2.[id number] [facility] 2020-04-20 07:48:25 2020-04-20 19:01:50 Telemedici ne Visit Ben Remy [facility] 1.0.114 350.1.13.10 4.2.7.2.[id number] [facility] 2020-04-20 13:30:00 2020-04-20 13:30:00 Outpatient R BEN REMY [facility] [id number] [facility] 2020-04-20 00:00:00 2020-04-20 00:00:00 Telephone Jason Dick [facility] MULTISPEC [facility]ALTY [facility] 1..114 350.1.13.10 4.2.7.2.[id number] [facility] 2020-04-17 08:16:14 2020-04-17 08:31:14 Captain/Airline Pilot Visit Pob, Adc Lab Main Nick, Rupak [facility] Building 1..114 350.1.13.10 4.2.7.2.[id number] [facility] 2020-04-17 08:00:00 2020-04-17 08:00:00 Outpatient CONCHA MELARA [facility] [id number] [facility] 2020-04-11 09:30:00 2020-04-11 09:30:00 Outpatient R BEN REMY [facility] [id number] [facility] 2020-04-11 08:21:26 2020-04-11 08:36:26 Captain/Airline Pilot Visit Pob, Adc Lab Main Concha Romero [facility] 1.114 350.1.13.10 4.2.7.2.[id number] [facility] 2020-04-11 08:30:00 2020-04-11 08:30:00 Outpatient R JUANCARLOS ROMEROAKTristan [facility] [id number] [facility] 2020-04-11 00:00:00 2020-04-11 00:00:00 Orders Only Doctor Unassigned, Mendes [facility] 1..114 350.1.13.10 4.2.7.2.[id number] [facility] 2020-04-08 00:00:00 2020-04-08 00:00:00 Michael Gomez [facility] 1..114 350.1.13.10 4.2.7.2.[id number] [facility] 2020-04-05 00:00:00 2020-04-05 00:00:00 Case Management Ginna Reyes [facility] 1.114 350.1.13.10 4.2.7.2.[id number] [facility] 2020-04-04 08:39:34 2020-04-04 23:59:00 Hospital Encounter Jonel [facility] 1.840.114 350.1.13.10 4.2.7.2.[id number] [facility] 2020-04-04 10:00:00 2020-04-04 10:00:00 Outpatient R JONEL [facility] [id number] [facility] 2020-04-04 08:38:56 2020-04-04 08:38:56 Hospital Encounter Jonel [facility] 1..114 350.1.13.10 4.2.7.2.[id number] [facility] 2020-04-03 09:27:47 2020-04-03 23:59:00 Hospital Encounter Jean-Claudeangela Jose [facility] 1..114 350.1.13.10 4.2.7.2.[id number] [facility] 2020-04-03 16:00:00 2020-04-03 16:00:00 Outpatient R JASON DICK [facility] [id number] [facility] 2020-04-03 09:33:58 2020-04-03 09:48:58 Captain/Airline Pilot Visit Poagnieszka, Adc Lab Main Concha Romero [facility] Professio [facility] Building 1.114 350.1.13.10 4.2.7.2.[id number] [facility] 2020-04-03 07:42:15 2020-04-03 07:57:15 Telemedici ne Visit Jason Dick [facility] 1.114 350.1.13.10 4.2.7.2.[id number] [facility] 2020-04-01 00:00:00 2020-04-01 00:00:00 Patient Secure Msg Doctor Unassigned, Mendes [facility] 1.2840.114 350.1.13.10 4.2.7.2.[id number] [facility] 2020-03-31 10:32:40 2020-03-31 10:47:40 Laboratory Only Only, Adc Test Valentine Roberts [facility] 1.2840.114 350.1.13.10 4.2.7.2.[id number] [facility] 2020-03-31 10:30:00 2020-03-31 10:30:00 Outpatient R ARMANDO VALENTINE [facility] [id number] [facility] 2020-03-31 00:00:00 2020-03-31 00:00:00 Patient Secure Msg Doctor Unassigned, Mendes [facility] 1.2840.114 350.1.13.10 4.2.7.2.[id number] [facility] 2020-03-30 00:00:00 2020-03-30 00:00:00 Telephone Luis East [facility] 1.2840.114 350.1.13.10 4.2.7.2.[id number] [facility] 2020-03-28 00:00:00 2020-03-28 00:00:00 Case Management Genet Daniel [facility] MULTISPEC IALTY CENTER AND [facility] 1.840.114 350.1.13.10 4.2.7.2.[id number] [facility] 2020-03-27 11:40:00 2020-03-27 11:40:00 Outpatient R FABIANA DE SOUZA DO [facility] [id number] [facility] 2020-03-27 09:02:38 2020-03-27 09:17:38 Captain/Airline Pilot Visit Pob, Adc Lab Main RobertsValentine Rupak Dilip [facility] Building 1.114 350.1.13.10 4.2.7.2.[id number] [facility] 2020-03-27 08:10:23 2020-03-27 08:25:23 Telemedici ne Visit Luis East do, Fabiana Yuan [facility] MULTISPEC IALTY CENTER AND [facility] 1.114 350.1.13.10 4.2.7.2.[id number] [facility] 2020-03-27 00:00:00 2020-03-27 00:00:00 Case Management Jose Clay [facility] 1..114 350.1.13.10 4.2.7.2.[id number] [facility] 2020-03-27 00:00:00 2020-03-27 00:00:00 Michael Gomez [facility] 1..114 350.1.13.10 4.2.7.2.[id number] [facility] 2020-03-27 00:00:00 2020-03-27 00:00:00 Telephone Torrie Daniel [facility] 1..114 350.1.13.10 4.2.7.2.[id number] [facility] 2020-03-27 00:00:00 2020-03-27 00:00:00 Pre Visit Outreach Alison Montalvo [facility] Building 1.114 350.1.13.10 4.2.7.2.[id number] [facility] 2020-03-24 10:00:00 2020-03-24 10:00:00 Outpatient R JONEL BEN [facility] [id number] [facility] 2020-03-24 00:00:00 2020-03-24 00:00:00 Telephone Ben Remy [facility] 1..840.114 350.1.13.10 4.2.7.2.[id number] [facility] 2020-03-23 15:30:00 2020-03-23 15:30:00 Outpatient R STEPHENIE LOPEZ [facility] [id number] [facility] 2020-03-22 07:54:21 2020-03-22 10:56:42 Telemedici ne Visit Alison Montalvo [facility] 1..840.114 350.1.13.10 4.2.7.2.[id number] [facility] 2020-03-22 10:15:00 2020-03-22 10:15:00 Outpatient R ALISON MONTALVO [facility] [id number] [facility] 2020-03-20 13:32:53 2020-03-20 14:02:53 Telemedici ne Visit Mimi Devante [facility] 1.2.840.114 350.1.13.10 4.2.7.2.[id number] [facility] 2020-03-20 14:00:00 2020-03-20 14:00:00 Outpatient R MIMI [facility] [id number] [facility] 2020-03-20 10:00:00 2020-03-20 10:00:00 Outpatient R AQUILINO MONTALVONARDA [facility] [id number] [facility] 2020-03-20 08:54:12 2020-03-20 09:09:12 Captain/Airline Pilot Visit Only, Adc Test Roberts, [facility] 1.2.840.114 350.1.13.10 4.2.7.2.[id number] [facility] 2020-03-20 08:52:19 2020-03-20 09:07:19 Captain/Airline Pilot Visit 1, Adc Lab [facility] 1.2.840.114 350.1.13.10 4.2.7.2.[id number] [facility] 2020-03-20 00:00:00 2020-03-20 00:00:00 Orders Only Doctor Unassigned, Mendes [facility] 1.2.840.114 350.1.13.10 4.2.7.2.[id number] [facility] 2020-03-20 00:00:00 2020-03-20 00:00:00 Case Management Ben Remy [facility] 1.2.840.114 350.1.13.10 4.2.7.2.[id number] [facility] 2020-03-17 14:18:21 2020-03-17 15:33:46 Office Visit Kelsey Chou [facility] 1.2.840.114 350.1.13.10 4.2.7.2.[id number] [facility] 2020-03-17 14:00:00 2020-03-17 14:00:00 Outpatient R KELSEY CHOU [facility] [id number] [facility] 2020-03-15 00:00:00 2020-03-15 00:00:00 Telephone Concha Romero [facility] 1.2.840.114 350.1.13.10 4.2.7.2.[id number] [facility] 2020-03-15 00:00:00 2020-03-15 00:00:00 Jason Sánchez [facility] 1.114 350.1.13.10 4.2.7.2.[id number] [facility] 2020-03-14 00:00:00 2020-03-14 00:00:00 [facility] 1.114 350.1.13.10 4.2.7.2.[id number] [facility] 2020-03-13 13:56:00 2020-03-13 14:11:00 Telemedici ne Visit Concha Romero Vadim [facility] 1.114 350.1.13.10 4.2.7.2.[id number] [facility] 2020-03-13 08:26:00 2020-03-13 08:41:00 Captain/Airline Pilot Visit Pob, Adc Lab Main Concha Romero Vadim [facility] 1.114 350.1.13.10 4.2.7.2.[id number] [facility] 2020-03-13 08:15:00 2020-03-13 08:15:00 Outpatient R CONCHA ROMERO [facility] [id number] [facility] 2020-03-13 00:00:00 2020-03-13 00:00:00 Patient Secure CarlozairaDevante e[facility]var[facility] 1.114 350.1.13.10 4.2.7.2.[id number] [facility] [facility] 2020-03-06 08:26:05 2020-03-07 10:23:07 Captain/Airline Pilot Visit Pob, Adc Lab Main Valentine Rboertslkarnilson Enatristan Fierro [facility] Building 1..114 350.1.13.10 4.2.7.2.[id number] [facility] 2020-03-07 00:00:00 2020-03-07 00:00:00 Telephone [facility] [place] [facility] 1.114 350.1.13.10 4.2.7.2.[id number] [facility] 2020-03-06 08:15:00 2020-03-06 08:15:00 Outpatient VALENTINE LOPEZ [facility] [id number] [facility] 2020-03-06 00:00:00 2020-03-06 00:00:00 Orders Only Doctor Unassigned, Mendes [facility] 1.114 350.1.13.10 4.2.7.2.[id number] [facility] 2020-03-06 00:00:00 2020-03-06 00:00:00 Case Management Jason Dick [facility] 1..114 350.1.13.10 4.2.7.2.[id number] [facility] 2020-02-29 00:00:00 2020-02-29 00:00:00 Orders Only Doctor Unassigned, Mendes [facility] 1.0.114 350.1.13.10 4.2.7.2.[id number] [facility] 2020-02-28 08:06:54 2020-02-28 08:21:54 Captain/Airline Pilot Visit Pob, Adc Lab Juancarlos Blankenshipclaudiatristan [facility] Building 1.114 350.1.13.10 4.2.7.2.[id number] [facility] 2020-02-28 08:15:00 2020-02-28 08:15:00 Outpatient R CONCHA ROMERO [facility] [id number] [facility] 2020-02-28 00:00:00 2020-02-28 00:00:00 Telephone Alison Montalvo [facility] Building 1.0.114 350.1.13.10 4.2.7.2.[id number] [facility] 2020-02-28 00:00:00 2020-02-28 00:00:00 Orders Only Doctor Unassigned, Mendes [facility] 1..114 350.1.13.10 4.2.7.2.[id number] [facility] 2020-02-26 00:00:00 2020-02-26 00:00:00 Telephone Luis East [facility] MULTISPEC [facility]TY [facility] 1.114 350.1.13.10 4.2.7.2.[id number] [facility] 2020-02-25 12:00:00 2020-02-25 12:00:00 Outpatient CHIO Arce RAI [facility] [id number] [facility] 2020-02-25 00:00:00 2020-02-25 00:00:00 Abstract Genet Daniel [facility] MULTISPEC [facility] 1.114 350.1.13.10 4.2.7.2.[id number] [facility] 2020-02-25 00:00:00 2020-02-25 00:00:00 Telephone Alison Montalvo [facility] Building 1..114 350.1.13.10 4.2.7.2.[id number] [facility] 2020-02-24 11:35:00 2020-02-24 11:35:00 Outpatient R CRUZITO LUIS [facility] [id number] [facility] 2020-02-24 08:12:39 2020-02-24 08:27:39 Captain/Airline Pilot Visit Pob, Adc Lab Main [facility] 1.0.114 350.1.13.10 4.2.7.2.[id number] [facility] 2020-02-24 07:53:01 2020-02-24 08:08:01 Telemedici ne Visit Cruzito Luis Gonzalez [facility] MULTISPEC [facility] 1.0.114 350.1.13.10 4.2.7.2.[id number] [facility] 2020-02-24 00:00:00 2020-02-24 00:00:00 Case Management Concha Romero [facility] MULTISPEC [facility]TY [facility] 1..114 350.1.13.10 4.2.7.2.[id number] [facility] 2020-02-23 00:00:00 2020-02-23 00:00:00 Transition of Care Marialuisa Aguilar 1..114 350.1.13.10 4.2.7.2.[id number] [facility] 2020-02-22 00:00:00 2020-02-22 00:00:00 Case Management Concha Romero [facility] MULTISPEC [facility]TY [facility] 1..114 350.1.13.10 4.2.7.2.[id number] [facility] 2020-02-22 00:00:00 2020-02-22 00:00:00 Telephone Alison Montalvo [facility] Office Building One 1.114 350.1.13.10 4.2.7.2.[id number] [facility] 2020-02-20 16:13:30 2020-02-21 17:45:00 Emergency Juliane Worley Wakili S Cicalese, Jose [facility] 1.114 350.1.13.10 4.2.7.2.[id number] [facility] 2020-02-21 09:30:00 2020-02-21 09:30:00 Outpatient R MIMI DEVANTE [facility] [id number] [facility] 2020-02-20 15:23:54 2020-02-20 15:53:54 Telemedici ne Visit Care, Rosa Adult Urgent Unknown, Attending [facility] 1.114 350.1.13.10 4.2.7.2.[id number] [facility] 2020-02-20 15:30:00 2020-02-20 15:30:00 Outpatient R UNKNOWN, ATTENDING [facility] [id number] [facility] 2020-02-18 00:00:00 2020-02-18 00:00:00 Telephone Devante Rothman [facility] Building 1.114 350.1.13.10 4.2.7.2.[id number] [facility] 2020-02-17 00:00:00 2020-02-17 00:00:00 Jason Sánchez [facility] MULTISPEC [facility]ALTY [facility] 1.114 350.1.13.10 4.2.7.2.[id number] [facility] 2020-02-17 00:00:00 2020-02-17 00:00:00 Telephone Luis East [facility] 1.114 350.1.13.10 4.2.7.2.[id number] [facility] 2020-02-17 00:00:00 2020-02-17 00:00:00 Orders Only Doctor Unassigned, Mendes [facility] 1.114 350.1.13.10 4.2.7.2.[id number] [facility] 2020-02-17 00:00:00 2020-02-17 00:00:00 Telephone Tinomariah [facility] 1.114 350.1.13.10 4.2.7.2.[id number] [facility] 2020-02-15 08:10:34 2020-02-15 13:24:16 Telemedici ne Visit Alison Montalvo [facility] 1.84.114 350.1.13.10 4.2.7.2.[id number] [facility] 2020-02-15 11:45:00 2020-02-15 11:45:00 Outpatient R ALISON MONTALVO [facility] [id number] [facility] 2020-02-14 00:00:00 2020-02-14 00:00:00 Outpatient [facility] [id number] [facility] 2020-02-11 00:00:00 2020-02-11 00:00:00 [facility] 1.114 350.1.13.10 4.2.7.2.[id number] [facility] 2020-02-10 00:00:00 2020-02-10 00:00:00 Outpatient [facility] [id number] [facility] 2020-02-10 00:00:00 2020-02-10 00:00:00 Telephone Luis East [facility] MULTISPEC [facility]ALTY [facility] 1..114 350.1.13.10 4.2.7.2.[id number] [facility] 2020-02-10 00:00:00 2020-02-10 00:00:00 Orders Only Doctor Unassigned, Mendes [facility] 1.0.114 350.1.13.10 4.2.7.2.[id number] [facility] 2020-02-09 00:00:00 2020-02-09 00:00:00 Telephone Fabiana De Souza do [facility] MULTISPEC IALTY [facility] 1..114 350.1.13.10 4.2.7.2.[id number] [facility] 2020-02-08 00:00:00 2020-02-08 00:00:00 Telephone Devante Rothman [facility] 1..114 350.1.13.10 4.2.7.2.[id number] [facility] 2020-02-08 00:00:00 2020-02-08 00:00:00 Case Management Jason Dick [facility] IALTY [facility] 1..114 350.1.13.10 4.2.7.2.[id number] [facility] 2020-02-07 14:30:00 2020-02-07 14:30:00 Outpatient R JASON DICK [facility] [id number] [facility] 2020-02-07 13:18:12 2020-02-07 13:48:12 Telemedici ne Visit Jason Dick [facility] 1.114 350.1.13.10 4.2.7.2.[id number] [facility] 2020-02-07 00:00:00 2020-02-07 00:00:00 Refill Mimi [facility] MULTISPEC IALTY [facility] 1.2.840.114 350.1.13.10 4.2.7.2.[id number] [facility] 2020-02-07 00:00:00 2020-02-07 00:00:00 Telephone Fabiana De Souza do [facility] MULTISPEC [facility]TY [facility] 1..840.114 350.1.13.10 4.2.7.2.[id number] [facility] 2020-02-07 00:00:00 2020-02-07 00:00:00 Telephone Mimi [facility] I[facility]TY [place] [facility] 1..840.114 350.1.13.10 4.2.7.2.[id number] [facility] 2020-02-04 00:00:00 2020-02-04 00:00:00 Telephone John Butcher [facility] 1..840.114 350.1.13.10 4.2.7.2.[id number] [facility] 2020-02-04 00:00:00 2020-02-04 00:00:00 Telephone Jason Dick [facility] 1..840.114 350.1.13.10 4.2.7.2.[id number] [facility] 2020-02-03 12:29:29 2020-02-03 12:59:29 [facility]medici ne [facility] [place] [facility] 1..840.114 350.1.13.10 4.2.7.2.[id number] [facility] 2020-02-03 10:55:00 2020-02-03 10:55:00 Outpatient R LUIS AEST [facility] [id number] [facility] 2020-02-03 08:21:54 2020-02-03 08:36:54 Captain/Airline Pilot Visit Pob, Adc Lab Main Luis East [facility] Building 1.0.114 350.1.13.10 4.2.7.2.[id number] [facility] 2020-02-03 08:04:18 2020-02-03 08:19:18 Telemedici ne Visit John Butcher Luis East [facility] MULTISPEC [facility]TY [facility] 1.0.114 350.1.13.10 4.2.7.2.[id number] [facility] 2020-02-03 00:00:00 2020-02-03 00:00:00 Case Management Concha Romero [facility] MULTISPEC IALTY [facility] 1.0.114 350.1.13.10 4.2.7.2.[id number] [facility] 2020-02-03 00:00:00 2020-02-03 00:00:00 Telephone Concha Romero [facility] MULTISPEC [facility]TY [facility] 1.0.114 350.1.13.10 4.2.7.2.[id number] [facility] 2020-02-03 00:00:00 2020-02-03 00:00:00 Telephone Alison Montalvo [facility] Building 1.0.114 350.1.13.10 4.2.7.2.[id number] [facility] 2020-02-02 00:00:00 2020-02-02 00:00:00 Telephone Concha Romero [facility] MULTISPEC [facility]TY [facility] 1.114 350.1.13.10 4.2.7.2.[id number] [facility] 2020-02-01 00:00:00 2020-02-01 00:00:00 Transition of Care Arsenio Shea Tijerina Tyson 1.114 350.1.13.10 4.2.7.2.[id number] [facility] 2020-02-01 00:00:00 2020-02-01 00:00:00 Telephone Alison Montalvo [facility] 1.114 350.1.13.10 4.2.7.2.[id number] [facility] 2020-01-31 10:42:00 2020-01-31 23:59:00 Hospital Encounter Michael Cortes [facility] 1..114 350.1.13.10 4.2.7.2.[id number] [facility] 2020-01-31 08:14:09 2020-01-31 11:12:57 Office Visit Jason Dick [facility] 1.114 350.1.13.10 4.2.7.2.[id number] [facility] 2020-01-31 08:01:23 2020-01-31 08:16:23 Captain/Airline Pilot Visit [facility] Luis East [facility] 1.114 350.1.13.10 4.2.7.2.[id number] [facility] 2020-01-31 08:00:00 2020-01-31 08:00:00 Outpatient R LUIS EAST [facility] [id number] [facility] 2020-01-31 00:00:00 2020-01-31 00:00:00 Abstract Mariannemaximiliano Genetjase Hickman [facility] MULTISPEC [facility]ALTY [facility] 1.2.840.114 350.1.13.10 4.2.7.2.[id number] [facility] 2020-01-28 14:19:07 2020-01-30 10:50:06 [facility] 1.0.114 350.1.13.10 4.2.7.2.[id number] [facility] 2020-01-28 17:25:00 2020-01-29 16:27:00 Outpatient U CONCHA ROMERO [facility] [id number] [facility] 2020-01-28 17:25:00 2020-01-29 16:27:00 Hospital Encounter Concha Romero [facility] 1.840.114 350.1.13.10 4.2.7.2.[id number] [facility] 2020-01-28 00:00:00 2020-01-28 00:00:00 Telephone Concha Rom[facility] 1.0.114 350.1.13.10 4.2.7.2.[id number] [facility] 2020-01-28 00:00:00 2020-01-28 00:00:00 Case Management Jason Dick [facility] MULTISPEC [facility]TY [facility] 1..840.114 350.1.13.10 4.2.7.2.[id number] [facility] 2020-01-28 00:00:00 2020-01-28 00:00:00 Telephone TinojessicaJason lemus [facility] MULTISPEC [facility]TY [facility] 1. 350.1.13.10 4.2.7.2.[id number] [facility] 2020-01-27 08:13:04 2020-01-27 08:28:04 Captain/Airline Pilot Visit Pob, Adc Lab Main Concha Romero [facility] Building 1.114 350.1.13.10 4.2.7.2.[id number] [facility] 2020-01-27 08:15:00 2020-01-27 08:15:00 Outpatient R CONCHA ROMERO [facility] [id number] [facility] 2020-01-27 00:00:00 2020-01-27 00:00:00 Telephone Luis East [facility] MULTISPEC IALTY [facility] 1. 350.1.13.10 4.2.7.2.[id number] [facility] 2020-01-27 00:00:00 2020-01-27 00:00:00 Telephone Concha Romero [facility] MULTISPEC [facility]TY [facility] 1. 350.1.13.10 4.2.7.2.[id number] [facility] 2020-01-27 00:00:00 2020-01-27 00:00:00 Transition of Care Arsenio Shea 1.114 350.1.13.10 4.2.7.2.[id number] [facility] 2020-01-27 00:00:00 2020-01-27 00:00:00 Telephone Alison Montalvo [facility] Office Building One 1.2.840.114 350.1.13.10 4.2.7.2.[id number] [facility] 2020-01-27 00:00:00 2020-01-27 00:00:00 Telephone TinobandarJason [facility] [place] [facility] 1.2.840.114 350.1.13.10 4.2.7.2.[id number] [facility] 2020-01-27 00:00:00 2020-01-27 00:00:00 Orders Only Doctor Unassigned, Mendes [facility] 1..840.114 350.1.13.10 4.2.7.2.[id number] [facility] 2020-01-24 15:46:00 2020-01-26 20:29:00 Inpatient U MAYELINJASON [facility] [id number] [facility] 2020-01-24 15:46:00 2020-01-26 20:29:00 Hospital Encounter Jason portillo [facility] 1.840.114 350.1.13.10 4.2.7.2.[id number] [facility] 2020-01-24 12:21:16 2020-01-26 14:24:56 Office Visit Mayelin [facility] 1.0.114 350.1.13.10 4.2.7.2.[id number] [facility] 2020-01-26 00:00:00 2020-01-26 00:00:00 Case Management Concha Romero [facility] 1.840.114 350.1.13.10 4.2.7.2.[id number] [facility] 2020-01-25 13:00:00 2020-01-25 13:00:00 Outpatient GENET VERNON [facility] [id number] [facility] 2020-01-24 00:00:00 2020-01-24 00:00:00 Abstract Arti Danielhzad Marylou [facility] MULTISPEC [facility]TY [facility] 1..114 350.1.13.10 4.2.7.2.[id number] [facility] 2020-01-24 00:00:00 2020-01-24 00:00:00 Abstract [facility] 1.114 350.1.13.10 4.2.7.2.[id number] [facility] 2020-01-21 11:30:00 2020-01-21 11:30:00 Outpatient R HERMELINDA DOWNING [facility] [id number] [facility] 2020-01-20 00:00:00 2020-01-20 00:00:00 Telephone Fabiana De Souza do [facility] 1.114 350.1.13.10 4.2.7.2.[id number] [facility] 2020-01-19 00:00:00 2020-01-19 00:00:00 Orders Only Doctor Unassigned, Mendes [facility] 1.114 350.1.13.10 4.2.7.2.[id number] [facility] 2020-01-19 00:00:00 2020-01-19 00:00:00 Concha Piedra [facility] MULTISPEC [facility]TY [facility] 1.114 350.1.13.10 4.2.7.2.[id number] [facility] 2020-01-18 09:29:18 2020-01-18 10:31:40 Office Visit Jerry Neumann [place] Procedure [facility] 1.2.840.114 350.1.13.10 4.2.7.2.[id number] [facility] 2020-01-18 09:30:00 2020-01-18 09:30:00 Outpatient R JERRY NEUMANN [facility] [id number] [facility] 2020-01-18 00:00:00 2020-01-18 00:00:00 Telephone Concha Romero [facility] MULTISPEC [facility]TY [facility] 1.2.840.114 350.1.13.10 4.2.7.2.[id number] [facility] 2020-01-18 00:00:00 2020-01-18 00:00:00 Case Management Bob Reyeslisa [facility] 1.2840.114 350.1.13.10 4.2.7.2.[id number] [facility] 2020-01-18 00:00:00 2020-01-18 00:00:00 Telephone Concha Romero Vadim [facility]TY [facility] 1.2.840.114 350.1.13.10 4.2.7.2.[id number] [facility] 2020-01-18 00:00:00 2020-01-18 00:00:00 Orders Only Doctor Unassigned, Mendes [facility] 1.2.840.114 350.1.13.10 4.2.7.2.[id number] [facility] 2020-01-15 00:00:00 2020-01-15 00:00:00 Orders Only Doctor Unassigned, Mendes [facility] 1.2.840.114 350.1.13.10 4.2.7.2.[id number] [facility] 2020-01-14 00:00:00 2020-01-14 00:00:00 Telephone Fabiana De Souza do [facility] MULTISPEC [facility]TY [facility] 1.114 350.1.13.10 4.2.7.2.[id number] [facility] 2020-01-13 09:00:00 2020-01-13 09:00:00 Outpatient R LUIS EAST [facility] [id number] [facility] 2020-01-13 06:34:15 2020-01-13 06:49:15 Telemedici ne Visit Fabiana De Souza do, Muhammad A [facility] MULTISPEC [facility] 1.114 350.1.13.10 4.2.7.2.[id number] [facility] 2020-01-13 00:00:00 2020-01-13 00:00:00 Telephone Carmen Armstrong [facility] MULTISPEC [facility] 1.114 350.1.13.10 4.2.7.2.[id number] [facility] 2020-01-13 00:00:00 2020-01-13 00:00:00 Telephone Fabiana De Souza do [facility] MULTISPEC [facility] 1.114 350.1.13.10 4.2.7.2.[id number] [facility] 2020-01-12 00:00:00 2020-01-12 00:00:00 Transition of Care Arsenio Shea 1..114 350.1.13.10 4.2.7.2.[id number] [facility] 2019-12-19 21:37:40 2020-01-11 17:28:00 Inpatient X JASON DICK [facility] [id number] [facility] 2020-01-11 00:00:00 2020-01-11 00:00:00 Telephone Concha Romero [facility] [place] [facility] 1..114 350.1.13.10 4.2.7.2.[id number] [facility] 2019-12-21 00:00:00 2019-12-21 00:00:00 Letter (Out) Ben Remy [facility] [place] [facility] 1.0.114 350.1.13.10 4.2.7.2.[id number] [facility] 2019-12-21 00:00:00 2019-12-21 00:00:00 [facility] 1..114 350.1.13.10 4.2.7.2.[id number] [facility] 2019-12-19 21:30:00 2019-12-19 21:30:00 Outpatient R JASON DICK [facility] [id number] [facility] 2019-12-19 00:00:00 2019-12-19 00:00:00 Nurse Triage Jason Dick [facility] [place] [facility] 1..114 350.1.13.10 4.2.7.2.[id number] [facility] 2019-12-19 00:00:00 2019-12-19 00:00:00 Telephone Jason Dick [facility] IALTY [place] [facility] 1..114 350.1.13.10 4.2.7.2.[id number] [facility] 2019-12-19 00:00:00 2019-12-19 00:00:00 Telephone Jason Dick [facility] 1..840.114 350.1.13.10 4.2.7.2.[id number] [facility] 2019-12-19 00:00:00 2019-12-19 00:00:00 Case Management Jason Dick [facility] 1.2.840.114 350.1.13.10 4.2.7.2.[id number] [facility] 2019-12-16 00:00:00 2019-12-16 00:00:00 Case Management Mayelin [facility] 1.2840.114 350.1.13.10 4.2.7.2.[id number] [facility] 2019-12-14 00:00:00 2019-12-14 00:00:00 Telephone Concha Romero [facility] 1.0.114 350.1.13.10 4.2.7.2.[id number] [facility] 2019-12-13 09:36:44 2019-12-13 09:51:44 Captain/Airline Pilot Visit Poagnieszka, [facility] Lab Main Genet Daniel [facility] Building 1.114 350.1.13.10 4.2.7.2.[id number] [facility] 2019-12-13 08:15:00 2019-12-13 08:15:00 Outpatient R GENET DANIEL [facility] [id number] [facility] 2019-12-07 07:56:47 2019-12-07 14:20:25 Telemedici ne Visit John Seals [facility] Building 1.114 350.1.13.10 4.2.7.2.[id number] [facility] 2019-12-07 10:30:00 2019-12-07 10:30:00 Outpatient R JOHN SEALS [facility] [id number] [facility] 2019-12-06 10:15:00 2019-12-06 10:15:00 Outpatient R GENET DANIEL [facility] [id number] [facility] 2019-12-06 09:52:30 2019-12-06 10:07:30 Captain/Airline Pilot Visit Pob, [facility] Building 1.114 350.1.13.10 4.2.7.2.[id number] [facility] 2019-11-29 09:00:00 2019-11-29 09:00:00 Outpatient R LUIS EAST [facility] [id number] [facility] 2019-11-26 08:45:18 2019-11-26 09:45:18 Nurse Visit Nurse, [facility] Adalid Morales [facility] . 350.1.13.10 4.2.7.2.[id number] [facility] 2019-11-26 09:00:00 2019-11-26 09:00:00 Outpatient R ADALID SÁNCHEZ [facility] [id number] [facility] 2019-11-23 00:00:00 2019-11-23 00:00:00 Transition of Care Allison Dawkins .114 350.1.13.10 4.2.7.2.[id number] [facility] 2019-11-22 10:11:25 2019-11-22 10:41:25 [facility]medici ne [facility] Building 1.2.840.114 350.1.13.10 4.2.7.2.[id number] [facility] 2019-11-22 10:00:00 2019-11-22 10:00:00 Outpatient DEVANTE MICHAELS [facility] [id number] [facility] 2019-11-22 09:32:26 2019-11-22 09:47:26 Captain/Airline Pilot Visit Pob, Adc Lab Main Arti Danieljase Hickman [facility] 1.2840.114 350.1.13.10 4.2.7.2.[id number] [facility] 2019-11-21 19:35:00 2019-11-22 07:58:00 Hospital Encounter Jason Dick [facility] 1.0.114 350.1.13.10 4.2.7.2.[id number] [facility] 2019-11-22 00:00:00 2019-11-22 00:00:00 Orders Only Doctor Unassigned, Mendes [facility] 1.2840.114 350.1.13.10 4.2.7.2.[id number] [facility] 2019-11-21 00:00:00 2019-11-21 00:00:00 Telephone Jason [facility] 1..114 350.1.13.10 4.2.7.2.[id number] [facility] 2019-11-17 00:00:00 2019-11-17 00:00:00 Abstract Luis East [facility] MULTISPEC [facility] 1.84.114 350.1.13.10 4.2.7.2.[id number] [facility] 2019-11-15 09:06:29 2019-11-15 09:36:29 Captain/Airline Pilot Visit Pob, Adc Lab Main Genet Daniel [facility] Building 1.0.114 350.1.13.10 4.2.7.2.[id number] [facility] 2019-11-15 09:00:00 2019-11-15 09:00:00 Outpatient R FREDY [facility] [id number] [facility] 2019-11-15 00:00:00 2019-11-15 00:00:00 Orders Only Doctor Unassigned, Mendes [facility] 1..114 350.1.13.10 4.2.7.2.[id number] [facility] 2019-11-12 00:00:00 2019-11-12 00:00:00 Abstract Luis East [facility] MULTISPEC [facility] 1..114 350.1.13.10 4.2.7.2.[id number] [facility] 2019-11-08 10:40:36 2019-11-08 14:04:52 Telemedici ne Visit Genet [facility] 1..114 350.1.13.10 4.2.7.2.[id number] [facility] 2019-11-08 13:00:00 2019-11-08 13:00:00 Outpatient R ARTI DANIELHZAD [facility] [id number] [facility] 2019-11-08 08:45:01 2019-11-08 09:00:01 Captain/Airline Pilot Visit Pob, Adc Lab Main Genet Daniel [facility] Building 1..114 350.1.13.10 4.2.7.2.[id number] [facility] 2019-11-08 00:00:00 2019-11-08 00:00:00 Case Management Genet Danielwaz [facility] [place] [facility] 1.0.114 350.1.13.10 4.2.7.2.[id number] [facility] 2019-11-05 00:00:00 2019-11-05 00:00:00 Case Management Genet Daniel [facility] [place] [facility] 1.0.114 350.1.13.10 4.2.7.2.[id number] [facility] 2019-11-03 08:41:33 2019-11-04 14:02:54 Nurse Visit Nurse, [facility] Adalid Morales [facility] 1..114 350.1.13.10 4.2.7.2.[id number] [facility] 2019-11-03 09:00:00 2019-11-03 09:00:00 Outpatient ADALID ABARCA [facility] [id number] [facility] 2019-10-28 00:00:00 2019-10-28 00:00:00 Ben Field [facility] [place] [facility] 1..114 350.1.13.10 4.2.7.2.[id number] [facility] 2019-10-27 00:00:00 2019-10-27 00:00:00 Abstract Arti Danielhzad [facility] [place] [facility] 1..114 350.1.13.10 4.2.7.2.[id number] [facility] 2019-10-26 10:01:59 2019-10-26 10:16:59 Captain/Airline Pilot Visit Pob, Adc Lab [facility] 1.114 350.1.13.10 4.2.7.2.[id number] [facility] 2019-10-26 10:00:00 2019-10-26 10:00:00 Outpatient R LUIS EAST [facility] [id number] [facility] 2019-10-25 00:00:00 2019-10-25 00:00:00 Telephone MariannemaximusGenet lemus [facility] 1. 350.1.13.10 4.2.7.2.[id number] [facility] 2019-10-25 00:00:00 2019-10-25 00:00:00 Telephone Ben Remy [facility] MULTISPEC [facility] 1.114 350.1.13.10 4.2.7.2.[id number] [facility] 2019-10-20 08:48:55 2019-10-20 09:48:55 Nurse Visit Nurse, [facility] Alison Prado Christopher John [facility] 1. 350.1.13.10 4.2.7.2.[id number] [facility] 2019-10-20 09:00:00 2019-10-20 09:00:00 Outpatient R [facility] [id number] [facility] 2019-10-19 10:49:27 2019-10-19 11:04:27 Captain/Airline Pilot Visit Pob, Adc Lab Main Genet Danielwaz [facility] Building 1.114 350.1.13.10 4.2.7.2.[id number] [facility] 2019-10-19 10:45:00 2019-10-19 10:45:00 Outpatient R ARTI DANIELHZAD [facility] [id number] [facility] 2019-10-18 00:00:00 2019-10-18 00:00:00 Case Management Arti Danielhzad [facility] 1.114 350.1.13.10 4.2.7.2.[id number] [facility] 2019-10-15 11:07:51 2019-10-15 11:28:50 Office Visit Hermelinda Downing [facility] 1..114 350.1.13.10 4.2.7.2.[id number] [facility] 2019-10-15 11:15:00 2019-10-15 11:15:00 Outpatient HERMELINDA HARDWICK [facility] [id number] [facility] 2019-10-14 12:38:57 2019-10-14 12:53:57 Captain/Airline Pilot Visit Poagnieszka, Adc Lab Main Genet Daniel [facility] 1..114 350.1.13.10 4.2.7.2.[id number] [facility] 2019-10-14 12:45:00 2019-10-14 12:45:00 Outpatient R FREDY [facility] [id number] [facility] 2019-10-14 00:00:00 2019-10-14 00:00:00 Orders Only Doctor Unassigned, Mendes [facility] 1.114 350.1.13.10 4.2.7.2.[id number] [facility] 2019-10-11 10:20:00 2019-10-11 10:20:00 Outpatient ADALID ABARCA [facility] [id number] [facility] 2019-10-11 09:53:53 2019-10-11 10:13:53 Nurse Visit Nurse, [facility] Adalid Morales [facility] 1.840.114 350.1.13.10 4.2.7.2.[id number] [facility] 2019-10-08 00:00:00 2019-10-08 00:00:00 Case Management Jose Clay [facility] [place] [facility] 1.0.114 350.1.13.10 4.2.7.2.[id number] [facility] 2019-10-07 00:00:00 2019-10-07 00:00:00 Telephone Luis East [facility] [place] [facility] 1.0.114 350.1.13.10 4.2.7.2.[id number] [facility] 2019-10-04 10:20:00 2019-10-04 10:20:00 Outpatient ADALID ABARCA [facility] [id number] [facility] 2019-10-04 09:58:33 2019-10-04 10:18:33 Nurse Visit Nurse, [facility] Adalid Morales [facility] 1..114 350.1.13.10 4.2.7.2.[id number] [facility] 2019-09-30 00:00:00 2019-09-30 00:00:00 Case Management Genet Daniel [facility] 1.840.114 350.1.13.10 4.2.7.2.[id number] [facility] 2019-09-29 10:04:35 2019-09-29 10:24:35 Nurse Visit Nurse, [facility] Adalid Morales [facility] IALTY [place] [facility] 1.840.114 350.1.13.10 4.2.7.2.[id number] [facility] 2019-09-29 10:20:00 2019-09-29 10:20:00 Outpatient R ADALID SÁNCHEZ [facility] [id number] [facility] 2019-09-29 10:07:42 2019-09-29 10:17:42 Captain/Airline Pilot Visit [facility] Genet Danielwaz [facility] IALTY [place] [facility] 1.840.114 350.1.13.10 4.2.7.2.[id number] [facility] 2019-09-23 12:10:27 2019-09-23 14:51:01 Office Visit Genet Daniel [facility] [place] [facility] 1.0.114 350.1.13.10 4.2.7.2.[id number] [facility] 2019-09-23 12:09:46 2019-09-23 12:24:46 Nurse Visit Nurse, [facility] Adalid Morales [facility] IALTY [place] [facility] 1.0.114 350.1.13.10 4.2.7.2.[id number] [facility] 2019-09-22 00:00:00 2019-09-22 00:00:00 Hermelinda Connell [facility] 1..840.114 350.1.13.10 4.2.7.2.[id number] [facility] 2019-09-20 08:22:31 2019-09-20 09:31:45 Office Visit Alison Montalvo [facility] Office Building One 1.2.840.114 350.1.13.10 4.2.7.2.[id number] [facility] 2019-09-19 00:00:00 2019-09-19 00:00:00 Orders Only Doctor Unassigned, Mendes [facility] 1.2.840.114 350.1.13.10 4.2.7.2.[id number] [facility] 2019-09-16 00:00:00 2019-09-16 00:00:00 Abstract Luis East [facility] MULTISPEC [facility] 1.840.114 350.1.13.10 4.2.7.2.[id number] [facility] 2019-09-14 00:00:00 2019-09-14 00:00:00 Case Management Genet Danielwaz [facility] MULTISPEC [facility] 1..840.114 350.1.13.10 4.2.7.2.[id number] [facility] 2019-09-14 00:00:00 2019-09-14 00:00:00 Case Management Luis East [facility] MULTISPEC [facility] 1.2.840.114 350.1.13.10 4.2.7.2.[id number] [facility] 2019-09-14 00:00:00 2019-09-14 00:00:00 Letter (Out) Genet Daniel [facility] MULTISPEC [facility] 1.2.840.114 350.1.13.10 4.2.7.2.[id number] [facility] 2019-09-14 00:00:00 2019-09-14 00:00:00 Case Management Genet Daniel [facility] MULTISPEC [facility] 1..840.114 350.1.13.10 4.2.7.2.[id number] [facility] 2019-09-14 00:00:00 2019-09-14 00:00:00 Telephone Luis East [facility] MULTISPEC [facility] 1.2840.114 350.1.13.10 4.2.7.2.[id number] [facility] 2019-09-13 00:00:00 2019-09-13 00:00:00 Transition of Care Marialuisa Aguilar Nabillissy Breezy Mehta 1..840.114 350.1.13.10 4.2.7.2.[id number] [facility] 2019-09-13 00:00:00 2019-09-13 00:00:00 Committee Review Luis East [facility] MULTISPEC [facility] 1.840.114 350.1.13.10 4.2.7.2.[id number] [facility] 2019-09-06 11:12:06 2019-09-10 19:06:00 Hospital Encounter Bailey Mcfarlane, Eloisa Quintero, Daniel Meeks [facility] 1.840.114 350.1.13.10 4.2.7.2.[id number] [facility] 2019-09-10 00:00:00 2019-09-10 00:00:00 Telephone Luis East [facility] MULTISPEC [facility] 1.840.114 350.1.13.10 4.2.7.2.[id number] [facility] 2019-09-10 00:00:00 2019-09-10 00:00:00 Committee Review Concha Romero [facility] MULTISPEC [facility] 1.2.840.114 350.1.13.10 4.2.7.2.[id number] [facility] 2019-09-08 00:00:00 2019-09-08 00:00:00 [facility] 1.2840.114 350.1.13.10 4.2.7.2.[id number] [facility] 2019-09-08 00:00:00 2019-09-08 00:00:00 Telephone Fredy [facility] IALTY [place] [facility] 1.2840.114 350.1.13.10 4.2.7.2.[id number] [facility] 2019-09-06 00:00:00 2019-09-06 00:00:00 Case Management Fredy [facility] 1.2.840.114 350.1.13.10 4.2.7.2.[id number] [facility] 2019-09-02 00:00:00 2019-09-02 00:00:00 Orders Only Doctor Unassigned, Mendes [facility] 1..840.114 350.1.13.10 4.2.7.2.[id number] [facility] 2019-09-01 07:00:00 2019-09-01 23:59:00 Hospital Encounter John Seals Outpt-Treva, C[facility] 1.840.114 350.1.13.10 4.2.7.2.[id number] [facility] 2019-08-30 00:00:00 2019-08-30 00:00:00 Telephone John Seals [facility] 1.2.840.114 350.1.13.10 4.2.7.2.[id number] [facility] 2019-08-30 00:00:00 2019-08-30 00:00:00 [facility] 1.2.840.114 350.1.13.10 4.2.7.2.[id number] [facility] 2019-08-27 14:04:42 2019-08-27 15:02:03 Office Visit Arnel John Lisa [facility] 1.2.840.114 350.1.13.10 4.2.7.2.[id number] [facility] 2019-06-01 07:50:03 2019-08-20 13:39:36 Office Visit John Butcher do, Ann K N [facility] MULTISPEC [facility] 1.2.840.114 350.1.13.10 4.2.7.2.[id number] [facility] 2019-08-20 00:00:00 2019-08-20 00:00:00 Telephone John Butcher [facility] MULTISPEC [facility] 1.2.840.114 350.1.13.10 4.2.7.2.[id number] [facility] 2019-08-19 00:00:00 2019-08-19 00:00:00 Transition of Care Marialuisa Aguilar 1.2.840.114 350.1.13.10 4.2.7.2.[id number] [facility] 2019-08-16 11:24:42 2019-08-18 18:42:00 Inpatient X ANNE RO [facility] [id number] [facility] 2019-08-16 11:24:42 2019-08-18 18:42:00 Hospital Encounter Mohamud Gracia Rawan Jamal Guilherme Florinamarlene [facility] 1.840.114 350.1.13.10 4.2.7.2.[id number] [facility] 2019-08-17 00:00:00 2019-08-17 00:00:00 Case Management Genet Daniel [facility] MULTISPEC [facility] 1.0.114 350.1.13.10 4.2.7.2.[id number] [facility] 2019-07-21 00:00:00 2019-07-21 00:00:00 Patient Secure MsAlison Zapata [facility] Office Building One 1.840.114 350.1.13.10 4.2.7.2.[id number] [facility] 2019-07-20 08:49:02 2019-07-20 08:50:00 Outpatient R FREDY GENET [facility] [id number] [facility] 2019-07-11 08:24:54 2019-07-13 17:04:00 Inpatient X LITTLE LECHUGAS [facility] [id number] [facility] 2019-04-23 00:00:00 2019-04-23 00:00:00 Letter (Out) Gorge Vizcarra [facility] MULTISPEC [facility]TY [facility] 1.840.114 350.1.13.10 4.2.7.2.[id number] [facility] 2019-04-22 00:00:00 2019-04-22 00:00:00 Telephone Luis East [facility] MULTISPEC [facility] 1.2840.114 350.1.13.10 4.2.7.2.[id number] [facility] 2019-04-21 00:00:00 2019-04-21 00:00:00 Orders Only Doctor Unassigned, Mendes [facility] 1.2.840.114 350.1.13.10 4.2.7.2.[id number] [facility] 2019-04-20 00:00:00 2019-04-20 00:00:00 Telephone Aquilino Montalvodevinnarda Gonzalez [facility] Office Building One 1.840.114 350.1.13.10 4.2.7.2.[id number] [facility] 2019-04-15 00:00:00 2019-04-15 00:00:00 Pre Visit Outreach DungAquilinosean Lisa [facility] Building 1.2.840.114 350.1.13.10 4.2.7.2.[id number] [facility] 2019-04-14 00:00:00 2019-04-14 00:00:00 Telephone Alison Montalvo [facility] Office Building One 1.2.840.114 350.1.13.10 4.2.7.2.[id number] [facility] 2019-04-12 00:00:00 2019-04-12 00:00:00 Transition of Care Missy Smyth 1.2.840.114 350.1.13.10 4.2.7.2.[id number] [facility] 2019-04-12 00:00:00 2019-04-12 00:00:00 Tomy Amaro [facility] 1.2.840.114 350.1.13.10 4.2.7.2.[id number] [facility] 2019-04-07 14:56:16 2019-04-09 19:53:00 Hospital Encounter Tristan Peter, Brant Dumont, Raz Martel [facility] 1.2.840.114 350.1.13.10 4.2.7.2.[id number] [facility] 2019-03-19 00:00:00 2019-03-19 00:00:00 Telephone Veronica Alonzo [facility] 1.2.840.114 350.1.13.10 4.2.7.2.[id number] [facility] 2019-03-19 00:00:00 2019-03-19 00:00:00 Prep For Surgery Veronica Alonzo [facility] 1.2.840.114 350.1.13.10 4.2.7.2.[id number] [facility] 2019-03-18 15:15:59 2019-03-18 15:48:24 Office Visit Estephania Charles [facility] 1.2.840.114 350.1.13.10 4.2.7.2.[id number] [facility] 2019-03-17 00:00:00 2019-03-17 00:00:00 Telephone Estephania Charles [facility] Building 1.2.840.114 350.1.13.10 4.2.7.2.[id number] [facility] 2019-03-15 09:07:44 2019-03-15 09:22:44 Office Visit Estephania Charles [facility] Building 1.2.840.114 350.1.13.10 4.2.7.2.[id number] [facility] 2019-03-05 09:28:00 2019-03-05 16:37:00 Hospital Encounter Estephania Charles [facility] 1.2.840.114 350.1.13.10 4.2.7.2.[id number] [facility] 2019-02-26 00:00:00 2019-02-26 00:00:00 Telephone Estephania Charles [facility] Professio [facility]al Building 1.2.840.114 350.1.13.10 4.2.7.2.[id number] [facility] 2019-02-25 00:00:00 2019-02-25 00:00:00 [facility] 1.2.840.114 350.1.13.10 4.2.7.2.[id number] [facility] 2019-02-25 00:00:00 2019-02-25 00:00:00 Prep For Surgery Veronica Alonzo [facility] Building 1.2.840.114 350.1.13.10 4.2.7.2.[id number] [facility] 2009-07-04 08:10:00 2009-07-04 15:22:00 Emergency X BECKY YUNG [facility] ERT [id number] 2 [facility] Results Test Description Test Time Test Comments Results Result Co mments Source [facility] (NA, K, CL, CO2, Glucose, BUN, Creatinine, CA)2025-04-19 14:47:32* Test Item Value Reference Range Interpretation Comme nts NA (test code = 0611362377) 139 mmol/L 135-145 K (test code = 0930745763) 4.8 mmol/L 3.5-5.0 CL (test code = 3456105145) 112 mmol/L 98-108 H CO2 TOTAL (test code = 9887722246) 18 mmol/L 23-31 L AGAP (test code = 8072926216) 9 2-16 BUN (test code = 1817116296) 32 mg/dL 7-23 H GLUCOSE (test code = 2404760711) 96 mg/dL 70-110 CREATININE (test code = 2160-0) 2.26 mg/dL 0.50-1.04 H CALCIUM (test code = 4358891349) 9.3 mg/dL 8.6-10.6 eGFR (test code = 47729-1) 23.5 mL/min/1.73m2 CKD-EPI eGFR (2020). Assuming creatinine has been stable day-to-day for at least three months, the eGFR indicates Category G4 (15 - 29 mL/min/1.73 m2) Lab Interpretation (test code = 89397-1) Abnormal [facility] [id number] 14:47:32* Test Item Value Reference Range Interpretation Comme nts MAGNESIUM (test code = 5120278873) 1.7 mg/dL 1.7-2.4 Lab Interpretation (test cod e = 12628-8) Normal [facility] FUNCTION PANEL (32665) (ALB,T.PRO,BILI T,BU/BC,ALT,AST,ALK PHOS)2025-04-19 14:47:32* Test Item Value Reference Range Interpretation Comme nts TOTAL BILI (test code = 3312184344) 0.8 mg/dL 0.1-1.1 BILI UNCON (test code = 6524805974) 0.5 mg/dL 0.1-1.1 BILI CONJ (test code = 3584517034) 0 mg/dL 0.0-0.3 T PROTEIN (test code = 2412354731) 7.1 g/dL 6.3-8.2 ALBUMIN (test code = 7518596559) 4.3 g/dL 3.5-5.0 ALK PHOS (test code = 2880546087) 83 U/L 34-122 ALTv (test code = 1742-6) 21 U/L 5-35 AST(SGOT) (test code = 2559869829) 33 U/L 13-40 Lab Interpretation (test cod e = 26812-1) Normal [facility] Taylor[facility]osph[facility] Zwamv2080-55-10 14:47:12* Test Item Value Reference Range Interpretation Comme nts PHOSPHORUS (test code = 8561013833) 2.4 mg/dL 2.5-5.0 L Lab Interpretation (test cod e = 85079-5) Abnormal [facility] with Wdkijupcrkkc5584-39-17 14:41:51* Test Item Value Reference Range Interpretation Comme nts WBC (test code = 6690-2) 11.42 4.30-11.10 H RBC (test code = 789-8) 4.27 3.93-5.25 HGB (test code = 718-7) 11.3 g/dL 11.6-15.0 L HCT (test code = 4544-3) 36.5 % 35.7-45.2 MCV (test code = 787-2) 85.5 fL 80.6-95.5 MCH (test code = 785-6) 26.5 pg 25.9-32.8 MCHC (test code = 786-4) 31 g/dL 31.6-35.1 L RDW-SD (test code = 59750-4) 45.1 fL 39.0-49.9 RDW-CV (test code = 788-0) 14.6 % 12.0-15.5 PLT (test code = 777-3) 191 166-358 MPV (test code = 32699-5) 10.4 fL 9.5-12.9 NRBC/100 WBC (test code = 8221812324) 0 0.0-10.0 NRBC x10^3 (test code = 8038265314) See_Comment [Automated messa ge] The system which generated this result transmitted reference range: 10*3/?L. The reference range was not used to interpret this result as normal/abnormal. GRAN MAT (NEUT) % (test code = 770-8) 80.3 % IMM GRAN % (test code = 3362955465) 0.6 % LYMPH % (test code = 736-9) 9.7 % MONO % (test code = 5905-5) 8.3 % EOS % (test code = 713-8) 0.6 % BASO % (test code = 706-2) 0.5 % GRAN MAT x10^3(ANC) (test code = 2606515232) 9.16 10*3/uL 1.88-7.09 H IMM GRAN x10^3 (test code = 6224139127) 0.07 10*3/uL 0.00-0.06 H LYMPH x10^3 (test code = 731-0) 1.11 10*3/uL 1.32-3.29 L MONO x10^3 (test code = 742-7) 0.95 10*3/uL 0.33-0.92 H EOS x10^3 (test code = 711-2) 0.07 10*3/uL 0.03-0.39 BASO x10^3 (test code = 704-7) 0.06 10*3/uL 0.01-0.07 Lab Interpretation (test code = 72733-4) [facility] Specific [id number] 18:15:00* Test Item Value Reference Range Interpretation Comme nts POCT U SP GRAV (test code = 3255) 1020 mg/dl 1.005-1.025 A POCT PH U (test code = 3254) 5 mg/dl 5-8 POCT U LEUK EST (test code = 3263) 2+ Negative - Negative POCT U NIT (test code = 3262) pos Negative - Negati ve POCT U PROT (test code = 3259) 30+ Negative - Negative POCT U GLU (test code = 3256) norm Negative - Negati ve POCT U KETONE (test code = 3258) neg Negative - Negative POCT U UROBILI (test code = 3260) neg 0.2-1 POCT U BILI (test code = 3261) norm Negative - Negative POCT U BLD (test code = 3257) 50 Negative - Negati ve POCT U COLOR (test code = 3266) dark yellow POCT U APPEAR (test code = 3267) hazy Lab Interpretation (test cod e = 33641-2) Abnormal [facility] with [id number] 15:18:56* Test Item Value Reference Range Interpretation Comme nts WBC (test code = 6690-2) 5.54 4.30-11.10 RBC (test code = 789-8) 4.39 3.93-5.25 HGB (test code = 718-7) 11.6 g/dL 11.6-15.0 HCT (test code = 4544-3) 37.9 % 35.7-45.2 MCV (test code = 787-2) 86.3 fL 80.6-95.5 MCH (test code = 785-6) 26.4 pg 25.9-32.8 MCHC (test code = 786-4) 30.6 g/dL 31.6-35.1 L RDW-SD (test code = 73793-8) 45.6 fL 39.0-49.9 RDW-CV (test code = 788-0) 14.6 % 12.0-15.5 PLT (test code = 777-3) 156 166-358 L MPV (test code = 59497-0) 9.6 fL 9.5-12.9 NRBC/100 WBC (test code = 9217924885) 0 0.0-10.0 NRBC x10^3 (test code = 1352677059) See_Comment [Automated messa ge] The system which generated this result transmitted reference range: 10*3/?L. The reference range was not used to interpret this result as normal/abnormal. GRAN MAT (NEUT) % (test code = 770-8) 54.5 % IMM GRAN % (test code = 9244116383) 0.9 % LYMPH % (test code = 736-9) 30.9 % MONO % (test code = 5905-5) 10.1 % EOS % (test code = 713-8) 2.7 % BASO % (test code = 706-2) 0.9 % GRAN MAT x10^3(ANC) (test code = 5683557108) 3.02 10*3/uL 1.88-7.09 IMM GRAN x10^3 (test code = 3354752057) 0.05 10*3/uL 0.00-0.06 LYMPH x10^3 (test code = 731-0) 1.71 10*3/uL 1.32-3.29 MONO x10^3 (test code = 742-7) 0.56 10*3/uL 0.33-0.92 EOS x10^3 (test code = 711-2) 0.15 10*3/uL 0.03-0.39 BASO x10^3 (test code = 704-7) 0.05 10*3/uL 0.01-0.07 Lab Interpretation (test code = 35094-2) [facility] w/o Specific Uzxanhk3847-39-63 16:12:00* Test Item Value Reference Range Interpretation Comme nts POCT PH U (test code = 3254) 5 mg/dl 5-8 POCT U LEUK EST (test code = 3263) ++ Negative - Negative POCT U NIT (test code = 3262) neg Negative - Negati ve POCT U PROT (test code = 3259) 30+ Negative - Negat irvin POCT U GLU (test code = 3256) neg Negative - Negati ve POCT U KETONE (test code = 3258) neg Negative - Neg ative POCT U BLD (test code = 3257) 50 Negative - Negati ve [facility] with Hudeschwflev1772-96-46 14:35:06* Test Item Value Reference Range Interpretation Comme nts WBC (test code = 6690-2) 7.94 4.30-11.10 RBC (test code = 789-8) 4.27 3.93-5.25 HGB (test code = 718-7) 12 g/dL 11.6-15.0 HCT (test code = 4544-3) 38 % 35.7-45.2 MCV (test code = 787-2) 89 fL 80.6-95.5 MCH (test code = 785-6) 28.1 pg 25.9-32.8 MCHC (test code = 786-4) 31.6 g/dL 31.6-35.1 RDW-SD (test code = 00799-7) 47.7 fL 39.0-49.9 RDW-CV (test code = 788-0) 14.9 % 12.0-15.5 PLT (test code = 777-3) 202 166-358 MPV (test code = 30836-7) 11.3 fL 9.5-12.9 NRBC/100 WBC (test code = 6897842952) 0 0.0-10.0 NRBC x10^3 (test code = 7149267664) See_Comment [Automated me ssage] The system which generated this result transmitted reference range: 10*3/?L. The reference range was not used to interpret this result as normal/abnormal. GRAN MAT (NEUT) % (test code = 770-8) 59.5 % IMM GRAN % (test code = 5809851129) 0.3 % LYMPH % (test code = 736-9) 27 % MONO % (test code = 5905-5) 9.9 % EOS % (test code = 713-8) 2.4 % BASO % (test code = 706-2) 0.9 % GRAN MAT x10^3(ANC) (test code = 7553100834) 4.73 10*3/uL 1.88-7.09 IMM GRAN x10^3 (test code = 9420299211) 0.00-0.06 LYMPH x10^3 (test code = 731-0) 2.14 10*3/uL 1.32-3.29 MONO x10^3 (test code = 742-7) 0.79 10*3/uL 0.33-0.92 EOS x10^3 (test code = 711-2) 0.19 10*3/uL 0.03-0.39 BASO x10^3 (test code = 704-7) 0.07 10*3/uL 0.01-0.07 [facility] Urinalysis, Xhbkvbwvru6390-46-15 20:10:00 * Test Item Value Reference Range Interpretation Comme nts POCT U SP GRAV (test code = 3255) 1.020 mg/dl 1.005-1.025 POCT PH U (test code = 3254) 6.0 mg/dl 5-8 POCT U LEUK EST (test code = 3263) trace Negative - Negative A POCT U NIT (test code = 3262) negative Negative - Negati ve POCT U PROT (test code = 3259) trace Negative - Negative POCT U GLU (test code = 3256) negative Negative - Negati ve POCT U KETONE (test code = 3258) negative Negative - Negative POCT U UROBILI (test code = 3260) 0.2 mg/dl 0.2-1 POCT U BILI (test code = 3261) negative Negative - Negative POCT U BLD (test code = 3257) negative Negative - Negati ve POCT U COLOR (test code = 3266) yellow POCT U APPEAR (test code = 3267) clear Lab Interpretation (test cod e = 14495-7) [facility]normal [facility] TaylorMEAS,POST-VOID RES,US,SNW-[id number] 20:08:00* Test Item Value Reference Range Interpretation Comme nts PVR (URINE VOLUME) (test code = 5193) 33 ml 0-100 [facility] TaylorTacrolimus, Vmtno1024-67-45 15:06:16* Test Item Value Reference Range Interpretation Comme nts FK 506 (test code = 3514595977) 7 ng/mL EL (test code = EL) Target/Therapeutic Range KIDNEY ? Early (<3 mo) ? ? 8-12 ? Late ?(>3 mo) ? ? 5-10 ?SPK / LINDA ? Early (<3 mo) ? ? 10-15 ? Mid ? (3-6 mo) ? ?8-10 ? Late ?(>6 mo) ? ? 5-8 ?LIVER ? Early (<3 mo) ?HCV: ? 5-7 ?Tumor: ? ? ? 5-7 ?Autoimmune: ?8-10 ? Late (>3 mo) ? ? ?~5 ?HEART ? Early (<6 mo) ? ? 12-15 ? Late ?(>6 mo) ? ? 8-12 ?LUNG ? Early (<6 mo) ? ? 12-15 ? Mid ? (7-12 mo) ? 10-15 ? Late ?(>12 mo) ? ?8-10 Method by: ?Chemiflex, Tracer Clerk i1000 [facility] TaylorMagnesium [id number] 17:27:33* Test Item Value Reference Range Interpretation Comme nts MAGNESIUM (test code = 3852822478) 2.3 mg/dL 1.7-2.4 Lab Interpretation (test cod e = 97987-7) Normal [facility] TaylorBasi Metabolic Panel (NA, K, CL, CO2, Glucose, BUN, Creatinine, CA)2024-09-17 17:27:33* Test Item Value Reference Range Interpretation Comme nts NA (test code = 1859221154) 145 mmol/L 135-145 K (test code = 7339565188) 4.7 mmol/L 3.5-5.0 CL (test code = 1736791231) 113 mmol/L 98-108 H CO2 TOTAL (test code = 6216568645) 24 mmol/L 23-31 AGAP (test code = 0016655751) 8 2-16 BUN (test code = 8502101911) 29 mg/dL 7-23 H GLUCOSE (test code = 5868631361) 80 mg/dL 70-110 CREATININE (test code = 2160-0) 2.15 mg/dL 0.50-1.04 H CALCIUM (test code = 3604412961) 8.9 mg/dL 8.6-10.6 eGFR (test code = 14645-2) 25.2 mL/min/1.73m2 CKD-EPI eGFR (2020). Assuming creatinine has been stable day-to-day for at least three months, the eGFR indicates Category G4 (15 - 29 mL/min/1.73 m2) Lab Interpretation (test code = 50763-8) Abnormal [facility] TaylorPhosphorus Rmylr2757-02-22 17:27:12* Test Item Value Reference Range Interpretation Comme nts PHOSPHORUS (test code = 6661096153) 3.1 mg/dL 2.5-5.0 Lab Interpretation (test cod e = 29215-5) Normal [facility] TaylorHEPATIC FUNCTION PANEL (98936) (ALB,T.PRO,BILI T,BU/BC,ALT,AST,ALK PHOS)2024-09-17 17:26:52* Test Item Value Reference Range Interpretation Comme nts TOTAL BILI (test code = 5691405340) 0.5 mg/dL 0.1-1.1 BILI UNCON (test code = 5488780404) 0.2 mg/dL 0.1-1.1 BILI CONJ (test code = 5609378943) 0.0 mg/dL 0.0-0.3 T PROTEIN (test code = 5192175414) 6.7 g/dL 6.3-8.2 ALBUMIN (test code = 0613920770) 4.3 g/dL 3.5-5.0 ALK PHOS (test code = 5586158800) 78 U/L 34-122 ALTv (test code = 1742-6) 22 U/L 5-35 AST(SGOT) (test code = 0491140573) 33 U/L 13-40 Lab Interpretation (test cod e = 48386-9) Normal [facility] TaylorPROTHROMBIN TIME / [id number] 16:39:49* Test Item Value Reference Range Interpretation Comme nts PROTIME PATIENT (test code = 5964-2) 10.8 10.1-12.6 INR (test code = 6301-6) 0.9 Normal INR <1.1; Warfarin Therapeutic range 2.0 to 3.0 or 2.5 to 3.5, depending upon the indications. Lab Interpretation (test code = 93755-0) Normal [facility] TaylorCBC with Tbxmjvswvakd3483-40-22 16:32:04* Test Item Value Reference Range Interpretation Comme nts WBC (test code = 6690-2) 6.32 4.30-11.10 RBC (test code = 789-8) 4.24 3.93-5.25 HGB (test code = 718-7) 11.6 g/dL 11.6-15.0 HCT (test code = 4544-3) 37.2 % 35.7-45.2 MCV (test code = 787-2) 87.7 fL 80.6-95.5 MCH (test code = 785-6) 27.4 pg 25.9-32.8 MCHC (test code = 786-4) 31.2 g/dL 31.6-35.1 L RDW-SD (test code = 36194-8) 48.1 fL 39.0-49.9 RDW-CV (test code = 788-0) 15.1 % 12.0-15.5 PLT (test code = 777-3) 210 166-358 MPV (test code = 99576-9) 10.8 fL 9.5-12.9 NRBC/100 WBC (test code = 2205758505) 0.0 0.0-10.0 NRBC x10^3 (test code = 7975673898) See_Comment [Automated messa ge] The system which generated this result transmitted reference range: 10*3/?L. The reference range was not used to interpret this result as normal/abnormal. GRAN MAT (NEUT) % (test code = 770-8) 52.6 % IMM GRAN % (test code = 2087947313) 0.60 % LYMPH % (test code = 736-9) 37.3 % MONO % (test code = 5905-5) 8.1 % EOS % (test code = 713-8) 1.1 % BASO % (test code = 706-2) 0.3 % GRAN MAT x10^3(ANC) (test code = 1913734700) 3.32 10*3/uL 1.88-7.09 IMM GRAN x10^3 (test code = 5615061561) 0.04 10*3/uL 0.00-0.06 LYMPH x10^3 (test code = 731-0) 2.36 10*3/uL 1.32-3.29 MONO x10^3 (test code = 742-7) 0.51 10*3/uL 0.33-0.92 EOS x10^3 (test code = 711-2) 0.07 10*3/uL 0.03-0.39 BASO x10^3 (test code = 704-7) 0.01-0.07 Lab Interpretation (test code = 01002-1) Abnormal [facility] TaylorComplete Metabolic [id number] 21:44:14* Test Item Value Reference Range Interpretation Comme nts NA (test code = 0280164267) 140 mmol/L 135-145 K (test code = 1478241456) 4.5 mmol/L 3.5-5.0 CL (test code = 5958967430) 111 mmol/L 98-108 H CO2 TOTAL (test code = 5124051515) 22 mmol/L 23-31 L AGAP (test code = 2111685357) 7 2-16 BUN (test code = 5946817559) 32 mg/dL 7-23 H GLUCOSE (test code = 0876921356) 109 mg/dL 70-110 CREATININE (test code = 2160-0) 2.41 mg/dL 0.50-1.04 H TOTAL BILI (test code = 5401083594) 0.5 mg/dL 0.1-1.1 CALCIUM (test code = 2257399174) 8.6 mg/dL 8.6-10.6 T PROTEIN (test code = 0702604078) 6.8 g/dL 6.3-8.2 ALBUMIN (test code = 3739332322) 4.0 g/dL 3.5-5.0 ALK PHOS (test code = 3593692542) 68 U/L 34-122 ALTv (test code = 1742-6) 21 U/L 5-35 AST(SGOT) (test code = 7965608553) 28 U/L 13-40 eGFR (test code = 07965-9) 21.9 mL/min/1.73m2 CKD-EPI eGFR (2020). Assuming creatinine has been stable day-to-day for at least three months, the eGFR indicates Category G4 (15 - 29 mL/min/1.73 m2) Lab Interpretation (test code = 39974-0) Abnormal [facility] TaylorLipase, Agwtg6283-09-08 21:43:34* Test Item Value Reference Range Interpretation Comme nts LIPASE (test code = 4002113352) 134 U/L 0-220 Lab Interpretation (test cod e = 72695-3) Normal [facility] TaylorCBC with Lwwgvsvnkltl4307-75-64 21:43:14* Test Item Value Reference Range Interpretation Comme nts WBC (test code = 6690-2) 7.67 4.30-11.10 RBC (test code = 789-8) 4.04 3.93-5.25 HGB (test code = 718-7) 11.1 g/dL 11.6-15.0 L HCT (test code = 4544-3) 35.8 % 35.7-45.2 MCV (test code = 787-2) 88.6 fL 80.6-95.5 MCH (test code = 785-6) 27.5 pg 25.9-32.8 MCHC (test code = 786-4) 31.0 g/dL 31.6-35.1 L RDW-SD (test code = 80708-6) 49.5 fL 39.0-49.9 RDW-CV (test code = 788-0) 15.1 % 12.0-15.5 PLT (test code = 777-3) 130 166-358 L MPV (test code = 76306-0) 11.0 fL 9.5-12.9 NRBC/100 WBC (test code = 0179729500) 0.0 0.0-10.0 NRBC x10^3 (test code = 9852759799) See_Comment [Automated messa ge] The system which generated this result transmitted reference range: 10*3/?L. The reference range was not used to interpret this result as normal/abnormal. GRAN MAT (NEUT) % (test code = 770-8) 74.2 % IMM GRAN % (test code = 9388068042) 0.40 % LYMPH % (test code = 736-9) 12.4 % MONO % (test code = 5905-5) 12.1 % EOS % (test code = 713-8) 0.5 % BASO % (test code = 706-2) 0.4 % GRAN MAT x10^3(ANC) (test code = 9614465389) 5.69 10*3/uL 1.88-7.09 IMM GRAN x10^3 (test code = 2082531335) 0.03 10*3/uL 0.00-0.06 LYMPH x10^3 (test code = 731-0) 0.95 10*3/uL 1.32-3.29 L MONO x10^3 (test code = 742-7) 0.93 10*3/uL 0.33-0.92 H EOS x10^3 (test code = 711-2) 0.04 10*3/uL 0.03-0.39 BASO x10^3 (test code = 704-7) 0.03 10*3/uL 0.01-0.07 Lab Interpretation (test code = 88223-3) Abnormal [facility] TaylorXR Abdomen 1 [id number] 20:33:44EXAM: XR ABDOMEN 1 VW HISTORY: 64 years-old Female; Chronic constipation; please comment on stoolburden. TECHNIQUE: Frontal view of the abdomen and pelvis COMPARISON: CT abdomen pelvis 09/04/2023 FINDINGS: The bowel gas pattern is unremarkable. A moderate stool burden is noted inthe ascending colon. No abnormal calcifications or acute osseousabnormalities are detected. Surgical clips project over the right upperquadrant and left hemipelvis.[facility] DIABETES TESTING [id number] 16:09:31Ordered by an unspecified provider. [facility] TaylorHLA Antibody Bogq5511-84-50 21:05:00* Test Item Value Reference Range Interpretation Comme nts SERUM DTE (test code = 3221) 08/10/2024 CALCULATED PRA (test code = 3899) 27 TEST TYPE (test code = 3900) Single Ag TEST DATE (test code = 3221) 08/12/2024 T-PRA (test code = 3223) -- T-ID (test code = 3225) A:1 METHOD (test code = 3226) Luminex COMMENTS (test code = 3227) No Class I DSA Detected.Performed at [facility] - Tissue AntigenDIRECTOR: ?USHA WATTERS MD, [id number] [place] [address] ?[id number]: [phone] No. [id number] ANALYTE SPECIFIC REAGENT STATEMENT: ?This test was developed and its performance characteristics determined by the [facility] Tissue Antigen Laboratory. ?The test has not been cleared or approved by the [place] [employer] (USFDA). ?The USFDA does not require licensing of reagents used in these tests. VERIFIED BY: ?Adalid Albright (electronic signature) 08/13/2024 REPORT DTE (test code = 3228) 08/13/2024 TECH (test code = 3229) RP TEST DATE (test code = 3229) 08/12/2024 B-PRA (test code = 3231) -- B-ID (test code = 3233) DR:9 METHOD (test code = 3234) Luminex COMMENTS (test code = 3235) No Class II DSA Detected.Performed at [facility] - Tissue AntigenDIRECTOR: ?USHA WATTERS MD, [id number] [place] [address] ?[id number]: [phone] No. [id number] ANALYTE SPECIFIC REAGENT STATEMENT: ?This test was developed and its performance characteristics determined by the [facility] Tissue Antigen Laboratory. ?The test has not been cleared or approved by the [place] [employer] (USFDA). ?The USFDA does not require licensing of reagents used in these tests. VERIFIED BY: ?Adalid Albright (electronic signature) 08/13/2024 REPORT DTE (test code = 3236) 08/13/2024 TECH (test code = 3237) RP [facility] TaylorCMV by Quantitative [id number] 21:19:42* Test Item Value Reference Range Interpretation Comme nts Specimen Tested (test code = 0549155665) Plasma CMV NAAT, Plasma - Interpratation (test code = 34118-3) Not Detected Indeterminate, See Comment/Narrativ e, Not Detected IU/mL EL (test code = EL) The Aptima CMV Loc nt Dx assay is an FDA-approved real-time finishing area operator-mediated amplification (TMA) test used for quantitation of Cytomegalovirus DNA in human plasma. The quantitative range of this assay is 1.72 - 7.00 log IU/mL or 53 - 10,000,000 IU/mL. An interpretation of "Not Detected" does not rule out the presence of inhibitors in the patient specimen or CMV DNA concentration below the level of detection of the test. Care should be taken when interpreting any single viral load determination. Detected, not Quantifiable: CMV DNA detected, but at a level below 53 IU/mL (1.72 log IU/mL). CMV DNA concentration is below the lower limit of quantitation of the assay. Indeterminate: Error indicated in the generation of the result. Please submit a new specimen for repeat testing if clinically indicated. [facility] TaylorBK Virus DNA, Quant [id number] 20:29:01 * Test Item Value Reference Range Interpretation Comme [facility] BK Quant by NAAT, Plasma Interpretation (test code = 90233-9) Not Detected Not Detected, Detected, not Quantifiable, Indeterminate, Invalid EL (test code = EL) Test Information: BK Virus by Quantitative NAAT, Plasma The quantitative range of this assay is 1.33 - 8.00 log IU/mL ?(21.5 - 100,000,000 IU /mL) An interpretation of "Not Detected" does not rule out the presence of inhibitors or BK virus DNA concentrations below the level of detection by the assay. Care should be taken in the interpretation of any single viral load determination. Detected, not Quantifiable: BKV DNA detected, but at a level below 21.5 IU/mL (1.33 log IU/mL). BKV DNA concentration is below the lower limit of quantitation of the assay. Indeterminate: ?Unable to generate a valid test result on this specimen. ?Please submit a new specimen for repeat testing if clinically indicated. Lab Interpretation (test code = 28983-6) Normal [facility] Hemoglobin A1C [id number] 14:56:00* Test Item Value Reference Range Interpretation Comme [facility] POCT HBA1C (test code = 4548-4) 6.6 % 4-6 A Lab Interpretation (test cod e = 42689-2) Abnormal [facility] TaylorXR Chest 2 [id number] 14:25:35EXAM: XR CHEST 2 VW TECHNIQUE: PA and lateral chest radiographs. COMPARISON: Chest x-ray dated 07/24/2023 HISTORY: 64 years year-old Female. ?Cough FINDINGS: Lungs: poor respiratory effort has causedaccentuation of bronchovascularmarkings in both lower lungs. Minimal bibasilar peribronchial congestionsuspected. No pleural abnormalities. Heart/Mediastinum: The cardiomediastinal silhouette is normal in size . Bones: No osseous lesions visualized. The soft tissues appear normal. [facility] SARS-COV-2 ANTIGEN (BINAX NOW)2024-08-06 14:02:00* Test Item Value Reference Range Interpretation Comme nts POCT SARS-COV-2 ANTIGEN (test code = 95864-7) Not Detected Not Detected, See Comment On board controls acceptable with C Line (test code = 3574) Yes [facility] Molecular [id number] 13:42:07* Test Item Value Reference Range Interpretation Comme nts POCT Molecular FluA (test co de = 82849-1) Negative Negative POCT Molecular FluB (test co de = 72602-0) Negative Negative Lab Interpretation (test cod e = 84253-7) Normal [facility] Urinalysis, Hxzggaemdi8522-64-81 20:31:00 * Test Item Value Reference Range Interpretation Comme nts POCT U SP GRAV (test code = 3255) 1.015 mg/dl 1.005-1.025 POCT PH U (test code = 3254) 7.0 mg/dl 5-8 POCT U LEUK EST (test code = 3263) small Negative - Negative A POCT U NIT (test code = 3262) negative Negative - Negati ve POCT U PROT (test code = 3259) Trace Negative - Negative A POCT U GLU (test code = 3256) negative Negative - Negati ve POCT U KETONE (test code = 3258) negative Negative - Negative POCT U UROBILI (test code = 3260) 0.2 mg/dl 0.2-1 POCT U BILI (test code = 3261) negative Negative - Negative POCT U BLD (test code = 3257) negative Negative - Negati ve POCT U COLOR (test code = 3266) Yellow POCT U APPEAR (test code = 3267) Cloudy Lab Interpretation (test cod e = 19444-1) Abnormal [facility] Urinalysis, [id number] 15:30:00 * Test Item Value Reference Range Interpretation Comme nts POCT U SP GRAV (test code = 3255) 1.020 mg/dl 1.005-1.025 POCT PH U (test code = 3254) 7.0 mg/dl 5-8 POCT U LEUK EST (test code = 3263) Large Negative - Negative A POCT U NIT (test code = 3262) Negative Negative - Negati ve POCT U PROT (test code = 3259) 100 Negative - Negative A POCT U GLU (test code = 3256) Negative Negative - Negati ve POCT U KETONE (test code = 3258) Negative Negative - Negative POCT U UROBILI (test code = 3260) 0.2 mg/dl 0.2-1 POCT U BILI (test code = 3261) Negative Negative - Negative POCT U BLD (test code = 3257) Moderate Negative - Negati ve A POCT U COLOR (test code = 3266) Yellow POCT U APPEAR (test code = 3267) Cloudy Lab Interpretation (test cod e = 54918-2) Abnormal [facility] TaylorPROTHROMBIN TIME / [id number] 17:19:32* Test Item Value Reference Range Interpretation Comme nts PROTIME PATIENT (test code = 5964-2) 10.9 10.1-12.6 INR (test code = 6301-6) 0.9 Normal INR <1.1; Warfarin Therapeutic range 2.0 to 3.0 or 2.5 to 3.5, depending upon the indications. Lab Interpretation (test code = 85092-6) Normal [facility] TaylorCBC with Jqxcdpaqbhqm9549-11-44 17:11:31* Test Item Value Reference Range Interpretation Comme nts WBC (test code = 6690-2) 7.53 4.30-11.10 RBC (test code = 789-8) 4.14 3.93-5.25 HGB (test code = 718-7) 11.7 g/dL 11.6-15.0 HCT (test code = 4544-3) 37.3 % 35.7-45.2 MCV (test code = 787-2) 90.1 fL 80.6-95.5 MCH (test code = 785-6) 28.3 pg 25.9-32.8 MCHC (test code = 786-4) 31.4 g/dL 31.6-35.1 L RDW-SD (test code = 29878-3) 47.8 fL 39.0-49.9 RDW-CV (test code = 788-0) 14.6 % 12.0-15.5 PLT (test code = 777-3) 200 166-358 MPV (test code = 98514-9) 11.4 fL 9.5-12.9 NRBC/100 WBC (test code = 8275537641) 0.0 0.0-10.0 NRBC x10^3 (test code = 5937980273) See_Comment [Automated messa ge] The system which generated this result transmitted reference range: 10*3/?L. The reference range was not used to interpret this result as normal/abnormal. GRAN MAT (NEUT) % (test code = 770-8) 59.3 % IMM GRAN % (test code = 2076864013) 0.40 % LYMPH % (test code = 736-9) 30.7 % MONO % (test code = 5905-5) 7.0 % EOS % (test code = 713-8) 1.9 % BASO % (test code = 706-2) 0.7 % GRAN MAT x10^3(ANC) (test code = 0673001386) 4.47 10*3/uL 1.88-7.09 IMM GRAN x10^3 (test code = 6169375474) 0.03 10*3/uL 0.00-0.06 LYMPH x10^3 (test code = 731-0) 2.31 10*3/uL 1.32-3.29 MONO x10^3 (test code = 742-7) 0.53 10*3/uL 0.33-0.92 EOS x10^3 (test code = 711-2) 0.14 10*3/uL 0.03-0.39 BASO x10^3 (test code = 704-7) 0.05 10*3/uL 0.01-0.07 Lab Interpretation (test code = 73515-6) Abnormal [facility] Urinalysis, Kphvryrpna7082-00-59 16:24:00 * Test Item Value Reference Range Interpretation Comme nts POCT U SP GRAV (test code = 3255) 1.005 mg/dl 1.005-1.025 POCT PH U (test code = 3254) 6.0 mg/dl 5-8 POCT U LEUK EST (test code = 3263) Negative Negative - Negative POCT U NIT (test code = 3262) Negative Negative - Negati ve POCT U PROT (test code = 3259) Negative Negative - Negative POCT U GLU (test code = 3256) Negative Negative - Negati ve POCT U KETONE (test code = 3258) Negative Negative - Negative POCT U UROBILI (test code = 3260) 0.2 mg/dl 0.2-1 POCT U BILI (test code = 3261) Negative Negative - Negative POCT U BLD (test code = 3257) Negative Negative - Negati ve POCT U COLOR (test code = 3266) Yellow POCT U APPEAR (test code = 3267) Clear [facility] TaylorMEAS,POST-VOID RES,US,GPE-[id number] 16:24:00* Test Item Value Reference Range Interpretation Comme nts PVR (URINE VOLUME) (test code = 5193) 32 ml 0-100 [facility] SARS-COV-2 ANTIGEN (BINAX NOW)2024-06-11 20:36:00* Test Item Value Reference Range Interpretation Comme nts POCT SARS-COV-2 ANTIGEN (test code = 73836-5) Not Detected Not Detected, See Comment On board controls acceptable with C Line (test code = 3574) Yes [facility] Molecular [id number] 20:33:03* Test Item Value Reference Range Interpretation Comme nts POCT Molecular FluA (test co de = 51962-8) Negative Negative POCT Molecular FluB (test co de = 46302-7) Negative Negative Lab Interpretation (test cod e = 67258-0) Normal [facility], [id number] 16:09:04* Test Item Value Reference Range Interpretation Comme nts FK 506 (test code = 7350287628) 4 ng/mL EL (test code = EL) Target/Therapeutic Range KIDNEY ? Early (<3 mo) ? ? 8-12 ? Late ?(>3 mo) ? ? 5-10 ?SPK / LINDA ? Early (<3 mo) ? ? 10-15 ? Mid ? (3-6 mo) ? ?8-10 ? Late ?(>6 mo) ? ? 5-8 ?LIVER ? Early (<3 mo) ?HCV: ? 5-7 ?Tumor: ? ? ? 5-7 ?Autoimmune: ?8-10 ? Late (>3 mo) ? ? ?~5 ?HEART ? Early (<6 mo) ? ? 12-15 ? Late ?(>6 mo) ? ? 8-12 ?LUNG ? Early (<6 mo) ? ? 12-15 ? Mid ? (7-12 mo) ? 10-15 ? Late ?(>12 mo) ? ?8-10 Method by: ?Chemiflex, Tracer Clerk i1000 [facility] [id number] 14:37:05* Test Item Value Reference Range Interpretation Comme nts MAGNESIUM (test code = 9986378154) 1.9 mg/dL 1.7-2.4 Lab Interpretation (test cod e = 41450-8) Normal [facility] (NA, K, CL, CO2, Glucose, BUN, Creatinine, CA)2024-06-04 14:36:45* Test Item Value Reference Range Interpretation Comme nts NA (test code = 6239353860) 143 mmol/L 135-145 K (test code = 3582968156) 5.2 mmol/L 3.5-5.0 H CL (test code = 2481452460) 115 mmol/L 98-108 H CO2 TOTAL (test code = 8517952810) 21 mmol/L 23-31 L AGAP (test code = 1118352363) 7 2-16 BUN (test code = 0125887502) 39 mg/dL 7-23 H GLUCOSE (test code = 0489066029) 96 mg/dL 70-110 CREATININE (test code = 2160-0) 2.24 mg/dL 0.50-1.04 H CALCIUM (test code = 6128659987) 9.1 mg/dL 8.6-10.6 eGFR (test code = 23094-1) 24.0 mL/min/1.73m2 CKD-EPI eGFR (2020). Assuming creatinine has been stable day-to-day for at least three months, the eGFR indicates Category G4 (15 - 29 mL/min/1.73 m2) Lab Interpretation (test code = 90827-6) [facility]normal [facility] Taylor[facility] [id number] 14:36:25* Test Item Value Reference Range Interpretation Comme nts PHOSPHORUS (test code = 0882847614) 4.5 mg/dL 2.5-5.0 Lab Interpretation (test cod e = 92977-7) Normal [facility] TaylorHEPATIC FUNCTION PANEL (23543) (ALB,T.PRO,BILI T,BU/BC,ALT,AST,ALK PHOS)2024-06-04 14:36:24* Test Item Value Reference Range Interpretation Comme nts TOTAL BILI (test code = 3426427392) 0.3 mg/dL 0.1-1.1 BILI UNCON (test code = 1177840752) 0.2 mg/dL 0.1-1.1 BILI CONJ (test code = 6225059805) 0.0 mg/dL 0.0-0.3 T PROTEIN (test code = 7478975275) 6.5 g/dL 6.3-8.2 ALBUMIN (test code = 8574567107) 4.0 g/dL 3.5-5.0 ALK PHOS (test code = 0550073205) 82 U/L 34-122 ALTv (test code = 1742-6) 22 U/L 5-35 AST(SGOT) (test code = 7521669550) 30 U/L 13-40 Lab Interpretation (test cod e = 19112-0) Normal [facility] TaylorPROTHROMBIN TIME / [id number] 13:24:02* Test Item Value Reference Range Interpretation Comme nts PROTIME PATIENT (test code = 5964-2) 10.8 10.1-12.6 INR (test code = 6301-6) 0.9 Normal INR <1.1; Warfarin Therapeutic range 2.0 to 3.0 or 2.5 to 3.5, depending upon the indications. Lab Interpretation (test code = 82825-2) Normal [facility] with Gyuopasvpsph3045-11-26 13:09:58* Test Item Value Reference Range Interpretation Comme nts WBC (test code = 6690-2) 8.23 4.30-11.10 RBC (test code = 789-8) 4.18 3.93-5.25 HGB (test code = 718-7) 11.7 g/dL 11.6-15.0 HCT (test code = 4544-3) 37.6 % 35.7-45.2 MCV (test code = 787-2) 90.0 fL 80.6-95.5 MCH (test code = 785-6) 28.0 pg 25.9-32.8 MCHC (test code = 786-4) 31.1 g/dL 31.6-35.1 L RDW-SD (test code = 45674-3) 51.8 fL 39.0-49.9 H RDW-CV (test code = 788-0) 15.8 % 12.0-15.5 H PLT (test code = 777-3) 179 166-358 MPV (test code = 15539-0) 10.7 fL 9.5-12.9 NRBC/100 WBC (test code = 6045880512) 0.0 0.0-10.0 NRBC x10^3 (test code = 2403185905) See_Comment [Automated messa ge] The system which generated this result transmitted reference range: 10*3/?L. The reference range was not used to interpret this result as normal/abnormal. GRAN MAT (NEUT) % (test code = 770-8) 54.5 % IMM GRAN % (test code = 2075392054) 0.50 % LYMPH % (test code = 736-9) 34.8 % MONO % (test code = 5905-5) 6.3 % EOS % (test code = 713-8) 3.2 % BASO % (test code = 706-2) 0.7 % GRAN MAT x10^3(ANC) (test code = 9226231892) 4.49 10*3/uL 1.88-7.09 IMM GRAN x10^3 (test code = 5688389683) 0.04 10*3/uL 0.00-0.06 LYMPH x10^3 (test code = 731-0) 2.86 10*3/uL 1.32-3.29 MONO x10^3 (test code = 742-7) 0.52 10*3/uL 0.33-0.92 EOS x10^3 (test code = 711-2) 0.26 10*3/uL 0.03-0.39 BASO x10^3 (test code = 704-7) 0.06 10*3/uL 0.01-0.07 Lab Interpretation (test code = 87093-5) Abnormal [facility] TaylorMagnesium Elfrk6354-78-31 14:43:47* Test Item Value Reference Range Interpretation Comme nts MAGNESIUM (test code = 8739961906) 1.7 mg/dL 1.7-2.4 Lab Interpretation (test cod e = 37121-9) Normal [facility] Taylor[facility] FUN[facility] PANEL (14409) (ALB,T.PRO,BILI T,BU/BC,ALT,AST,ALK PHOS)2024-04-28 14:43:47* Test Item Value Reference Range Interpretation Comme nts TOTAL BILI (test code = 0083633029) 0.6 mg/dL 0.1-1.1 BILI UNCON (test code = 8960531579) 0.0 mg/dL 0.1-1.1 L BILI CONJ (test code = 0268653557) 0.0 mg/dL 0.0-0.3 T PROTEIN (test code = 4187190520) 6.8 g/dL 6.3-8.2 ALBUMIN (test code = 8965690148) 3.7 g/dL 3.5-5.0 ALK PHOS (test code = 8370155720) 83 U/L 34-122 ALTv (test code = 1742-6) 20 U/L 5-35 AST(SGOT) (test code = 9718713288) 21 U/L 13-40 Lab Interpretation (test cod e = 34027-1) Abnormal [facility] [place] Metabolic Panel (NA, K, CL, CO2, Glucose, BUN, Creatinine, CA)2024-04-28 14:43:27* Test Item Value Reference Range Interpretation Comme nts NA (test code = 7873897446) 139 mmol/L 135-145 K (test code = 9800382960) 5.1 mmol/L 3.5-5.0 H CL (test code = 2262931505) 111 mmol/L 98-108 H CO2 TOTAL (test code = 0645711648) 22 mmol/L 23-31 L AGAP (test code = 0823633972) 6 2-16 BUN (test code = 1752087644) 32 mg/dL 7-23 H GLUCOSE (test code = 3537339338) 140 mg/dL 70-110 H CREATININE (test code = 2160-0) 1.92 mg/dL 0.50-1.04 H CALCIUM (test code = 9740831202) 9.0 mg/dL 8.6-10.6 eGFR (test code = 53403-3) 28.8 mL/min/1.73m2 CKD-EPI eGFR (2020). Assuming creatinine has been stable day-to-day for at least three months, the eGFR indicates Category G4 (15 - 29 mL/min/1.73 m2) Lab Interpretation (test code = 94414-6) Abnormal [facility] TaylorPhosphorus [id number] 14:43:26* Test Item Value Reference Range Interpretation Comme nts PHOSPHORUS (test code = 5624951211) 4.1 mg/dL 2.5-5.0 Lab Interpretation (test cod e = 79944-6) Normal [facility] with Ieppwfytjkwh4602-13-65 14:36:45* Test Item Value Reference Range Interpretation Comme nts WBC (test code = 6690-2) 7.86 4.30-11.10 RBC (test code = 789-8) 4.28 3.93-5.25 HGB (test code = 718-7) 11.6 g/dL 11.6-15.0 HCT (test code = 4544-3) 38.5 % 35.7-45.2 MCV (test code = 787-2) 90.0 fL 80.6-95.5 MCH (test code = 785-6) 27.1 pg 25.9-32.8 MCHC (test code = 786-4) 30.1 g/dL 31.6-35.1 L RDW-SD (test code = 51481-1) 50.3 fL 39.0-49.9 H RDW-CV (test code = 788-0) 15.4 % 12.0-15.5 PLT (test code = 777-3) 191 166-358 MPV (test code = 84825-5) 10.7 fL 9.5-12.9 NRBC/100 WBC (test code = 3237473963) 0.0 0.0-10.0 NRBC x10^3 (test code = 9440445327) See_Comment [Automated messa ge] The system which generated this result transmitted reference range: 10*3/?L. The reference range was not used to interpret this result as normal/abnormal. GRAN MAT (NEUT) % (test code = 770-8) 63.3 % IMM GRAN % (test code = 7562941164) 0.50 % LYMPH % (test code = 736-9) 25.4 % MONO % (test code = 5905-5) 7.0 % EOS % (test code = 713-8) 3.2 % BASO % (test code = 706-2) 0.6 % GRAN MAT x10^3(ANC) (test code = 5095682419) 4.97 10*3/uL 1.88-7.09 IMM GRAN x10^3 (test code = 8373305267) 0.04 10*3/uL 0.00-0.06 LYMPH x10^3 (test code = 731-0) 2.00 10*3/uL 1.32-3.29 MONO x10^3 (test code = 742-7) 0.55 10*3/uL 0.33-0.92 EOS x10^3 (test code = 711-2) 0.25 10*3/uL 0.03-0.39 BASO x10^3 (test code = 704-7) 0.05 10*3/uL 0.01-0.07 Lab Interpretation (test code = 64407-4) Abnormal [facility] TaylorPROTHROMBIN TIME / [id number] 14:07:26* Test Item Value Reference Range Interpretation Comme [facility] PROTIME PATIENT (test code = 5964-2) 10.1 10.1-12.6 INR (test code = 6301-6) 0.9 Normal INR <1.1; Warfarin Therapeutic range 2.0 to 3.0 or 2.5 to 3.5, depending upon the indications. Lab Interpretation (test code = 21448-5) Normal [facility] Hemoglobin A1C [id number] 16:16:00* Test Item Value Reference Range Interpretation Comme [facility] POCT HBA1C (test code = 4548-4) 7.7 % 4-6 A Lab Interpretation (test cod e = 10047-3) Abnormal [facility] TaylorDEXA AXIAL (HIP AND SPINE)2024-04-01 15:31:10 HISTORY: Osteopenia. TECHNIQUE: Bone density estimation is done using DEXA scan, over the righthip and lumbar spines. FINDINGS: Details of the results are enclosed for your review. The summaryis as follows. RIGHT HIP:BMD value is 0.933 gm/sq cm, with T-score of - 0.6. Estimated BMD in theneck is 0.894 g/sq cm with T score of -1.0. No significant change whencompared with August 2021 study. LUMBARSPINES:Average BMD value from L1 through L4 is 1.114 gm/sq cm, with T- score - 0.6.Interval improvement noted since August 2021 study. CONCLUSION: No osteoporosis or significant osteopenia. ASSESSMENT: WHO-definitions: T-score normal: +/- 1 SD around the meanosteopenia: >1 to 2.4 SD below the dominic nosteoporosis: >2.5 SD below the meanFracture risk doubles for each 1.5 SD below the mean.[facility] GLUCOSE (AUTOMATED)2024-03-20 17:20:05* Test Item Value Reference Range Interpretation Comme [facility] POCT GLU (test code = 6923416946) 174 mg/dL 70-110 H Lab Interpretation (test cod e = 40667-1) Abnormal [facility] GLUCOSE (AUTOMATED)2024-03-20 13:30:35* Test Item Value Reference Range Interpretation Comme nts POCT GLU (test code = 4800134364) 164 mg/dL 70-110 H Lab Interpretation (test cod e = 33127-1) Abnormal [facility] GLUCOSE (AUTOMATED)2024-03-20 02:03:35* Test Item Value Reference Range Interpretation Comme nts POCT GLU (test code = 6232072307) 219 mg/dL 70-110 H Lab Interpretation (test cod e = 66227-5) Abnormal [facility] GLUCOSE (AUTOMATED)2024-03-19 21:39:06* Test Item Value Reference Range Interpretation Comme nts POCT GLU (test code = 4650196035) 169 mg/dL 70-110 H Lab Interpretation (test cod e = 20992-1) [facility]normal [facility] TaylorIR BIOPSY RENAL PERCUTANEOUS WITH ULTRASOUND 2024-03-19 20:26:37EXAMINATION: ULTRASOUND-GUIDED PERCUTANEOUS TRANSPLANT KIDNEY BIOPSY. 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 ATTENDING: Dr. Tevin ParisRESIDENT: Dr. Cm SEDATION: No sedation was administered. The procedure was performed withlocal anesthesia and IV fentanyl. TECHNIQUE: The risks, benefits and alternatives were discussed and informedconsent was obtained. Prior to beginning the procedure, [place] Protocolwas performed to confirm the patient's identity and the planned procedure.Maximum sterile barriers including cap, mask, hand hygiene, sterile gloves,sterile gown, large sterile drape and cutaneous antisepsis were used. The patient was prepped and draped in the usual sterile manner. The LLQtransplant kidney was localized using ultrasound ?guidance. A safe route,free of overlying structures was identified. The area over this site wasanesthetized with 1% lidocaine and a small skin incision was made. A 17-gauge coaxial needle was advanced into the LLQ transplant kidney usingreal-time ultrasound ?guidance. Following this, an 18-gauge core biopsydevice was advanced into the kidney through the coaxial needle usingultrasound guidance. A total of 3 passes were made. These tissue cores weretransferred to the appropriate containers for surgical pathology. At theend of the procedure, the biopsy set was removed and pressure held untilhemostasis was achieved. A post procedure ultrasound was performed whichshowed no adverse complications. ESTIMATED BLOOD LOSS: Minimal. CONDITION: Stable. DISCHARGE TO: Patient care division. FINDINGS: The peripheral cortex of the LLQ transplant kidney was targeted forpercutaneous biopsy. Final ultrasound imagesdemonstrate no cherelle-renalhematoma.[facility] TaylorTacrolimus, Laojd4078-60-64 16:22:59* Test Item Value Reference Range Interpretation Comme nts FK 506 (test code = 6810816473) 4 ng/mL EL (test code = EL) Target/Therapeutic Range KIDNEY ? Early (<3 mo) ? ? 8-12 ? Late ?(>3 mo) ? ? 5-10 ?SPK / LINDA ? Early (<3 mo) ? ? 10-15 ? Mid ? (3-6 mo) ? ?8-10 ? Late ?(>6 mo) ? ? 5-8 ?LIVER ? Early (<3 mo) ?HCV: ? 5-7 ?Tumor: ? ? ? 5-7 ?Autoimmune: ?8-10 ? Late (>3 mo) ? ? ?~5 ?HEART ? Early (<6 mo) ? ? 12-15 ? Late ?(>6 mo) ? ? 8-12 ?LUNG ? Early (<6 mo) ? ? 12-15 ? Mid ? (7-12 mo) ? 10-15 ? Late ?(>12 mo) ? ?8-10 Method by: ?Chemiflex, Tracer Clerk i1000 [facility] TaylorBasi Metabolic Panel (NA, K, CL, CO2, Glucose, BUN, Creatinine, CA)2024-03-08 15:40:09* Test Item Value Reference Range Interpretation Comme nts NA (test code = 0408183708) 147 mmol/L 135-145 H K (test code = 9956852305) 5.3 mmol/L 3.5-5.0 H CL (test code = 4891588228) 114 mmol/L 98-108 H CO2 TOTAL (test code = 3955947794) 23 mmol/L 23-31 AGAP (test code = 4904713075) 10 2-16 BUN (test code = 9016568833) 38 mg/dL 7-23 H GLUCOSE (test code = 9106941685) 76 mg/dL 70-110 CREATININE (test code = 2160-0) 2.04 mg/dL 0.50-1.04 H CALCIUM (test code = 0010571333) 9.3 mg/dL 8.6-10.6 eGFR (test code = 82349-8) 27.0 mL/min/1.73m2 CKD-EPI eGFR (2020). Assuming creatinine has been stable day-to-day for at least three months, the eGFR indicates Category G4 (15 - 29 mL/min/1.73 m2) Lab Interpretation (test code = 41327-8) Abnormal [facility] TaylorMagnesium Kejrl6791-05-42 15:40:09* Test Item Value Reference Range Interpretation Comme nts MAGNESIUM (test code = 9381467803) 2.0 mg/dL 1.7-2.4 Lab Interpretation (test cod e = 88151-3) Normal [facility] TaylorHEPATIC FUNCTION PANEL (89035) (ALB,T.PRO,BILI T,BU/BC,ALT,AST,ALK PHOS)2024-03-08 15:39:49* Test Item Value Reference Range Interpretation Comme nts TOTAL BILI (test code = 8429724045) 0.7 mg/dL 0.1-1.1 BILI UNCON (test code = 9488994500) 0.0 mg/dL 0.1-1.1 L BILI CONJ (test code = 5254484033) 0.0 mg/dL 0.0-0.3 T PROTEIN (test code = 5344748576) 7.4 g/dL 6.3-8.2 ALBUMIN (test code = 9873721734) 4.0 g/dL 3.5-5.0 ALK PHOS (test code = 4251672098) 86 U/L 34-122 ALTv (test code = 1742-6) 14 U/L 5-35 AST(SGOT) (test code = 8156837398) 30 U/L 13-40 Lab Interpretation (test cod e = 42775-4) Abnormal [facility] TaylorPhosphorus Fbghq8600-07-99 15:39:48* Test Item Value Reference Range Interpretation Comme nts PHOSPHORUS (test code = 7959390730) 4.0 mg/dL 2.5-5.0 Lab Interpretation (test cod e = 00956-0) Normal [facility] TaylorPROTHROMBIN TIME / [id number] 13:00:55* Test Item Value Reference Range Interpretation Comme nts PROTIME PATIENT (test code = 5964-2) 11.2 10.1-12.6 INR (test code = 6301-6) 1.0 Normal INR <1.1; Warfarin Therapeutic range 2.0 to 3.0 or 2.5 to 3.5, depending upon the indications. Lab Interpretation (test code = 43546-4) Normal [facility] TaylorCBC with Qeympyloqkog6823-61-13 12:50:36* Test Item Value Reference Range Interpretation Comme nts WBC (test code = 6690-2) 6.39 4.30-11.10 RBC (test code = 789-8) 4.30 3.93-5.25 HGB (test code = 718-7) 11.7 g/dL 11.6-15.0 HCT (test code = 4544-3) 37.9 % 35.7-45.2 MCV (test code = 787-2) 88.1 fL 80.6-95.5 MCH (test code = 785-6) 27.2 pg 25.9-32.8 MCHC (test code = 786-4) 30.9 g/dL 31.6-35.1 L RDW-SD (test code = 98492-7) 46.9 fL 39.0-49.9 RDW-CV (test code = 788-0) 14.6 % 12.0-15.5 PLT (test code = 777-3) 209 166-358 MPV (test code = 60848-8) 11.4 fL 9.5-12.9 NRBC/100 WBC (test code = 4709163694) 0.0 0.0-10.0 NRBC x10^3 (test code = 7545524113) See_Comment [Automated messa ge] The system which generated this result transmitted reference range: 10*3/?L. The reference range was not used to interpret this result as normal/abnormal. GRAN MAT (NEUT) % (test code = 770-8) 54.4 % IMM GRAN % (test code = 2822302175) 0.20 % LYMPH % (test code = 736-9) 32.1 % MONO % (test code = 5905-5) 9.2 % EOS % (test code = 713-8) 3.3 % BASO % (test code = 706-2) 0.8 % GRAN MAT x10^3(ANC) (test code = 8661108321) 3.48 10*3/uL 1.88-7.09 IMM GRAN x10^3 (test code = 6769430590) 0.00-0.06 LYMPH x10^3 (test code = 731-0) 2.05 10*3/uL 1.32-3.29 MONO x10^3 (test code = 742-7) 0.59 10*3/uL 0.33-0.92 EOS x10^3 (test code = 711-2) 0.21 10*3/uL 0.03-0.39 BASO x10^3 (test code = 704-7) 0.05 10*3/uL 0.01-0.07 Lab Interpretation (test code = 28934-2) [facility]normal [facility] TaylorPODE Urinalysis W Specific [id number] 14:41:00* Test Item Value Reference Range Interpretation Comme nts POCT U SP GRAV (test code = 3255) 1.010 mg/dl 1.005-1.025 POCT PH U (test code = 3254) 6 mg/dl 5-8 POCT U LEUK EST (test code = 3263) ++ Negative - Negative POCT U NIT (test code = 3262) Positive Negative - Negati ve POCT U PROT (test code = 3259) Trace Negative - Negative POCT U GLU (test code = 3256) Normal Negative - Negati ve POCT U KETONE (test code = 3258) Negtaive Negative - Negative POCT U UROBILI (test code = 3260) Normal 0.2-1 POCT U BILI (test code = 3261) Negative Negative - Negative POCT U BLD (test code = 3257) 50 Negative - Negati ve POCT U COLOR (test code = 3266) POCT U APPEAR (test code = 3267) Lab Interpretation (test cod e = 51560-0) Abnormal [facility] GLUCOSE (AUTOMATED)2024-01-10 12:53:01* Test Item Value Reference Range Interpretation Comme nts POCT GLU (test code = 1969928679) 239 mg/dL 70-110 H Lab Interpretation (test cod e = 57386-6) Abnormal [facility] GLUCOSE (AUTOMATED)2024-01-10 12:53:01* Test Item Value Reference Range Interpretation Comme nts POCT GLU (test code = 7758505982) 239 mg/dL 70-110 H Lab Interpretation (test cod e = 85219-3) Abnormal [facility] GLUCOSE (AUTOMATED)2024-01-10 02:31:40* Test Item Value Reference Range Interpretation Comme nts POCT GLU (test code = 3390853281) 254 mg/dL 70-110 H Notified Provide r Lab Interpretation (test code = 38585-6) Abnormal [facility] GLUCOSE (AUTOMATED)2024-01-10 02:31:40* Test Item Value Reference Range Interpretation Comme nts POCT GLU (test code = 1843045362) 254 mg/dL 70-110 H Notified Provide r Lab Interpretation (test code = 91020-0) Abnormal [facility] GLUCOSE (AUTOMATED)2024-01-09 22:02:50* Test Item Value Reference Range Interpretation Comme nts POCT GLU (test code = 0928167318) 290 mg/dL 70-110 H Notified Provide r Lab Interpretation (test code = 47647-9) Abnormal [facility] GLUCOSE (AUTOMATED)2024-01-09 22:02:50* Test Item Value Reference Range Interpretation Comme nts POCT GLU (test code = 8236587887) 290 mg/dL 70-110 H Notified Provide r Lab Interpretation (test code = 55976-9) Abnormal [facility] GLUCOSE (AUTOMATED)2024-01-09 11:25:00* Test Item Value Reference Range Interpretation Comme nts POCT GLU (test code = 5911392227) 90 mg/dL 70-110 Lab Interpretation (test cod e = 77410-6) Normal [facility] GLUCOSE (AUTOMATED)2024-01-09 11:25:00* Test Item Value Reference Range Interpretation Comme nts POCT GLU (test code = 4735778313) 90 mg/dL 70-110 Lab Interpretation (test cod e = 83697-1) Normal [facility] Urinalysis, Ksuhlwjhnu9090-42-20 14:34:00 * Test Item Value Reference Range Interpretation Comme nts POCT U SP GRAV (test code = 3255) 1.020 mg/dl 1.005-1.025 POCT PH U (test code = 3254) 7.0 mg/dl 5-8 POCT U LEUK EST (test code = 3263) Large Negative - Negative A POCT U NIT (test code = 3262) Negative Negative - Negati ve POCT U PROT (test code = 3259) 100 Negative - Negative A POCT U GLU (test code = 3256) Negative Negative - Negati ve POCT U KETONE (test code = 3258) Negative Negative - Negative POCT U UROBILI (test code = 3260) 0.2 mg/dl 0.2-1 POCT U BILI (test code = 3261) Negative Negative - Negative POCT U BLD (test code = 3257) Moderate Negative - Negati ve A POCT U COLOR (test code = 3266) Yellow POCT U APPEAR (test code = 3267) Cloudy Lab Interpretation (test cod e = 67412-0) Abnormal [facility] TaylorMEAS,POST-VOID RES,US,DZU-[id number] 14:34:00* Test Item Value Reference Range Interpretation Comme nts PVR (URINE VOLUME) (test code = 5193) 164 ml 0-100 [facility] Urinalysis, Puadvxpdxn2269-01-85 14:34:00 * Test Item Value Reference Range Interpretation Comme nts POCT U SP GRAV (test code = 3255) 1.020 mg/dl 1.005-1.025 POCT PH U (test code = 3254) 7.0 mg/dl 5-8 POCT U LEUK EST (test code = 3263) Large Negative - Negative A POCT U NIT (test code = 3262) Negative Negative - Negati ve POCT U PROT (test code = 3259) 100 Negative - Negative A POCT U GLU (test code = 3256) Negative Negative - Negati ve POCT U KETONE (test code = 3258) Negative Negative - Negative POCT U UROBILI (test code = 3260) 0.2 mg/dl 0.2-1 POCT U BILI (test code = 3261) Negative Negative - Negative POCT U BLD (test code = 3257) Moderate Negative - Negati ve A POCT U COLOR (test code = 3266) Yellow POCT U APPEAR (test code = 3267) Cloudy Lab Interpretation (test cod e = 34742-4) Abnormal [facility] TaylorMEAS,POST-VOID RES,US,LGP-[id number] 14:34:00* Test Item Value Reference Range Interpretation Comme nts PVR (URINE VOLUME) (test code = 5193) 164 ml 0-100 [facility] Urinalysis W Specific [id number] 14:34:00* Test Item Value Reference Range Interpretation Comme nts POCT U SP GRAV (test code = 3255) 1.010 mg/dl 1.005-1.025 POCT PH U (test code = 3254) 5 mg/dl 5-8 POCT U LEUK EST (test code = 3263) ++ Negative - Negative POCT U NIT (test code = 3262) positive Negative - Negati ve POCT U PROT (test code = 3259) trace Negative - Negative POCT U GLU (test code = 3256) normal Negative - Negati ve POCT U KETONE (test code = 3258) negative Negative - Negative POCT U UROBILI (test code = 3260) normal 0.2-1 POCT U BILI (test code = 3261) negative Negative - Negative POCT U BLD (test code = 3257) 50+ Negative - Negati ve POCT U COLOR (test code = 3266) yellow POCT U APPEAR (test code = 3267) [facility] Urinalysis W Specific [id number] 14:34:00* Test Item Value Reference Range Interpretation Comme nts POCT U SP GRAV (test code = 3255) 1.010 mg/dl 1.005-1.025 POCT PH U (test code = 3254) 5 mg/dl 5-8 POCT U LEUK EST (test code = 3263) ++ Negative - Negative POCT U NIT (test code = 3262) positive Negative - Negati ve POCT U PROT (test code = 3259) trace Negative - Negative POCT U GLU (test code = 3256) normal Negative - Negati ve POCT U KETONE (test code = 3258) negative Negative - Negative POCT U UROBILI (test code = 3260) normal 0.2-1 POCT U BILI (test code = 3261) negative Negative - Negative POCT U BLD (test code = 3257) 50+ Negative - Negati ve POCT U COLOR (test code = 3266) yellow POCT U APPEAR (test code = 3267) [facility] [id number] 16:31:00* Test Item Value Reference Range Interpretation Comme nts POCT HBA1C (test code = 4548-4) 6.1 % 4-6 A Lab Interpretation (test cod e = 26351-5) Abnormal [facility] Hemoglobin A1C [id number] 16:31:00* Test Item Value Reference Range Interpretation Comme nts POCT HBA1C (test code = 4548-4) 6.1 % 4-6 A Lab Interpretation (test cod e = 10198-2) Abnormal [facility] GLUCOSE (AUTOMATED)2023-09-04 20:39:48* Test Item Value Reference Range Interpretation Comme nts POCT GLU (test code = 5208560195) 125 mg/dL 70-110 H Lab Interpretation (test cod e = 88473-1) Abnormal [facility] GLUCOSE (AUTOMATED)2023-09-04 20:37:52* Test Item Value Reference Range Interpretation Comme nts POCT GLU (test code = 0891700530) 290 mg/dL 70-110 H Lab Interpretation (test cod e = 34784-2) [id number] 18:42:27* Test Item Value Reference Range Interpretation Comme nts TROPONIN I (test code = 0423219590) 0.002 ng/mL <=0.034 EL (test code = EL) Reference (Normal) Range (defined by the 99th percentile reference limit): <= 0.034 ng/mL Note: Cardiac troponin begins to rise 3-4 hours after the onset of ischemia. Repeat in 4-6 hours if the sample was drawn within 3-4 hours of the onset of the symptom and found normal. Diagnosis of myocardial injury is made with acute changes in cTn concentrations with at least one serial sample above the 99th percentile upper reference limit (URL), taken together with the patient's clinical presentation. Biotin has been reported to cause a negative bias, interpret results relative to patient's use of biotin. Lab Interpretation (test code = 80360-6) [facility] with [id number] 18:39:06* Test Item Value Reference Range Interpretation Comme nts WBC (test code = 6690-2) 7.88 4.30-11.10 RBC (test code = 789-8) 4.35 3.93-5.25 HGB (test code = 718-7) 12.4 g/dL 11.6-15.0 HCT (test code = 4544-3) 37.7 % 35.7-45.2 MCV (test code = 787-2) 86.7 fL 80.6-95.5 MCH (test code = 785-6) 28.5 pg 25.9-32.8 MCHC (test code = 786-4) 32.9 g/dL 31.6-35.1 RDW-SD (test code = 34983-2) 46.3 fL 39.0-49.9 RDW-CV (test code = 788-0) 14.6 % 12.0-15.5 PLT (test code = 777-3) 168 166-358 MPV (test code = 05771-3) 10.8 fL 9.5-12.9 NRBC/100 WBC (test code = 7132600435) 0.0 0.0-10.0 NRBC x10^3 (test code = 3229555608) See_Comment [Automated me ssage] The system which generated this result transmitted reference range: 10*3/?L. The reference range was not used to interpret this result as normal/abnormal. GRAN MAT (NEUT) % (test code = 770-8) 48.3 % IMM GRAN % (test code = 7869589350) 0.40 % LYMPH % (test code = 736-9) 38.6 % MONO % (test code = 5905-5) 8.2 % EOS % (test code = 713-8) 3.6 % BASO % (test code = 706-2) 0.9 % GRAN MAT x10^3(ANC) (test code = 8752784514) 3.81 10*3/uL 1.88-7.09 IMM GRAN x10^3 (test code = 1128000660) 0.03 10*3/uL 0.00-0.06 LYMPH x10^3 (test code = 731-0) 3.04 10*3/uL 1.32-3.29 MONO x10^3 (test code = 742-7) 0.65 10*3/uL 0.33-0.92 EOS x10^3 (test code = 711-2) 0.28 10*3/uL 0.03-0.39 BASO x10^3 (test code = 704-7) 0.07 10*3/uL 0.01-0.07 [facility] 18:34:27* Test Item Value Reference Range Interpretation Comme nts MAGNESIUM (test code = 5507690167) 2.0 mg/dL 1.7-2.4 Lab Interpretation (test cod e = 42190-5) Normal [facility] Metabolic Panel (59324)2023-09-04 18:34:06* Test Item Value Reference Range Interpretation Comme nts NA (test code = 3310577654) 144 mmol/L 135-145 K (test code = 4624933672) 4.5 mmol/L 3.5-5.0 CL (test code = 5978972503) 116 mmol/L 98-108 H CO2 TOTAL (test code = 4515275025) 20 mmol/L 23-31 L AGAP (test code = 7063822693) 8 2-16 BUN (test code = 8794894978) 35 mg/dL 7-23 H GLUCOSE (test code = 9463580065) 53 mg/dL 70-110 L CREATININE (test code = 0682732751) 1.71 mg/dL 0.50-1.04 H TOTAL BILI (test code = 9750996235) 0.6 mg/dL 0.1-1.1 CALCIUM (test code = 0678587720) 9.8 mg/dL 8.6-10.6 T PROTEIN (test code = 8799024652) 7.7 g/dL 6.3-8.2 ALBUMIN (test code = 0135406257) 4.5 g/dL 3.5-5.0 ALK PHOS (test code = 7320382466) 88 U/L 34-122 ALTv (test code = 1742-6) 18 U/L 5-35 AST(SGOT) (test code = 0543662547) 28 U/L 13-40 eGFR (test code = 10895-6) 33.3 mL/min/1.73m2 CKD-EPI eGFR (2020). Assuming creatinine has been stable day-to-day for at least three months, the eGFR indicates Category G3b (30 - 44 mL/min/1.73 m2) Lab Interpretation (test code = 03326-3) Abnormal [facility]2024-[facility] 18:33:45* Test Item Value Reference Range Interpretation Comme nts LIPASE (test code = 2187552320) 198 U/L 0-220 Lab Interpretation (test cod e = 04786-5) Normal [facility] Taylor[facility] ABDOMEN PELVIS WO [id number] 18:24:25CT Abdomen and Pelvis without contrast. CLINICAL HISTORY: Acute, nonlocalized abdominal pain. TECHNIQUE: Multidetector helical CT acquisition was obtained from the lungbases to the greater trochanters without oral and IV contrast. ?The imageswere reviewed in lung, bone, and soft tissue windows. DOSE: ?Up-to-date CT equipment and radiation dose reduction techniques wereemployed. CTDIvol: 9.55 mGy.DLP: 445.54 mGy-cm. FINDINGS: ?Absence of intravenous contrast limits evaluation of the solidorgans. Evaluation of the bowel is also limited by lack of oral contrast.Comparison has been made with 12/29/2022 CT studies. Lower lungs: Possible 3 mm partially visualized nodule on slice #1, series#2. Othe rwise visualized lungs are clear. No pleural effusion orpericardial effusion. Dense mitral annular calcifications noted. Liver, Gallbladder and Spleen: Surgical amanda are seen surrounding theliver in the karon hepatis region from liver transplant surgery. Livermeasures approximately 12.8 cm and showed no gross pathology. Spleen is11.5 x 5.2 cm in size. Gallbladder is absent. Biliary ducts and thepancreatic duct are not dilated. Peritoneum: ?No free air or free fluid. No lymphadenopathy. Pancreas and Adrenals: ?Unremarkable pancreas. Bilateral adrenal glandnodules, consistent with benign etiology. Kidneys and Ureters: ?No visible calculi in the renal collecting systems. No hydroureter or hydronephrosis. 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 Vessels: Atherosclerosis is noted in the aorta without an aneurysm. Retroperitoneum: No abnormal fluid or lymphadenopathy. Bowel: ?Large leftventral abdominal wall hernia noted containing severalloops of small bowel, mesenteric fat and vessels without any complications. Stomach is moderately distended with fluid and some air without anyapparent cause in this study. Mild sigmoid diverticulosis is suspectedwithout any acute changes. Smallbowel gas pattern is unremarkable. Bladder ?and Reproductive Organs: S/P hysterectomy. A small air bubble isseen in the urinary bladder with slightly thickened bladder torres. There isno congestion ofthe perivesical fat. No free fluid in the pelvis. Bones: ?No acute findings. Soft tissues: Large left ventral abdominal wall hernia without anycomplications. CONCLUSION:1. Moderately distended stomach with fluid without any apparent cause inthis study.2. 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 Early (<3 mo) ? ? 8-12 ? Late ?(>3 mo) ? ? 5-10 ?SPK / LINDA ? Early (<3 mo) ? ? 10-15 ? Mid ? (3-6 mo) ? ?8-10 ? Late ?(>6 mo) ? ? 5-8 ?LIVER ? Early (<3 mo) ?HCV: ? 5-7 ?Tumor: ? ? ? 5-7 ?Autoimmune: ?8-10 ? Late (>3 mo) ? ? ?~5 ?HEART ? Early (<6 mo) ? ? 12-15 ? Late ?(>6 mo) ? ? 8-12 ?LUNG ? Early (<6 mo) ? ? 12-15 ? Mid ? (7-12 mo) ? 10-15 ? Late ?(>12 mo) ? ?8-10 Method by: ?Chemiflex, Tracer Clerk i1000 [facility] Taylor[facility] Metabolic Panel (NA, K, CL, CO2, Glucose, BUN, Creatinine, CA)2023-08-15 19:09:52* Test Item Value Reference Range Interpretation Comme nts NA (test code = 9681899337) 145 mmol/L 135-145 K (test code = 5474520822) 5.8 mmol/L 3.5-5.0 H CL (test code = 2068084762) 117 mmol/L 98-108 H CO2 TOTAL (test code = 1106419390) 20 mmol/L 23-31 L AGAP (test code = 3922238417) 8 2-16 BUN (test code = 8994197651) 32 mg/dL 7-23 H GLUCOSE (test code = 0230397420) 74 mg/dL 70-110 CREATININE (test code = 4723370320) 1.74 mg/dL 0.50-1.04 H CALCIUM (test code = 4455881281) 9.5 mg/dL 8.6-10.6 eGFR (test code = 65586-0) 32.6 mL/min/1.73m2 CKD-EPI eGFR (2020). Assuming creatinine has been stable day-to-day for at least three months, the eGFR indicates Category G3b (30 - 44 mL/min/1.73 m2) Lab Interpretation (test code = 41053-1) Abnormal [facility] [id number] 18:54:12* Test Item Value Reference Range Interpretation Comme nts MAGNESIUM (test code = 6735876906) 1.8 mg/dL 1.7-2.4 Lab Interpretation (test cod e = 06808-9) Normal [facility] TaylorPhosphorus [id number] 18:53:51* Test Item Value Reference Range Interpretation Comme nts PHOSPHORUS (test code = 0462684293) 3.2 mg/dL 2.5-5.0 Lab Interpretation (test cod e = 52561-5) Normal [facility] TaylorHEPATIC FUNCTION PANEL (43945) (ALB,T.PRO,BILI T,BU/BC,ALT,AST,ALK PHOS)2023-08-15 18:53:51* Test Item Value Reference Range Interpretation Comme nts TOTAL BILI (test code = 4910274400) 0.6 mg/dL 0.1-1.1 BILI UNCON (test code = 4901721974) 0.4 mg/dL 0.1-1.1 BILI CONJ (test code = 6138272548) 0.0 mg/dL 0.0-0.3 T PROTEIN (test code = 0740436701) 6.8 g/dL 6.3-8.2 ALBUMIN (test code = 4536964541) 4.0 g/dL 3.5-5.0 ALK PHOS (test code = 3249107213) 86 U/L 34-122 ALTv (test code = 1742-6) 15 U/L 5-35 AST(SGOT) (test code = 5661801533) 26 U/L 13-40 Lab Interpretation (test cod e = 60591-2) Normal [facility] with Uxpiuehkzxqa9263-21-37 17:42:14* Test Item Value Reference Range Interpretation Comme nts WBC (test code = 6690-2) 8.55 See_Comment [Automated [employer]] The system which generated this result transmitted reference range: 4.30 - 11.10 10*3/?L. The reference range was not used to interpret this result as normal/abnormal. RBC (test code = 789-8) 4.33 See_Comment [Automated [employer]] The system which generated this result transmitted reference range: 3.93 - 5.25 10*6/?L. The reference range was not used to interpret this result as normal/abnormal. HGB (test code = 718-7) 12.2 g/dL 11.6-15.0 HCT (test code = 4544-3) 38.1 % 35.7-45.2 MCV (test code = 787-2) 88.0 fL 80.6-95.5 MCH (test code = 785-6) 28.2 pg 25.9-32.8 MCHC (test code = 786-4) 32.0 g/dL 31.6-35.1 RDW-SD (test code = 94285-9) 46.0 fL 39.0-49.9 RDW-CV (test code = 788-0) 14.3 % 12.0-15.5 PLT (test code = 777-3) 196 See_Comment [Automated messa ge] The system which generated this result transmitted reference range: 166 - 358 10*3/?L. The reference range was not used to interpret this result as normal/abnormal. MPV (test code = 77847-6) 10.8 fL 9.5-12.9 NRBC/100 WBC (test code = 9263904012) 0.0 See_Comment [Automated me ssage] The system which generated this result transmitted reference range: 0.0 - 10.0 /100 WBCs. The reference range was not used to interpret this result as normal/abnormal. NRBC x10^3 (test code = 0480866207) See_Comment [Automated me ssage] The system which generated this result transmitted reference range: 10*3/?L. The reference range was not used to interpret this result as normal/abnormal. GRAN MAT (NEUT) % (test code = 770-8) 70.0 % IMM GRAN % (test code = 0211938426) 0.50 % LYMPH % (test code = 736-9) 21.4 % MONO % (test code = 5905-5) 6.4 % EOS % (test code = 713-8) 1.2 % BASO % (test code = 706-2) 0.5 % GRAN MAT x10^3(ANC) (test code = 8249134879) 5.99 10*3/uL 1.88-7.09 IMM GRAN x10^3 (test code = 4955419952) 0.04 10*3/uL 0.00-0.06 LYMPH x10^3 (test code = 731-0) 1.83 10*3/uL 1.32-3.29 MONO x10^3 (test code = 742-7) 0.55 10*3/uL 0.33-0.92 EOS x10^3 (test code = 711-2) 0.10 10*3/uL 0.03-0.39 BASO x10^3 (test code = 704-7) 0.04 10*3/uL 0.01-0.07 [facility] with Lcnuwtoftunl4422-87-47 17:42:14* Test Item Value Reference Range Interpretation Comme nts WBC (test code = 6690-2) 8.55 See_Comment [Automated messa ge] The system which generated this result transmitted reference range: 4.30 - 11.10 10*3/?L. The reference range was not used to interpret this result as normal/abnormal. RBC (test code = 789-8) 4.33 See_Comment [Automated messa ge] The system which generated this result transmitted reference range: 3.93 - 5.25 10*6/?L. The reference range was not used to interpret this result as normal/abnormal. HGB (test code = 718-7) 12.2 g/dL 11.6-15.0 HCT (test code = 4544-3) 38.1 % 35.7-45.2 MCV (test code = 787-2) 88.0 fL 80.6-95.5 MCH (test code = 785-6) 28.2 pg 25.9-32.8 MCHC (test code = 786-4) 32.0 g/dL 31.6-35.1 RDW-SD (test code = 40412-6) 46.0 fL 39.0-49.9 RDW-CV (test code = 788-0) 14.3 % 12.0-15.5 PLT (test code = 777-3) 196 See_Comment [Automated [employer]] The system which generated this result transmitted reference range: 166 - 358 10*3/?L. The reference range was not used to interpret this result as normal/abnormal. MPV (test code = 85299-9) 10.8 fL 9.5-12.9 NRBC/100 WBC (test code = 6982509017) 0.0 See_Comment [Automated me ssage] The system which generated this result transmitted reference range: 0.0 - 10.0 /100 WBCs. The reference range was not used to interpret this result as normal/abnormal. NRBC x10^3 (test code = 9269962284) See_Comment [Automated me ssage] The system which generated this result transmitted reference range: 10*3/?L. The reference range was not used to interpret this result as normal/abnormal. GRAN MAT (NEUT) % (test code = 770-8) 70.0 % IMM GRAN % (test code = 3281341786) 0.50 % LYMPH % (test code = 736-9) 21.4 % MONO % (test code = 5905-5) 6.4 % EOS % (test code = 713-8) 1.2 % BASO % (test code = 706-2) 0.5 % GRAN MAT x10^3(ANC) (test code = 8715020076) 5.99 10*3/uL 1.88-7.09 IMM GRAN x10^3 (test code = 6332582834) 0.04 10*3/uL 0.00-0.06 LYMPH x10^3 (test code = 731-0) 1.83 10*3/uL 1.32-3.29 MONO x10^3 (test code = 742-7) 0.55 10*3/uL 0.33-0.92 EOS x10^3 (test code = 711-2) 0.10 10*3/uL 0.03-0.39 BASO x10^3 (test code = 704-7) 0.04 10*3/uL 0.01-0.07 [facility] TaylorPROTHROMBIN TIME / [id number] 17:41:13* Test Item Value Reference Range Interpretation Comme [facility] PROTIME PATIENT (test code = 5964-2) 13.4 See_Comment [Automated [employer]] The system which generated this result transmitted reference range: 12.0 - 14.7 Seconds. The reference range was not used to interpret this result as normal/abnormal. INR (test code = 6301-6) 1.1 Normal INR <1.1; Warfarin Therapeutic range 2.0 to 3.0 or 2.5 to 3.5, depending upon the indications. Lab Interpretation (test code = 91488-6) Normal [facility] TaylorPROTHROMBIN TIME / [id number] 17:41:13* Test Item Value Reference Range Interpretation Comme nts PROTIME PATIENT (test code = 5964-2) 13.4 See_Comment [Automated [employer]] The system which generated this result transmitted reference range: 12.0 - 14.7 Seconds. The reference range was not used to interpret this result as normal/abnormal. INR (test code = 6301-6) 1.1 Normal INR <1.1; Warfarin Therapeutic range 2.0 to 3.0 or 2.5 to 3.5, depending upon the indications. Lab Interpretation (test code = 72817-3) Normal [facility] Metabolic Panel (NA, K, CL, CO2, GLUCOSE, BUN, CREATININE, CA)2023-07-25 20:59:24* Test Item Value Reference Range Interpretation Comme nts NA (test code = 0089431907) 145 mmol/L 135-145 K (test code = 3841199071) 5.5 mmol/L 3.5-5.0 H CL (test code = 4439578609) 117 mmol/L 98-108 H CO2 TOTAL (test code = 3157530803) 20 mmol/L 23-31 L AGAP (test code = 2150912891) 8 2-16 BUN (test code = 5982997283) 35 mg/dL 7-23 H GLUCOSE (test code = 3827422966) 86 mg/dL 70-110 CREATININE (test code = 7978774276) 1.84 mg/dL 0.50-1.04 H CALCIUM (test code = 0709620828) 9.6 mg/dL 8.6-10.6 eGFR (test code = 42206-1) 30.5 mL/min/1.73m2 CKD-EPI eGFR (2020). Assuming creatinine has been stable day-to-day for at least three months, the eGFR indicates Category G3b (30 - 44 mL/min/1.73 m2) Lab Interpretation (test code = 12219-8) Abnormal [facility] Metabolic Panel (NA, K, CL, CO2, GLUCOSE, BUN, CREATININE, CA)2023-07-25 20:59:24* Test Item Value Reference Range Interpretation Comme nts NA (test code = 6957986509) 145 mmol/L 135-145 K (test code = 5428441851) 5.5 mmol/L 3.5-5.0 H CL (test code = 7809328508) 117 mmol/L 98-108 H CO2 TOTAL (test code = 2825110858) 20 mmol/L 23-31 L AGAP (test code = 6223501042) 8 2-16 BUN (test code = 5131372957) 35 mg/dL 7-23 H GLUCOSE (test code = 1000410540) 86 mg/dL 70-110 CREATININE (test code = 1364022678) 1.84 mg/dL 0.50-1.04 H CALCIUM (test code = 7007168443) 9.6 mg/dL 8.6-10.6 eGFR (test code = 99801-1) 30.5 mL/min/1.73m2 CKD-EPI eGFR (2020). Assuming creatinine has been stable day-to-day for at least three months, the eGFR indicates Category G3b (30 - 44 mL/min/1.73 m2) Lab Interpretation (test code = 40385-7) Abnormal [facility] TaylorXR CHEST 1 [id number] 15:57:07EXAM: XR CHEST 1 VW HISTORY: surgery Room 5 COMPARISON: None. FINDINGS: The heart and great vesselsare normal and the lungs are well expanded andclear.[facility] TaylorMagnesium [id number] 14:08:20* Test Item Value Reference Range Interpretation Comme nts MAGNESIUM (test code = 6329189955) 2.0 mg/dL 1.7-2.4 Lab Interpretation (test cod e = 37448-2) Normal [facility] TaylorBasic Metabolic Panel (NA, K, CL, CO2, Glucose, BUN, Creatinine, CA)2023-04-15 14:08:00* Test Item Value Reference Range Interpretation Comme nts NA (test code = 9440031425) 143 mmol/L 135-145 K (test code = 1070572342) 4.8 mmol/L 3.5-5.0 CL (test code = 5119308181) 115 mmol/L 98-108 H CO2 TOTAL (test code = 3565876676) 21 mmol/L 23-31 L AGAP (test code = 0832992853) 7 2-16 BUN (test code = 4474658993) 39 mg/dL 7-23 H GLUCOSE (test code = 5078399994) 138 mg/dL 70-110 H CREATININE (test code = 2876698211) 1.68 mg/dL 0.50-1.04 H CALCIUM (test code = 4173990081) 9.4 mg/dL 8.6-10.6 eGFR (test code = 3053136854) 30.8 mL/min/1.73m2 EL (test code = EL) Association of Glomerular Filtration Rate (GFR) and Staging of Kidney Disease* + --+ --+ ------+| GFR (mL/min/1.73 m2) ?| With Kidney Damage ?| ?Without Kidney Damage+ --------+ --------+ +| ?>90 ?| ?Stage one ?| ? Normal ?+ ---+ ---+ -------+| ?60-89 ?| ?Stage two ?| ? Decreased GFR ? + --+ --+ ------+| ?30-59 ?| ?Stage three ?| ? Stage three ? + --+ --+ ------+| ?15-29 ?| ?Stage four ? | ? Stage four ?+ ---+ ---+ -------+| ?<15 (or dialysis) ? ?| ?Stage five ? | ? Stage five ?+ ---+ ---+ -------+ *Each stage assumes the associated GFR level has been in effect for at least three months. ?Stages 1 to 5, with or without kidney disease, indicate chronic kidney disease. Notes: Determination of stages one and two (with eGFR >59mL/min/1.73 m2) requires estimation of kidney damage for at least three months as defined by structural or functional abnormalities of the kidney, manifested by either:Pathological abnormalities or Markers of kidney damage (including abnormalities in the composition of the blood or urine or abnormalities in imaging tests). Lab Interpretation (test code = 47780-4) Abnormal [facility] TaylorPhosphorus Mcaib1999-07-44 14:08:00* Test Item Value Reference Range Interpretation Comme nts PHOSPHORUS (test code = 7440180801) 3.9 mg/dL 2.5-5.0 Lab Interpretation (test cod e = 95788-6) Normal [facility] TaylorHEPATIC FUNCTION PANEL (47366) (ALB,T.PRO,BILI T,BU/BC,ALT,AST,ALK PHOS)2023-04-15 14:07:59* Test Item Value Reference Range Interpretation Comme nts TOTAL BILI (test code = 1718441688) 0.6 mg/dL 0.1-1.1 BILI UNCON (test code = 5089433476) 0.5 mg/dL 0.1-1.1 BILI CONJ (test code = 8933061938) 0.0 mg/dL 0.0-0.3 T PROTEIN (test code = 2280263732) 7.1 g/dL 6.3-8.2 ALBUMIN (test code = 6512361048) 4.3 g/dL 3.5-5.0 ALK PHOS (test code = 5077064160) 80 U/L 34-122 ALTv (test code = 1742-6) 21 U/L 5-35 AST(SGOT) (test code = 2656965294) 31 U/L 13-40 Lab Interpretation (test cod e = 39334-8) Normal [facility] TaylorPROTHROMBIN TIME / [id number] 13:34:39* Test Item Value Reference Range Interpretation Comme nts PROTIME PATIENT (test code = 5964-2) 13.0 See_Comment [Automated [employer]] The system which generated this result transmitted reference range: 12.0 - 14.7 Seconds. The reference range was not used to interpret this result as normal/abnormal. INR (test code = 6301-6) 1.0 Normal INR <1.1; Warfarin Therapeutic range 2.0 to 3.0 or 2.5 to 3.5, depending upon the indications. Lab Interpretation (test code = 01982-3) Normal [facility] TaylorCBC with Xfwtxwbxiigt9141-92-06 13:19:37* Test Item Value Reference Range Interpretation Comme nts WBC (test code = 6690-2) 9.72 See_Comment [Automated [employer]] The system which generated this result transmitted reference range: 4.30 - 11.10 10*3/?L. The reference range was not used to interpret this result as normal/abnormal. RBC (test code = 789-8) 4.32 See_Comment [Automated [employer]] The system which generated this result transmitted reference range: 3.93 - 5.25 10*6/?L. The reference range was not used to interpret this result as normal/abnormal. HGB (test code = 718-7) 12.5 g/dL 11.6-15.0 HCT (test code = 4544-3) 38.8 % 35.7-45.2 MCV (test code = 787-2) 89.8 fL 80.6-95.5 MCH (test code = 785-6) 28.9 pg 25.9-32.8 MCHC (test code = 786-4) 32.2 g/dL 31.6-35.1 RDW-SD (test code = 70108-6) 46.1 fL 39.0-49.9 RDW-CV (test code = 788-0) 14.0 % 12.0-15.5 PLT (test code = 777-3) 172 See_Comment [Automated messa ge] The system which generated this result transmitted reference range: 166 - 358 10*3/?L. The reference range was not used to interpret this result as normal/abnormal. MPV (test code = 80746-4) 10.8 fL 9.5-12.9 NRBC/100 WBC (test code = 7009258532) 0.0 See_Comment [Automated me ssage] The system which generated this result transmitted reference range: 0.0 - 10.0 /100 WBCs. The reference range was not used to interpret this result as normal/abnormal. NRBC x10^3 (test code = 5306713477) See_Comment [Automated me ssage] The system which generated this result transmitted reference range: 10*3/?L. The reference range was not used to interpret this result as normal/abnormal. GRAN MAT (NEUT) % (test code = 770-8) 70.7 % IMM GRAN % (test code = 0921434175) 0.30 % LYMPH % (test code = 736-9) 19.2 % MONO % (test code = 5905-5) 8.0 % EOS % (test code = 713-8) 1.3 % BASO % (test code = 706-2) 0.5 % GRAN MAT x10^3(ANC) (test code = 0983111490) 6.86 10*3/uL 1.88-7.09 IMM GRAN x10^3 (test code = 0325732546) 0.03 10*3/uL 0.00-0.06 LYMPH x10^3 (test code = 731-0) 1.87 10*3/uL 1.32-3.29 MONO x10^3 (test code = 742-7) 0.78 10*3/uL 0.33-0.92 EOS x10^3 (test code = 711-2) 0.13 10*3/uL 0.03-0.39 BASO x10^3 (test code = 704-7) 0.05 10*3/uL 0.01-0.07 [facility] GLUCOSE (AUTOMATED)2022-12-31 01:23:18* Test Item Value Reference Range Interpretation Comme nts POCT GLU (test code = 8977762050) 126 mg/dL 70-110 H Lab Interpretation (test cod e = 07060-1) Abnormal [facility] GLUCOSE (AUTOMATED)2022-12-30 22:25:25* Test Item Value Reference Range Interpretation Comme nts POCT GLU (test code = 3501048133) 155 mg/dL 70-110 H Lab Interpretation (test cod e = 25582-6) Abnormal [facility] TaylorTACROLIMUS, [id number] 14:54:11* Test Item Value Reference Range Interpretation Comme nts FK 506 (test code = 4219725397) 9 ng/mL EL (test code = EL) Target/Therapeutic Range KIDNEY ? Early (<3 mo) ? ? 8-12 ? Late ?(>3 mo) ? ? 5-10 ?SPK / LINDA ? Early (<3 mo) ? ? 10-15 ? Mid ? (3-6 mo) ? ?8-10 ? Late ?(>6 mo) ? ? 5-8 ?LIVER ? Early (<3 mo) ?HCV: ? 5-7 ?Tumor: ? ? ? 5-7 ?Autoimmune: ?8-10 ? Late (>3 mo) ? ? ?~5 ?HEART ? Early (<6 mo) ? ? 12-15 ? Late ?(>6 mo) ? ? 8-12 ?LUNG ? Early (<6 mo) ? ? 12-15 ? Mid ? (7-12 mo) ? 10-15 ? Late ?(>12 mo) ? ?8-10 Method by: ?[employer], Tracer Clerk [id number] [facility] GLUCOSE (AUTOMATED)2022-12-30 01:53:07* Test Item Value Reference Range Interpretation Comme nts POCT GLU (test code = 4457459634) 122 mg/dL 70-110 H Lab Interpretation (test cod e = 35580-6) Abnormal [facility] GLUCOSE (AUTOMATED)2022-12-29 23:01:30* Test Item Value Reference Range Interpretation Comme nts POCT GLU (test code = 2850684040) 106 mg/dL 70-110 Lab Interpretation (test cod e = 41030-3) [facility] (72058[facility] (ALB,T.PRO,BILI T,BU/BC,ALT,AST,ALK PHOS)2022-12-29 22:02:39* Test Item Value Reference Range Interpretation Comme nts TOTAL BILI (test code = 3145476442) 0.9 mg/dL 0.1-1.1 BILI UNCON (test code = 6919693908) 0.7 mg/dL 0.1-1.1 BILI CONJ (test code = 4856016328) 0.0 mg/dL 0.0-0.3 T PROTEIN (test code = 9556303188) 7.1 g/dL 6.3-8.2 ALBUMIN (test code = 9986394293) 4.2 g/dL 3.5-5.0 ALK PHOS (test code = 4021716537) 50 U/L 34-122 Slight hemolysis ALTv (test code = 1742-6) 18 U/L 5-35 AST(SGOT) (test code = 1773884952) 38 U/L 13-40 Slight hemolysis Lab Interpretation (test code = 45199-5) [facility](36786)(Total Cholesterol, Triglycerides, HDL)2022-12-29 22:02:38* Test Item Value Reference Range Interpretation Comme nts CHOL (test code = 6931157332) 153 mg/dL 120-200 HDL (test code = 6801931514) 72 mg/dL >=50 HDLC RATIO (test code = 7400575716) 2.1 <=4.5 TRIG (test code = 7018881489) 118 mg/dL 30-170 LDL CHOL (test code = 93166-1) 57 mg/dL <=160 VLDL (test code = 6646167556) 24 mg/dL 5-60 Lab Interpretation (test cod e = 10083-2) Normal [facility] TaylorGlycosylated Hemoglobin [id number] 19:54:49 * Test Item Value Reference Range Interpretation Comme [facility] HGB A1C (test code = 4548-4) 8.4 % 4.0-5.7 H EL (test code = EL) Reference RangesNormal: <5.7%Prediabetes: 5.7 - 6.4%Diabetes: > 6.5% Lab Interpretation (test code = 65630-4) Abnormal [facility] TaylorMAGNESIUM2023-05-28 19:53:08* Test Item Value Reference Range Interpretation Comme nts MAGNESIUM (test code = 6971792763) 2.1 mg/dL 1.7-2.4 Lab Interpretation (test cod e = 45104-3) Normal [facility] TaylorTROPONIN [id number] 13:25:33* Test Item Value Reference Range Interpretation Comme [facility] TROPONIN I (test code = 2663623809) 0.017 ng/mL <=0.034 EL (test code = EL) Reference (Normal) Range (defined by the 99th percentile reference limit): <= 0.034 ng/mL Note: Cardiac troponin begins to rise 3-4 hours after the onset of ischemia. Repeat in 4-6 hours if the sample was drawn within 3-4 hours of the onset of the symptom and found normal. Diagnosis of myocardial injury is made with acute changes in cTn concentrations with at least one serial sample above the 99th percentile upper reference limit (URL), taken together with the patient's clinical presentation. Biotin has been reported to cause a negative bias, interpret results relative to patient's use of biotin. Lab Interpretation (test code = 71346-5) [facility] METABOLIC PANEL (03095)2022-12-29 13:14:32* Test Item Value Reference Range Interpretation Comme nts NA (test code = 8159521155) 142 mmol/L 135-145 K (test code = 5641436343) 5.0 mmol/L 3.5-5.0 CL (test code = 8597400391) 109 mmol/L 98-108 H CO2 TOTAL (test code = 0580277355) 26 mmol/L 23-31 AGAP (test code = 3594633817) 7 2-16 BUN (test code = 1424048263) 38 mg/dL 7-23 H GLUCOSE (test code = 7349968643) 137 mg/dL 70-110 H CREATININE (test code = 4186523168) 1.79 mg/dL 0.50-1.04 H TOTAL BILI (test code = 9570443654) 0.8 mg/dL 0.1-1.1 CALCIUM (test code = 7406272444) 9.3 mg/dL 8.6-10.6 T PROTEIN (test code = 7226274109) 6.9 g/dL 6.3-8.2 ALBUMIN (test code = 4548673595) 4.2 g/dL 3.5-5.0 ALK PHOS (test code = 7523350312) 60 U/L 34-122 ALTv (test code = 1742-6) 18 U/L 5-35 AST(SGOT) (test code = 5814619448) 28 U/L 13-40 eGFR (test code = 0023331523) 28.7 mL/min/1.73m2 EL (test code = EL) Association of Glomerular Filtration Rate (GFR) and Staging of Kidney Disease* + --+ --+ ------+| GFR (mL/min/1.73 m2) ?| With Kidney Damage ?| ?Without Kidney Damage+ --------+ --------+ +| ?>90 ?| ?Stage one ?| ? Normal ?+ ---+ ---+ -------+| ?60-89 ?| ?Stage two ?| ? Decreased GFR ? + --+ --+ ------+| ?30-59 ?| ?Stage three ?| ? Stage three ? + --+ --+ ------+| ?15-29 ?| ?Stage four ? | ? Stage four ?+ ---+ ---+ -------+| ?<15 (or dialysis) ? ?| ?Stage five ? | ? Stage five ?+ ---+ ---+ -------+ *Each stage assumes the associated GFR level has been in effect for at least three months. ?Stages 1 to 5, with or without kidney disease, indicate chronic kidney disease. Notes: Determination of stages one and two (with eGFR >59mL/min/1.73 m2) requires estimation of kidney damage for at least three months as defined by structural or functional abnormalities of the kidney, manifested by either:Pathological abnormalities or Markers of kidney damage (including abnormalities in the composition of the blood or urine or abnormalities in imaging tests). Lab Interpretation (test code = 03375-4) Abnormal [facility] TaylorLIPASE2023-05-28 13:13:57* Test Item Value Reference Range Interpretation Comme nts LIPASE (test code = 3211743484) 901 U/L 0-220 H Lab Interpretation (test cod e = 22660-5) Abnormal [facility] WITH [id number] 12:59:14* Test Item Value Reference Range Interpretation Comme nts WBC (test code = 6690-2) 6.14 See_Comment [Automated [employer]] The system which generated this result transmitted reference range: 4.30 - 11.10 10*3/?L. The reference range was not used to interpret this result as normal/abnormal. RBC (test code = 789-8) 4.42 See_Comment [Automated [employer]] The system which generated this result transmitted reference range: 3.93 - 5.25 10*6/?L. The reference range was not used to interpret this result as normal/abnormal. HGB (test code = 718-7) 12.8 g/dL 11.6-15.0 HCT (test code = 4544-3) 38.0 % 35.7-45.2 MCV (test code = 787-2) 86.0 fL 80.6-95.5 MCH (test code = 785-6) 29.0 pg 25.9-32.8 MCHC (test code = 786-4) 33.7 g/dL 31.6-35.1 RDW-SD (test code = 50381-1) 41.7 fL 39.0-49.9 RDW-CV (test code = 788-0) 13.4 % 12.0-15.5 PLT (test code = 777-3) 162 See_Comment L [Automated messa ge] The system which generated this result transmitted reference range: 166 - 358 10*3/?L. The reference range was not used to interpret this result as normal/abnormal. MPV (test code = 65168-2) 10.4 fL 9.5-12.9 NRBC/100 WBC (test code = 5582581099) 0.0 See_Comment [Automated [employer]] The system which generated this result transmitted reference range: 0.0 - 10.0 /100 WBCs. The reference range was not used to interpret this result as normal/abnormal. NRBC x10^3 (test code = 3177935300) See_Comment [Automated messa ge] The system which generated this result transmitted reference range: 10*3/?L. The reference range was not used to interpret this result as normal/abnormal. GRAN MAT (NEUT) % (test code = 770-8) 53.7 % IMM GRAN % (test code = 2329824915) 0.30 % LYMPH % (test code = 736-9) 37.0 % MONO % (test code = 5905-5) 7.0 % EOS % (test code = 713-8) 1.5 % BASO % (test code = 706-2) 0.5 % GRAN MAT x10^3(ANC) (test code = 7220786777) 3.30 10*3/uL 1.88-7.09 IMM GRAN x10^3 (test code = 5681219067) 0.00-0.06 LYMPH x10^3 (test code = 731-0) 2.27 10*3/uL 1.32-3.29 MONO x10^3 (test code = 742-7) 0.43 10*3/uL 0.33-0.92 EOS x10^3 (test code = 711-2) 0.09 10*3/uL 0.03-0.39 BASO x10^3 (test code = 704-7) 0.03 10*3/uL 0.01-0.07 Lab Interpretation (test code = 95319-6) Abnormal [facility] with Hfqtdpjfbsjf5088-21-79 14:31:54* Test Item Value Reference Range Interpretation Comme nts WBC (test code = 6690-2) 6.20 See_Comment [Automated messa ge] The system which generated this result transmitted reference range: 4.30 - 11.10 10*3/?L. The reference range was not used to interpret this result as normal/abnormal. RBC (test code = 789-8) 4.16 See_Comment [Automated [employer]] The system which generated this result transmitted reference range: 3.93 - 5.25 10*6/?L. The reference range was not used to interpret this result as normal/abnormal. HGB (test code = 718-7) 11.9 g/dL 11.6-15.0 HCT (test code = 4544-3) 36.5 % 35.7-45.2 MCV (test code = 787-2) 87.7 fL 80.6-95.5 MCH (test code = 785-6) 28.6 pg 25.9-32.8 MCHC (test code = 786-4) 32.6 g/dL 31.6-35.1 RDW-SD (test code = 04753-4) 47.2 fL 39.0-49.9 RDW-CV (test code = 788-0) 14.6 % 12.0-15.5 PLT (test code = 777-3) 165 See_Comment L [Automated messa ge] The system which generated this result transmitted reference range: 166 - 358 10*3/?L. The reference range was not used to interpret this result as normal/abnormal. MPV (test code = 51072-6) 10.0 fL 9.5-12.9 NRBC/100 WBC (test code = 7792607646) 0.0 See_Comment [Automated me ssage] The system which generated this result transmitted reference range: 0.0 - 10.0 /100 WBCs. The reference range was not used to interpret this result as normal/abnormal. NRBC x10^3 (test code = 5179417142) See_Comment [Automated messa ge] The system which generated this result transmitted reference range: 10*3/?L. The reference range was not used to interpret this result as normal/abnormal. GRAN MAT (NEUT) % (test code = 770-8) 44.3 % IMM GRAN % (test code = 5280649234) 0.20 % LYMPH % (test code = 736-9) 42.3 % MONO % (test code = 5905-5) 9.2 % EOS % (test code = 713-8) 3.2 % BASO % (test code = 706-2) 0.8 % GRAN MAT x10^3(ANC) (test code = 7942965494) 2.75 10*3/uL 1.88-7.09 IMM GRAN x10^3 (test code = 0800347617) 0.00-0.06 LYMPH x10^3 (test code = 731-0) 2.62 10*3/uL 1.32-3.29 MONO x10^3 (test code = 742-7) 0.57 10*3/uL 0.33-0.92 EOS x10^3 (test code = 711-2) 0.20 10*3/uL 0.03-0.39 BASO x10^3 (test code = 704-7) 0.05 10*3/uL 0.01-0.07 Lab Interpretation (test code = 30159-3) Abnormal [facility] HEMOGLOBIN A1C [id number] 15:04:00* Test Item Value Reference Range Interpretation Comme [facility] POCT HBA1C (test code = 4548-4) 10.1 % 4-6 A Lab Interpretation (test cod e = 54561-7) Abnormal [facility] HEMOGLOBIN A1C [id number] 15:04:00* Test Item Value Reference Range Interpretation Comme [facility] POCT HBA1C (test code = 4548-4) 10.1 % 4-6 A Lab Interpretation (test cod e = 88265-3) Abnormal [facility] HEMOGLOBIN A1C [id number] 15:04:00* Test Item Value Reference Range Interpretation Comme nts POCT HBA1C (test code = 4548-4) 10.1 % 4-6 A Lab Interpretation (test cod e = 76575-1) Abnormal [facility] MOLECULAR [id number] 16:30:29* Test Item Value Reference Range Interpretation Comme nts POCT Molecular FluA (test co de = 63803-1) Negative Negative POCT Molecular FluB (test co de = 67874-7) Negative Negative Lab Interpretation (test cod e = 58912-5) Normal [facility] MOLECULAR [id number] 16:30:29* Test Item Value Reference Range Interpretation Comme nts POCT Molecular FluA (test co de = 17185-1) Negative Negative POCT Molecular FluB (test co de = 08997-5) Negative Negative Lab Interpretation (test cod e = 56190-8) Normal [facility] URINALYSIS W SPECIFIC [id number] 20:44:00* Test Item Value Reference Range Interpretation Comme nts POCT U SP GRAV (test code = 3255) 1.015 mg/dl 1.005-1.025 POCT PH U (test code = 3254) 5 mg/dl 5-8 POCT U LEUK EST (test code = 3263) + Negative - Negative POCT U NIT (test code = 3262) pos Negative - Negati ve POCT U PROT (test code = 3259) +/30 Negative - Negative POCT U GLU (test code = 3256) Negative - Negati ve POCT U KETONE (test code = 3258) neg Negative - Negative POCT U UROBILI (test code = 3260) normal 0.2-1 POCT U BILI (test code = 3261) neg Negative - Negative POCT U BLD (test code = 3257) trace Negative - Negati ve POCT U COLOR (test code = 3266) dark yellow POCT U APPEAR (test code = 3267) cloudy [facility] URINALYSIS W SPECIFIC [id number] 20:44:00* Test Item Value Reference Range Interpretation Comme nts POCT U SP GRAV (test code = 3255) 1.015 mg/dl 1.005-1.025 POCT PH U (test code = 3254) 5 mg/dl 5-8 POCT U LEUK EST (test code = 3263) + Negative - Negative POCT U NIT (test code = 3262) pos Negative - Negati ve POCT U PROT (test code = 3259) +/30 Negative - Negative POCT U GLU (test code = 3256) Negative - Negati ve POCT U KETONE (test code = 3258) neg Negative - Negative POCT U UROBILI (test code = 3260) normal 0.2-1 POCT U BILI (test code = 3261) neg Negative - Negative POCT U BLD (test code = 3257) trace Negative - Negati ve POCT U COLOR (test code = 3266) dark yellow POCT U APPEAR (test code = 3267) cloudy [facility] URINALYS[facility] W SPECIFIC [id number] 20:44:00* Test Item Value Reference Range Interpretation Comme nts POCT U SP GRAV (test code = 3255) 1.015 mg/dl 1.005-1.025 POCT PH U (test code = 3254) 5 mg/dl 5-8 POCT U LEUK EST (test code = 3263) + Negative - Negative POCT U NIT (test code = 3262) pos Negative - Negati ve POCT U PROT (test code = 3259) +/30 Negative - Negative POCT U GLU (test code = 3256) Negative - Negati ve POCT U KETONE (test code = 3258) neg Negative - Negative POCT U UROBILI (test code = 3260) normal 0.2-1 POCT U BILI (test code = 3261) neg Negative - Negative POCT U BLD (test code = 3257) trace Negative - Negati ve POCT U COLOR (test code = 3266) dark yellow POCT U APPEAR (test code = 3267) cloudy [facility]Bas[facility] [place] Metabolic Panel (NA, K, CL, CO2, Glucose, BUN, Creatinine, CA)2022-03-25 15:45:47* Test Item Value Reference Range Interpretation Comme nts NA (test code = 8388570430) 142 mmol/L 135-145 K (test code = 6146129383) 4.9 mmol/L 3.5-5 CL (test code = 3192902465) 109 mmol/L 98-108 H CO2 TOTAL (test code = 2795645320) 28 mmol/L 23-31 AGAP (test code = 5066911253) 2-16 BUN (test code = 7564910350) 25 mg/dL 7-23 H GLUCOSE (test code = 2211640619) 123 mg/dL 70-110 H CREATININE (test code = 4923247529) 1.60 mg/dL 0.5-1.04 H CALCIUM (test code = 7232854623) 9.2 mg/dL 8.6-10.6 eGFR (test code = 6006945559) mL/min/1.73m2 EL (test code = EL) Association of Glomerular Filtration Rate (GFR) and Staging of Kidney Disease* + --+ --+ ------+| GFR (mL/min/1.73 m2) ?| With Kidney Damage ?| ?Without Kidney Damage+ --------+ --------+ +| ?>90 ?| ?Stage one ?| ? Normal ?+ ---+ ---+ -------+| ?60-89 ?| ?Stage two ?| ? Decreased GFR ? + --+ --+ ------+| ?30-59 ?| ?Stage three ?| ? Stage three ? + --+ --+ ------+| ?15-29 ?| ?Stage four ? | ? Stage four ?+ ---+ ---+ -------+| ?<15 (or dialysis) ? ?| ?Stage five ? | ? Stage five ?+ ---+ ---+ -------+ *Each stage assumes the associated GFR level has been in effect for at least three months. ?Stages 1 to 5, with or without kidney disease, indicate chronic kidney disease. Notes: Determination of stages one and two (with eGFR >59mL/min/1.73 m2) requires estimation of kidney damage for at least three months as defined by structural or functional abnormalities of the kidney, manifested by either:Pathological abnormalities or Markers of kidney damage (including abnormalities in the composition of the blood or urine or abnormalities in imaging tests). Lab Interpretation (test code = 91846-5) Abnormal [facility] [id number] 15:45:47* Test Item Value Reference Range Interpretation Comme nts MAGNESIUM (test code = 2512784394) 2.1 mg/dL 1.7-2.4 Lab Interpretation (test cod e = 33719-8) Normal [facility] TaylorPhosphorus [id number] 15:45:26* Test Item Value Reference Range Interpretation Comme nts PHOSPHORUS (test code = 5523655290) 2.7 mg/dL 2.5-5 Lab Interpretation (test cod e = 57234-6) Normal [facility] TaylorHEPATIC FUNCTION PANEL (27970) (ALB,T.PRO,BILI T,BU/BC,ALT,AST,ALK PHOS)2022-03-25 15:45:26* Test Item Value Reference Range Interpretation Comme nts TOTAL BILI (test code = 9139424862) 0.6 mg/dL 0.1-1.1 BILI UNCON (test code = 3171400513) 0.4 mg/dL 0.1-1.1 BILI CONJ (test code = 8804838256) 0.0 mg/dL 0-0.3 T PROTEIN (test code = 2939883650) 6.3 g/dL 6.3-8.2 ALBUMIN (test code = 9355867451) 4.1 g/dL 3.5-5 ALK PHOS (test code = 7827609582) 80 U/L 34-122 ALTv (test code = 1742-6) 17 U/L 5-35 AST(SGOT) (test code = 8866517086) 26 U/L 13-40 Lab Interpretation (test cod e = 25578-9) Normal [facility] TaylorUrinalysis2022-08-22 15:26:19* Test Item Value Reference Range Interpretation Comme nts APPEARANCE (test code = 2203854714) Clear Clear COLOR (test code = 3483064533) Yellow Yellow PH (test code = 0155586031) 4.8-8.0 SP GRAVITY (test code = 9316353009) 1.003-1.03 GLU U QUAL (test code = 8482562568) 50 mg/dL Normal A BLOOD (test code = 9165536067) Negative Negative KETONES (test code = 2733289336) Negative Negative PROTEIN (test code = 2887-8) Negative Negative UROBILIN (test code = 0772364434) Normal Normal BILIRUBIN (test code = 3426488247) Negative Negative NITRITE (test code = 8549822543) Negative Negative LEUK JASMINE (test code = 7088254661) Negative Negative RBC/HPF (test code = 5103018311) See_Comment [Automated messa ge] The system which generated this result transmitted reference range: 0 - 3 HPF. The reference range was not used to interpret this result as normal/abnormal. WBC/HPF (test code = 7670566914) See_Comment [Automated messa ge] The system which generated this result transmitted reference range: 0 - 5 HPF. The reference range was not used to interpret this result as normal/abnormal. BACTERIA (test code = 3701923995) Negative Negative SQ EPITH (test code = 9362244437) HPF TRANS EPI (test code = 9554902757) See_Comment [Automated messa ge] The system which generated this result transmitted reference range: <=1 HPF. The reference range was not used to interpret this result as normal/abnormal. Lab Interpretation (test code = 70188-6) Abnormal [facility] Urine [id number] 15:11:07* Test Item Value Reference Range Interpretation Comme [facility] CREAT U (test code = 3605998095) 50.4 mg/dL [facility] Urine Dhcslum4029-81-18 15:08:25* Test Item Value Reference Range Interpretation Comme nts T. PROT U (test code = 2888-6) 11 mg/dL [facility] TaylorPROTHROMBIN TIME / [id number] 14:55:44* Test Item Value Reference Range Interpretation Comme nts PROTIME PATIENT (test code = 5964-2) See_Comment [Automated messa ge] The system which generated this result transmitted reference range: 12.0 - 14.7 Seconds. The reference range was not used to interpret this result as normal/abnormal. INR (test code = 6301-6) Normal INR <1.1; Warfarin Therapeutic range 2.0 to 3.0 or 2.5 to 3.5, depending upon the indications. Lab Interpretation (test code = 67004-7) Normal [facility] with Oypxxeuuogdd2854-18-46 14:37:02* Test Item Value Reference Range Interpretation Comme nts WBC (test code = 6690-2) See_Comment [Automated messa ge] The system which generated this result transmitted reference range: 4.30 - 11.10 10*3/?L. The reference range was not used to interpret this result as normal/abnormal. RBC (test code = 789-8) See_Comment [Automated messa ge] The system which generated this result transmitted reference range: 3.93 - 5.25 10*6/?L. The reference range was not used to interpret this result as normal/abnormal. HGB (test code = 718-7) 12.7 g/dL 11.6-15 HCT (test code = 4544-3) 39.6 % 35.7-45.2 MCV (test code = 787-2) 86.7 fL 80.6-95.5 MCH (test code = 785-6) 27.8 pg 25.9-32.8 MCHC (test code = 786-4) 32.1 g/dL 31.6-35.1 RDW-SD (test code = 68675-1) 43.3 fL 39-49.9 RDW-CV (test code = 788-0) 13.7 % 12-15.5 PLT (test code = 777-3) See_Comment L [Automated messa ge] The system which generated this result transmitted reference range: 166 - 358 10*3/?L. The reference range was not used to interpret this result as normal/abnormal. MPV (test code = 86359-5) 10.1 fL 9.5-12.9 NRBC/100 WBC (test code = 0711254213) See_Comment [Automated [employer]] The system which generated this result transmitted reference range: 0.0 - 10.0 /100 WBCs. The reference range was not used to interpret this result as normal/abnormal. NRBC x10^3 (test code = 7359962279) See_Comment [Automated messa ge] The system which generated this result transmitted reference range: 10*3/?L. The reference range was not used to interpret this result as normal/abnormal. GRAN MAT (NEUT) % (test code = 770-8) 56.0 % IMM GRAN % (test code = 1155998190) 0.40 % LYMPH % (test code = 736-9) 34.3 % MONO % (test code = 5905-5) 6.7 % EOS % (test code = 713-8) 2.1 % BASO % (test code = 706-2) 0.5 % GRAN MAT x10^3(ANC) (test code = 4860301141) 3.19 10*3/uL 1.88-7.09 IMM GRAN x10^3 (test code = 7285357213) 0-0.06 LYMPH x10^3 (test code = 731-0) 1.95 10*3/uL 1.32-3.29 MONO x10^3 (test code = 742-7) 0.38 10*3/uL 0.33-0.92 EOS x10^3 (test code = 711-2) 0.12 10*3/uL 0.03-0.39 BASO x10^3 (test code = 704-7) 0.03 10*3/uL 0.01-0.07 Lab Interpretation (test code = 78119-3) [facility]normal [facility] TaylorEXTERNAL CB-[id number] 00:00:00* Test Item Value Reference Range Interpretation Comme nts DD-cfDNA (External Results) (test code = 5126) See_Comment A [Automated messa ge] The system which generated this result transmitted reference range: <=1.0. The reference range was not used to interpret this result as normal/abnormal. Lab Interpretation (test code = 38257-6) Abnormal [facility] History and Physical Notes Date/Time Note Provider Source 2024-01-09 06:51:40 Surgery Pre-Op Note/Updated History and Physical: Updated HP Chief Complaint: Incisional hernia. HPI Isrrael Menchaca is a 63 year old female with cirrhosis, DM2, ALBRIGHT, ESRD, s/p OLT and [facility] AT SURG[facility] (12/20/2019) last seen by us 05/22/2021 for a left sided incisional hernia, presenting with diarrhea 4-5x/day, fecal incontinence, and few episodes of bilious vomiting. Surgery was deferred at this time due to sub-optimal diabetes control. Today, she presents with persistent GI symptoms (alternating diarrhea and constipation) associated with her hernia. Frequency of loose bowel movements have decreased since last visit, but patient still wears a diaper to help with occasional episodes. Denies nausea, vomiting, or fever. Reports minimal pain, but pain worsens with large meals. Last POCT HbA1c of 6.1 10/07/23. Past Medical History Past Medical History: Diagnosis Date Cirrhosis IFN therapy and ribaxin Cyst, kidney, acquired 07/22/2019 DM type 2 (diabetes mellitus, type 2) Gout Hepatitis C HLD (hyperlipidemia) HTN (hypertension) Infection due to Enterobacter cloacae Mild non proliferative diabetic retinopathy Peritoneal dialysis status Portal vein thrombosis 09/15/2019 Stage 3 chronic kidney disease 11/01/2021 Past Surgical History Past Surgical History: Procedure Laterality Date ABDOMINAL HYSTERECTOMY BILIARY ANASTOMOSIS (SHX) N/A 12/22/2019 Surgeon: Ben Remy MD; [facility] SECTION x2 COLONOSCOPY N/A 09/10/2019 Surgeon: Genet Daniel MD; Location: [facility] Location COLONOSCOPY (ENDO) 2016 KIDNEY TRANSPLANT RECIPIENT (SHX) N/A 12/20/2019 Surgeon: Concha Romero MD; Location: [facility] EGD (ENDO) ENDOSCOPIC RETROGRADE CHOLANGIOPANCRETOGRAPHY N/A 05/02/2020 Surgeon: Karthik Lindquist MD; Location: [facility] Location ENDOSCOPIC RETROGRADE CHOLANGIOPANCRETOGRAPHY N/A 05/03/2020 Surgeon: Karthik Lindquist MD; Location: [facility] Location ENDOSCOPIC RETROGRADE CHOLANGIOPANCRETOGRAPHY N/A 05/26/2020 Surgeon: Karthik Lindquist MD; Location: [facility] Location ESOPHAGOGASTRODUODENOSCOPY N/A 09/10/2019 Surgeon: Genet Daniel MD; Location: [facility] Location INTRAPERITONEAL CATHETER PLACEMENT LAP,CHOLECYSTECTOMY LEVATOR DEHISCENCE REPAIR Bilateral 09/30/2018 Surgeon: Leeroy Jaiver MD; [facility] LIVER TRANSPLANT N/A 12/20/2019 Surgeon: Jason Dick MD; Location: [facility] [place] PERM CATH EXCHANGE N/A 03/05/2019 Surgeon: Estephania Charles MD; Location: [facility] OR [facility] PHACOEMULSIFICATION OF CATARACT WITH INTRAOCULAR LENS IMPLANT Bilateral 2016 WOUND CLOSURE N/A 12/22/2019 Surgeon: Ben Remy MD; Location: [facility] OR [facility] Family History Family History Problem Relation Age of Onset Hypertension Mother Diabetes NoFHx Social History Social History Socioeconomic History Marital status: Number of children: 4 Years of education: 12 Occupational History 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 Social Determinants of Health Financial Resource Strain: Low Risk (12/31/2022) Overall Financial Resource Strain (CARDIA) Difficulty of Paying Living Expenses: Not hard at all Food Insecurity: No Food Insecurity (12/31/2022) Hunger Vital Sign Worried About Running Out of Food in the Last Year: Never true Ran Out of Food in the Last Year: Never true Transportation Needs: No Transportation Needs (12/31/2022) PRAPARE - Transportation Lack of Transportation (Medical): No Lack of Transportation (Non-Medical): No Physical Activity: Sufficiently Active (12/31/2022) Exercise Vital Sign Days of Exercise per Week: 5 days Minutes of Exercise per Session: 30 min Social Connections: Unknown (12/31/2022) Social Connection and Isolation Panel [NHANES] Frequency of Communication with Friends and Family: More than three times a week Marital Status: Housing Stability: Low Risk (12/31/2022) Housing Stability Vital Sign Unable to Pay for Housing in the Last Year: No Number of Places Lived in the Last Year: 1 Unstable Housing in the Last Year: No Allergies Allergen Reactions Tylenol-Codeine #3 [Acetaminophen-Codeine] Hallucinations Florinef [Fludrocortisone] Nausea and/or Vomiting headaches Midodrine Other - See comments Pain, pins and needles sensation No current facility-administered medications for this encounter. Review of Systems Constitutional: negative Eyes: negative Ears: negative Nose/Sinuses: negative Mouth/Throat: negative Cardiovascular: negative Respiratory: negative Gastrointestinal: negative Genitourinary:negative Endocrine: negative Musculoskeletal: negative Integumentary: negative Hematologic: negative Infectious Disease: negative Neuro: negative Physical Exam Vitals: 01/02/24 1156 01/09/24 0538 BP: (!) 147/60 Pulse: 59 Temp: 35.8 ?C (96.4 ?F) TempSrc: Tympanic SpO2: 100% Weight: 74.7 kg (164 lb 10.9 oz) 77.3 kg (170 lb 6.7 oz) Height: 1.6 m (5' 3") General: alert and oriented x 4 (person, place, date/time and situation); no apparent distress HEENT: extraocular movements intact Cardiovascular: regular rate Respiratory: unlabored breathing Gastrointestinal: soft, tenderness with deep palpation, NABS. Large, soft, and mobile left lower abdominal mass, not reducible. Laboratory POCT HbA1c 6.1 (10/07/23) Radiology Reviewed Pathology No new Pathology Procedure Note Not applicable Assessment/Plan Isrrael Menchaca is a 63 year old female with cirrhosis, DM2, ALBRIGHT, ESRD, s/p OLT and ASSISTANT AT SURGERY (12/20/2019) last seen by us 05/22/2021, presenting today with for minimally invasive incisional hernia repair. Consent on file. To Angulo MD PGY-5 General Surgery Associated attestation - Genevieve Canseco MD - 01/09/2024 6:57 AM CDT After discussion with Dr. Angulo, I examined this patient. I agree with resident's note as written. VIVIENNE-SURGERY [facility] Procedure Notes Date/Time Note Provider Source 2024-03-19 12:21:14 Please refer to the procedure note at 12.04 PM. RAD-VASCULAR & INTERVENTIONAL RADIOLOGY STAFF [facility] 2024-03-19 12:04:43 VASCULAR AND INTERVENTIONAL RADIOLOGY PROCEDURE NOTE Pre-procedure diagnosis: Transplant Kidney, Elevated Cr Post-procedure diagnosis: Transplant Kidney, Elevated Cr Procedure: US-Guided Transplant Renal Biopsy Anesthesia: Local, IV Fentanyl Findings: US-guided transplant renal biopsy. 3 x 18-G cores obtained. Patient given a total of 20 mg IV hydralazine during the procedure to keep SBP < 160 mmHg. Complications: None Condition: Stable EBL: Minimal, < 5 cc Full dictated note to follow in PACS. T [facility] Notes Date/Time Note Provider Source 2025-05-20 12:35:23 Spoke with patient, let her know that we sent in a refill for her sensors today, if she has any problems getting the sensors she can call us back and we will see what we can do. Patient verbalized understanding. [facility] 2025-05-20 12:22:54 Isrrael Menchaca is a 65 year old female calling to speak with Ronan about her [facility] call that took place. Patient also states they reset her password and now her sensor doesn't work and she doesn't have anymore. She's stating it's urgent she get a call back. Please call her back, thanks. Tx to Ronan. Jerilyn Albright [facility] 2025-05-20 10:12:43 Updated RX sent [facility] 2025-05-20 10:08:45 Isrrael Menchaca is a 65 year old female Mable from [facility] is calling in regards to the [place] being sent over to them, it does not have the day supply of how many times the patient is to use them a day. Please advise. Courtney Heller [facility] 2025-05-10 09:34:27 ROB 08/12/24 NOV 08/18/25 Andres Graham RN [facility] 2025-04-30 16:09:25 Refill tricia 3 plus sensor ROB: 11/16/2024 NOV: 05/20/2025 Refill sent Ana Lemon RN [facility] 2025-04-27 11:02:18 Please review and sign if appropriate. Was seen in [facility] 2025-04-27 10:37:15 Copied from [facility] #[id number]. Topic: Clinical - Referral >> Apr 27, 2025 10:34 AM Patient Scoop Driver wrote: Patient is requesting a referral to: Dept: Wound Care Reason for referral: Ulcer on bottom of right foot Duration of problem: ongoing Internal / External referral: external Name of provider / location patient requesting: Wound healing center at [facility] Phone number: [phone] Fax number: [phone] Appt already scheduled?: yes If yes, date of appt.: Friday Please call once completed Please fax Renae Pina [facility] 2025-04-19 07:00:00 Images from the original note were not included. Venipuncture collection performed by clean technique on the left HAND. Total of 4 attempts were made. Slight pressure and a bandage/dressing were applied to the site(s). The patient experienced no complications. The following specimens were processed according to instructions and sent to [facility] laboratories per lab order on 04/19/2025 : LT BLUE 1 SST RED 1 LAV 2 PPT 2 DK GREEN (LiHep) LT GREEN 1 LOPEZ DK BLUE (K2) DK BLUE (S) ACD Blood Culture NIPT/NTD Patient has been identified by and name and was provided with cup, antiseptic towelette, and clean catch instructions. 3 urine specimen(s) sent. Unpreserved 3 Urine Culture Aptima tube Other urine [facility] 2025-04-11 15:06:04 ROB 08/12/24 NOV 08/18/25 Andres Graham RN [facility] 2025-04-04 19:23:[address] Arias (local kidney doctor) PA-PHYSICIAN TAIL DOGGER MIDLEVEL PROVIDER [facility] 2025-03-30 09:31:15 Please see previous message where I recommended this to be managed by her kidney specialist. Thank you. [facility] 2025-03-27 15:50:34 Please review and advise. ROB 02/24/25 Kylie Liriano LVN [facility] 2025-03-18 21:30:31 Was going to give medrol linda given renal history, but patient has an allergy to fludrocortisone. Thus, do not recommend medrol linda. She needs to see her kidney specialist for treatment as I do not recommend nsaids or colchicine due to declined renal function. Will also need to see her kidney specialist to discuss chronic gout regimen due to the intricacies of managing with chronic conditions. [facility] 2025-03-18 09:50:04 ATC. LVM @ 9:50 AM 03/18/25 Inge Carrasco LVN Inge Carrasco LVN [facility] 2025-03-17 14:44:51 ATC. Straight to VM. LVM stating Melia will only prescribe a steroid for a couple of days. If patient is needing chronic on going medication, patient will need to get it from transplant team. [facility] 2025-03-17 14:28:22 Isrrael Menchaca is a 64 year old female calling wanting to speak with a Nurse. Pt say she came in for appt 02/24 with gout but wasn't prescribed anything. Pt says the nurse told her they were able to prescribe something but nothing was sent. The would like to speak with Oscar about this. Pt says she is having a lot of pain because of the gout Clovis Forte [facility] 2025-03-17 08:58:06 2nd ATC. LVM @ 8:58 AM 03/17/25 Inge Carrasco LVN Inge Carrasco LVN [facility] 2025-03-16 11:41:33 ATC. LVM 11:41 AM 03/16/25 Inge Carrasco LVN [facility] 2025-03-16 09:48:12 Please make appointment for acute issues, saw Heather wade, not sure if this was discussed. Urgent care or ER if not able or worse [facility] 2025-03-15 13:10:56 Copied from [facility] #[id number]. Topic: Clinical - Medical Advice >> Mar 15, 2025 1:08 PM Patient Scoop Driver wrote: Isrrael Menchaca is a 64 year old female Patient is calling stating that she is having moderate pain on her right foot and the foot has been swollen since February 24. Patient states it hurts to walk. Patient states that she spoke to the transplant team and they told her she was able to take allopurinol for her gout. [phone] [employer] [address] [place] [address] Please advise. Trina Streeter [facility] 2025-03-14 12:59:16 Completed in another encounter Rachele Black RN [facility] 2025-03-14 12:59:04 Copied from [facility] #[id number]. Topic: Clinical - Medical Advice >> Mar 14, 2025 12:57 PM Patient Scoop Driver wrote: Isrrael Menchaca Clinic Name: [facility] [id number] female / 64 year old (1960) Pt calling stating she talked to the transplant team and they said she is able to take the "allopurinol" for her "gout". Please advise [phone] [address] Bailey Bose [facility] 2025-03-14 12:51:17 Spoke with pt will request Allopurinol for PCP Rachele Black RN [facility] 2025-03-14 11:04:16 Isrrael Menchaca is a 64 year old female called on Friday and was to receive a call back from Dr. Jason Glynn. Patient never received call and is needing to know what she can take for gout in R foot. Please give patient a call to advise, thanks. Jerilyn Albright [facility] 2025-03-12 15:11:04 Copied from [facility] #[id number]. Topic: Sheet Manufacturing Supervisor - Surg - Transplant >> Mar 12, 2025 3:02 PM Patient Scoop Driver wrote: Isrrael Menchaca is a 64 year old female Patient Specific Symptoms: states she was diagnosed with gout in both feet, she was unable to get medication due to having a transplant, she is asking if she can get something called in, her right foot is swelling and a little painful. Preferred pharmacy [facility] Patient durations of symptoms: 2 weeks Call out to transplant per [facility] nurses 1st call to kidney Dr Jason Dick @ 3:05 pm he stated he would work on what she can take and he will give her a call back The patient verbalized understanding Audie Galindo [facility] 2025-03-04 08:30:00 Images from the original note were not included. Venipuncture collection performed by clean technique on the left anticubitus. Total of 1 attempts were made. Slight pressure and a bandage/dressing were applied to the site(s). The patient experienced no complications. The following specimens were processed according to instructions and sent to [facility] laboratories per lab order on 03/04/2025 : LT BLUE 1 SST 1 RED 1 LAV 2 PPT 2 DK GREEN (LiHep) DK GREEN (SodH) LOPEZ DK BLUE (K2) DK BLUE (S) ACD Blood Culture NIPT/NTD Patient has been identified by and name and was provided with cup, antiseptic towelette, and clean catch instructions. 2 urine specimen(s) sent. Unpreserved 2 Urine Culture Aptima tube Other urine T [facility] 2025-03-04 08:30:00 Per pt urine culture not needed at this time Pooja Paulson 03/04/2025 8:50 AM T [facility] 2025-02-17 13:40:49 Available refill at pharmacy, no additional refills authorized at this time. Outpatient Medication Detail Disp Refills Start End ALYSSA Insulin Glargine (LANTUS SOLOSTAR U-100 INSULIN) 100 unit/mL (3 mL) injection 9 mL 3 08/06/2024 -- No Sig: inject 10 Units under the skin at bedtime. (DISCARD PEN 28 DAYS AFTER OPENING) Sent to pharmacy as: Lantus Solostar U-100 Insulin 100 unit/mL (3 mL) subcutaneous pen (Insulin Glargine) Class: eRX Route: Subcutaneous Order: [id number] Date/Time Signed: 08/06/2024 09:23 E-Prescribing Status: Receipt confirmed by pharmacy (08/06/2024 9:23 AM CLINICAL ANALYST) Pt will be due for refill 05/04/2025 Ronan Segura RN [facility] 2025-02-08 11:41:07 Called patient and verified patient by name and . Patient informed her UC was positive for UTI. Patient will be treated with Macrobid 100 mg bid for 5 days. Medication resent to local pharmacy. Patient verbalizes understanding. Allergies reviewed. Swati Dowd RN [facility] 2025-02-08 10:19:02 ROB 08/12/24 NOV 08/18/25 EDEST Andres Graham RN [facility] 2025-02-01 09:30:00 Images from the original note were not included. Venipuncture collection performed by clean technique on the left anticubitus. Total of 1 attempts were made. Slight pressure and a bandage/dressing were applied to the site(s). The patient experienced no complications. The following specimens were processed according to instructions and sent to [facility] laboratories per lab order on 02/01/2025 : LT BLUE 1 SST 1 RED 1 LAV 2 PPT 2 DK GREEN (LiHep) DK GREEN (SodH) LOPEZ DK BLUE (K2) DK BLUE (S) ACD Blood Culture NIPT/NTD Patient has been identified by and name and was provided with cup, antiseptic towelette, and clean catch instructions. 3 urine specimen(s) sent. Unpreserved 2 Urine Culture 1 Aptima tube Other urine [facility] 2025-01-31 13:14:06 Available refill at pharmacy, no additional refills authorized at this time. Outpatient Medication Detail Disp Refills Start End ALYSSA Insulin Glargine (LANTUS SOLOSTAR U-100 INSULIN) 100 unit/mL (3 mL) injection 9 mL 3 08/06/2024 -- No Sig: inject 10 Units under the skin at bedtime. (DISCARD PEN 28 DAYS AFTER OPENING) Sent to pharmacy as: Lantus Solostar U-100 Insulin 100 unit/mL (3 mL) subcutaneous pen (Insulin Glargine) Class: eRX Route: Subcutaneous Order: [id number] Date/Time Signed: 08/06/2024 09:23 E-Prescribing Status: Receipt confirmed by pharmacy (08/06/2024 9:23 AM CLINICAL ANALYST) Ronan Segura RN [facility] 2025-01-24 08:37:56 Requested Prescriptions Pending Prescriptions Disp Refills MYCOPHENOLATE SODIUM 180 mg EC tablet [Pharmacy Med Name: Mycophenolate Sodium Oral Tablet Delayed Release 180 MG] 360 tablet 3 Sig: TAKE 2 TABLETS EVERY MORNING AND 2 TABLETS EVERY EVENING. ROB: 08/12/24 NOV: 08/18/25 Per rob: myfortic 360/360, Rachele Black RN [facility] 2025-01-24 08:25:53 Available refill at pharmacy, no additional refills authorized at this time. Outpatient Medication Detail Disp Refills Start End ALYSSA Insulin Glargine (LANTUS SOLOSTAR U-100 INSULIN) 100 unit/mL (3 mL) injection 9 mL 3 08/06/2024 -- No Sig: inject 10 Units under the skin at bedtime. (DISCARD PEN 28 DAYS AFTER OPENING) Sent to pharmacy as: Lantus Solostar U-100 Insulin 100 unit/mL (3 mL) subcutaneous pen (Insulin Glargine) Class: eRX Route: Subcutaneous Order: [id number] Date/Time Signed: 08/06/2024 09:23 E-Prescribing Status: Receipt confirmed by pharmacy (08/06/2024 9:23 AM CLINICAL ANALYST) Ronan Segura RN [facility] 2025-01-10 08:23:01 Refill has been sent to pharmacy on file. Ronan Segura RN [facility] 2025-01-06 10:15:00 Images from the original note were not included. Venipuncture collection performed by clean technique on the left anticubitus. Total of 1 attempts were made. Slight pressure and a bandage/dressing were applied to the site(s). The patient experienced no complications. The following specimens were processed according to instructions and sent to [facility] laboratories per lab order on 01/06/2025 : LT BLUE 1 SST 1 RED 1 LAV 2 PPT 2 DK GREEN (LiHep) DK GREEN (SodH) LOPEZ DK BLUE (K2) DK BLUE (S) ACD Blood Culture NIPT/NTD Patient has been identified by and name and was provided with cup, antiseptic towelette, and clean catch instructions. 3 urine specimen(s) sent. Unpreserved 3 Urine Culture Aptima tube Other urine [facility] 2024-12-13 09:07:15 Refill has been sent to pharmacy on file. Ronan Segura RN [facility] 2024-12-01 11:47:56 Returned pt call as requested. She reports PCP thinks her itchy/swollen eyes are r/t tacrolimus. Last tac level 3, dose increased from 0.5mg BID to 1mg/0.5mg. Todays tac level still in process, pt confirms it will be accurate 12 hr trough. Spoke to txpl pharmacists who state this is not likely related to tacrolimus. Pt advised she can use OTC zyrtec, prescribed erythromycin ointment and wet compresses and we can reassess in a few days. Pt agreeable to plan. Andres Graham RN [facility] 2024-12-01 10:45:00 Images from the original note were not included. Venipuncture collection performed by clean technique on the left anticubitus. Total of 1 attempts were made. Slight pressure and a bandage/dressing were applied to the site(s). The patient experienced no complications. The following specimens were processed according to instructions and sent to [facility] laboratories per lab order on today: LT BLUE SST RED LAV 1 PPT DK GREEN (LiHep) DK GREEN (SodH) LOPEZ DK BLUE (K2) DK BLUE (S) ACD Blood Culture NIPT/NTD Мария Summers [facility] 2024-12-01 10:34:46 Patient called to let the coordinator know that she went to her PCP for both eyes swollen and itching , her PCP states that can be from tacrolimus increased dosage, patient would like to speak with the coordinator. Davida Almodovar [facility] 2024-11-24 10:03:59 Tac level 3 Called pt to discuss. She reports accurate trough. Dose increased from 0.5mg BID to 1mg/0.5mg. pt verbalizes understanding, denies questions. Pt will repeat tac level next week. [facility] 2024-11-23 09:30:00 Images from the original note were not included. Venipuncture collection performed by clean technique on the left anticubitus. Total of 1 attempts were made. Slight pressure and a bandage/dressing were applied to the site(s). The patient experienced no complications. The following specimens were processed according to instructions and sent to [facility] laboratories per lab order on 05/27/2024: LT BLUE 1 SST 1 RED 1 LAV 2 PPT 2 DK GREEN (LiHep) DK GREEN (SodH) LOPEZ DK BLUE (K2) DK BLUE (S) ACD Blood Culture NIPT/NTD Patient has been identified by and name and was provided with cup, antiseptic towelette, and clean catch instructions. 3 urine specimen(s) sent. Unpreserved 3 Urine Culture Aptima tube Other urine [facility] 2024-10-25 10:00:00 Images from the original note were not included. Venipuncture collection performed by clean technique on the left anticubitus. Total of 1 attempts were made. Slight pressure and a bandage/dressing were applied to the site(s). The patient experienced no complications. The following specimens were processed according to instructions and sent to [facility] laboratories per lab order on 10/25/2024 : LT BLUE SST 1 RED LAV 2 PPT DK GREEN (LiHep) DK GREEN (SodH) LOPEZ DK BLUE (K2) DK BLUE (S) ACD Blood Culture NIPT/NTD [facility] 2024-09-22 09:30:00 Addended by: JENSEN SORTO MD on: 09/23/2024 12:59 PM Modules accepted: Level of Service ICAL ANALYST IM-GASTROENTEROLOGY STAFF [facility] 2024-09-17 10:45:00 Images from the original note were not included. Venipuncture collection performed by clean technique on the left anticubitus. Total of 1 attempts were made. Slight pressure and a bandage/dressing were applied to the site(s). The patient experienced no complications. The following specimens were processed according to instructions and sent to [facility] laboratories per lab order on 09/17/2024 : LT BLUE 1 SST 1 RED 1 LAV 2 PPT 2 DK GREEN (LiHep) DK GREEN (SodH) LOPEZ DK BLUE (K2) DK BLUE (S) ACD Blood Culture NIPT/NTD Patient has been identified by and name and was provided with cup, antiseptic towelette, and clean catch instructions. 1 urine specimen(s) sent. Unpreserved 2 Urine Culture 1 Aptima tube Other urine [facility] 2024-09-12 16:46:01 Patient discharged to home. Patient given printed and verbal discharge instructions regarding diagnosis. Instructed to follow up with PCP. Patient verbalized understanding of instructions. Patient awake, alert, oriented, respirations even and unlabored, skin warm and dry, color appropriate for race. No adverse reaction to meds given in ER noted upon discharge. PIV removed. Discussed medications. Advised to seek medical attention for new/prolonged/worsening of symptoms, patient ambulated from unit with steady gait in no apparent distress. Cuellar RN [facility] 2024-09-12 14:38:41 Patient states: "Yesterday I was feeling really cold, fatigued. I was coming out of the bathroom and I lost it and fell on some boxes" Reports dysuria. Mathews RN [facility] 2024-09-08 11:26:07 Spoke with patient regarding Effective October, [facility] will no longer have a transplant sample display preparer available to provide ongoing liver post care. Pt is encourage to reach out to other liver facilities. Letter will follow Busby [facility] 2024-08-20 17:37:05 Spoke with pharmacy and Freestyle Rx was received and is getting filled today for pt and pt has been notified and will check with pharmacy when to continuous pickling line pickler RX. Isrrael Menchaca is a 64 year old female Calling to have Blood-Glucose Sensor (FREESTYLE TRICIA 3 PLUS SENSOR resent to pharmacy [facility] [address] [place] [id number] ICAL ANALYST Aura Jordan MA [facility] 2024-08-20 17:09:10 Blood-Glucose Sensor (FREESTYLE TRICIA 3 PLUS SENSOR) Conchita 2 Ea Last refilled 08/13/2024 with 3 additional refills has been sent to pharmacy on file 08/13/24 ICAL ANALYST Aura Jordan MA [facility] 2024-08-20 10:21:24 Isrrael Menchaca is a 64 year old female Calling to have Blood-Glucose Sensor (FREESTYLE TRICIA 3 PLUS SENSOR resent to pharmacy [address] [address] ICAL ANALYST Clovis Forte [facility] 2024-08-13 13:18:37 Refill has been sent to pharmacy on file. Future Appointments Date Type Provider Dept 10/25/24 Appointment Vincenzo Felder FNP [facility] 11/16/24 Appointment Deejay Farias AGPCNP [facility] Showing future appointments within next 150 days with a meds authorizing provider and meeting all other requirements ICAL ANALYST Ronan Segura RN [facility] 2024-08-13 08:10:10 Refill has been sent to pharmacy on file. Future Appointments Date Type Provider Dept 10/25/24 Appointment Vincenzo Felder FNP [facility] 11/16/24 Appointment Deejay Farias AGPCNP [facility] Showing future appointments within next 150 days with a meds authorizing provider and meeting all other requirements [facility] Ronan Segura RN [facility] 2024-08-10 16:23:37 Please review, complete, and sign if appropriate. ROB 08/06/24 [facility] 2024-08-10 08:15:00 Images from the original note were not included. Venipuncture collection performed by clean technique on the left anticubitus. Total of 1 attempts were made. Slight pressure and a bandage/dressing were applied to the site(s). The patient experienced no complications. The following specimens were processed according to instructions and sent to [facility] laboratories per lab order on 08/10/2024 : LT BLUE 1 SST 1 RED 1 LAV 2 PPT 2 DK GREEN (LiHep) DK GREEN (SodH) LOPEZ DK BLUE (K2) DK BLUE (S) ACD Blood Culture NIPT/NTD Patient has been identified by and name and was provided with cup, antiseptic towelette, and clean catch instructions. 3 urine specimen(s) sent. Unpreserved 2 Urine Culture 1 Aptima tube Other urine [facility] 2024-08-06 14:47:13 Attempted to contact patient, left message on voicemail to return call [facility] Brandi Michaels MA [facility] 2024-08-06 13:08:16 May use robitussin dm (guaifenesin/dextromethorph an) as needed. Maintain water hydration. [facility] 2024-08-06 12:20:54 Please review and advise. ROB 08/06/23 Liriano LVN [facility] 2024-08-06 09:36:08 Patient is requesting a change of medication for cough. Per patient benzonatate 100 mg capsule do nothing for her to help with cough. Mays [facility] 2024-08-05 14:47:14 Please review, complete, and sign if appropriate. [facility] 2024-08-05 13:36:54 Referral needed, pt has appt tomorrow with Deejay COOPER: DM Once referral is entered, PSS can obtain authorization Baron [facility] 2024-08-02 09:12:19 ROB: 07/05/24 NOV: 08/12/24 Requested Prescriptions Pending Prescriptions Disp Refills TACROLIMUS 0.5 mg capsule [Pharmacy Med Name: Tacrolimus Oral Capsule 0.5 MG] 180 capsule 3 Sig: TAKE 1 CAPSULE EVERY 12 HOURS FOR KIDNEY TRANSPLANT, LIVER TRANSPLANT [facility] 2024-07-26 08:45:31 Referral pending please review and complete if appropriate Conti RN [facility] 2024-07-23 15:32:40 Avonna Travis Nikolai is a 64 year old female Pt called requesting a referral. She states that Dr. Gonzalez requested that she see's gynecology. 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 Mcginnis [address] [place] [address] Phone number: [phone] Fax number: [phone] Appt already scheduled?: No If yes, date of appt.: n/a ICAL ANALYST Aura Nicholas [facility] 2024-07-23 14:00:00 Addended by: MITCH GONZALEZ MD on: 07/23/2024 04:24 PM Modules accepted: Orders [facility] 2024-07-16 09:00:00 Addended by: MITCH GONZALEZ MD on: 07/19/2024 02:05 PM Modules accepted: Orders [facility] 2024-07-07 09:28:28 Last Refilled: Disp Refills Start End ALYSSA montelukast 10 mg tablet 90 tablet 1 10/02/2023 -- -- Sig: Take 1 tablet by mouth in the morning. Sent to pharmacy as: montelukast 10 mg tablet (SINGULAIR) Class: eRX Route: Oral Order: [id number] Date/Time Signed: 10/02/2023 07:54 E-Prescribing Status: Receipt confirmed by pharmacy (10/02/2023 7:54 AM CLINICAL ANALYST) Notes: Recent Visits Date Type Provider Dept 06/11/24 Office Visit Vincenzo Felder FNP [facility] 04/19/24 Office Visit Vincenzo Felder FNP [facility] 03/29/24 Office Visit Vincenzo Felder FNP [facility] 02/17/24 Office Visit Clif Fernandez MD [facility] 11/27/23 Office Visit Vincenzo Felder FNP [facility] 11/18/23 Office Visit Vincenzo Felder FNP [facility] 10/21/23 Office Visit Allegra Dubois MD [facility] 10/15/23 Office Visit Allegra Dubois MD [facility] 05/14/23 Office Visit Heather Cárdenas PA [facility] 02/07/23 Office Visit Vincenzo Felder FNP [facility] Showing recent visits within past 540 days with a meds authorizing provider and meeting all other requirements Future Appointments Date Type Provider Dept 10/25/24 Appointment Vincenzo Felder FNP [facility] Showing future appointments within next 150 days with a meds authorizing provider and meeting all other requirements Conti RN [facility] 2024-07-06 10:00:00 Images from the original note were not included. Patient has been identified by and name and was provided with cup, antiseptic towelette, and clean catch instructions. 1 urine specimen(s) sent. Unpreserved Urine Culture 1 Aptima tube Other urine Pt only here for Carlos orders. ICAL ANALYST [facility] 2024-06-30 11:30:00 Images from the original note were not included. Venipuncture collection performed by clean technique on the left anticubitus. Total of 1 attempts were made. Slight pressure and a bandage/dressing were applied to the site(s). The patient experienced no complications. The following specimens were processed according to instructions and sent to [facility] laboratories per lab order on 06/30/2024: LT BLUE 1 SST 1 RED LAV 2 PPT 1 DK GREEN (LiHep) DK GREEN (SodH) LOPEZ DK BLUE (K2) DK BLUE (S) ACD Blood Culture NIPT/NTD Patient has been identified by and name and was provided with cup, antiseptic towelette, and clean catch instructions. 1 urine specimen(s) sent. Unpreserved 1 Urine Culture Aptima tube Other urine [facility] 2024-06-14 11:24:28 Resent to [facility] in [place] [facility] 2024-06-11 14:30:00 Addended by: JOSE MIGUEL FELDER DNP, CYNTHIA O on: 06/14/2024 11:24 AM Modules accepted: Orders [facility] 2024-06-11 14:30:00 Addended by: JOSE MIGUEL FELDER DNP, CYNTHIA O on: 06/16/2024 11:48 AM Modules accepted: Orders [facility] 2024-06-07 15:18:20 Addended by: ANDRES GRAHAM on: 06/07/2024 03:18 PM Modules accepted: Orders [facility] 2024-06-04 07:45:00 Images from the original note were not included. Venipuncture collection performed by clean technique on the left anticubitus. Total of 2 attempts were made. Slight pressure and a bandage/dressing were applied to the site(s). The patient experienced no complications. The following specimens were processed according to instructions and sent to [facility] laboratories per lab order on 06/04/2024 : LT BLUE 1 SST 1 RED 1 LAV 2 PPT 1 DK GREEN (LiHep) DK GREEN (SodH) LOPEZ DK BLUE (K2) DK BLUE (S) ACD 1 Blood Culture NIPT/NTD Patient has been identified by and name and was provided with cup, antiseptic towelette, and clean catch instructions. 3 urine specimen(s) sent. Unpreserved 3 Urine Culture Aptima tube Other urine [facility] 2024-[facility]-01 15:25:51 RX resent to correct pharmacy. Ronan Segura RN [facility] 2024-06-01 15:19:52 Isrrael Menchaca is a 64 year old female that is following up on her requesting for the [employer] tricia 3 plus sensor. The snapshot shows that the prescription went to [facility] pharmacy but the pt asked that they be sent to [facility] pharmacy. Please resend. The pt states that she is on her last sensor. Please advise. [facility] [address] [place] [id number] T Zelda Monterroso [facility] 2024-05-27 11:34:00 Encounter opened to update standing lab orders [facility] 2024-05-26 11:49:50 Alternate RX sent. T Ronan Segura RN [facility] 2024-05-20 13:47:21 Your sensors have been ordered through [facility] in [place]. Please check with them to make sure they have received the prescription. [facility] 2024-05-03 12:15:00 Images from the original note were not included. Venipuncture collection performed by clean technique on the left anticubitus. Total of 2 attempts were made. Slight pressure and a bandage/dressing were applied to the site(s). The patient experienced no complications. The following specimens were processed according to instructions and sent to [facility] laboratories per lab order on 05/03/2024 : LT BLUE SST RED 1 LAV PPT DK GREEN (LiHep) DK GREEN (SodH) LOPEZ DK BLUE (K2) DK BLUE (S) ACD Blood Culture NIPT/NTD Allosure collected 05/03/2024 [facility] 2024-04-28 15:43:42 Telephone encounter is being closed for EPIC maintenance purposes. Encounter has been open greater than 72 hours. If documentation is still needed, please create an addendum. Last labs on file: 04/28/24 glucose 140. Access [facility] TERA ReddySESSMENT: Aileen Albright RN [facility] 2024-04-28 10:01:43 UA resulted abnormal Called pt to discuss, she denies any dysuria, urgency, frequency or fever. She does report fatigue and mild diarrhea yesterday. Reports hx of abnormal UTIs w/ vague symptoms. Requested urine culture be run as well. Pedro JACOB notified, awaiting reply [facility] 2024-04-28 08:45:00 Images from the original note were not included. Venipuncture collection performed by clean technique on the left anticubitus. Total of 1 attempts were made. Slight pressure and a bandage/dressing were applied to the site(s). The patient experienced no complications. The following specimens were processed according to instructions and sent to [facility] laboratories per lab order on 04/28/2024 : LT BLUE 1 SST 1 RED LAV 2 PPT DK GREEN (LiHep) DK GREEN (SodH) LOPEZ DK BLUE (K2) DK BLUE (S) ACD Blood Culture NIPT/NTD Patient has been identified by and name and was provided with cup, antiseptic towelette, and clean catch instructions. 2 urine specimen(s) sent. Unpreserved 2 Urine Culture Aptima tube Other urine [facility] 2024-04-28 08:45:00 Summary: Labs for Zora, Fabiana Yuan MD Images from the original note were not included. Venipuncture collection performed by clean technique on the left anticubitus. Total of 1 attempts were made. Slight pressure and a bandage/dressing were applied to the site(s). The patient experienced no complications. The following specimens were processed according to instructions and sent to [facility] laboratories per lab order on 04/28/2024 : LT BLUE 1 SST 1 RED LAV 2 PPT DK GREEN (LiHep) DK GREEN (SodH) LOPEZ DK BLUE (K2) DK BLUE (S) ACD Blood Culture NIPT/NTD Patient has been identified by and name and was provided with cup, antiseptic towelette, and clean catch instructions. 2 urine specimen(s) sent. Unpreserved 2 Urine Culture Aptima tube Other urine [facility] 2024-04-28 08:45:00 Summary: Urine culture added by provider Images from the original note were not included. Patient has been identified by and name and was provided with cup, antiseptic towelette, and clean catch instructions. 1 urine specimen(s) sent. Unpreserved Urine Culture 1 Aptima tube Other urine [facility] 2024-04-27 11:07:09 Last Refilled: Disp Refills Start End ALYSSA Insulin [place], Disposable, (KARI PEN NEEDLE) 32 gauge x 5/32" Ndle 500 Each 1 10/07/2023 -- -- Sig: Use to inject insulin 5X daily. DX:E11.65 Sent to pharmacy as: pen needle, diabetic 32 gauge x 5/32" (Kari Pen Needle) Class: eRX Order: [id number] Date/Time Signed: 10/07/2023 10:26 E-Prescribing Status: Receipt confirmed by pharmacy (10/07/2023 10:26 AM CLINICAL ANALYST) Notes: Recent Visits Date Type Provider Dept 04/19/24 Office Visit Vincenzo Felder FNP [facility] 04/06/24 Office Visit Deejay Farias AGPCNP [facility] 03/29/24 Office Visit Vincenzo Felder FNP [facility] 02/17/24 Office Visit Clif Fernandez MD [facility] 11/27/23 Office Visit Vincenzo Felder FNP [facility] 11/18/23 Office Visit Vincenzo Felder FNP [facility] 10/21/23 Office Visit Allegra Dubois MD [facility] 10/15/23 Office Visit Allegra Dubois MD [facility] 10/07/23 Office Visit Deejay Farias AGPCNP [facility] 05/14/23 Office Visit Heather Cárdenas PA [facility] Showing recent visits within past 540 days with a meds authorizing provider and meeting all other requirements Future Appointments Date Type Provider Dept 08/06/24 Appointment Deejay Farias AGPCNP [facility] Showing future appointments within next 150 days with a meds authorizing provider and meeting all other requirements Eun Conti RN [facility] 2024-04-22 10:31:14 OK FM-FAMILY MEDICINE STAFF [facility] 2024-04-21 08:30:57 FYI patient responding to Lab results: CMP continues to show worsening kidney function, 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 Know signs of hypoglycemia, your sugars was really now, which is likely because you were fasting for your labs- the nurse called you about this yesterday. When low and symptomatic, eat something MARÍA. TSH normal Lipids stable CBC with elevated WBC like acute infection your body is fighting- will reassess Written by RASHMI Sanches on 04/21/2024 5:46 AM CDT Seen by patient Isrrael Menchaca on 04/21/2024 6:18 AM [facility] 2024-04-20 15:17:58 Dayami with [facility] lab called to spoke with Vincenzo Felder DNP with a critical lab. Glucose at 45. Attempted to contact patient to ensure that patient has eaten since her labs at 0800 this morning. No answer, left message to call clinic back Eun Conti RN [facility] 2024-04-20 08:00:00 Images from the original note were not included. Venipuncture collection performed by clean technique on the right anticubitus. Total of 1 attempts were made. Slight pressure and a bandage/dressing were applied to the site(s). The patient experienced no complications. The following specimens were processed according to instructions and sent to [facility] laboratories per lab order on 04/20/2024 : LT BLUE SST 2 RED LAV 2 PPT DK GREEN (LiHep) DK GREEN (SodH) LOPEZ DK BLUE (K2) DK BLUE (S) ACD Blood Culture NIPT/NTD [facility] 2024-04-12 09:45:00 Images from the original note were not included. Patient has been identified by and name and was provided with cup, antiseptic towelette, and clean catch instructions. 1 urine specimen(s) sent. Unpreserved 1 Urine Culture Aptima tube Other urine [facility] 2024-04-01 11:17:09 RX was sent to [facility] pharmacy 03/31. Called pt to inform her. Andres Graham RN [facility] 2024-04-01 10:52:11 Patient called staring need her medication for mycophenolate sodium 180 mg EC tablet 120 tablet 11 03/31/2024 Was sent it to [facility] and need to be send it to : [facility] - [facility] [address] [place] [address] Please call the patient when is done. T Davida Almodovar [facility] 2024-03-31 08:26:07 RX re sent to [facility] as requested [facility] 2024-03-30 17:33:16 Spoke with Patient and relayed the information per provider. Patient voiced understanding. Eun Conti RN [facility] 2024-03-30 16:54:50 Please tell her to use her sliding scale provided to her at her ROB as she titrates off her steroid pack. [facility] 2024-03-30 16:34:50 Spoke with patient, she started prednisone pack and has only taken the first day. She reports that her BG has been running 334. She states that she has been using her sliding scale. She is in shock that she will have to inject 6 units for the next two days and that her BG is going to be that high and is this going to be ok? Please review and advise. [facility] 2024-03-30 16:30:23 Patient states that her mycophenolate sodium 180 mg EC tablet was sent to [facility] pharmacy but needs to be sent to [facility] instead. Yani Castillo [facility] 2024-03-30 15:58:07 Returned pt call as requested. Pt reports since starting prednisone taper yesterday her BGL has been in 300's. Pt has endo appt 04/06 and was advised to call them and inform them she is on pred taper so they can provide her instructions to adjust insulin dosage. Pt agreeable to plan, verbalizes understanding. Andres Graham RN [facility] 2024-03-30 15:45:16 Patient called asking to speak with the nurse concerning medication taken causing Blood Sugar super high, please call pt back. Davida Almodovar [facility] 2024-03-29 12:52:58 Addended by: ANDRES GRAHAM on: 03/29/2024 12:52 PM Modules accepted: Orders [facility] 2024-03-29 12:41:[address] East: -increase myfortic to 360mg BID -start pred taper and then maintenance dose of 5 mg daily RXs updated and sent to preferred pharmacy. Pt verbalizes understanding, denies questions. T [facility] 2024-03-24 12:46:15 Biopsy sent to MD to advise on further Katerina Chen RN 03/24/2024 12:46 PM T [facility] 2024-03-23 11:16:23 yes [facility] 2024-03-23 10:57:40 Do you approve referral ? [facility] 2024-03-23 10:46:35 Pt is needing a referral for her upcoming cardiology visit with Dr. Olivia. Pt's last referral has . Please advise. Thank you. T Giancarlo Marie [facility] 2024-03-20 14:12:51 Problem: Falls, Risk of Goal: Absence of falls 03/20/20241411 by Rima Rosado RN Outcome: Resolved 03/20/2024803 by Rima Rosado RN Outcome: Progressing as expected Problem: Pain Goal: Control of pain at or below patient's documented comfort goal 03/20/20241411 by Rima Rosado, TOPHER Outcome: Resolved 03/20/2024803 by Rima Rosado, TOPHER Outcome: Progressing as expected Goal: Reduction in pain sensation 03/20/20241411 by Rima Rosado RN Outcome: Resolved 03/20/2024 0804 by Rima Rosado RN Outcome: Progressing as expected Problem: Discharge Planning Goal: Adequate for discharge 03/20/2024 1412 by Rima Rosado RN Outcome: Resolved 03/20/2024 0804 by Rima Rosado RN Outcome: Progressing as expected Goal: Effective communication Outcome: Resolved Problem: Bleeding, Risk of Goal: Absence of impaired coagulation signs and symptoms 03/20/2024 1412 by Rima Rosado RN Outcome: Resolved 03/20/2024 0804 by Rima Rosado RN Outcome: Progressing as expected Goal: Absence of active bleeding 03/20/2024 141 by Rima Rosado RN Outcome: Resolved 03/20/2024 08 by Rima Rosado RN Outcome: Progressing as expected Rima Rosado RN [facility] 2024-03-20 08:05:06 Problem: Falls, Risk of Goal: Absence of falls Outcome: Progressing as expected Problem: Pain Goal: Control of pain at or below patient's documented comfort goal Outcome: Progressing as expected Goal: Reduction in pain sensation Outcome: Progressing as expected Problem: Discharge Planning Goal: Adequate for discharge Outcome: Progressing as expected Goal: Effective communication Outcome: Resolved Problem: Bleeding, Risk of Goal: Absence of impaired coagulation signs and symptoms Outcome: Progressing as expected Goal: Absence of active bleeding Outcome: Progressing as expected [facility] 2024-03-19 23:04:58 Problem: Falls, Risk of Goal: Absence of falls Outcome: Progressing as expected Problem: Pain Goal: Control of pain at or below patient's documented comfort goal Outcome: Progressing as expected Goal: Reduction in pain sensation Outcome: Progressing as expected Problem: Discharge Planning Goal: Adequate for discharge Outcome: Progressing as expected Goal: Effective communication Outcome: Progressing as expected Problem: Bleeding, Risk of Goal: Absence of impaired coagulation signs and symptoms Outcome: Progressing as expected Goal: Absence of active bleeding Outcome: Progressing as expected T Sherry Howe RN [facility] 2024-03-19 20:06:14 Problem: Falls, Risk of Goal: Absence of falls Outcome: Progressing as expected Problem: Pain Goal: Control of pain at or below patient's documented comfort goal Outcome: Progressing as expected Goal: Reduction in pain sensation Outcome: Progressing as expected Problem: Discharge Planning Goal: Adequate for discharge Outcome: Progressing as expected Goal: Effective communication Outcome: Progressing as expected Problem: Bleeding, Risk of Goal: Absence of impaired coagulation signs and symptoms Outcome: Progressing as expected Goal: Absence of active bleeding Outcome: Progressing as expected [facility] 2024-03-19 12:45:27 Patient's daughter called with update and bed number provided. [facility] 2024-03-19 12:29:47 Renal biopsy specimen collected and sent off to surg path. [facility] 2024-03-19 12:08:41 Slight bleed noted for biopsy site, Manual pressure held by Dr Cm. Patient stable. NAD. [facility] 2024-03-19 11:31:55 BP systolic in the low 150s, Dr Paris made aware. Patient appears more relaxed and calm. NAD. [facility] 2024-03-19 11:15:00 Patient's BP elevated pre-intervention 180/75, HR in the mid 50s. BP cuff size changed x2 and BP still elevated in the high 170s systolic. Dr Paris made aware. Timeout done with IR MD and 50mcg of fentanyl given per MD order. 10mg of hydralazine given for BP. Patient instructed to deep breath and relax to reduce anxiety levels. NAD. BP recycle q5mins. Will keep monitoring patient. [facility] 2024-03-08 07:30:00 Images from the original note were not included. Venipuncture collection performed by clean technique on the left anticubitus. Total of 1 attempts were made. Slight pressure and a bandage/dressing were applied to the site(s). The patient experienced no complications. The following specimens were processed according to instructions and sent to [facility] laboratories per lab order on 03/08/2024 : LT BLUE 1 SST 1 RED LAV 2 PPT 1 DK GREEN (LiHep) DK GREEN (SodH) LOPEZ DK BLUE (K2) DK BLUE (S) ACD Blood Culture NIPT/NTD Patient has been identified by and name and was provided with cup, antiseptic towelette, and clean catch instructions. 2 urine specimen(s) sent. Unpreserved 2 Urine Culture Aptima tube Other urine T [facility] 2024-02-27 13:16:45 Medication refilled per policy: Last office visit: 10/07/23 Next office visit: 04/06/24 Requested Prescriptions Pending Prescriptions Disp Refills FREESTYLE TRICIA 3 SENSOR Con[place]ita [Pharmacy Med Name: FREESTYLE TRICIA 3/SENSOR/GLUCOSE MONITORING SYSTEM] 3 Sig: CHANGE SENSOR EVERY 14 DAYS (EVERY 2 WEEKS) DIRECTED Last fill date: 10/07/23 Notes: Type 2 diabetes mellitus with hyperglycemia, with long-term current use of insulin - Primary Kylie Liriano MARK [facility] 2024-02-20 12:23:19 Spoke with patient and confirmed with her to stop the antibiotic she was given in clinic and to start Ciprofloxacin. Patient voiced understanding. Eun Conti RN [facility] 2024-02-20 10:51:38 Isrrael Menchaca is a 63 year old female Pt called because she was prescribed an antibiotics on 02/17/24 and different one today. She wants to know was she suppose to stop taking the one she was prescribed on 02/17/24. Please advise. Claude Kenny [facility] 2024-02-17 09:00:00 Addended by: MARANDA RAINEY on: 02/17/2024 09:42 AM Modules accepted: Orders [facility] 2024-02-17 09:00:00 Addended by: CLIF FERNANDEZ on: 02/20/2024 05:14 AM Modules accepted: Orders [facility] 2024-02-13 14:42:09 Pt has been scheduled and will do labs in [place], she can walk in with no need for appt. Bryan Benton RN [facility] 2024-02-13 10:27:11 Isrrael Menchaca is a 63 year old female Pt is calling to reschedule her appt. She would like to know if she should have labs done before she comes to the appt. Please advise Bailey Candido Flor [facility] 2024-01-14 15:09:13 Images from the original note were not included. Pt scheduled for drain removal 01/15. Closing Encounter. Teagan Preciado LVN 01/14/24 10:55 AM Note Nurse visit scheduled for Friday for drain removal per MD. Patient is aware. Frances Madden RN [facility] 2024-01-14 10:55:14 Nurse visit scheduled for Friday for drain removal per MD. Patient is aware. [facility] 2024-01-13 16:58:32 Copied from [facility] #[id number]. Topic: Appointment - Schedule Appointment >> Jan 13, 2024 4:50 PM Patient Scoop Driver wrote: Isrrael Menchaca is a 63 year old female Patient is calling wanting to get drain removed she is stating it has been under 1 cc for 3 days now. [phone] (home) Rosalind Albright [facility] 2024-01-12 11:05:03 Called pt to clarify, she reports hernia repair 01/08, discharged with drain 01/09. Requesting appt for drain removal. Will route to gen surgery. Andres Graham RN [facility] 2024-01-12 10:33:57 Isrrael Menchaca is a 63 year old female Patient calling to schedule an appt to remove tubes after her surgery at the end of this week 01/15. Patient missed a call from transplant team to schedule. Please advise Tete Chad [facility] 2024-01-10 12:24:42 Problem: Pain Goal: Control of pain at or below patient's documented comfort goal Outcome: Progressing as expected Goal: Reduction in pain sensation Outcome: Progressing as expected Problem: Falls, Risk of Goal: Absence of falls Outcome: Progressing as expected Problem: Discharge Planning Goal: Adequate for discharge Outcome: Progressing as expected Problem: Discharge Planning Goal: Effective communication Outcome: Progressing as expected Problem: Infection Risk Goal: Absence of infection Outcome: Progressing as expected Problem: Nausea/Vomiting Goal: Absence of nausea/vomiting Outcome: Progressing as expected Porsche Welch RN [facility] 2024-01-10 01:38:37 Problem: Pain Goal: Control of pain at or below patient's documented comfort goal Outcome: Progressing as expected Goal: Reduction in pain sensation Outcome: Progressing as expected Problem: Falls, Risk of Goal: Absence of falls Outcome: Progressing as expected Problem: Discharge Planning Goal: Adequate for discharge Outcome: Progressing as expected Goal: Effective communication Outcome: Progressing as expected Problem: Infection Risk Goal: Absence of infection Outcome: Progressing as expected Problem: Nausea/Vomiting Goal: Absence of nausea/vomiting Outcome: Progressing as expected Melody Conti RN [facility] 2024-01-09 18:09:45 Problem: Pain Goal: Control of pain at or below patient's documented comfort goal Outcome: Progressing as expected Goal: Reduction in pain sensation Outcome: Progressing as expected Problem: Falls, Risk of Goal: Absence of falls Outcome: Progressing as expected Problem: Discharge Planning Goal: Adequate for discharge Outcome: Progressing as expected Goal: Effective communication Outcome: Progressing as expected Problem: Infection Risk Goal: Absence of infection Outcome: Progressing as expected Problem: Nausea/Vomiting Goal: Absence of nausea/vomiting Outcome: Progressing as expected [facility] 2024-01-09 08:28:25 BRIEF OPERATIVE NOTE Date of Surgery: 01/09/2024 Surgeons and Role: * Genevieve Canseco MD - Primary * To Quesada MD - Resident - Assisting Pre-Op Diagnosis: Ventral hernia without obstruction or gangrene [K43.9] Post-Op Diagnosis Codes: * Ventral hernia without obstruction or gangrene [K43.9] Procedures: Procedure(s) (LRB): LAPAROSCOPIC ROBOTIC ASSISTED VENTRAL HERNIORRHAPHY (N/A) CPT: 22729, 43864, 92255, Any Complications Encounters: None Estimated Blood Loss: 20cc Specimens Removed: * No specimens in log * Implant Name Type Inv. Item Serial No. Seaming Inspector Lot No. LRB No. Used Action MESH PARIETENE [id number] SURG MACPRS #[id number] - SNA MESH MESH PARIETENE [id number] SURG MACPRS #[id number] NA COVIDIEN [id number] N/A 1 Implanted Patient's Condition: Stable Findings: Incarcerated ventral incisional hernia, 7x5cm. [id number] Parietene mesh placed in sublay position Any other important information: None Please see dictated operative report for additional detail. To Angulo MD PGY-5 General Surgery [facility] 2023-12-17 15:10:49 Pt called pharmacy to check the status of the rx order for progesterone at [facility] in [facility] pharmacy states there no rx avaliable, please assit T Jonna Mason [facility] 2023-12-03 09:42:36 I added a few more days of the antibiotics and have made a referral to Urogyn for further eval and tx. Referral made with [facility], staff please help facilitate appointment. [facility] 2023-12-01 08:15:00 Images from the original note were not included. Venipuncture collection performed by clean technique on the left anticubitus. Total of 1 attempts were made. Slight pressure and a bandage/dressing were applied to the site(s). The patient experienced no complications. The following specimens were processed according to instructions and sent to [facility] laboratories per lab order on 12/01/2023 : LT BLUE 1 SST 1 RED LAV 3 PPT 2 DK GREEN (LiHep) DK GREEN (SodH) LOPEZ DK BLUE (K2) DK BLUE (S) ACD Blood Culture NIPT/NTD Patient has been identified by and name and was provided with cup, antiseptic towelette, and clean catch instructions. 2 urine specimen(s) sent. Unpreserved 2 Urine Culture Aptima tube Other urine T [facility] 2023-11-27 16:00:00 Addended by: RASHMI FELDER DNP-VINCENZO GUILLORY on: 12/03/2023 09:42 AM Modules accepted: Orders [facility] 2023-11-26 09:46:47 Spoke with Patient, still no relief when urinating. F/U appointment 11/26 Eun Conti RN [facility] 2023-11-25 17:59:30 Complete the few days left, force fluids and RTC for test of cure if no relief. [facility] 2023-11-24 08:02:40 Copied from [facility] #[id number]. Topic: Clinical - Medical Advice >> Nov 24, 2023 8:01 AM Patient Scoop Driver wrote: Isrrael Menchaca is a 63 year old female and states she is on her 7th day of antibiotics for her UTI. Pt also states when she urinates it is still painful. Last OV was 11-18-23, please advise. Baylee De Los Santos [facility] 2023-11-19 13:49:23 Cardiac Clearance/Clinical notes faxed back to [facility] General Surgery and scanned into chart along with fax confirmation. Julianna Albright MA [facility] 2023-11-19 13:11:08 Last office note updated. [facility] 2023-11-18 15:37:19 Received fax from Surgery Dept for cardiac clearance. Placed in Dr. Olivia's inbox folder for chart review. [facility] 2023-10-22 10:59:57 ROB 10/07/2023 NOV 04/06/2024 Insulin Glargine (LANTUS SOLOSTAR U-100 INSULIN) 100 unit/mL (3 mL) injection Aura Jordan MA 10/22/2023 11:01 AM Aura Jordan MA [facility] 2023-10-21 09:11:39 Next Appt: With Family Medicine (Allegra Dubois MD) 10/21/2023 at 3:30 PM [facility] 2023-10-21 07:40:43 Please ask patient to make an appointment to discuss. [facility] 2023-10-20 14:59:07 Copied from [facility] #[id number]. Topic: Clinical - Medical Advice >> Oct 20, 2023 2:58 PM Patient Scoop Driver wrote: Pt calling in regards to ear pain and drainage. Requesting meds. oTm Menchaca [facility] 2023-10-20 13:22:20 Please review and advise Recent Visits Date Type Provider Dept 10/15/23 Office Visit Allegra Dubois MD [facility] 05/14/23 Office Visit Heather Cárdenas PA [facility] 02/07/23 Office Visit Vincenzo Felder RESIDENTIAL HOUSEKEEPER [facility] 01/02/23 Office Visit Heather Cárdenas PA [facility] 10/09/22 Office Visit Lena Schwartz, RESIDENTIAL HOUSEKEEPER [facility] 09/30/22 Office Visit Vincenzo Felder RESIDENTIAL HOUSEKEEPER [facility] 08/13/22 Office Visit Vincenzo Felder RESIDENTIAL HOUSEKEEPER [facility] Showing recent visits within past 540 days with a meds authorizing provider and meeting all other requirements Future Appointments No visits were found meeting these conditions. Showing future appointments within next 150 days with a meds authorizing provider and meeting all other requirements Yadi Carpenter LVN [facility] 2023-10-20 12:56:20 Isrrael Robles Nikolai is a 63 year old female Pt Is calling stating that she is not feeling any better form last week. Pt is having congestion, sinus infection and ear pain. Please contact at [phone] (home) Kadie Martin [facility] 2023-10-02 07:52:55 Last Refilled: montelukast 10 mg tablet 90 tablet 1 07/15/2023 -- -- Sig: Take 1 tablet by mouth in the morning. Sent to pharmacy as: montelukast 10 mg tablet (SINGULAIR) Class: eRX Route: Oral Order: [id number] Date/Time Signed: 07/15/2023 10:21 E-Prescribing Status: Receipt confirmed by pharmacy (07/15/2023 10:21 AM CLINICAL ANALYST) Recent Visits Date Type Provider Dept 05/14/23 Office Visit Heather Cárdenas PA [facility] 02/07/23 Office Visit Vincenzo Felder RESIDENTIAL HOUSEKEEPER [facility] 01/02/23 Office Visit Heather Cárdenas PA [facility] 10/09/22 Office Visit Lena Schwartz RESIDENTIAL HOUSEKEEPER [facility] 09/30/22 Office Visit Vincenzo Felder RESIDENTIAL HOUSEKEEPER [facility] 08/13/22 Office Visit Vincenzo Felder RESIDENTIAL HOUSEKEEPER [facility] Showing recent visits within past 540 days with a meds authorizing provider and meeting all other requirements Future Appointments No visits were found meeting these conditions. Showing future appointments within next 150 days with a meds authorizing provider and meeting all other requirements ICAL ANALYST Missy Robles [facility] 2023-09-26 09:34:50 Patient has been scheduled for her 6 month follow up on 03/25/2024 at 9:30am. ICAL ANALYST Sherrell Fuller [facility] 2023-09-25 16:38:13 Images from the original note were not included. Patient notified of results. They verbalized understanding of results/recommendations via teach back. No further questions or concerns at this time. Doc Olivia MD P Cardiology Nurse PACs noted. Short atrial runs noted. Continue the current dose of beta-blockade without any further changes. Follow-up in 6 months ICAL ANALYST Liberty Wilhelm RN [facility] 2023-09-25 14:13:09 Isrrael Menchaca is a 63 year old female Pt. Returning call to receive test results. Please advise. ICAL ANALYST Manny Medellin [facility] 2023-09-25 14:03:13 Images from the original note were not included. Attempted to contact patient to discuss results no answer I left a voice message to call back: Doc Olivia MD P Cardiology Nurse PACs noted. Short atrial runs noted. Continue the current dose of beta-blockade without any further changes. Follow-up in 6 months ICAL ANALYST Julianna Albright MA [facility] 2023-09-19 08:43:55 Requested Prescriptions Pending Prescriptions Disp Refills METOPROLOL SUCCINATE XL 25 mg 24 hr tablet [Pharmacy Med Name: Metoprolol Succinate ER 25 MG Oral Tablet Extended Release 24 Hour] 60 tablet 3 Sig: TAKE 1 TABLET BY MOUTH IN THE MORNING Cardiovascular: Beta Blockers Passed - 09/18/2023 9:46 AM Passed - Valid encounter within last 12 months Recent Visits Date Type Provider Dept 09/08/23 Office Visit Doc Olivia MD [facility] 04/02/23 Office Visit Doc Olivia MD [facility] Showing recent visits within past 365 days and meeting all other requirements Future Appointments No visits were found meeting these conditions. Showing future appointments within next 365 days and meeting all other requirements Passed - Heart rate within normal limits and completed in the last 12 months Pulse Readings from Last 1 Encounters: 09/08/23 62 ICAL ANALYST Sandra Delarosa MA [facility] 2023-09-15 11:07:55 Addended by: JENNI BROKOS on: 09/15/2023 11:07 AM Modules accepted: Orders ICAL ANALYST Jenni Brooks MA [facility] 2023-09-15 11:03:29 Received fax requesting clarification on Novolog instructions, previous sig has 2 sets of directions for insulin dose administration. Sent new prescription with correct dosing. Jenni Brooks MA 09/15/2023 11:04 AM Plan: - insulin aspart U-100 (NOVOLOG FLEXPEN U-100 INSULIN) 100 unit/mL (3 mL) injection; inject 3 Units under the skin in the morning and 3 Units at noon and 3 Units in the evening. inject before meals. Sliding scale to start at B. Max dose 24 units daily. [facility] 2023-09-04 10:48:01 Abdominal pain since waking this morning. Does not have gallbladder. Kidney / liver transplant 2019. [facility] Mary Hernández RN [facility] 2023-08-21 14:45:00 Images from the original note were not included. Patient has been identified by name and was provided with cup, antiseptic towelette, and clean catch instructions. 2 urine specimen(s) sent. Unpreserved 2 Urine Culture Aptima tube Other urine [facility] 2023-08-19 11:29:22 Called patient to discuss labs, K 5.8 and tac 13. She reports this was a true trough. She has been eating some potatoes but would not say she is overeating them or any other high K foods. Discussed decreasing tacrolimus from 1mg BID to 0.5mg BID- she is understanding and med was sent to preferred pharmacy. She will follow low K diet and has kayexalate at home from last month. She will go ahead and take 15 grams now. She confirmed her fu on and will discuss further at her appt. No further questions Katerina Chen RN 08/19/2023 11:37 AM [facility] 2023-08-19 10:23:46 ROB 04/15/23 NOV 10/07/23 Per [facility] note: Continue Novolog 3 units with meals + SSI, if needed. - Please only take insulin with food. If you're not going to eat.... then please do not take insulin. Sliding scale for your regular insulin: If BG is 150 -180, take an additional 1 units with normal 5 units If BG is 180 -210, take an additional 2 units with normal 5 units If BG is 210 -240, take an additional 3 units with normal 5 units If BG is 240 -270, take an additional 4 units with normal 5 units If BG is 270 -300, take an additional 5 units with normal 5 units If BG is higher than 300, take an additional 6 units with normal 5 units. And check you BG again in 2 hours to see where you are. James LVN [facility] 2023-08-15 08:30:00 Images from the original note were not included. Venipuncture collection performed by clean technique on the left anticubitus. Total of 1 attempts were made. Slight pressure and a bandage/dressing were applied to the site(s). The patient experienced no complications. The following specimens were processed according to instructions and sent to [facility] laboratories per lab order on 08/15/2023 : LT BLUE 1 SST 2 1 PPT RED LAV 2 PPT DK GREEN (LiHep) DK GREEN (SodH) LOPEZ DK BLUE (K2) DK BLUE (S) ACD Blood Culture NIPT/NTD Patient has been identified by and name and was provided with cup, antiseptic towelette, and clean catch instructions. 2 urine specimen(s) sent. Unpreserved 2 Urine Culture Aptima tube Other urine [facility] 2023-08-15 08:30:00 Patient couldn't void. No urine collected. Disregard last urine documentation. Patient sent home with Sterile Urine Kit and will drop off Urine at different [facility]. Ophelia Burton 08/15/2023 11:42 AM [facility] 2023-08-15 08:30:00 Addended by: PHUONG DUEÑAS on: 08/15/2023 07:20 PM Modules accepted: Orders ICAL ANALYST Phuong Dueñas [facility] 2023-08-01 15:04:19 Tacrolimus level 11 -- she took med prior to lab draw K+ 5.5 UA - many bacteria. She says she feels dizzy, abdominal pain. She denies fever, urinary burning or urgency Per Dr. Georgi Butcher Start ciprofloxacin 250 mg BID x 7 days Discussed with patient. Questions were encouraged and answered. Patient expressed understanding and acceptance. ICAL ANALYST Brittany Whatley RN [facility] 2023-08-01 08:45:23 Called to speak with patient regarding symptoms described below. Patient states that she had surgery on Friday and experienced some swelling in her two small fingers. Denies color change, loss of sensation, pain, or change in capillary refill. Notified to continue to monitor symptoms and slight swelling can be expected following surgery. Patient to contact clinic if symptoms change or do not improve by Friday. Encouraged to seek urgent care or ER this weekend if symptoms worsen (color changes, loss of sensation, lack of capillary refill, or severe pain). Patient verbalized understanding and agreed with plan of care. Miller RN [facility] 2023-07-30 15:54:39 Pt want to know if it normal to have some swelling of fingers she had surgery on today. Mccollum [facility] 2023-07-25 09:00:00 Images from the original note were not included. Venipuncture collection performed by clean technique on the left anticubitus. Total of 1 attempts were made. Slight pressure and a bandage/dressing were applied to the site(s). The patient experienced no complications. The following specimens were processed according to instructions and sent to [facility] laboratories per lab order on 07/25/2023: LT BLUE 1 SST 1 1 Lt Green RED LAV 2 PPT 1 DK GREEN (LiHep) DK GREEN (SodH) LOPEZ DK BLUE (K2) DK BLUE (S) ACD Blood Culture NIPT/NTD Patient has been identified by and name and was provided with cup, antiseptic towelette, and clean catch instructions. 2 urine specimen(s) sent. Unpreserved 2 Urine Culture Aptima tube Other urine Pt firs said she was here for Bradley Kohler orders. After orders were pulled she said she wanted Gamilla-Crudo orders pulled as well. Cecily Freeman 07/25/2023 9:29 AM [facility] 2023-04-15 17:27:30 Formatting of this n ote might be different from the original. Called and left a voice message for Mrs. Menchaca about her low blood sugars. I left the following message: I was just talking to Dr. Perez about your low blood sugar episode. Your ER doctor was wrong when he said your low blood sugar was caused by Basalgar. It was probably caused by your Novolog. One Friday, are you sure you didn't take any extra insulin by accident or take more than you should have? Dr. Perez suggested that we should go ahead and restart the Lantus at 10 units to help with your highs. We are also going to lower your Novolog to 3 units plus sliding scale for each meal to avoid any further lows. Please let us know if you have any questions. Deejay Tolentino NP T [facility] 2023-04-15 08:15:00 Formatting of this n ote is different from the original. Images from the original note were not included. Venipuncture collection performed by clean technique on the left anticubitus. Total of 1 attempts were made. Slight pressure and a bandage/dressing were applied to the site(s). The patient experienced no complications. The following specimens were processed according to instructions and sent to [facility] laboratories per lab order on 04/15/2023: LT BLUE 1 SST 1 RED LAV 2 PPT 1 DK GREEN (LiHep) DK GREEN (SodH) LOPEZ DK BLUE (K2) DK BLUE (S) ACD Blood Culture NIPT/NTD Patient has been identified by and name and was provided with cup, antiseptic towelette, and clean catch instructions. 2 urine specimen(s) sent. Unpreserved 2 Urine Culture Aptima tube Other urine T [facility] 2023-04-14 11:52:05 Formatting of this n ote is different from the original. Referral has been placed. Recent Visits Date Type Provider Dept 02/07/23 Office Visit Vincenzo Felder FNP [facility] 01/02/23 Office Visit Heather Cárdenas PA [facility] 10/09/22 Office Visit Lena Schwartz FNP [facility] 09/30/22 Office Visit Vincenzo Felder FNP [facility] 08/13/22 Office Visit Vincenzo Felder FNP [facility] Showing recent visits within past 540 days with a meds authorizing provider and meeting all other requirements Future Appointments No visits were found meeting these conditions. Showing future appointments within next 150 days with a meds authorizing provider and meeting all other requirements [facility] 2023-04-14 08:58:02 Formatting of this n ote might be different from the original. Patient is needing referral and auth for ENDO. Pt has [employer] H[employer] plan and no referral is on file. Pt appt to see Dr. Perez is 04/15/23 Becky Powers [facility] 2023-03-24 11:32:27 Formatting of this n ote might be different from the original. Reviewed labs are appropriate. Discussed low potassium diet and she can continue current tac dose. She udnerstands Katerina Chen RN 03/24/2023 11:33 AM T [facility] 2023-03-21 08:45:00 Formatting of this n ote is different from the original. Images from the original note were not included. Venipuncture collection performed by clean technique on the left anticubitus. Total of 1 attempts were made. Slight pressure and a bandage/dressing were applied to the site(s). The patient experienced no complications. The following specimens were processed according to instructions and sent to [facility] laboratories per lab order on today: LT BLUE 1 SST 1 RED LAV 2 PPT 1 DK GREEN (LiHep) DK GREEN (SodH) LOPEZ DK BLUE (K2) DK BLUE (S) ACD Blood Culture NIPT/NTD Patient has been identified by and name and was provided with cup, antiseptic towelette, and clean catch instructions. 3 urine specimen(s) sent. Unpreserved 2 Urine Culture 1 Aptima tube Other urine T [facility] 2023-03-19 10:45:01 Formatting of this n ote might be different from the original. Patient called back, she reports she is not sure when she adjusted her dose from 0.5mg BID to 1mg BID, she was told by someone within the last month to make this adjustment. Reviewed all encounters and transplant did not request this at least. Last tac level was 8, she thinks she went up after this on her dose. Discussed she will continue at 1mg BID but will repeat labs tomorrow so we can confirm her level is appropriate. She understands and has no further questions. Med was previously sent by patients liver coordinator Katerina Chen RN 03/19/2023 10:46 AM [facility] 2023-03-18 18:06:34 Addended by: BERNARD ECKERT RN on: 03/18/2023 06:06 PM Modules accepted: Orders Bernard Davis RN [facility] 2023-03-17 13:33:08 Formatting of this n ote might be different from the original. Called patient to clarify, LVM Katerina Chen RN 03/17/2023 1:33 PM [facility] 2023-03-17 09:57:02 Formatting of this n ote might be different from the original. Patient called and stated that her prescription for tacrolimus needs to be filled at [facility] and the instructions and quantity need to be updated. She is taking 2 in the a.m. and 2 in the p.m. Thank you. Barbara Alva [facility] 2023-03-11 15:17:42 Formatting of this n ote is different from the original. Images from the original note were not included. Requested Renewals Diclofenac Sodium (VOLTAREN) 1 % gel Possible duplicate: Hover to review recent actions on this medication Sig: Apply to area(s) 2 (two) times daily as needed for Pain (scale 4-6). 0.5-1inch Disp: 100 g Refills: 0 Start: 03/11/2023 Class: eRX Non-formulary For: Trigger middle finger of right hand Last ordered: 1 month ago (02/07/2023) by RASHMI Sanches Analgesics: NSAIDS Failed 03/11/2023 02:02 PM Protocol Details Cr in normal range and within 360 days Valid encounter within last 12 months To be filled at: [facility] - [address], [place] Recent Visits Date Type Provider Dept 02/07/23 Office Visit Vincenzo Felder FNP [facility] 01/02/23 Office Visit Heather Cárdenas PA [facility] 10/09/22 Office Visit Lena Schwartz FNP [facility] 09/30/22 Office Visit Vincenzo Felder FNP [facility] 08/13/22 Office Visit Vincenzo Felder FNP [facility] Showing recent visits within past 540 days with a meds authorizing provider and meeting all other requirements Future Appointments No visits were found meeting these conditions. Showing future appointments within next 150 days with a meds authorizing provider and meeting all other requirements Yadi Carpenter LVN [facility] 2023-02-24 11:03:44 Formatting of this n ote might be different from the original. Culture positive for proteus, susceptible to cipro Katerina Chen RN 02/24/2023 11:04 AM T [facility] 2023-02-19 15:00:00 Formatting of this n ote is different from the original. Images from the original note were not included. Patient has been identified by and name and was provided with cup, antiseptic towelette, and clean catch instructions. 1 urine specimen(s) sent. Unpreserved Urine Culture 1 Aptima tube Other urine [facility] 2023-02-19 12:30:31 Formatting of this n ote might be different from the original. Patient called back, agrees with plan. Med sent to preferred pharmacy Katerina Chen RN 02/19/2023 12:30 PM ER [facility] 2023-02-19 11:58:44 Formatting of this n ote might be different from the original. Per Cruzito JACOB: Cipro 500mg BID 10 days Urine culture Called patient to discuss, LV Katerina Chen RN 02/19/2023 12:00 PM T [facility] 2023-02-19 10:52:46 Formatting of this n ote might be different from the original. Called patient to check status, she reports to be feeling okay. UA dirty, she reports occasional dysuria/urgency- last occurred 2 days ago. Will reach out to Cruzito Chen RN 02/19/2023 10:56 AM ER [facility]
[2025-05-22] MEDS ORDERED: CEFTRIAXONE 1000 MG/VIAL ONE (02:32)
[2025-05-22] MEDS ORDERED: ACETAMINOPHEN 500 MG TAB ONE (02:32)
[2025-05-22] MEDS ORDERED: IBUPROFEN 400 MG TAB ONE (02:32)
[2025-05-22] MEDS ORDERED: ONDANSETRON 4 MG/2 ML VIAL ONE ×2 (02:32→07:49)
[2025-05-22] MEDS ORDERED: KETOROLAC 30 MG/ML INJ ONE (02:32)
[2025-05-22] MEDS ORDERED: DIPHENOX/ATROP SULF 1 TAB PO ONE (02:33)
[2025-05-22] MEDS ORDERED: NA CHLORIDE 0.9% 1,000 ML ONE (02:44)
[2025-05-22] MEDS ORDERED: ALBUMIN HUMAN 25% 100 ML IV ONE (02:44)
[2025-05-22 03:16] LABS: Influenza A Ag Negative; Influenza B Ag Negative; SARS-CoV-2 Antigen Rapid Res Negative (Negative)
[2025-05-22 03:18] LABS: Absolute Lymphocytes (CBC) 0.4 K/uL (0.7-4.9); Hematocrit 35.5 % (36.0-45.0); Hemoglobin 11.4 g/dL (12.0-15.0); MCH 26.7 pg (27.0-35.0); MCHC 32.1 g/dL (32.0-36.0); MCV 83.2 fL (80-100); MPV 9.7 fL (7.6-11.3); Nucleated RBC Absolute Count 0.0 (0-0); Nucleated Red Blood Cells % 0.0 % (0-0); RBC Red Blood Cell Count 4.27 M/uL (3.86-4.86); White Blood Count 7.90 thou/uL (4.3-10.9)
[2025-05-22 03:20] LABS: PT Prothrombin Time 12.8 SECONDS (10-13.0); PTT, Activated Partial Thromb 23.8 SECONDS (27.2-37.4); Protime INR 1.14
[2025-05-22] MEDS ORDERED: NOREPINEPHRINE BITARTRATE/D5W 4 MG/250 ML BAG IV ONE (03:25)
[2025-05-22 03:32] LABS: ALT/SGPT 271.0 U/L (13-56); Albumin 3.2 g/dL (3.4-5.0); Albumin/Globulin Ratio 1.1 (1.1-1.8); Alkaline Phosphatase 169.0 U/L (45-117); Anion Gap 12.0 mEq/L (5.0-15.0); BUN Blood Urea Nitrogen 42.0 mg/dL (7-18); Globulin 2.8 g/dL (2.3-3.5); Glucose Level 96.0 mg/dL (74-106); NT PRO-BNP 2053.0 pg/mL (<125)
[2025-05-22 03:49] LABS: AST/SGOT 377.0 U/L (15-37); Potassium 4.0 mEq/L (3.5-5.1)
[2025-05-22 03:50] LABS: Troponin High Sensitivity 438.3 pg/mL (<58.9)
[2025-05-22 04:26] LABS: Blood Morphology Comment NOT SEEN (NOT SEEN); Differential Total Cells Count 100; Segmented Neutrophils 46 % (40-80)
[2025-05-22] MEDS ORDERED: HYDROCORTISONE SUC 100 MG INJ ONE (05:37)
[2025-05-22] MEDS ORDERED: VANCOMYCIN 1 GM/VIAL ONE (05:38)
[2025-05-22] MEDS ORDERED: NA CHLORIDE 0.9% 500 ML ONE (05:38)
--- NOTE | 2025-05-22 05:40 | RAD REPORT ---
EXAM DESCRIPTION: Chest Single View CLINICAL HISTORY: CHEST PAIN COMPARISON: None TECHNIQUE: Single AP view of the chest. FINDINGS: Lung volumes adequate. Cardiac silhouette is normal in size. Aortic calcifications. No pneumothorax. No large pleural effusion. No focal consolidation. No acute bony finding. IMPRESSION: No acute cardiopulmonary findings. Electronically signed by: Janusz Scott MD 05/22/2025 05:09 AM CDT RP TYG Due to temporary technical issues with the PACS/Briggo reporting system, reports are being oneyda d by the in-house radiologist without review as a courtesy to ensure prompt reporting. The interpreting radiologist is fully responsible for the content of the report. Transcribed Date/Time: 05/22/2025 5:40 AM
--- NOTE | 2025-05-22 05:44 | EDPHYS ---
Physician Documentation [facility] Name: Kilo Menchaca Age: 65 yrs Sex: Female : 1960 Arrival Date: 05/22/2025 Time: 00:46 Bed 20 Private MD: ED Physician Tereso Stanton HPI: 05/22 01:02 This 65 yrs old Female presents to ER via Unassigned with complaints of Gen sp4 complaint . 05:32 65-year-old female with history of renal transplant at [facility] in 2019 presents sp4 with acute onset of fever, chills, nausea, vomiting, diarrhea, generalized weakness.. 05:40 Patient's medications include mycophenolate 180 mg 2 tabs twice a day, tacrolimus 0.5 sp4 mg 2 tabs every 12 hours, Protonix 40 mg daily, metoprolol 25 mg daily, gabapentin daily, prednisone 5 mg p.o. daily, Singulair daily.. Historical: - Allergies: 02:35 Codeine; kt5 - Home Meds: 02:35 furosemide 40 mg Oral tab 1 tab 2 times per day [Active]; gabapentin 300 mg Oral cap 1 kt5 cap 3 times per day [Active]; glimepiride 4 mg Oral tab twice a day [Active]; Lantus 100 unit/mL Sub-Q soln 50 unit [Active]; omeprazole 40 mg Oral cpDR 1 cap once daily [Active]; pravastatin 20 mg Oral tab 1 tab once daily [Active]; Victoza 2-Waldo 0.6 mg/0.1 mL (18 mg/3 mL) subcutaneous pnij 18 unit once daily [Active]; Xifaxan 550 mg Oral tab 1 tab 2 times per day [Active]; - PMHx: 02:35 Diabetes - IDDM; Hepatitis C; Hypertension; kt5 - PSHx: 02:35 Transplant of kidney; Transplantation of liver; kt5 - Immunization history:: Adult Immunizations up to date. - Infectious Disease History:: Denies. - Social history:: Smoking status: Patient denies any tobacco usage or history of. Patient/guardian denies using alcohol, street drugs. ROS: 05:32 Constitutional: Positive fever, positive chills, positive vomiting, positive body aches sp4 05:32 All other systems are negative, Exam: 02:44 Constitutional: This is a well developed, well nourished patient who is awake, sp4 ill-appearing, pale but nontoxic Head/Face: Normocephalic, atraumatic. Eyes: Pupils equal round and reactive to light, extra-ocular motions intact. Lids and lashes normal. Conjunctiva and sclera are not injected. Cornea within normal limits. Periorbital areas with no swelling, redness, or edema. ENT: Nares patent. No nasal discharge, no septal abnormalities noted. Tympanic membranes are normal and external auditory canals are clear. Oropharynx with no redness, swelling, or masses, exudates, or evidence of obstruction, uvula midline. Mucous membranes moist. Neck: Trachea midline, no thyromegaly or masses palpated, and no cervical lymphadenopathy. Supple, full range of motion without nuchal rigidity, or vertebral point tenderness. Chest/axilla: Normal chest wall appearance and motion. Nontender with no deformity. No lesions are appreciated. Cardiovascular: Regular rate and rhythm with a normal S1 and S2. No gallops, murmurs, or rubs. No pulse deficits. Respiratory: Lungs have equal breath sounds bilaterally, clear to auscultation and percussion. No rales, rhonchi or wheezes noted. No increased work of breathing, no retractions or nasal flaring. Abdomen/GI: Soft, with normal bowel sounds. No distension or tympany. No guarding or rebound. No evidence of tenderness throughout. Back: No spinal tenderness. No costovertebral tenderness. Skin: Warm, dry with normal turgor. Normal color with no rashes, no lesions, and no evidence of cellulitis. MS/ Extremity: Pulses equal, no cyanosis. Neurovascular intact. Full, normal range of motion. Neuro: Awake and alert, GCS 15, oriented to person, place, time, and situation. Cranial nerves II-XII grossly intact. Motor strength 5/5 in all extremities. Sensory grossly intact. Psych: Awake, alert, with orientation to person, place and time. Behavior, mood, and affect are within normal limits 02:44 ECG was reviewed by the Attending Physician. EKG at 0 147 sinus rhythm rate 74, normal EKG Vital Signs: 00:46 BP 102 / 48; Pulse 74; Resp 18 S; Temp 98.7(O); Pulse Ox 98% on R/A; Weight 85.73 kg; ha1 Height 5 ft. 3 in. ; 02:03 BP 99 / 43; Pulse 72; Resp 18; Pulse Ox 99% ; kt5 02:38 BP 96 / 39; Pulse 76; Resp 18; Pulse Ox 100% ; kt5 02:57 BP 96 / 45; Pulse 76; Resp 16; Pulse Ox 97% ; kt5 03:29 BP 89 / 48; Pulse 77; Resp 16; Pulse Ox 99% ; Pain 0/10; ha1 03:41 BP 115 / 47; Pulse 78; Resp 18 S; Pulse Ox 100% on 2 lpm NC; ha1 03:51 BP 118 / 50; Pulse 76; Resp 18 S; Pulse Ox 96% on 2 lpm NC; ha1 04:40 BP 127 / 47; Pulse 78; Resp 18 S; Pulse Ox 96% on R/A; ha1 04:50 BP 131 / 54; Pulse 76; Resp 18 S; Pulse Ox 96% on R/A; ha1 05:05 BP 135 / 56; Pulse 78; Resp 18; Pulse Ox 95% on R/A; ha1 05:50 BP 134 / 54; Pulse 79; Resp 18 S; Temp 98.3(O); Pulse Ox 96% on R/A; ha1 06:00 BP 118 / 43; Pulse 77; Resp 18 S; Pulse Ox 94% on R/A; ha1 06:10 BP 124 / 50; Pulse 80; Resp 18 S; Pulse Ox 97% on R/A; ha1 06:20 BP 119 / 45; Pulse 77; Resp 18 S; Pulse Ox 97% on R/A; ha1 06:30 BP 122 / 50; Pulse 78; Resp 18 S; Pulse Ox 97% on R/A; ha1 06:40 BP 106 / 72; Pulse 82; Resp 18 S; Pulse Ox 98% on R/A; ha1 07:00 BP 143 / 53; Pulse 74; Resp 17; Pulse Ox 98% on 2 lpm NC; hb 07:15 BP 146 / 61; Pulse 75; hb 07:30 BP 154 / 65; Pulse 75; hb 00:46 Body Mass Index 33.48 (85.73 kg, 160.02 cm) ha1 03:29 Pain Scale: Adult ha Dundee Coma Score: 02:44 Eye Response: spontaneous(4). Motor Response: obeys commands(6). Verbal Response: sp4 oriented(5). Total: 15. Procedures: 05:31 Central Line: the site was prepped with Betadine, in sterile fashion, a triple lumen sp4 catheter was inserted, in the right internal jugular vein, in 1 attempts. placement was verified, by CXR, by blood return, Ultrasound-guided central line, the site was dressed with 4X4s, Tegaderm, using sterile technique, the patient tolerated the procedure, well, Central line placed secondary signs of septic shock. Levophed administration. MDM: 01:14 Medical Screening Exam initiated sp4 05:43 Differential Diagnosis altered mental status, sepsis, flu. Data reviewed: vital signs, sp4 nurses notes, EMS record, old medical records, lab test result(s), EKG, radiologic studies, CT scan, plain films. Consideration of Admission/Observation Escalation of care including admission/observation considered. Management of patient was discussed with the following: Battery Starter: RHINA Cameron attending MD. 05:46 ED course: Initial chest x-ray FINDINGS: Lung volumes adequate. Cardiac silhouette is sp4 normal in size. Aortic calcifications. No pneumothorax. No large pleural effusion. No focal consolidation. No acute bony finding. IMPRESSION: No acute cardiopulmonary findings.. 07:00 ED course: [facility] has declined patient's secondary to the fact that they no sp4 longer work with liver transplants. I [facility] attending and requested that we seek to transfer patients somewhere else. We have contacted [facility] about transferring patient and they are to be managed by ICU team patient remains on norepinephrine infusion secondary to septic shock. Patient was discussed with attending MD at [facility] ICU. Patient was accepted to [facility] ICU however she has to be sent to the emergency department temporarily. Patient was accepted to [facility] emergency department until ICU bed there becomes available. At this time hemodynamically stable.. 07:38 ED course: CT chest, abdomen, pelvis - FINDINGS: Chest: Mediastinum: There is sp4 atherosclerotic disease seen within the aorta and coronary arteries. The heart appears mildly enlarged. Heavy mitral valve calcifications. There is no pericardial effusion. There is no pathologically enlarged adenopathy. LUNGS: ibasilar atelectasis. There is no alveolar consolidation effusion or pneumothorax. Bones: No acute osseous abnormality. Degenerative changes. Osteopenia. ABDOMEN: The liver appears unremarkable. There is no evidence for mass or intrahepatic biliary ductal dilatation. The gallbladder has been been surgically removed. Small volume air in the CBD and intrahepatic biliary tree. The adrenal glands, pancreas and spleen are normal. Atrophic kidneys. Left upper pole cyst. There is no evidence for hydronephrosis or stone. The large and small bowel of the abdomen and pelvis appears unremarkable. There is no evidence for acute appendicitis. Pelvis: There is diffuse atherosclerotic disease seen within the aorta. There is no evidence for aneurysm. There is no pathologically enlarged adenopathy. The bladder appears unremarkable. There is no free air or free fluid.There is a 6.1 x 5.0 cm hypodensity associated with multiple surgical amanda in the left lilac fossa. Status post hysterectomy. RADIOLOGY SERVICES REPORT There are degenerative changes. There are no acute bony abnormalities. Osteopenia. Scarring along the anterior abdominal wall. Impression: 1. No acute cardiopulmonary process. 2. No acute intra-abdominal or pelvic process. 3. 6.1 cm hypodensity associated with multiple surgical amanda in the left iliac fossa. This may represent a postoperative chronic hematoma but is nonspecific. Consider ultrasound or contrast enhanced cross sectional imaging for further evaluation. . 19:25 ED course: On review of past medical history it became apparent patient had renal sp4 transplant and a liver transplant. Liver and kidney transplant were accomplished at [facility] in 2019. Patient was initially moderate for transfer to [facility]. For higher level of care associated with history of prior renal and liver transplant. However [facility] attending physician informed me that they no longer deal with patients who had prior liver transplants. [facility] in [place] no longer has liver transplant program. [facility] attending requested patient is transfer somewhere else. Patient was discussed in detail with ICU attending at [facility] and accepted for transfer. Patient was additionally discussed with emergency physician at [facility] and accepted for temporary transfer to the emergency department. Patient's blood pressure is stable prior to transfer.. 05/22 01:24 Order name: BNP; Complete Time: 04:03 sp4 05/22 01:24 Order name: Blood Culture Adult (2) sp4 05/22 01:24 Order name: CBC with Diff; Complete Time: 04:52 sp4 05/22 01:24 Order name: CMP; Complete Time: 04:03 4 05/22 01:24 Order name: Lactate w/ 2H reflex if indic.; Complete Time: 04:03 4 05/22 01:24 Order name: Protime (+inr); Complete Time: 03:21 sp4 05/22 01:24 Order name: Ptt, Activated; Complete Time: 03:21 4 05/22 01:24 Order name: Troponin HS; Complete Time: 04:03 sp4 05/22 01:25 Order name: COVID-19 Ag + Flu A+B Ag; Complete Time: 03:21 sp4 05/22 03:24 Order name: Manual Differential; Complete Time: 04:52 EDMS 05/22 03:55 Order name: Ghost Lactate-NO COLLECT Timer; Complete Time: 05:54 EDMS 05/22 04:02 Order name: Glucose, Ancillary Testing; Complete Time: 04:03 EDMS 05/22 04:05 Order name: Glucose, Ancillary Testing EDMI 05/22 04:56 Order name: Lipase; Complete Time: 06:07 4 05/22 04:56 Order name: CK; Complete Time: 06:07 4 05/22 04:56 Order name: Troponin High Sensitivity; Complete Time: 06:07 4 05/22 06:24 Order name: VBG Venous Blood Gas; Complete Time: 06:44 EDMS 05/22 06:53 Order name: Lactate Sepsis 2 HR Follow-up; Complete Time: 06:54 EDMS 05/22 01:24 Order name: Chest Single View XRAY; Complete Time: 05:54 4 05/22 04:03 Order name: CT Chest Abdomen Pelvis W/O Contrast; Complete Time: 07:37 sp4 05/22 05:28 Order name: XRAY Chest (1 view) al5 05/22 06:20 Order name: ARTERIAL BLOOD GAS EDMI 05/22 01:24 Order name: Accucheck; Complete Time: 04:02 4 05/22 01:24 Order name: Cardiac monitoring; Complete Time: 02:26 sp4 05/22 01:24 Order name: EKG - Nurse/Tech; Complete Time: 02:25 4 05/22 01:24 Order name: IV Saline Lock - Large Bore; Complete Time: 02:4 05/22 01:24 Order name: Labs collected and sent; Complete Time: :05/22 01:24 Order name: O2 Per Protocol; Complete Time: :05/22 01:24 Order name: O2 Sat Monitoring; Complete Time: :05/22 01:24 Order name: Vital Signs; Complete Time: :4 05/22 04:03 Order name: Central Line Dressing Kit; Complete Time: 05:05/22 04:03 Order name: Central Line Kit; Complete Time: 05:4 05/22 04:03 Order name: Chlorhexidine prep; Complete Time: :4 05/22 04:03 Order name: Consent for central line completed; Complete Time: :4 05/22 04:03 Order name: Line Caps x3; Complete Time: 05:4 05/22 04:03 Order name: NS Flushes x3; Complete Time: 4 05/22 04:03 Order name: Sterile Gloves; Complete Time: :05/22 04:03 Order name: Sterile Probe Cover; Complete Time: :4 EC:47 Rate is 74 beats/min. Rhythm is regular, Normal Sinus Rhythm. QRS Bend is Normal. ID sp4 interval is normal. QRS interval is normal. QT interval is normal. No Q waves. T waves are Normal. No ST changes noted. Clinical impression: No evidence of ischemia. Interpreted by me. Reviewed by me. Administered Medications: 02:00 Drug: NS 0.9% IV 1000 ml IV at 250 ml/hr once; to be given at 250 ml / hour Route: IV; ha1 Rate: 250 ml/hr; Site: left jugular; 03:50 Follow up: Response: No adverse reaction; IV Status: Completed infusion ha1 02:30 Drug: Diphenoxylate-Atropine PO 2 tabs PO once Route: PO; ss12 03:16 Follow up: Response: No adverse reaction kt5 02:45 Drug: Acetaminophen PO 1000 mg PO once Route: PO; ss12 03:16 Follow up: Response: No adverse reaction kt5 02:45 Drug: Ibuprofen PO 800 mg PO once Route: PO; ss12 03:16 Follow up: Response: No adverse reaction kt5 02:45 Drug: Ondansetron IVP 4 mg IVP once; over 2 minutes Route: IVP; Site: left hand; ss12 03:16 Follow up: Response: No adverse reaction kt5 02:45 Drug: Ketorolac IVP 30 mg IVP once Route: IVP; Site: left hand; ss12 03:15 Follow up: Response: No adverse reaction kt5 02:45 Drug: Rocephin - Rocephin (cefTRIAXone) IVPB 1 grams IVPB once over 30 mins; (mix in 50 ss12 mL NS) Route: IVPB; Infused Over: 30 mins; Site: left hand; 03:00 Follow up: Response: No adverse reaction; IV Status: Completed infusion ha1 03:15 Follow up: Response: No adverse reaction kt5 02:51 Drug: Albumin IVPB 25 grams 100 ml IVPB once; (Note: Albumin 25% concentration) Volume: kt5 100 ml; Route: IVPB; Site: left jugular; 03:14 Follow up: Response: No adverse reaction kt5 03:20 Follow up: Response: No adverse reaction; IV Status: Completed infusion ha1 02:51 Drug: NS 0.9% IV 1000 ml IV at 1000 ml once; to be given as a bolus over 60 minutes kt5 Route: IV; Rate: 1000 ml; Site: left jugular; 04:00 Follow up: Response: No adverse reaction; IV Status: Completed infusion ha1 02:56 Not Given (not available md tobias): morphineor iv 2 mg IVP once over 4 mins ss12 03:35 Drug: Norepinephrine IV 0.1 mcg/kg/min IV at calculated rate See Administration ha1 Instructions; (Standard concentration 4 mg / 250 mL D5W); Recommended max rate 3 mcg/kg/min; Titrate 0.05 mcg/kg/min as often as every 5 minutes to achieve goal (see titration policy); Goal parameter MAP greater than 65 mmHg. Route: IV; Rate: 0.05 mcg/kg/min; Site: left jugular; 04:00 Follow up: Response: No adverse reaction; IV Status: Infusion continued; titration to ha1 0.1mcg/kg/min 05:00 Not Given (Physician Discretion): [id number] grams 100 ml IVPB once; (Note: Albumin 25% ha1 concentration) 05:50 Drug: Solu-CORTEF IVP 100 mg IVP once Route: IVP; Site: right jugular; ha1 06:30 Follow up: Response: No adverse reaction; Marked relief of symptoms ha1 05:57 Drug: vancoMYCIN IVPB 2 grams IVPB at calculated rate once Route: IVPB; Rate: ha1 calculated rate; Site: right jugular; 07:00 Drug: Piperacillin-Tazobactam IVPB 3.375 grams IVPB once over 60 mins; (mix in NS 100 ha1 mL) Route: IVPB; Infused Over: 60 mins; Site: right jugular; 07:54 Drug: Ondansetron IVP 4 mg IVP once; over 2 minutes Route: IVP; Site: Other; hb 07:55 Drug: fentaNYL (PF) IVP 25 mcg IVP once Route: IVP; Site: Other; hb Disposition: 19:25 Chart complete. sp4 Disposition Summary: 05/22/25 05:43 Transfer Ordered Notes: Reason: Higher level of care sp4 Condition: Stable sp4 Problem: new sp4 Symptoms: have improved sp4 Transfer Location: [facility](05/22/25 06:51) sp4 Accepting Physician: [facility] Attending French Binder (05/22/25 08:54) hb Diagnosis - Severe sepsis without septic shock sp4 - Acute transaminitis, NSTEMI, acute febrile illness, hepatorenal failure sp4 Forms: - Medication Reconciliation Form sp4 - SBAR form sp4 Critical care time excluding procedures: 06:50 Critical care time: Bedside Care: 46 minutes, Consultation: 12 minutes, Family sp4 Intervention: 12 minutes. Total time: 70 minutes Signatures: Dispatcher [employer] EDMS José Clifton MD MD cha Baxter, Heather, RN RN hb Rosalie Hernandez RN RN ha1 Tereso Stanton MD MD sp4 Christina Vasquez RN RN ss12 Acacia Sosa RN RN kt5 Corrections: (The following items were deleted from the chart) 01:25 01:25 Chest Single View+RAD.RAD.BRZ ordered. EDMS EDMS 01:25 01:25 COVID-19 Ag + Flu A+B Ag+I.LAB.BRZ ordered. EDMS EDMS 01:25 01:25 Respiratory Syncytial Virus Ag+I.LAB.BRZ ordered. EDMS EDMS 01:25 01:25 UA Rfx Cesar Cult if indicated+U.LAB.BRZ ordered. EDMS EDMS 04:56 04:56 LIPASE+C.LAB.BRZ ordered. EDMS EDMS 04:56 04:56 CREATINE PHOSPHOKINASE+C.LAB.BRZ ordered. EDMS EDMS 04:56 04:56 Troponin High Sensitivity+C.LAB.BRZ ordered. EDMS EDMS 06:26 05:58 Arterial Blood Gas+RC.LAB.BRZ ordered. EDMS EDMS 06:50 03:21 Critical care time: Bedside Care: 36 minutes, Consultation: 12 minutes, Family sp4 Intervention: 12 minutes. Total time: 60 minutes sp4 06:50 05:43 [facility] attending sp4 sp4 06:51 05:[address] [facility]-System sp4 sp4 06:51 06:50 [facility] Attending French Binder sp4 sp4 08:54 06:51 [facility] Attending French Binder sp4 hb
--- NOTE | 2025-05-22 05:44 | ER ---
Nurse's Notes [facility] Name: Kilo Menchaca Age: 65 yrs Sex: Female : 1960 Arrival Date: 05/22/2025 Time: 00:46 Bed 20 Private MD: Diagnosis: Severe sepsis without septic shock;Acute transaminitis, NSTEMI, acute febrile illness, hepatorenal failure Presentation: 05/22 00:46 Chief complaint: Patient states: NAUSEA, VOMITING, DIARRHEA, AND BODY ACHES SINCE ha1 YESTERDAY . FEELING VERY WEAK. DENIES PAIN. 00:46 Coronavirus screen: Client denies travel out of the [place] in the last 14 days. Ebola ha1 Screen: No symptoms or risks identified at this time. Initial Sepsis Screen: Does the patient meet any 2 criteria? No. Patient's initial sepsis screen is negative. Does the patient have a suspected source of infection? No. Patient's initial sepsis screen is negative. Risk Assessment: Do you want to hurt yourself or someone else? Patient reports no desire to harm self or others. Onset of symptoms was May 21, 2025. 00:46 Method Of Arrival: EMS: [facility] ha1 00:46 Acuity: KELL 2 ha1 Triage Assessment: 00:46 General: Appears ill, Behavior is calm, cooperative. Pain: Denies pain. Neuro: Level of ha1 Consciousness is awake, alert, obeys commands, Oriented to person, place, time, situation. Cardiovascular: Capillary refill < 3 seconds Patient's skin is warm and dry. Respiratory: Airway is patent Respiratory effort is even, unlabored, Respiratory pattern is regular, symmetrical. GI: Abdomen is round obese, Reports diarrhea, nausea, vomiting. : No signs and/or symptoms were reported regarding the genitourinary system. Derm: Skin is normal, Reports CHRONIC WOUND ON THE RIGHT FOOT. WOUND IS WRAP WITH DRESSING IS CLEAN AND INTACT. Musculoskeletal: Circulation, motion, and sensation intact. Historical: - Allergies: 02:35 Codeine; kt5 - Home Meds: 02:35 furosemide 40 mg Oral tab 1 tab 2 times per day [Active]; gabapentin 300 mg Oral cap 1 kt5 cap 3 times per day [Active]; glimepiride 4 mg Oral tab twice a day [Active]; Lantus 100 unit/mL Sub-Q soln 50 unit [Active]; omeprazole 40 mg Oral cpDR 1 cap once daily [Active]; pravastatin 20 mg Oral tab 1 tab once daily [Active]; Victoza 2-Waldo 0.6 mg/0.1 mL (18 mg/3 mL) subcutaneous pnij 18 unit once daily [Active]; Xifaxan 550 mg Oral tab 1 tab 2 times per day [Active]; - PMHx: 02:35 Diabetes - IDDM; Hepatitis C; Hypertension; kt5 - PSHx: 02:35 Transplant of kidney; Transplantation of liver; kt5 - Immunization history:: Adult Immunizations up to date. - Infectious Disease History:: Denies. - Social history:: Smoking status: Patient denies any tobacco usage or history of. Patient/guardian denies using alcohol, street drugs. Screenin:58 [facility] ED Fall Risk Assessment (Adult) History of falling in the last 3 months, kt5 including since admission No falls in past 3 months (0 pts) Confusion or Disorientation No (0 pts) Intoxicated or Sedated No (0 pts) Impaired Gait Yes (1 pt) Mobility Assist Device Used Yes (1 pt) Altered Elimination Yes (1 pt) Score/Fall Risk Level 3 or more points = High Risk Oriented to surroundings, Maintained a safe environment, Educated pt \\T\\ family on fall prevention, incl call for assistance when getting out of bed, Provided non-skid footwear. Abuse screen: Denies threats or abuse. Nutritional screening: No deficits noted. Tuberculosis screening: No symptoms or risk factors identified. Assessment: 00:58 General: Appears in no apparent distress. uncomfortable, Behavior is calm, cooperative, kt5 appropriate for age. Pain: Denies pain. Neuro: No deficits noted. Kelly Agitation-Sedation Scale (RASS): 0 - Alert and Calm Level of Consciousness is awake, alert, obeys commands, Oriented to person, place, time, situation, Appropriate for age. Cardiovascular: Heart tones S1 S2 present Capillary refill < 3 seconds Clubbing of nail beds is absent JVD is absent Pulses are all present. Edema is absent. Respiratory: No deficits noted. Airway is patent Trachea midline Respiratory effort is even, unlabored, Respiratory pattern is regular, symmetrical. GI: Abdomen is round non-distended, Bowel sounds present X 4 quads. Abd is soft X 4 quads Abdomen is tender to palpation X 4 quads. Reports diarrhea, nausea, vomiting. : No deficits noted. No signs and/or symptoms were reported regarding the genitourinary system. Reports ' i think i have a uti". EENT: No deficits noted. No signs and/or symptoms were reported regarding the EENT system. Derm: No deficits noted. No signs and/or symptoms reported regarding the dermatologic system. Skin is healthy with good turgor, Skin is dry, Skin is pale, Skin temperature is warm pt has a diabetic wound on the bottom of her right foot that is being treated by wound care. 01:40 Reassessment: NOTIFIED DR. STANTON OF LOW BP. ha1 02:00 Reassessment: Patient and/or family updated on plan of care and expected duration. Pain ha1 level reassessed. 03:00 Reassessment: Patient and/or family updated on plan of care and expected duration. Pain ha1 level reassessed. Patient is alert, oriented x 3, equal unlabored respirations, skin warm/dry/pink. 04:05 Reassessment: Patient and/or family updated on plan of care and expected duration. Pain ha1 level reassessed. Patient is alert, oriented x 3, equal unlabored respirations, skin warm/dry/pink. 05:00 Reassessment: Patient and/or family updated on plan of care and expected duration. Pain ha1 level reassessed. 06:20 Reassessment: NURSE TO NURSE REPORT GIVEN TO TOPHER PENN. ha1 07:15 Reassessment: Pt resting with eyes closed, easily responds to verbal stimulation, hb oriented x 4. Levophed infusing at 0.1mcg/kg/min to R IJ CVC. Transfer to higher level of care pending. Family remains at bedside. 07:45 Reassessment: Report called to [facility] ER. Family and pt updated on POC. hb Vital Signs: 00:46 BP 102 / 48; Pulse 74; Resp 18 S; Temp 98.7(O); Pulse Ox 98% on R/A; Weight 85.73 kg; ha1 Height 5 ft. 3 in. ; 02:03 BP 99 / 43; Pulse 72; Resp 18; Pulse Ox 99% ; kt5 02:38 BP 96 / 39; Pulse 76; Resp 18; Pulse Ox 100% ; kt5 02:57 BP 96 / 45; Pulse 76; Resp 16; Pulse Ox 97% ; kt5 03:29 BP 89 / 48; Pulse 77; Resp 16; Pulse Ox 99% ; Pain 0/10; ha1 03:41 BP 115 / 47; Pulse 78; Resp 18 S; Pulse Ox 100% on 2 lpm NC; ha1 03:51 BP 118 / 50; Pulse 76; Resp 18 S; Pulse Ox 96% on 2 lpm NC; ha1 04:40 BP 127 / 47; Pulse 78; Resp 18 S; Pulse Ox 96% on R/A; ha1 04:50 BP 131 / 54; Pulse 76; Resp 18 S; Pulse Ox 96% on R/A; ha1 05:05 BP 135 / 56; Pulse 78; Resp 18; Pulse Ox 95% on R/A; ha1 05:50 BP 134 / 54; Pulse 79; Resp 18 S; Temp 98.3(O); Pulse Ox 96% on R/A; ha1 06:00 BP 118 / 43; Pulse 77; Resp 18 S; Pulse Ox 94% on R/A; ha1 06:10 BP 124 / 50; Pulse 80; Resp 18 S; Pulse Ox 97% on R/A; ha1 06:20 BP 119 / 45; Pulse 77; Resp 18 S; Pulse Ox 97% on R/A; ha1 06:30 BP 122 / 50; Pulse 78; Resp 18 S; Pulse Ox 97% on R/A; ha1 06:40 BP 106 / 72; Pulse 82; Resp 18 S; Pulse Ox 98% on R/A; ha1 07:00 BP 143 / 53; Pulse 74; Resp 17; Pulse Ox 98% on 2 lpm NC; hb 07:15 BP 146 / 61; Pulse 75; hb 07:30 BP 154 / 65; Pulse 75; hb 00:46 Body Mass Index 33.48 (85.73 kg, 160.02 cm) ha1 03:29 Pain Scale: Adult ha1 Jeremy Coma Score: 02:44 Eye Response: spontaneous(4). Motor Response: obeys commands(6). Verbal Response: sp4 oriented(5). Total: 15. ED Course: 05/21 02:00 Inserted saline lock: 18 gauge in left EJ, using aseptic technique. Blood collected. ha1 Flushed with 10 mL NS inserted by Dr. stanton. 05/22 00:54 Patient arrived in ED. ha1 00:58 Patient has correct armband on for positive identification. Bed in low position. Call kt5 light in reach. Side rails up X 1. Adult w/ patient. Client placed on continuous cardiac and pulse oximetry monitoring. NIBP monitoring applied. ink blender on. Door closed. Noise minimized. Warm blanket given. Pillow given. 01:02 Tereso Stanton MD is Attending Physician. sp4 01:10 Inserted saline lock: 22 gauge in left wrist, using aseptic technique. Blood collected. ha1 Flushed with 10 mL NS. 02:24 Acacia Sosa, RN is Primary Nurse. kt5 02:26 BNP Sent. kt5 02:26 Blood Culture Adult (2) Sent. kt5 02:26 CBC with Diff Sent. kt5 02:26 CMP Sent. kt5 02:26 Lactate w/ 2H reflex if indic. Sent. kt5 02:26 Protime (+inr) Sent. kt5 02:26 Ptt, Activated Sent. kt5 02:26 Troponin HS Sent. kt5 02:38 Triage completed. ha1 02:51 Chest Single View XRAY In Process Unspecified. EDMS 04:59 CT Chest Abdomen Pelvis W/O Contrast In Process Unspecified. EDMS 05:00 Assisted provider with central line placement. Set up central line tray. Triple lumen ha1 line placed in right internal jugular. Line placed by Tereso Stanton MD Placement verified by CXR, blood return, Dressed with 4X4s, Tape, Tegaderm, Blood was collected. Patient tolerated well. Before procedure, did Practitioner(s) obtain informed consent? Yes. Patient \\T\\ family education about procedure, CLABSI prevention and S/S of infection? Yes. Time-out/Briefing performed prior to start of procedure? Yes. Was handwashing/sanitizing done immediately prior to procedure? Yes. Was patient positioned to in a way to prevent air embolism? Yes. Was procedure site sterilized? Yes, with chlorhexidine. Was the site allowed to dry? Yes. Was local anesthetic and/or sedation utilized? Yes. During the procedure, did the Practitioner(s) maintain a sterile field? Yes. Were unused ports clamped during insertion? Yes. Was blood aspirated from each lumen? Yes. After the procedure, did the Practitioner(s) clean the site and apply a sterile dressing? Yes. 05:24 Troponin High Sensitivity Sent. ss12 05:24 CK Sent. ss12 05:24 Lipase Sent. ss12 05:25 Glucose, Ancillary Testing Sent. ss12 05:31 Initiated transfer with Berenice at [facility]. rv1 05:44 XRAY Chest (1 view) In Process Unspecified. EDMS 05:54 Doc to Doc with Hospitalist at [facility]. rv1 06:[address] Phelan to [facility] 8B Rm [id number]. rv1 06:22 [facility] called back to speak with Dr. Stanton, it was then discussed that [facility] no longer [facility] handles Liver Transplant patients. Transfer cancelled, will initiate with [facility]. 06:33 initiated a transfer with Alverto Mascorro from the [facility]. eb 06:44 connected the pig machine crane operator edge bonder for [facility] with Dr. Stanton for patient eb transfer consultation. 06:53 connected the ED provider edge bonder for [facility] with Dr. Stanton for patient eb transfer consultation. 06:56 administrative approval given by Alverto Mascorro/ patient has been accepted to [facility] ED/ Dr. Fer Medrano has accepted thee patient in transfer/ report to be called to [phone]. Administered Medications: 02:00 Drug: NS 0.9% IV 1000 ml IV at 250 ml/hr once; to be given at 250 ml / hour Route: IV; ha1 Rate: 250 ml/hr; Site: left jugular; 03:50 Follow up: Response: No adverse reaction; IV Status: Completed infusion ha1 02:30 Drug: Diphenoxylate-Atropine PO 2 tabs PO once Route: PO; ss12 03:16 Follow up: Response: No adverse reaction kt5 02:45 Drug: Acetaminophen PO 1000 mg PO once Route: PO; ss12 03:16 Follow up: Response: No adverse reaction kt5 02:45 Drug: Ibuprofen PO 800 mg PO once Route: PO; ss12 03:16 Follow up: Response: No adverse reaction kt5 02:45 Drug: Ondansetron IVP 4 mg IVP once; over 2 minutes Route: IVP; Site: left hand; ss12 03:16 Follow up: Response: No adverse reaction kt5 02:45 Drug: Ketorolac IVP 30 mg IVP once Route: IVP; Site: left hand; ss12 03:15 Follow up: Response: No adverse reaction kt5 02:45 Drug: Rocephin - Rocephin (cefTRIAXone) IVPB 1 grams IVPB once over 30 mins; (mix in 50 ss12 mL NS) Route: IVPB; Infused Over: 30 mins; Site: left hand; 03:00 Follow up: Response: No adverse reaction; IV Status: Completed infusion ha1 03:15 Follow up: Response: No adverse reaction kt5 02:51 Drug: Albumin IVPB 25 grams 100 ml IVPB once; (Note: Albumin 25% concentration) Volume: kt5 100 ml; Route: IVPB; Site: left jugular; 03:14 Follow up: Response: No adverse reaction kt5 03:20 Follow up: Response: No adverse reaction; IV Status: Completed infusion ha1 02:51 Drug: NS 0.9% IV 1000 ml IV at 1000 ml once; to be given as a bolus over 60 minutes kt5 Route: IV; Rate: 1000 ml; Site: left jugular; 04:00 Follow up: Response: No adverse reaction; IV Status: Completed infusion ha1 02:56 Not Given (not available md tobisa): morphineor iv 2 mg IVP once over 4 mins ss12 03:35 Drug: Norepinephrine IV 0.1 mcg/kg/min IV at calculated rate See Administration ha1 Instructions; (Standard concentration 4 mg / 250 mL D5W); Recommended max rate 3 mcg/kg/min; Titrate 0.05 mcg/kg/min as often as every 5 minutes to achieve goal (see titration policy); Goal parameter MAP greater than 65 mmHg. Route: IV; Rate: 0.05 mcg/kg/min; Site: left jugular; 04:00 Follow up: Response: No adverse reaction; IV Status: Infusion continued; titration to ha1 0.1mcg/kg/min 05:00 Not Given (Physician Discretion): grams 100 ml IVPB once; (Note: Albumin 25% ha1 concentration) 05:50 Drug: Solu-CORTEF IVP 100 mg IVP once Route: IVP; Site: right jugular; ha1 06:30 Follow up: Response: No adverse reaction; Marked relief of symptoms ha1 05:57 Drug: vancoMYCIN IVPB 2 grams IVPB at calculated rate once Route: IVPB; Rate: ha1 calculated rate; Site: right jugular; 07:00 Drug: Piperacillin-Tazobactam IVPB 3.375 grams IVPB once over 60 mins; (mix in NS 100 ha1 mL) Route: IVPB; Infused Over: 60 mins; Site: right jugular; 07:54 Drug: Ondansetron IVP 4 mg IVP once; over 2 minutes Route: IVP; Site: Other; hb 07:55 Drug: fentaNYL (PF) IVP 25 mcg IVP once Route: IVP; Site: Other; Medication: 00:58 VIS not applicable for this client. kt5 Intake: Outcome: 05:43 ER care complete, transfer ordered by MD. [email or web address] 08:54 Patient left the ED. Signatures: Dispatcher [employer] EDMS Jenni Akers RN RN Carmen Hairston Heidy, RN RN ha1 Rachelle Cardoso Sergey, MD MD sp4 Christina Vasquez RN RN ss12 Acacia Ssoa RN RN kt5
[2025-05-22 05:59] LABS: Lipase 36.0 U/L (13-75)
[2025-05-22 06:01] LABS: Troponin High Sensitivity 432.7 pg/mL (<58.9)
[2025-05-22 06:24] LABS: Base Excess, VBG -9.6 mmol/L (-2.0-3.0); HCO3, Venous Blood Gas 16.3 mmol/L (21.0-29.0); O2 Saturation, VBG 73.3 % (40.0-70.0); PCO2, Venous Blood Gas 31 mmHg (41-51); PH, Venous Blood Gas 7.33 (7.32-7.42); PO2, Venous Blood Gas 42 mmHg (25-40)
[2025-05-22] MEDS ORDERED: PIPERACIL/TAZO 3.375 GM VIAL IV ONE (06:52)
[2025-05-22] MEDS ORDERED: NA CHLORIDE 0.9% 100 ML ONE (06:52)
--- NOTE | 2025-05-22 07:34 | RAD REPORT ---
CT chest, CT abdomen and pelvis without contrast TECHNIQUE: Axial images were taken through the chest with sagittal and coronal reconstructions. Addit ional axial images were taken through the abdomen and pelvis with sagittal and coronal reconstructions.All CT scans at this facility use dose modulation, iterative reconstruction, and/or w eight based dosing when appropriate to reduce radiation dose to as low as reasonably achievable HISTORY: CHEST PAIN COMPARISON: one FINDINGS: Chest: Mediastinum: There is atherosclerotic disease seen within the aorta and coronary arteries. The heart appears mildly enlarged. Heavy mitral valve calcifications. There is no pericardial effusion. There is no pathologically enlarged adenopathy. LUNGS: ibasilar atelectasis. There is no alveolar consolidation effusion or pneumothorax. Bones: No acute osseous abnormality. Degenerative changes. Osteopenia. ABDOMEN: The liver appears unremarkable. There is no evidence for mass or intrahepatic biliary ductal dilatati on. The gallbladder has been been surgically removed. Small volume air in the CBD and intrahepatic biliary tree. The adrenal glands, pancreas and spleen are normal. Atrophic kidneys. Left upper pole c yst. There is no evidence for hydronephrosis or stone. The large and small bowel of the abdomen and pelvis appears unremarkable. There is no evidence for ac madie appendicitis. Pelvis: There is diffuse atherosclerotic disease seen within the aorta. There is no evidence for aneurysm. Th ere is no pathologically enlarged adenopathy. The bladder appears unremarkable. There is no free air or free fluid.There is a 6.1 x 5.0 cm hypodens ity associated with multiple surgical amanda in the left lilac fossa. Status post hysterectomy. There are degenerative changes. There are no acute bony abnormalities. Osteopenia. Scarring along the anterior abdominal wall. Impression: 1. No acute cardiopulmonary process. 2. No acute intra-abdominal or pelvic process. 3. 6.1 cm hypodensity associated with multiple surgical amanda in the left iliac fossa. This may r epresent a postoperative chronic hematoma but is nonspecific. Consider ultrasound or contrast enhanced cross sectional imaging for further evaluation. Electronically signed by: Christoph Lofton MD 05/22/2025 07:28 AM CDT RP Due to temporary technical issues with the PACS/Dtime reporting system, reports are being oneyda d by the in-house radiologist without review as a courtesy to ensure prompt reporting the interpreting radiologist is fully responsible for the content of the report. Transcribed Date/Time: 05/22/2025 7:33 AM
[2025-05-22] MEDS ORDERED: FENTANYL CITR 100 MCG/2 ML ONE (07:49)
--- NOTE | 2025-05-22 08:39 | RAD REPORT ---
EXAM DESCRIPTION: Chest Single View CLINICAL HISTORY: confirmation of central line COMPARISON: 05/22/2025 FINDINGS: 1 view(s) of the chest. Tubes and lines: Leads overlie the chest. Right IJ central venous catheter tip in the SVC. Leads over lie the chest. Cardiomediastinal silhouette: Stable. Lungs: No consolidation, pneumothorax, or pleural effusion. Low lung volumes. Bones: Stable. Upper abdomen: Stable. IMPRESSION: Right IJ central venous catheter tip in the SVC. Electronically signed by: Christopher Marroquin DO 05/22/2025 07:42 AM CDT RP [id number] Due to temporary technical issues with the PACS/[employer] reporting system, reports are being oneyda d by the in-house radiologist without review as a courtesy to ensure prompt reporting. The interpreting radiologist is fully responsible for the content of the report. Transcribed Date/Time: 05/22/2025 8:38 AM
[2025-05-22 11:44] VITALS: TEMP 98.3
[2025-05-22 11:50] VITALS: O2SAT 98
[2025-05-22 11:53] VITALS: BP 154/65
== END 2025-05-22 08:54 | disposition short-term general hospital (02) ==
LOC: ER 00:46
DX: K76.7 Hepatorenal syndrome (principal); R65.20 Severe sepsis without septic shock; I21.4 Non-ST elevation (NSTEMI) myocardial infarction; R74.01 Elevation of levels of liver transaminase levels; R50.9 Fever, unspecified; Z94.4 Liver transplant status; Z94.0 Kidney transplant status; E11.9 Type 2 diabetes mellitus without complications; I10 Essential (primary) hypertension; Z79.4 Long term (current) use of insulin; Z11.52 Encounter for screening for COVID-19
CPT/HCPCS: 93005; 87040 ×2; 85025; 36415; 82550; 87205 ×4; 85610; 82947; 83605 ×2; 85730; 87077; 87186; 84484 ×2; 83690; 80053; 83880; 71250; 74176; 71045 ×2; 82805; 99291; 99292; 36556; 82803; 87428; J1885; J2543; J3010; J3373; J1720; J2405 ×2; P9047; J7040; J7030; J0696